=== PATIENT | female | born 1975 | race Caucasian/White ===

== ENCOUNTER 2021-07-17 16:09 | Inpatient (IN) | payer MEDICAID, SELFPAY ==
[2021-07-17] VITALS (34 sets, daily range): BP systolic 122–148; BP diastolic 80–104; PULSE 120–134; RESP 35–44; TEMP 36.4–36.8; O2SAT 72–94; BMI 61.9
--- NOTE | 2021-07-17 16:45 | ECG_ITS ---
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 Measurements Intervals [place] Rate: 122 P: 57 [place]: 179 QRS: 113 QRSD: 98 T: 45 QT: 434 QTc: 620 Interpretive Statements SINUS TACHYCARDIA POSSIBLE RIGHT VENTRICULAR HYPERTROPHY [SOME/ALL OF: PROMINENT R IN V1, LATE TRANSITION, RAD, BRINDA, SSS] MINIMAL ST DEPRESSION [0.025+ mV ST DEPRESSION] No previous ECG available for comparison Electronically Signed On 07-17-2021 21:56:40 FORK LIFT MECHANIC by Michael Morel M.D. [id number]
--- NOTE | 2021-07-17 16:45 | XRR_ITS ---
PROCEDURE INFORMATION: Exam: XR Chest Exam date and time: 07/17/2021 4:45 PM Age: 46 years old Clinical indication: Dyspnea; Patient HX: Hypoxia TECHNIQUE: Imaging protocol: XR of the chest. Views: 1 view. COMPARISON: No relevant prior studies available. FINDINGS: Lungs: Dense diffuse ground-glass opacities throughout both lungs. No focal consolidation. Pleural spaces: Unremarkable. No pleural effusion. No pneumothorax. Heart/Mediastinum: The heart size is upper normal. Bones/joints: Unremarkable. Soft tissues: A skin fold or clothing fold projects over the left lung. XR/XR chest 1V portable [id number] IMPRESSION: 1. Diffuse pulmonary edema versus pneumonia or ARDS.
--- NOTE | 2021-07-17 16:46 | CTR_ITS ---
PROCEDURE INFORMATION: Exam: CTA Chest With Contrast Exam date and time: 07/17/2021 4:46 PM Age: 46 years old Clinical indication: Shortness of breath; Additional info: Eval pe TECHNIQUE: Imaging protocol: Computed tomographic angiography of the chest with contrast. 3D rendering (Not supervised by radiologist): MIP and/or 3D reconstructed images were created by the technologist. Radiation optimization: All CT scans at this facility use at least one of these dose optimization techniques: automated exposure control; mA and/or kV adjustment per patient size (includes targeted exams where dose is matched to clinical indication); or iterative reconstruction. Contrast material: OMNI 350; Contrast volume: 78 ml; Contrast route: INTRAVENOUS (IV); COMPARISON: CR XR chest 1V portable [id number] 07/17/2021 4:54 PM RADIATION DOSE METRICS: Total DLP (mGy-cm): 542.07 FINDINGS: Pulmonary arteries: No definite filling defects identified within the pulmonary arteries. Evaluation is significantly limited due to severe breathing motion artifact which obscures many pulmonary artery branches. Aorta: Unremarkable. No aortic aneurysm. No aortic dissection. Lungs: Diffuse mixed ground-glass and interstitial opacities throughout both lungs with some sparing in the peripheral left upper lobe and peripheral lower lobes. Pleural spaces: Unremarkable. No pneumothorax. No pleural effusion. Heart: Mild cardiomegaly. Enlargement of the main pulmonary artery measuring 47 mm. Lymph nodes: Prominent mediastinal and hilar lymph nodes are most likely reactive. Gallbladder and bile ducts: Cholecystectomy. Bones/joints: Mild thoracic curvature. The patient is angled in the gantry. No fracture identified. Soft tissues: Unremarkable. CT/CT angio chest PE protcl [id number] IMPRESSION: 1. No definite evidence for pulmonary emboli. Evaluation is significantly limited due to severe breathing motion artifact. 2. Diffuse pulmonary edema versus atypical pneumonia or ARDS. 3. Enlargement of the central pulmonary arteries, most likely pulmonary artery hypertension.
[2021-07-17 17:00] LABS: Alveolar-Arterial Oxygen Gradi 80.4 mmHg (5-10); Arterial Blood Gas Hematocrit 48.9 % (37-47); Blood Gas Allen Test Pos; Blood Gas Operator Identificat GD; Blood Gas Sample Site Radial, right; Blood Gas Sample Type Arterial; Carboxyhemoglobin 0.5 %THgb (0.4-20.1); HCO3 ABG 6.3 mmol/L (22-26); HGB O2 Sat 85.2 % (95-100); Ionized Calcium Level - ABG 1.2 mmol/L (1.1-1.4); Methemoglobin 0.8 % (0.4-1.5); Oxygen Device NRB; Oxygen Saturation ABG 86.3; PO2 ABG 59.4 mmHg (80.0-100.0); Potassium Level - ABG 3.3 mmol/L (3.5-5.0); Total Hemoglobin 15.9 g/dL (12-16)
[2021-07-17 17:01] LABS: ABG PCO2 19.2 mmHg (35-45); ABG PH Result 7.12 (7.35-7.45)
[2021-07-17 17:13] LABS: Hematocrit 48.2 % (37.0-47.0); Hemoglobin 15.5 g/dL (11.5-15.3); Mean Corpuscular HGB Conc 32.2 g/dL (30.0-36.0); Mean Corpuscular Hemoglobin 27.4 pg (28.0-34.0); Mean Corpuscular Volume 85.2 fl (81-99); Mean Platelet Volume 9.2 fL (7.4-10.4); Platelet Count 386 10^3/cmm (130-400); Red Blood Count 5.66 10^6/uL (4.1-5.3)
[2021-07-17] MEDS: ipratropium-albuterol 3 mL Neb INHALATION ×2 (17:23→17:25)
--- NOTE | 2021-07-17 17:28 | PC.PHAR ---
pt and pts friend verified pts medications-pts friend states the pt doesnt have insurance and likes to only takes homeopathic products
[2021-07-17 17:35] LABS: Lactate (Lactic Acid level) 2.4 mmol/L (0.5-2.2)
[2021-07-17 17:36] LABS: Troponin(5th) Baseline 22 ng/L (0-10)
[2021-07-17] MEDS: potassium chloride ER 20 mEq Tablet 40 MEQ PO ×2 (17:42)
[2021-07-17] MEDS: cefepime 1,000 MG in sodium chloride 0.9% (plus) 50 ML 100 MG IV (17:44)
[2021-07-17] MEDS: lidocaine 1% 5 ML in potassium chloride premix 100 ML 50 ML IV (17:44)
[2021-07-17 17:45] LABS: Alanine Aminotransferase 57 U/L (0-33); Albumin Level 3.8 g/dL (3.5-5.2); Alkaline Phosphatase 110 IU/L (35-105); Anion Gap 35.2 (5-19); Aspartate Amino Transferase 49 U/L (0-32); Blood Urea Nitrogen 12 mg/dL (6-20); Calcium 8.4 mg/dL (8.5-10.5); Chloride 97 mmol/L (98-107); Globulin 4.4 g/dL (1.3-4.6); Glomerular Filtration Rate 66.8 mL/min (90-130); Lipase 24 U/L (13-60); NT Pro B Type Natriuretic Pept 490 pg/mL (0-125); Osmolality Calculated 307 mOsm/kg (285-295); Potassium 3.2 mmol/L (3.5-5.1); Sodium 137 mmol/L (136-145); Total Bilirubin 0.3 mg/dL (0.15-1.2); Total Protein 8.2 g/dL (6.6-8.7)
[2021-07-17] MEDS: sodium chloride 0.9% 1,000 ML 999 ML IV ×2 (17:45→17:46)
[2021-07-17] MEDS: vancomycin 1,000 MG in sodium chloride 0.9% 250 ML 250 MG IV (17:45)
[2021-07-17 17:50] LABS: Carbon Dioxide 8 mmol/L (22-29); Glucose 517 mg/dL (65-115)
[2021-07-17 17:51] LABS: Glucose Point of Care 505 mg/dL (70-110)
--- NOTE | 2021-07-17 17:57 | W.ED.GENADLT ---
HPI - General Adult General: Chief complaint: Altered Mental Status Stated complaint: SOB Time Seen by Provider: 07/17/21 16:45 History of Present Illness: HPI narrative: Patient is a 38-year-old female with a history of 2 diabetes, COPD presenting to the emergency room for complaints of acute onset of respiratory distress. Patient's family, patient has been in respiratory distress for the last few days now acutely worsened today. Patient does not believe improvement and refuses testing at this time. Patient reports cough, shortness of breath, fever and chill. Denies any abdominal complaints, chest pain, lightheadedness or palpitation. EMS was alerted patient was brought to the emergency room for evaluation. In route, patient has a glucose of 505 rest of history limited by respiratory status. Onset: 3 days ago Duration:3 days Location:home Severity:severe Review of Systems Narrative: Constitutional: +fever, no chills. HEENT: No vision changes CV: +chest pain, no palpitations PULM: no cough, +dyspnea. GI: No abdominal pain, no N/V/D. : No dysuria MSKEL: No muscle pain SKIN: No new rashes, no lesions. NEURO: No headache, no focal weakness. HEME: No visible bruises PSYCH: Normal mood Physical Exam Narrative: EXAM NARRATIVE: Head: Atraumatic Eyes: PERRL, conjunctiva without injection ENT: Mucous membrane dry NECK: Supple, ROM intact LUNGS: +Coarse breath sounds diffusely, +mild expiratory wheezing CV: Sinus tachycardia ABDOMEN: Soft, nontender in all quadrants EXTREMITY: Normal ROM, no lower extremity edema SKIN: No rash or erythema NEURO: Awake and alert, no focal motor deficits PSYCH: Normal mood and affect Course Vital Signs: Vital signs: Vital Signs Temperature 97.6 F 07/17/21 16:50 Pulse Rate 122 H 07/17/21 18:34 Respiratory Rate 35 H 07/17/21 18:34 Blood Pressure 122/80 07/17/21 18:34 Pulse Oximetry 92 07/17/21 18:34 MDM - General Adult MDM Narrative: Medical decision making narrative: 46-year-old female with history of diabetes, COPD presents emergency room in acute respiratory distress. On arrival, patient was satting 78% on room air. Patient had increased mild increased work of breathing, coarse breath sounds bilaterally. Patient replaced on high flow 50 L/min at 100% with improvement of O2 sats to 90%. Lab work-up showed a white count of 6.0. Patient is noted to have a glucose of 517 with a bicarb of 8, gap of 36, and pH of 7.16 consistent with possible DKA. X-ray chest showed possible multifocal pneumonia versus ARDS versus atypical pneumonia versus Covid. She received vancomycin, cefepime, azithromycin. Patient received 2 L of NS. Given potassium of 3.2, patient received 2 p.o. tablets of 40 mEq potassium and 20 mEq IV potassium prior to starting the insulin drip. Given the fact the patient has a proBNP of 500, without any signs of volume overload, I do not suspect the chest x-ray findings are secondary to CHF exacerbation. As such, patient will be placed on fluids. On reassessment at 7:57 PM, patient adamantly refused to be swabbed for Covid. Patient tells me that she does not want any type of intervention for Covid. Patient reiterates that she does not want to be placed on the ventilator should she be experiencing Covid. Patient will be admitted to the ICU for management of DKA and multifocal pneumonia versus ARDS Lab Data: Labs: Lab Results 07/17/21 07/17/21 07/17/21 16:38 16:40 17:00 WBC 16.0 10^3/uL H 10 ^3/uL (4.0-10.0) RBC 5.66 10^6/uL H 10 ^6/uL (4.1-5.3) Hgb 15.5 g/dL H g/dL (11.5-15.3) Hct 48.2 % H % (37.0-47.0) MCV 85.2 fl fl (81-99) MCH 27.4 pg L pg (28.0-34.0) MCHC 32.2 g/dL g/dL (30.0-36.0) RDW 14.0 % % (12.1-15.1) Plt Count 386 10^3/cmm 10^3 /cmm (130-400) MPV 9.2 fL fL (7.4-10.4) Lymph % (Auto) Not Reportable [place] % (Auto) Not Reportable Lymph # (Auto) Not Reportable [place] # (Auto) Not Reportable Total Counted Atypical Lymphs % Segmented Neutroph ils Band Neutrophils Lymphocytes (Manua l) Monocytes (Manual) Eosinophils (Manua l) Basophils (Manual) Metamyelocytes Platelet Estimate Specimen Type Arterial Sample Site Radial, right ABG pH 7.12 L* (7.35-7.45) ABG pCO2 19.2 mmHg L* mmHg (35-45) ABG pO2 59.4 mmHg L mmHg (80.0-100.0) ABG HCO3 6.3 mmol/L L mmol /L (22-26) ABG O2 Saturation 86.3 ABG Base Excess -21.0 mmol/L L mm ol/L (-2.0-2.0) Isrrael Test Pos A-a O2 Gradient 80.4 mmHg H mmHg (5-10) Hematocrit 48.9 % H % (37-47) Hgb O2 Saturation 85.2 % L % (95-100) Carboxyhemoglobin 0.5 %THgb %THgb (0.4-20.1) Methemoglobin 0.8 % % (0.4-1.5) Total Hemoglobin 15.9 g/dL g/dL (12-16) Sodium 144.0 mmol/L H mm ol/L (131-143) Potassium 3.3 mmol/L L mmol /L (3.5-5.0) Glucose 531.0 mg/dL H mg/ dL (70-115) Ionized Calcium 1.2 mmol/L mmol/L (1.1-1.4) O2 Delivery Device Nrb O2 Liters/Min 15.0 % % FiO2 100.0 % % Irrigation Equipment Installer ID Gd Chloride Carbon Dioxide Anion Gap BUN Creatinine GFR Calculation POC Glucose 505 mg/dL H* mg/d L (70-110) Calculated Osmolal ity Lactate Calcium Total Bilirubin AST ALT Alkaline Phosphata se Troponin T Baselin e NT-Pro-B Natriuret Pep Total Protein Albumin Globulin Lipase Urine Color Urine Appearance Urine pH Ur Specific Gravit y Urine Protein Urine Glucose (UA) Urine Ketones Urine Blood Urine Nitrate Urine Bilirubin Urine Urobilinogen Ur Leukocyte Dona ase Urine RBC Urine WBC Ur Squamous Epith Cells Amorphous Sediment Urine Bacteria Hyaline Casts Serum Ketones 07/17/21 07/17/21 07/17/21 17:00 17:00 17:00 WBC RBC Hgb Hct MCV MCH MCHC RDW Plt Count MPV Lymph % (Auto) [place] % (Auto) Lymph # (Auto) [place] # (Auto) Total Counted Atypical Lymphs % Segmented Neutroph ils Band Neutrophils Lymphocytes (Manua l) Monocytes (Manual) Eosinophils (Manua l) Basophils (Manual) Metamyelocytes Platelet Estimate Specimen Type Sample Site ABG pH ABG pCO2 ABG pO2 ABG HCO3 ABG O2 Saturation ABG Base Excess Isrrael Test A-a O2 Gradient Hematocrit Hgb O2 Saturation Carboxyhemoglobin Methemoglobin Total Hemoglobin Sodium 137 mmol/L mmol/L (136-145) Potassium 3.2 mmol/L L mmol /L (3.5-5.1) Glucose 517 mg/dL H* mg/d L (65-115) Ionized Calcium O2 Delivery Device O2 Liters/Min FiO2 Irrigation Equipment Installer ID Chloride 97 mmol/L L mmol/ L (98-107) Carbon Dioxide 8 mmol/L L* mmol/ L (22-29) Anion Gap 35.2 H (5-19) BUN 12 mg/dL mg/dL (6-20) Creatinine 0.9 mg/dL mg/dL (0.5-0.9) GFR Calculation 66.8 mL/min L mL/ min (90-130) POC Glucose Calculated Osmolal ity 307 mOsm/kg H mOs m/kg (285-295) Lactate Calcium 8.4 mg/dL L mg/dL (8.5-10.5) Total Bilirubin 0.3 mg/dL mg/dL (0.15-1.2) AST 49 U/L H U/L (0-32) ALT 57 U/L H U/L (0-33) Alkaline Phosphata se 110 IU/L H IU/L (35-105) Troponin T Baselin e 22 ng/L H ng/L (0-10) NT-Pro-B Natriuret Pep 490 pg/mL H pg/mL (0-125) Total Protein 8.2 g/dL g/dL (6.6-8.7) Albumin 3.8 g/dL g/dL (3.5-5.2) Globulin 4.4 g/dL g/dL (1.3-4.6) Lipase 24 U/L U/L (13-60) Urine Color Urine Appearance Urine pH Ur Specific Gravit y Urine Protein Urine Glucose (UA) Urine Ketones Urine Blood Urine Nitrate Urine Bilirubin Urine Urobilinogen Ur Leukocyte Dona ase Urine RBC Urine WBC Ur Squamous Epith Cells Amorphous Sediment Urine Bacteria Hyaline Casts Serum Ketones Positive H (Negative) 07/17/21 07/17/21 07/17/21 17:00 17:00 18:30 WBC RBC Hgb Hct MCV MCH MCHC RDW Plt Count MPV Lymph % (Auto) [place] % (Auto) Lymph # (Auto) [place] # (Auto) Total Counted 100 (0-100) Atypical Lymphs % 1.0 % % (0-5) Segmented Neutroph ils 77 % % Band Neutrophils 5.0 % % Lymphocytes (Manua l) 7 % % Monocytes (Manual) 8.0 % % Eosinophils (Manua l) 0 % % Basophils (Manual) 0.0 % % Metamyelocytes 2.0 % % Platelet Estimate Normal (Normal) Specimen Type Sample Site ABG pH ABG pCO2 ABG pO2 ABG HCO3 ABG O2 Saturation ABG Base Excess Isrrael Test A-a O2 Gradient Hematocrit Hgb O2 Saturation Carboxyhemoglobin Methemoglobin Total Hemoglobin Sodium Potassium Glucose Ionized Calcium O2 Delivery Device O2 Liters/Min FiO2 Irrigation Equipment Installer ID Chloride Carbon Dioxide Anion Gap BUN Creatinine GFR Calculation POC Glucose Calculated Osmolal ity Lactate 2.4 mmol/L H mmol /L (0.5-2.2) Calcium Total Bilirubin AST ALT Alkaline Phosphata se Troponin T Baselin e NT-Pro-B Natriuret Pep Total Protein Albumin Globulin Lipase Urine Color Yellow (Yellow) Urine Appearance Clear (CLEAR) Urine pH 5 (5-7) Ur Specific Gravit y 1.020 (1.005-1.030) Urine Protein 2+ H (Negative) Urine Glucose (UA) 4+ H (Normal) Urine Ketones 3+ H (Negative) Urine Blood 3+ H (Negative) Urine Nitrate Negative (Negative) Urine Bilirubin Neg (Negative) Urine Urobilinogen Norm mg/dL mg/dL (Negative) Ur Leukocyte Dona ase Negative (Negative) Urine RBC 5-10 /hpf H /hpf (0-2) Urine WBC None /hpf /hpf (0-5) Ur Squamous Epith Cells 0-4 /hpf H /hpf (0-5) Amorphous Sediment Not Reportable Urine Bacteria Trace /hpf /hpf (NONE) Hyaline Casts 5-10 /lpf H /lpf Serum Ketones Imaging Data^: Other Imaging: Radiologist's impression: [facility] [id number] Scan ReportSigned Patient: Erika Yu #: [id number]: 1975Acct#:[id number]/Sex: 46 / FADM Date: 07/17/21Loc: ERRoom/Bed:Attending Dr: Ordering Provider/Ordering MD: Rui Bowen MD Date of Service: 07/17/21 Procedure(s): CT angio chest PE protcl [id number] Accession Number(s): [id number] Report Number: [id number] PROCEDURE INFORMATION: Exam: CTA Chest With Contrast Exam date and time: 07/17/2021 4:46 PM Age: 46 years old Clinical indication: Shortness of breath; Additional info: Eval pe TECHNIQUE: Imaging protocol: Computed tomographic angiography of the chest with contrast. 3D rendering (Not supervised by radiologist): MIP and/or 3D reconstructed images were created by the technologist. Radiation optimization: All CT scans at this facility use at least one of these dose optimization techniques: automated exposure control; mA and/or kV adjustment per patient size (includes targeted exams where dose is matched to clinical indication); or iterative reconstruction. Contrast material: OMNI 350; Contrast volume: 78 ml; Contrast route: INTRAVENOUS (IV); COMPARISON: CR XR chest 1V portable [id number] 07/17/2021 4:54 PM RADIATION DOSE METRICS: Total DLP (mGy-cm): 542.07 FINDINGS: Pulmonary arteries: No definite filling defects identified within the pulmonary arteries. Evaluation is significantly limited due to severe breathing motion artifact which obscures many pulmonary artery branches. Aorta: Unremarkable. No aortic aneurysm. No aortic dissection. Lungs: Diffuse mixed ground-glass and interstitial opacities throughout both lungs with some sparing in the peripheral left upper lobe and peripheral lower lobes. Pleural spaces: Unremarkable. No pneumothorax. No pleural effusion. Heart: Mild cardiomegaly. Enlargement of the main pulmonary artery measuring 47 mm. Lymph nodes: Prominent mediastinal and hilar lymph nodes are most likely reactive. Gallbladder and bile ducts: Cholecystectomy. Bones/joints: Mild thoracic curvature. The patient is angled in the gantry. No fracture identified. Soft tissues: Unremarkable. CT/CT angio chest PE protcl [id number] IMPRESSION: 1. No definite evidence for pulmonary emboli. Evaluation is significantly limited due to severe breathing motion artifact. 2. Diffuse pulmonary edema versus atypical pneumonia or ARDS. 3. Enlargement of the central pulmonary arteries, most likely pulmonary artery hypertension. Dictated By:Davy Sheppard By:Davy Sheppard Date/Time:07/17/21 1933DD/ [address] [address]AGgn ReportSigned Patient: Erika Yu #: [id number]: 1975Acct#:[id number]/Sex: 46 / FADM Date: 07/17/21Loc: ERRoom/Bed:Attending Dr: Ordering Provider/Ordering MD: Rui Bowen MD Date of Service: 07/17/21 Procedure(s): XR chest 1V portable [id number] Accession Number(s): [id number] Report Number: [id number] PROCEDURE INFORMATION: Exam: XR Chest Exam date and time: 07/17/2021 4:45 PM Age: 46 years old Clinical indication: Dyspnea; Patient HX: Hypoxia TECHNIQUE: Imaging protocol: XR of the chest. Views: 1 view. COMPARISON: No relevant prior studies available. FINDINGS: Lungs: Dense diffuse ground-glass opacities throughout both lungs. No focal consolidation. Pleural spaces: Unremarkable. No pleural effusion. No pneumothorax. Heart/Mediastinum: The heart size is upper normal. Bones/joints: Unremarkable. Soft tissues: A skin fold or clothing fold projects over the left lung. XR/XR chest 1V portable [id number] IMPRESSION: 1. Diffuse pulmonary edema versus pneumonia or ARDS. Dictated By:Davy Sheppard By:Davy Sheppard Date/Time:07/17/21 [id number]/ 1645 Critical Care Time Critical Care Time: Critical Care Time: Yes Total Critical Care Time: 45 Attestation: Given the high probability of imminent or life threatening deterioration of the patient?s condition without intervention, the patient was immediately assessed by myself and the nurse, and cardiac monitoring initiated. The patient was also placed on oxygen and continuous pulse oximetry initiated. During the course of the patient?s stay, I spent a considerable amount of time at the bedside performing serial re-evaluations of the patient?s hemodynamic and clinical status because of the recognized potential threat to life or limb in this condition. Clinical management of this patient involved high complexity decision making to assess, manipulate, and support vital organ system failure. I then had a chance to review all of the available laboratory and radiographic studies obtained today, and I also reviewed old records available to me at the time. Sequential vital signs were obtained. Critical care time noted below was time spent engaged in work directly related to the individual patient?s care, not including time performing procedures; however it does include time spent at the immediate bedside or elsewhere on the floor or unit. TOTAL CRITICAL CARE TIME ELAPSED: 45 minutes. BODY SYSTEM AT HIGHEST RISK: Pulmonary. Discharge Plan Discharge Patient Disposition: Admitted As Inpatient Clinical Impression: Acute hypoxemic respiratory failure, DKA (diabetic ketoacidosis), Lung infiltrate Condition: Stable Coding Level of Care Code ED Advertising Executive for Glenna Yepez
[2021-07-17 18:01] LABS: Ketone (Acetest) Serum Positive (Negative)
[2021-07-17 18:05] LABS: Eosinophils 0 %; Lymphocytes 7 %; Platelet Estimate Normal (Normal); Segmented Neutrophils 77 %; Total Cells Counted 100 (0-100)
--- NOTE | 2021-07-17 18:20 | PC.NURSE ---
This Rn spoke with Dr. Tafoya about pt refusing to allow a mccarthy to be placed, Dr. Tafoya still wants mccarthy placed. This RN requested Dr. Tafoya place the new mccarthy, Dr. Tafoya unable to do so at this time. This Rn spoke with Riley Elizabeth and Lyubov, supervisor coffee to advise. This Rn requesting the Urologist come place mccarthy, Clara advised she will talk with Dr. Tafoya
[2021-07-17 19:06] LABS: Add Urine Microscopic? YES; Bacteria Urine TRACE /hpf; Bilirubin Urine Neg (Negative); Blood Urine 3+ (Negative); Glucose Urine UA 4+ (Normal); Ketones Urine 3+ (Negative); Leukocyte Esterase Urine Negative (Negative); Nitrate Urine Negative (Negative); Protein Urine 2+ (Negative); Squamous Epithelial Cell Urine 0-4 /hpf (0-5); Urine Appearance Clear (CLEAR); Urine Color Yellow (Yellow); Urobilinogen Urine Norm (Negative); pH Urine 5 (5-7)
[2021-07-17 19:07] LABS: Add Urine Culture? No
[2021-07-17] MEDS: iohexol 350 mg/mL 100 mL Btl IV (19:07)
[2021-07-17 19:58] LABS: Troponin 5 2HR 22.63 ng/L (0-10); Troponin 5 2HR Delta 0.63 ABS# (0-10)
[2021-07-17] MEDS: insulin regular-human 250 UNIT in sodium chloride 0.9% 250 ML 13.2 UNIT IV (21:01)
--- NOTE | 2021-07-17 21:04 | PC.SOCIAL ---
Dr Crystal requests that HCD be fiilled out and patient is agreeable. Verified patient name and and patient was able to verbalize this. She knows she is in the hospital. She is able to communicate verbally that she wants all life saving measure to be done. She does refuse any testing or treatment for COVID and feels COVID is considered the Billy of the Beast Her friend present in room indicates this is her belief regarding covid. All of these wishes were documented on HCD that she would want all life saving measure except refuses treatment or testing for COVID and patient has verbalized these are her wishes. Her appointed decision maker Wilder Angel (Significant Other) was on phone during the conversation. All papers filled out with 2 witnesses who are Angie and Dr Crystal. Original and copy provided to patient for her and S.O. and one copy placed in chart. All present agreed patient was alert and oriented enough to make her decisions.
[2021-07-17 22:04] LABS: Anion Gap 32.3 (5-19); Blood Urea Nitrogen 16 mg/dL (6-20); Calcium 7.7 mg/dL (8.5-10.5); Chloride 109 mmol/L (98-107); Glomerular Filtration Rate 76.6 mL/min (90-130); Glucose 410 mg/dL (65-115); Osmolality Calculated 316 mOsm/kg (285-295); Potassium 3.3 mmol/L (3.5-5.1); Sodium 144 mmol/L (136-145)
[2021-07-17 22:07] LABS: Glucose Point of Care 367 mg/dL (70-110)
[2021-07-17 22:08] LABS: Carbon Dioxide 6 mmol/L (22-29)
--- NOTE | 2021-07-17 22:30 | PC.NURSE ---
Critical Carbon Dioxide Carbon dioxide level critical at 6. Dr. Crystal notified; no new orders received.
--- NOTE | 2021-07-17 22:39 | PC.NURSE ---
this nurse gave a loading dose of 10 units from the iv pump over [address] rafael SOTO
--- NOTE | 2021-07-17 22:45 | ECG_ITS ---
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 Measurements Intervals [place] Rate: 125 P: 38 [place]: 175 QRS: 110 QRSD: 86 T: 34 QT: 410 QTc: 593 Interpretive Statements SINUS TACHYCARDIA POSSIBLE RIGHT VENTRICULAR HYPERTROPHY [SOME/ALL OF: PROMINENT R IN V1, LATE TRANSITION, RAD, BRINDA, SSS] ANTEROLATERAL MYOCARDIAL INFARCTION , OF INDETERMINATE AGE [40+ ms Q WAVE IN I/aVL/V3-V6] Compared to ECG 07/17/2021 16:50:49 Myocardial infarct finding now present ST (T wave) deviation no longer present Electronically Signed On 07-18-2021 10:55:12 UROLOGIC NURSE by Michael Morel M.D. [id number]
[2021-07-17] MEDS: sodium chlor 0.9% + KCl 20 mEq 20 MEQ/1,000 ML BAG 100 MEQ IV (23:06)
[2021-07-17] MEDS: famotidine 20 mg/2 mL INJ IVP (23:07)
[2021-07-17] MEDS: enoxaparin 40 mg/0.4 mL Syringe SUBCUT (23:07)
--- NOTE | 2021-07-17 23:11 | PM.HP ---
Providers/Chief Complaint Admitting Physician: Sadie Crystal MD Chief Complaint: SOB History of Present Illness Sherrie Yu is a 46 year old female with PMH asthma on inhalers, now usually on home 02, diabetic however has not used insulin in years. In her usual state of health until one week ago when she developed generalized weakness, malaise, headache, fever and wheezing. She concluded this was related to mold in her home. Her friend received a call from her life partner that she is having trouble breathing today and went to her PCP. 02 sat were noted to be 60s-70s, was directed to come to ER. Here she has been on 100% fi02 at 60lpm heated hi flow since arrival. tachypneic with HR 132, RR 40bpm. Found to have DKA additionally with + ketones, blood sugar >500, metabolic acidosis. CTA chest negative for PE but shows Diffuse pulmonary edema versus atypical pneumonia or ARDS and likely pulmonary artery hypertension. Patient is unvaccinated for COVID 19, believes COVID is carlos of the devil, refuses all COVID testing and COVID treatment. No c/o chest pain, dyspnea, palpitations, syncope. Review of Systems General: Reports: 10 or more systems reviewed and unremarkable except in HPI and below Const: Denies: fever(s), chills or body aches Eyes: Denies: change in vision, blurry vision or photophobia ENMT: Reports: hoarseness; Denies: throat pain, enlarged tonsils, odynophagia or nasal congestion Card: Denies: chest pain, palpitations, irregular heart rhythm, edema, swelling of feet/ankles, lightheadedness, pre-syncope, dyspnea on exertion or orthopnea Resp: Denies: dyspnea, productive cough, non-productive cough, wheezing, stridor, pain on inspiration, change in phlegm color, hemoptysis or chest congestion GI: Denies: abdominal pain, nausea, vomiting, hematemesis, coffee ground emesis, dysphagia, heartburn, diarrhea, constipation, GI cramping, change in stool character, hematochezia or melena : Denies: flank pain, difficulty voiding, dysuria, urinary frequency, urinary urgency, urinary hesitancy or hematuria Musc: Denies: neck pain, back pain, extremity pain, joint swelling, joint warmth or deformity Neuro: Denies: headache(s), numbness in extremities, weakness in extremities, sensory changes, difficulty walking, frequent falls, dizziness, vertigo, behavioral changes, Slurred speech present or seizure-like activity Psych: Denies: anxiety, depression, suicidal ideation or homicidal ideation Endo: Denies: polyuria, polydipsia, tired all the time, cold intolerance or hot flashes Umair/Lymph: Denies: easy bruising or easy bleeding Medications/Allergies Home Medications Medication Instructions Recorded Confirmed Last Taken Type Grape Seed Extract Drops 30 drp PO .EIGHT TIMES A DAY 07/17/21 07/17/21 Unknown History albuterol sulfate 2 puff INHALATION QID PRN 07/17/21 07/17/21 Unknown History Allergies Allergy/AdvReac Type Severity Reaction Status Date / Time No Known Allergies Allergy Unverified 07/17/21 17:28 PFSH Acute PFSH: Medical History Asthma Diabetes Vitals/I&O/Wt Last Vital Signs Temp 97.6 F 07/17/21 16:50 Pulse 132 H 07/17/21 22:14 Resp 40 H 07/17/21 22:14 BP 137/96 07/17/21 22:00 Pulse Ox 92 07/17/21 22:14 07/17/21 07/17/21 07/18/21 14:59 22:59 06:59 Intake Total 333 / 2012.333 Balance 333 Weight last 48 hrs Weight 158.757 kg Physical Exam Narrative: EXAM NARRATIVE: General: moderate respiratory distress, using accessory muscles of respiration, tachypneic, appears to be fatigued related to respiratory distress, on heated hi flow HEENT: PERRLA, pupils bilaterally equal and reactive, pallors not present Chest: B/L coarse breath sounds and crackles all lung reyes CVS: S1-S2 regular, tachycardia Abdomen: Soft, nontender, non distended Neuro: No focal deficits, no facial deformity, AO x3, power 5/5 in all limbs Extremities: no edema, clubbing or cyanosis Urinary Catheter Management^: Porter: Cath Placed During This Visit: yes Urinary Catheter Date of Insertion: 07/17/21 Urinary Catheter Time of Insertion: 18:58 Data : 07/18/21 03:53 07/18/21 01:25 Micro: Microbiology 07/17/21 17:00 Blood Culture - Preliminary Blood SPECIMEN COLLECTED 07/17/21 17:00 Blood Culture - Preliminary Blood SPECIMEN COLLECTED Attestation for Other Data: I personally reviewed and interpreted the following: Other data: Laboratory Results WBC 16.0 10^3/uL (4.0-10.0) H 07/17/21 17:00 RBC 5.66 10^6/uL (4.1-5.3) H 07/17/21 17:00 Hgb 15.5 g/dL (11.5-15.3) H 07/17/21 17:00 Hct 48.2 % (37.0-47.0) H 07/17/21 17:00 MCV 85.2 fl (81-99) 07/17/21 17:00 MCH 27.4 pg (28.0-34.0) L 07/17/21 17:00 MCHC 32.2 g/dL (30.0-36.0) 07/17/21 17:00 RDW 14.0 % (12.1-15.1) 07/17/21 17:00 Plt Count 386 10^3/cmm (130-400) 07/17/21 17:00 MPV 9.2 fL (7.4-10.4) 07/17/21 17:00 Lymph % (Auto) Not Reportable 07/17/21 17:00 [place] % (Auto) Not Reportable 07/17/21 17:00 Lymph # (Auto) Not Reportable 07/17/21 17:00 [place] # (Auto) Not Reportable 07/17/21 17:00 Total Counted 100 (0-100) 07/17/21 17:00 Atypical Lymphs % 1.0 % (0-5) 07/17/21 17:00 Segmented Neutrophils 77 % 07/17/21 17:00 Band Neutrophils 5.0 % 07/17/21 17:00 Lymphocytes (Manual) 7 % 07/17/21 17:00 Monocytes (Manual) 8.0 % 07/17/21 17:00 Eosinophils (Manual) 0 % 07/17/21 17:00 Basophils (Manual) 0.0 % 07/17/21 17:00 Metamyelocytes 2.0 % 07/17/21 17:00 Platelet Estimate Normal (Normal) 07/17/21 17:00 Specimen Type Arterial 07/17/21 16:40 Sample Site Radial, right 07/17/21 16:40 ABG pH 7.12 (7.35-7.45) L* 07/17/21 16:40 ABG pCO2 19.2 mmHg (35-45) L* 07/17/21 16:40 ABG pO2 59.4 mmHg (80.0-100.0) L 07/17/21 16:40 ABG HCO3 6.3 mmol/L (22-26) L 07/17/21 16:40 ABG O2 Saturation 86.3 07/17/21 16:40 ABG Base Excess -21.0 mmol/L (-2.0-2.0) L 07/17/21 16:40 [place] Test Pos 07/17/21 16:40 A-a O2 Gradient 80.4 mmHg (5-10) H 07/17/21 16:40 Hematocrit 48.9 % (37-47) H 07/17/21 16:40 Hgb O2 Saturation 85.2 % (95-100) L 07/17/21 16:40 Carboxyhemoglobin 0.5 %THgb (0.4-20.1) 07/17/21 16:40 Methemoglobin 0.8 % (0.4-1.5) 07/17/21 16:40 Total Hemoglobin 15.9 g/dL (12-16) 07/17/21 16:40 Sodium 144.0 mmol/L (131-143) H 07/17/21 16:40 Potassium 3.3 mmol/L (3.5-5.0) L 07/17/21 16:40 Glucose 531.0 mg/dL (70-115) H 07/17/21 16:40 Ionized Calcium 1.2 mmol/L (1.1-1.4) 07/17/21 16:40 O2 Delivery Device Nrb 07/17/21 16:40 O2 Liters/Min 15.0 % 07/17/21 16:40 FiO2 100.0 % 07/17/21 16:40 Financial Services Education Consultant ID Gd 07/17/21 16:40 Sodium 144 mmol/L (136-145) 07/17/21 21:25 Potassium 3.3 mmol/L (3.5-5.1) L 07/17/21 21:25 Chloride 109 mmol/L (98-107) H 07/17/21 21:25 Carbon Dioxide 6 mmol/L (22-29) L* 07/17/21 21:25 Anion Gap 32.3 (5-19) H 07/17/21 21:25 BUN 16 mg/dL (6-20) 07/17/21 21:25 Creatinine 0.8 mg/dL (0.5-0.9) 07/17/21 21:25 GFR Calculation 76.6 mL/min (90-130) L 07/17/21 21:25 Glucose 410 mg/dL (65-115) H 07/17/21 21:25 POC Glucose 317 mg/dL (70-110) H 07/17/21 23:09 Calculated Osmolality 316 mOsm/kg (285-295) H 07/17/21 21:25 Lactate 2.4 mmol/L (0.5-2.2) H 07/17/21 17:00 Calcium 7.7 mg/dL (8.5-10.5) L 07/17/21 21:25 Total Bilirubin 0.3 mg/dL (0.15-1.2) 07/17/21 17:00 AST 49 U/L (0-32) H 07/17/21 17:00 ALT 57 U/L (0-33) H 07/17/21 17:00 Alkaline Phosphatase 110 IU/L (35-105) H 07/17/21 17:00 Troponin T Baseline 22 ng/L (0-10) H 07/17/21 17:00 Troponin T 120 Minute 22.63 ng/L (0-10) H 07/17/21 19:30 Delta Troponin T 0.63 ABS# (0-10) 07/17/21 19:30 NT-Pro-B Natriuret Pep 490 pg/mL (0-125) H 07/17/21 17:00 Total Protein 8.2 g/dL (6.6-8.7) 07/17/21 17:00 Albumin 3.8 g/dL (3.5-5.2) 07/17/21 17:00 Globulin 4.4 g/dL (1.3-4.6) 07/17/21 17:00 Lipase 24 U/L (13-60) 07/17/21 17:00 Urine Color Yellow (Yellow) 07/17/21 18:30 Urine Appearance Clear (CLEAR) 07/17/21 18:30 Urine pH 5 (5-7) 07/17/21 18:30 Ur Specific [place] 1.020 (1.005-1.030) 07/17/21 18:30 Urine Protein 2+ (Negative) H 07/17/21 18:30 Urine Glucose (UA) 4+ (Normal) H 07/17/21 18:30 Urine Ketones 3+ (Negative) H 07/17/21 18:30 Urine Blood 3+ (Negative) H 07/17/21 18:30 Urine Nitrate Negative (Negative) 07/17/21 18:30 Urine Bilirubin Neg (Negative) 07/17/21 18:30 Urine Urobilinogen Norm mg/dL (Negative) 07/17/21 18:30 Ur Leukocyte Esterase Negative (Negative) 07/17/21 18:30 Urine RBC 5-10 /hpf (0-2) H 07/17/21 18:30 Urine WBC None /hpf (0-5) 07/17/21 18:30 Ur Squamous Epith Cells 0-4 /hpf (0-5) H 07/17/21 18:30 Amorphous Sediment Not Reportable 07/17/21 18:30 Urine Bacteria Trace /hpf (NONE) 07/17/21 18:30 Hyaline Casts 5-10 /lpf H 07/17/21 18:30 Urine Opiates Screen Negative ng/mL (Negative) 07/17/21 23:07 Ur Barbiturates Screen Negative ng/mL (Negative) 07/17/21 23:07 Ur Phencyclidine Scrn Negative ng/mL (Negative) 07/17/21 23:07 Ur Amphetamines Screen Negative ng/mL (Negative) 07/17/21 23:07 U Benzodiazepines Scrn Positive ng/mL (Negative) H 07/17/21 23:07 Urine Cocaine Screen Negative ng/mL (Negative) 07/17/21 23:07 U Marijuana (THC) Screen Negative ng/mL (Negative) 07/17/21 23:07 Serum Ketones Positive (Negative) H 07/17/21 17:00 Impressions Chest X-Ray 07/17/21 16:45 IMPRESSION: 1. Diffuse pulmonary edema versus pneumonia or ARDS. Chest CTA 07/17/21 16:46 IMPRESSION: 1. No definite evidence for pulmonary emboli. Evaluation is significantly limited due to severe breathing motion artifact. 2. Diffuse pulmonary edema versus atypical pneumonia or ARDS. 3. Enlargement of the central pulmonary arteries, most likely pulmonary artery hypertension. 07/17/21 16:40 ABG pH 7.12 L* ABG pCO2 19.2 L* ABG pO2 59.4 L ABG HCO3 6.3 L ABG O2 Saturation 86.3 ABG Base Excess -21.0 L A&P Assessment and plan (1) Acute hypoxemic respiratory failure: Admit to ICU in view of acute hypoxemic respiratory failure, impending respiratory distress CTA negative for PE, B/L GGOS and infiltrates concerning for ARDS Differentials include COVID 19 pneumonia, vs bacterial pneumonia incl atypical infections Pateint refusing all COVID 19 testing and treatment including rapid antigen, PCR testing, Remdisivir, tocilizumab and baricitinib. States that this is against her hinduism beliefs and states this is carlos of the devil . Understands that refusing all testing and treatment should she have COVID may be fatal for her. Agreeable for influenza, sputum cx and MRSA screen testing Empiric Zosyn, vanomycin and azithromycin for treatment blood cx taken prior to starting abx Less likely to be pulmonary edema- no clinical signs of fluid overload at this time, BNP 400s. Check Echo to assess for underlying pulmonary HTN. Holding diuretics for now, patient needs aggressive fluid resuscitation currently for DKA. Heated high flow for now, high risk of progression to respiratory fatigue and mechanical ventilation Agreeable for intubation and mechanical ventilation Status: Acute (2) DKA (diabetic ketoacidosis): started on insulin infusion per DKA protocol , target glucose 80-120 CMP every 4 hrs Repeat ABG IVF NS with KCl @ 125cc/hr Once glucose ~250, switch fluids to D5NS Status: Acute (3) ARDS (adult respiratory distress syndrome): as above Status: Acute Additional A&P Information extensive GOC discussion as below : Patient is Full code in accordance with her wishes. She is currently alert, awake and oriented. Knows her name, birthday, fact that she is in a hospital and identifies her friend at bedside and life partner on the phone by correct names. She does not wish her parents, siblings or her daughter in [place] to be contacted with healthcare information or decisions regarding her care should she be in a position not to make decisions for herself. This is because they have different beliefs than her according to her. She designates her /life partner ( by darby, uncertain if has any documentation) Wilder to be the decision maker in the event she cannot speak for herself. This conversation was witnessed by me, ER nurses Angie and Gordon, patient's friend Reyna at bedside and life partner on speakerphone. HCD were fiilled out in the ER and additionally notarized to reflect patient's wishes. Bonnie Matamoros from case management was additionally present at this time. Patient able to communicate verbally that she wants all life saving measure to be done including CPR, mechanical ventilation, antibiotics,tube feeding if needed, etc.. She does refuse any testing or treatment for COVID and feels COVID is considered the Carlos of the Beast . Her friend present in room indicates this is her belief regarding covid.She understands that by refusing such testing and treatment should she have COVID will be detrimental to her health and she can as a result. All of these wishes were documented on HCD. Her appointed decision maker Wilder Angel (Significant Other) was on phone during the conversation. All papers filled out with 2 witnesses. Original and copy provided to patient for her and S.O. and one copy placed in chart. All present agreed patient was alert and oriented enough to make her decisions at this time. Isolation precautions and visitor restrictions per hospital policy to continue during admission presuming COVID given CT findings, clinical history, most likely differential in current pandemic. Patient and DPOA understands and acknowledges this. DVT ppx: lovenox Full code Attestations Medical Necessity Statement*: >2midnight admission will be needed for above defined care Critical Care Time: The high probability of a clinically significant, sudden or life threatening deterioration of the patient's [respiratory,endocrine,cardiovascular,infectious] system(s) required my full and direct attention, intervention and personal management. The critical care time is as shown. This time is in addition to time spent performing any reported procedures but includes the following: [x] Data and vital sign review and interpretation [x] Patient assessment, examination and intervention [x] Documentation [x] Medication orders and management Critical Care Time (min): 90 Coding Level of Care Code Acute Milking Machine Operator for Chg Fwd Diagnoses Acute hypoxemic respiratory failure J96.01 DKA (diabetic ketoacidosis) E11.10 ARDS (adult respiratory distress syndrome) J80
--- NOTE | 2021-07-17 23:30 | PC.NURSE ---
Family Visit Patient's oxygen saturation staying high 80s- low 90s, RR in the 30s. Patient remaining confused. Wilder, patient's DPOA, visited patient at this time with approval from Dr. Crystal. Questions answered about patient status, Wilder verbalized understanding. Wilder informed no visitors allowed for patient in future due to COVID precautions.
[2021-07-17 23:37] LABS: Glucose Point of Care 317 mg/dL (70-110)
[2021-07-17 23:45] LABS: Troponin 5 6HR 21.55 ng/L (0-10)
[2021-07-17 23:51] LABS: Troponin 5 6HR Delta -0.45 ng/L (0-12)
[2021-07-18] VITALS (83 sets, daily range): BP systolic 91–170; BP diastolic 52–98; PULSE 66–134; RESP 24–34; TEMP 36.6–37.4; O2SAT 79–95; BMI 39.2
[2021-07-18 00:09] LABS: Glucose Point of Care 285 mg/dL (70-110)
[2021-07-18] MEDS: azithromycin 500 MG in sodium chloride 0.9% 250 ML 250 MG IV (00:13)
[2021-07-18] MEDS: vancomycin 1,000 MG in sodium chloride 0.9% 250 ML 250 MG IV (00:13)
[2021-07-18 01:37] LABS: Influenza A by IFA Negative (Negative); Influenza B by IFA Negative (Negative)
[2021-07-18 01:50] LABS: Alanine Aminotransferase 46 U/L (0-33); Albumin Level 3.3 g/dL (3.5-5.2); Alkaline Phosphatase 101 IU/L (35-105); Aspartate Amino Transferase 32 U/L (0-32); Blood Urea Nitrogen 18 mg/dL (6-20); Calcium 8.2 mg/dL (8.5-10.5); Chloride 115 mmol/L (98-107); Globulin 4.2 g/dL (1.3-4.6); Glomerular Filtration Rate 66.8 mL/min (90-130); Glucose 250 mg/dL (65-115); Osmolality Calculated 308 mOsm/kg (285-295); Sodium 144 mmol/L (136-145); Total Bilirubin 0.2 mg/dL (0.15-1.2); Total Protein 7.5 g/dL (6.6-8.7)
[2021-07-18 01:56] LABS: Carbon Dioxide 8 mmol/L (22-29)
[2021-07-18 02:11] LABS: Glucose Point of Care 500 mg/dL (70-110)
[2021-07-18 02:11] LABS: Glucose Point of Care 218 mg/dL (70-110)
[2021-07-18 02:13] LABS: Amphetamines Screen Urine Negative (Negative); Barbiturates Screen Urine Negative (Negative); Benzodiazepines Screen Urine Negative (Negative); Cocaine Screen Urine Negative (Negative); Opiate Screen Urine Negative (Negative); PCP Screen Urine Negative (Negative); THC Screen Urine Negative (Negative)
--- NOTE | 2021-07-18 02:36 | PC.NURSE ---
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 PT LIFE PARTNER WAS ON SPEAKER PHONE WHEN THIS NURSE, MARY KELLOGG, AND DR CAMPBELL WITNESSED HIS VERBAL CONSENT TO BE dpoa. PT STATED MULTIPLE TIMES THAT SHE WANTED TO HAVE ALL LIFE SAVING PROCEDURES WITH THE EXCEPTION OF BEING TESTED OR TREATED FOR COVID, OR ANYTHING COVID RELATED. PT FRIEND, WHO WAS IN THE ROOM, ALSO WITNESSED PT WISHES WHEN SHE SIGNED DPOA AND VERBALLY WITNESSED LIFE PARTNER STATING HE WOULD BE DPOA.
[2021-07-18 03:12] LABS: Glucose Point of Care 238 mg/dL (70-110)
[2021-07-18 03:12] LABS: Glucose Point of Care 210 mg/dL (70-110)
--- NOTE | 2021-07-18 03:36 | PC.NURSE ---
PT FRIEND, TONY, STATES THAT PT HAS ASTHMA AND IS SUPPOSED TO USE A CPAP AT NIGHT BUT HER 'BROKE AND SO SHE HASN'T USED ONE IN AWHILE', PT AND PT FRIEND STATES PT HAS DIABETES BUT HASN'T BEEN ABLE TO AFFORD HER INSULIN IN YEARS, SO PT HAS BEEN CONTROLLING HER DIABETES WITH HER DIET, AND PT HAS NOT CHECKED HER SUGAR 'IN MONTHS SINCE SHE LIVED WITH (FRIENDS)'
--- NOTE | 2021-07-18 03:40 | PC.NURSE ---
PT STATES SHE DOES NOT WANT HER PARENTS OR SISTER WHO LIVE IN [place] TO BE CONTACTED WITH ANY INFORMATION THEY ' DO NOT HAVE THE SAME BELIEFS HER'
[2021-07-18 03:58] LABS: ABG PCO2 29.7 mmHg (35-45); Base Excess ABG -16.6 mmol/L (-2.0-2.0); Blood Gas Allen Test Pos; Blood Gas Operator Identificat JB; Blood Gas Sample Site Radial, right; Blood Gas Sample Type Arterial; HCO3 ABG 10.6 mmol/L (22-26); PO2 ABG 62.1 mmHg (80.0-100.0)
[2021-07-18 03:59] LABS: ABG PH Result 7.16 (7.35-7.45); Oxygen Device HAG
[2021-07-18 04:09] LABS: Glucose Point of Care 234 mg/dL (70-110)
[2021-07-18 04:20] LABS: Basophils % 0.1 %; Hematocrit 43.4 % (37.0-47.0); Hemoglobin 14.1 g/dL (11.5-15.3); Lymphocytes # 1.8 10^3/uL (0.8-4.8); Lymphocytes % 12.6 %; Mean Corpuscular HGB Conc 32.5 g/dL (30.0-36.0); Mean Corpuscular Hemoglobin 27.2 pg (28.0-34.0); Mean Corpuscular Volume 83.8 fl (81-99); Mean Platelet Volume 8.6 fL (7.4-10.4); Monocytes # 0.8 10^3/uL (0.2-0.9); Monocytes % 5.9 %; Neutrophils # 10.57 10^3/uL (1.8-7.7); Neutrophils % 73.7 %; Nucleated Red Blood Cells % 0.3 %; Platelet Count 407 10^3/cmm (130-400); Red Blood Count 5.18 10^6/uL (4.1-5.3); Red Cell Distribution Width 14.1 % (12.1-15.1); White Blood Count 14.3 10^3/uL (4.0-10.0)
[2021-07-18 04:34] LABS: C Reactive Protein 245.9 mg/L (0.0-4.9)
[2021-07-18 04:39] LABS: Lactic Sepsis W/Reflex 0.8 mmol/L (0.5-2.2); Procalcitonin 0.78 ng/mL (0-0.5)
[2021-07-18 04:45] LABS: D Dimer 7.91 ug/mIFEU (0-0.59)
[2021-07-18 04:58] LABS: Estmated Average Glucose 364; Hemoglobin A1C 14.3 % (4.0-6.0)
[2021-07-18 05:02] LABS: Hepatitis A Antibody IgM Non-Reactive (Nonreactive); Hepatitis B Core AB, Total Non-Reactive (Nonreactive); Hepatitis B Surface AB 3.5 (11.5-1000); Hepatitis B Surface Antigen Non-Reactive (Nonreactive); Hepatitis C Virus Antibody Non-Reactive (Nonreactive)
[2021-07-18] MEDS: piperacillin-tazobactam 3.375 GM in sodium chloride 0.9% (plus) 50 ML IV ×3 (05:15→20:04)
[2021-07-18 05:39] LABS: Glucose Point of Care 241 mg/dL (70-110)
--- NOTE | 2021-07-18 06:00 | PC.NURSE ---
Physician Communication Patient remaining confused, only oriented to person. Oxygen cannula continuously being pulled away from face and attempts to remove IVs are made by patient. Additionally, HR of 190 sustained for approximately 10 seconds before returning to 120-130s. Dr. Crystal notified of both pieces of information. Order received for 1:1 sitter. Soon after, order received from Dr. Crystal to D/C the sitter and start precedex drip per protocol. Orders carried out per SEP.
[2021-07-18 06:07] LABS: Glucose Point of Care 250 mg/dL (70-110)
[2021-07-18 06:44] LABS: Slide Review Slide Review Perform
[2021-07-18] MEDS: dexmedeTOMIDine 0.9 % NaCL 400 MCG/100 ML PREMIX IV (06:47)
[2021-07-18] MEDS: dextrose 5%-ns + KCl 20 20 MEQ/1,000 ML BAG 75 MEQ IV (06:54)
[2021-07-18 07:05] LABS: Glucose Point of Care 231 mg/dL (70-110)
--- NOTE | 2021-07-18 07:39 | PC.NURSE ---
Report received, assessment completed. Pt oriented to self only, reoriented PRN. HHFNC 55L/95%. PT repositioned, sats improved to mid 90's. Fan placed in room d/t pt c/o being hot. All other VSS. Follows commands. Porter cath draining clear ebenezer urine to BSD. Insulin gtt infusing, precedex infusing per orders. Will monitor.
[2021-07-18 08:19] LABS: Glucose Point of Care 247 mg/dL (70-110)
[2021-07-18] MEDS: budesonide 0.5 mg/2 mL Neb INHALATION ×2 (08:23→20:22)
[2021-07-18] MEDS: ipratropium-albuterol 3 mL Neb INHALATION ×3 (08:23→20:21)
[2021-07-18 08:28] LABS: Magnesium 2.2 mg/dL (1.7-2.3)
[2021-07-18] MEDS: sodium bicarbonate 150 MEQ in dextrose 5% 1,000 ML 100 MEQ IV (08:41)
[2021-07-18] MEDS: lidocaine 1% 5 ML in potassium chloride premix 100 ML 25 ML IV (08:41)
[2021-07-18 08:46] LABS: Phosphorus 0.7 mg/dL (2.5-4.5)
[2021-07-18 09:23] LABS: Glucose Point of Care 283 mg/dL (70-110)
[2021-07-18 10:13] LABS: Glucose Point of Care 302 mg/dL (70-110)
[2021-07-18] MEDS: famotidine 20 mg/2 mL INJ IVP ×2 (10:23→21:50)
[2021-07-18] MEDS: phosphorus 250 mg Tablet PO ×2 (10:24→16:47)
--- NOTE | 2021-07-18 11:02 | P.PN_ITS ---
Subjective Subjective: Interval history: H&P reviewed, did talk with Dr. Crystal as well Overnight events noted Requested phosphorus level, which was low Added bicarb drip this morning Currently patient is on heated high flow 95% Repeating BMP today every 4 hours Repeat VBG as well Anion gap is still open D5 started as her sugar is 250 Told ICU nurse Josh that with addition of bicarb, her sugar will spike up adjust insulin accordingly, keep an eye on potassium level Phosphorus repleted Patient does not want Covid testing or treatment has returned home Him that she does not take any medications at home, her hemoglobin A1c is 14, she does not take Lantus, she controls her diabetes with dietary modifications She is full code, Lactic acid improved Vitals/I&O/Wt Last Vital Signs Temp 99.2 F 07/18/21 04:00 Pulse 81 07/18/21 10:30 Resp 25 H 07/18/21 08:26 BP 110/68 07/18/21 10:30 Pulse Ox 88 L 07/18/21 10:30 07/17/21 07/18/21 07/18/21 22:59 06:59 14:59 Intake Total 2025. / 2025. 652.14 / 2678.453 1335.112 / 1335.112 Output Total 2500 / 2500 Balance 2025. / 2025. -1847.86 / 095.176 5227.112 / 1335.112 Weight last 48 hrs Weight 100.335 kg Weight 158.757 kg Physical Exam Narrative: EXAM NARRATIVE: Patient was on heated high flow 95% FiO2 Able to follow commands Awake and alert and oriented No active distress S1, S2 sinus rhythm Abdomen soft No signs of edema Nonfocal neuro exam She was getting echo Did not ask me to any questions however stated above mention information in my subjective note Urinary Catheter Management^: Porter: Cath Placed During This Visit: yes Reason for Continuing Indwelling Catheter: Accurate Measurement of Urinary Output in Critically Ill Patients Urinary Catheter Date of Insertion: 07/17/21 Urinary Catheter Time of Insertion: 18:58 Data : 07/18/21 03:53 07/18/21 01:25 Micro: Microbiology 07/18/21 01:05 MRSA Culture - Final Nose 07/17/21 18:30 Legionella Urinary Antigen - Final Urine,Clean Catch Bacterial Antigens - Final 07/17/21 17:00 Blood Culture - Preliminary Blood SPECIMEN COLLECTED 07/17/21 17:00 Blood Culture - Preliminary Blood SPECIMEN COLLECTED A&P Assessment and plan (1) ARDS (adult respiratory distress syndrome): Status: Acute (2) Asthma: Status: Acute (3) Diabetes: Status: Acute (4) Acute hypoxemic respiratory failure: Status: Acute (5) DKA (diabetic ketoacidosis): Status: Acute (6) Lung infiltrate: Status: Acute (7) Hypophosphatemia: Status: Acute (8) Severe sepsis with lactic acidosis: Status: Acute (9) Hypoxia: Status: Acute Additional A&P Information Severe DKA Patient has not been taking Lantus Hemoglobin A1c 14 Severe acidosis High anion gap acidosis secondary to lactic acidemia Start bicarb drip Anion gap still open continue insulin drip with D5 IV fluids Bicarb drip ordered today Hypophosphatemia: Repleted Poor nutrition versus refeeding syndrome High risk for cardiac and respiratory arrest ARDS: Acute hypoxia Currently on heated high flow 95% Most likely COVID-19 related patient is endorsing fever, diarrhea, fatigue and lethargy for last 2 weeks She does not want any treatment or testing for Covid This was confirmed with the patient and her significant other She is high risk for intubation For now she is able to hyperventilate without respiratory distress or conversational dyspnea, I will repeat blood gas later today CTA ruled out pulmonary embolism High D-dimer: Likely related to underlying severe infection, she is currently being treated obstructive antibiotics for possible pneumonia related ARDS however I do believe this is related to COVID-19 looking at her signs and sympt oms I spoke with her today and did update him about the current diagnosis, treatment plan, hypoxia, guarded prognosis, critical condition, he was receptive and very appreciative N.p.o. Full code DVT prophylaxis Attestations Medical Necessity Statement*: Critical condition continue ICU management Time Spent in Patient Care: Greater than 35 minutes Coding Level of Care Code Acute Manager Medical Device for [facility] Sandee Diagnoses ARDS (adult respiratory distress syndrome) J80 Asthma J45.909 Diabetes E11.9 Acute hypoxemic respiratory failure J96.01 DKA (diabetic ketoacidosis) E11.10 Lung infiltrate R91.8 Hypophosphatemia E83.39 Severe sepsis with lactic acidosis A41.9; E87.2; R65.20 Hypoxia R09.02
[2021-07-18 11:07] LABS: Glucose Point of Care 303 mg/dL (70-110)
[2021-07-18 11:16] LABS: Base Excess VBG -10.8 mmol/L (-3.0-3.0); Blood Gas Operator Identificat GD; Blood Gas Sample Site Not specified; Blood Gas Sample Type Venous; HCO3 VBG 15.1 mmol/L (24-28); Oxygen Device NC; PCO2 VBG 33.2 mmHg (41-51); PO2 VBG 61.3 mmHg (25-40); pH VBG 7.27 (7.32-7.42)
[2021-07-18 11:42] LABS: Anion Gap 15.6 (5-19); Blood Urea Nitrogen 23 mg/dL (6-20); Calcium 8.4 mg/dL (8.5-10.5); Carbon Dioxide 16 mmol/L (22-29); Chloride 121 mmol/L (98-107); Glomerular Filtration Rate 66.8 mL/min (90-130); Glucose 315 mg/dL (65-115); Osmolality Calculated 324 mOsm/kg (285-295); Potassium 3.6 mmol/L (3.5-5.1); Sodium 149 mmol/L (136-145)
[2021-07-18 12:32] LABS: Glucose Point of Care 280 mg/dL (70-110)
--- NOTE | 2021-07-18 12:44 | PC.NURSE ---
1225 Pt has pulled hfnc off several times over the course of the morning causing o2 sats in the low 80's and mid 70's. came and gave verbal consent for bilateral wrist restraints. Restraints explained to pt and applied. Will monitor.
[2021-07-18 13:02] LABS: Glucose Point of Care 283 mg/dL (70-110)
[2021-07-18] MEDS: dexmedeTOMIDine 0.9 % NaCL 400 MCG/100 ML PREMIX 19.85 MCG IV ×3 (13:29→23:00)
[2021-07-18 14:08] LABS: Glucose Point of Care 237 mg/dL (70-110)
[2021-07-18 15:05] LABS: Glucose Point of Care 275 mg/dL (70-110)
[2021-07-18 15:45] LABS: Anion Gap 14.2 (5-19); Blood Urea Nitrogen 24 mg/dL (6-20); Carbon Dioxide 17 mmol/L (22-29); Chloride 121 mmol/L (98-107); Glomerular Filtration Rate 76.6 mL/min (90-130); Glucose 276 mg/dL (65-115); Osmolality Calculated 322 mOsm/kg (285-295); Potassium 3.2 mmol/L (3.5-5.1); Sodium 149 mmol/L (136-145)
[2021-07-18] MEDS: potassium chloride ER 20 mEq Tablet PO (16:47)
[2021-07-18 16:56] LABS: Glucose Point of Care 314 mg/dL (70-110)
[2021-07-18] MEDS: insulin lispro 100 unit/1 mL SUBCUT (17:59)
--- NOTE | 2021-07-18 18:06 | PC.NURSE ---
Shift Note Frequent safety and comfort rounds continue. Orders and/or nursing care completed as indicated. Patient monitored for response to intervention and treatment(s). Education provided includes treatment plan, medications and oxygen needs. Life partner verbalizes understanding. Pt remains oriented to self only, reoriented PRN. Able to carry on more conversation. Restraints remain in place to prevent pt from removing HFNC. HF settings remain the same throughout the day. Insulin gtt, IVF and hourly accuchecks stopped per orders. Sliding scale insulin given per orders. Will monitor.
[2021-07-18 20:00] LABS: Anion Gap 19.3 (5-19); Blood Urea Nitrogen 28 mg/dL (6-20); Calcium 7.8 mg/dL (8.5-10.5); Carbon Dioxide 14 mmol/L (22-29); Chloride 116 mmol/L (98-107); Glomerular Filtration Rate 66.8 mL/min (90-130); Glucose 478 mg/dL (65-115); Osmolality Calculated 329 mOsm/kg (285-295); Potassium 3.3 mmol/L (3.5-5.1); Sodium 146 mmol/L (136-145)
[2021-07-18 20:18] LABS: Glucose Point of Care 452 mg/dL (70-110)
[2021-07-18] MEDS: insulin glargine 100 units/1 mL 20 UNIT SUBCUT (20:23)
--- NOTE | 2021-07-18 21:00 | PC.NURSE ---
Physician Communication Sodium bicarb drip completed. Dr. Crystal contacted to see if patient was to receive maintenance fluids following the bicarb; no new orders received.
[2021-07-18] MEDS: enoxaparin 40 mg/0.4 mL Syringe SUBCUT (21:50)
--- NOTE | 2021-07-18 23:11 | USCV_ITS ---
Gigi Sherrie Age: 46 Gender: F : 1975 Exam Date: 07/18/2021 08:30 Ordering Phys: Sadie Crystal MD Technologist: Miranda Ordoñez Exam Location: [facility] [place]_ Indication: DKA COVID BP: 112 / 63 HR: 99 Rhythm: Sinus Technical Quality: Adequate MEASUREMENTS (Male / Female) Normal Values 2D ECHO LV Diastolic Diameter PLAX 4.3 cm 4.2 - 5.9 / 3.9 - 5.3 cm LV Systolic Diameter PLAX 2.8 cm LV Chamber Size 3.8 cm IVS Diastolic Thickness 1.2 cm 0.6 - 1.0 / 0.6 - 0.9 cm IVS Systolic Thickness 1.7 cm LVPW Diastolic Thickness 1.6 cm 0.6 - 1.0 / 0.6 - 0.9 cm LVPW Systolic Thickness 2.0 cm RV Chamber Size 5.2 cm LVOT Diameter 2.1 cm LV Ejection Fraction 2D Teich 64.6 % LV Ejection Fraction MOD 2C 66.9 % LV Ejection Fraction 2C AL 68.4 % LA Diameter 3.0 cm LA Width 2.7 cm LA Height 4.5 cm RA Width 3.6 cm RA Height 3.4 cm Aorta at Sinotubular Diameter 3.2 cm M-MODE Aortic Annulus Diameter 3.4 cm LA Ao Ratio MM 0.9 MV E Point Septal Separation 0.4 cm DOPPLER AV Peak Velocity 160.0 cm/s LVOT Peak Velocity 94.0 cm/s AV Area Cont Eq vti 3.1 cm squared AV Area Cont Eq pk 2.1 cm squared MV Area PHT 11.0 cm squared Mitral E to A Ratio 0.9 MV E' Velocity 39.5 cm/s Mitral E to MV E' Ratio 8.8 Mitral E to LV E' Lateral Ratio 10.2 Mitral E to LV E' Septal Ratio 7.8 TR Peak Velocity 218.6 cm/s TR Peak Gradient 19.1 mmHg TR Mean Velocity 194.6 cm/s TR Mean Gradient 17.2 mmHg TR Velocity Time Integral 83.5 cm TV Peak E Velocity 64.0 cm/s Right Atrial Pressure 15.0 mmHg Pulmonary Artery Systolic Pressu 34.1 mmHg PV Peak Velocity 69.7 cm/s RV Acceleration Time 0.1 s RV Ejection Time 0.4 s RV AcT/ET 0.3 FINDINGS Left Ventricle Normal left ventricular size and systolic function, EF 69 %. Mild left ventricular hypertrophy. Right Ventricle The right ventricle is normal in size and function. Right Atrium The right atrium is normal in size. Left Atrium The left atrium is normal in size. Mitral Valve No gross abnormalities noted Aortic Valve No gross abnormalities noted Tricuspid Valve Trace tricuspid valve regurgitation. Pulmonic Valve No gross abnormalities noted Pericardium Small pericardial effusion. Aorta Normal ascending aorta dimension. CONCLUSIONS Normal left ventricular size and systolic function, EF 69 %. Mild left ventricular hypertrophy. No significant wall motion normalities. Trace tricuspid valve regurgitation. No significant valvular abnormalities Normal cardiac chamber sizes Small pericardial effusion. There are no intracardiac masses. No similar previous study is available for comparison. Dr Leanna Montoya MD FACC (Electronically Signed) Final Date: 18 July 2021 16:52 S
[2021-07-19] VITALS (56 sets, daily range): BP systolic 87–144; BP diastolic 59–97; PULSE 59–91; RESP 17–35; TEMP 36.5–37; O2SAT 81–100; BMI 40.2
[2021-07-19] MEDS: ipratropium-albuterol 3 mL Neb INHALATION ×3 (02:35→20:02)
--- NOTE | 2021-07-19 03:10 | PC.NURSE ---
Anxiety Patient yelling out help from room. Upon assessment, patient remaining only oriented to self. Patient started to cry and state that her was supposed to take her away days ago. Reorientation provided along with education on current health issues. Patient stated she was not in pain; drink and food offered but refused. All vitals stable. Precedex titrated per SEP. Patient calm again when nurse left room.
[2021-07-19 03:43] LABS: ABG PCO2 33.7 mmHg (35-45); Arterial Blood Gas Hematocrit 40.7 % (37-47); Base Excess ABG -8.7 mmol/L (-2.0-2.0); Blood Gas Allen Test Pos; Blood Gas Operator Identificat JB; Blood Gas Sample Site Radial, right; Blood Gas Sample Type Arterial; HCO3 ABG 16.7 mmol/L (22-26); Oxygen Device HAG; PO2 ABG 52.1 mmHg (80.0-100.0)
[2021-07-19] MEDS: piperacillin-tazobactam 3.375 GM in sodium chloride 0.9% (plus) 50 ML IV (03:59)
[2021-07-19] MEDS: dexmedeTOMIDine 0.9 % NaCL 400 MCG/100 ML PREMIX 19.85 MCG IV (04:00)
[2021-07-19 04:01] LABS: Basophils # 0.1 10^3/uL (0.0-0.1); Basophils % 0.7 %; Eosinophils % 0.1 %; Hematocrit 25.9 % (37.0-47.0); Hemoglobin 8.5 g/dL (11.5-15.3); Lymphocytes # 1.1 10^3/uL (0.8-4.8); Lymphocytes % 11.7 %; Mean Corpuscular HGB Conc 32.8 g/dL (30.0-36.0); Mean Corpuscular Hemoglobin 27.3 pg (28.0-34.0); Mean Corpuscular Volume 83.3 fl (81-99); Mean Platelet Volume 10.7 fL (7.4-10.4); Monocytes # 0.6 10^3/uL (0.2-0.9); Monocytes % 6.8 %; Neutrophils # 6.74 10^3/uL (1.8-7.7); Neutrophils % 74.2 %; Nucleated Red Blood Cells % 0.2 %; Platelet Count 311 10^3/cmm (130-400); Red Blood Count 3.11 10^6/uL (4.1-5.3); Red Cell Distribution Width 14.8 % (12.1-15.1); White Blood Count 9.1 10^3/uL (4.0-10.0)
[2021-07-19] MEDS: lidocaine 1% 5 ML in potassium chloride premix 100 ML 50 ML IV (04:01)
[2021-07-19 04:28] LABS: Blood Urea Nitrogen 29 mg/dL (6-20); Calcium 7.8 mg/dL (8.5-10.5); Carbon Dioxide 14 mmol/L (22-29); Chloride 112 mmol/L (98-107); Glomerular Filtration Rate 66.8 mL/min (90-130); Glucose 498 mg/dL (65-115); Magnesium 1.8 mg/dL (1.7-2.3); Osmolality Calculated 324 mOsm/kg (285-295); Phosphorus 2.2 mg/dL (2.5-4.5); Sodium 143 mmol/L (136-145)
[2021-07-19 04:55] LABS: Anion Gap 20.4 (5-19); Potassium 3.4 mmol/L (3.5-5.1)
[2021-07-19 05:38] LABS: Slide Review Slide Review Perform
--- NOTE | 2021-07-19 06:26 | PC.NURSE ---
Agitation Patient attempting to pull off telemetry leads in addition to yanking at clothing, wrist restraints, and blankets. Patient states I am sick of this shit. I want to go home. Nurse asked patient what part of care could be done better, patient stated none. Nurse offered food, drink, pain relief options, and education on health status/necessity of hospital care. Patient refused pain relief, drink, and food. All vitals stable. Patient calmed down after discussion, resting in bed as nurse left room.
[2021-07-19 07:06] LABS: Glucose Point of Care 459 mg/dL (70-110)
--- NOTE | 2021-07-19 07:34 | PC.NURSE ---
Report received, assessment completed. VSS, repositioned and turned per staff. Precedex infusing at 0.5. Bilateral wrist restraints in place. released and reapplied per protocol. Porter cath in place draining freely to BSD. FNC in use. 55L,95%. JN gray MD notified. Will monitor.
[2021-07-19] MEDS: budesonide 0.5 mg/2 mL Neb INHALATION ×2 (07:56→20:02)
[2021-07-19] MEDS: insulin lispro 100 unit/1 mL SUBCUT ×4 (08:09→21:33)
[2021-07-19] MEDS: sodium chloride 0.9% 1,000 ML 999 ML IV (08:10)
[2021-07-19] MEDS: phosphorus 250 mg Tablet PO ×2 (08:10→17:14)
--- NOTE | 2021-07-19 08:11 | CTR_ITS ---
PROCEDURE INFORMATION: Exam: CT Abdomen And Pelvis With Contrast Exam date and time: 07/19/2021 8:11 AM Age: 46 years old Clinical indication: Abdominal pain; Acute; Additional info: Abd pain< anemia< lactic acidemia TECHNIQUE: Imaging protocol: Computed tomography of the abdomen and pelvis with contrast. Radiation optimization: All CT scans at this facility use at least one of these dose optimization techniques: automated exposure control; mA and/or kV adjustment per patient size (includes targeted exams where dose is matched to clinical indication); or iterative reconstruction. Contrast material: OMNI 300; Contrast volume: 95 ml; Contrast route: INTRAVENOUS (IV); COMPARISON: CT angio chest PE protcl [id number] 07/17/2021 7:00 PM RADIATION DOSE METRICS: Total DLP (mGy-cm): 2516.91 FINDINGS: The examination performed is degraded by motion artifact. Lungs: Extensive bibasilar interstitial/airspace disease. Liver: Hepatomegaly and fatty infiltration of the liver. Gallbladder and bile ducts: Status post cholecystectomy. Pancreas: No pancreatic mass or ductal dilatation. Spleen: Enlarged spleen measuring 15.2 cm in length. Adrenal glands: Unremarkable adrenals. Kidneys and ureters: Normal renal morphology. Mild dilatation of the left renal pelvis, without ureteral dilatation. Stomach and bowel: Mildly dilated air and fluid-filled stomach. Dilatation of the proximal colon with surgical anastomosis in the proximal descending colon. Diverticula, without pericolonic inflammation. Appendix: Nonvisualization of the appendix. Intraperitoneal space: Small quantity of free fluid in the right adnexal region and cul-de-sac. Vasculature: Normal caliber of the abdominal aorta. Lymph nodes: Subcentimeter lymph nodes. Urinary bladder: Porter catheter in the decompressed bladder. Reproductive: 2.6 cm right ovarian cyst. Bones/joints: Degenerative change and Schmorl's nodes. Soft tissues: Fat containing umbilical hernia. Postoperative scarring in the anterior abdominal wall midline. 4.2 cm intramuscular lipoma in the right adductor muscle. CT/CT abdomen pelvis w con* [id number] IMPRESSION: 1. Small quantity of free fluid in the right adnexal region and cul-de-sac. 2. 2.6 cm right ovarian cyst. 3. Extensive bibasilar interstitial/airspace disease. 4. Dilatation of the proximal colon with surgical anastomosis in the proximal descending colon. 5. Additional findings as described above.
[2021-07-19] MEDS: dexmedeTOMIDine 0.9 % NaCL 400 MCG/100 ML PREMIX 27.78 MCG IV ×2 (08:49→12:14)
[2021-07-19] MEDS: iohexol 300 mg/mL 100 mL Btl IV (09:25)
[2021-07-19] MEDS: lidocaine 1% 5 ML in potassium chloride premix 100 ML 25 ML IV (09:35)
[2021-07-19] MEDS: pantoprazole 40 mg SDV IVP (09:36)
[2021-07-19] MEDS: cefepime 2,000 MG in sodium chloride 0.9% (plus) 50 ML 100 MG IV ×2 (09:36→19:16)
[2021-07-19 09:56] LABS: Hematocrit 35.7 % (37.0-47.0); Hemoglobin 11.8 g/dL (11.5-15.3)
[2021-07-19 10:00] LABS: Lactate (Lactic Acid level) 1.2 mmol/L (0.5-2.2)
[2021-07-19 10:10] LABS: Thyroid Stimulating Hormone 0.13 uIU/mL (0.27-4.20)
[2021-07-19 10:11] LABS: Cortisol Random 22.94 ug/dL (2.47-19.5)
[2021-07-19 11:55] LABS: Glucose Point of Care 385 mg/dL (70-110)
[2021-07-19] MEDS: sodium bicarbonate 8.4% 1 mEq/mL 50mL Syr 100 MEQ IVP (12:14)
--- NOTE | 2021-07-19 13:26 | P.PN_ITS ---
Subjective Subjective: Interval history: Her anion gap has opened up again, bicarb drip has been turned off because of hypokalemia, IV phosphorus repleted today In the morning H&H was low however on repeat it is 11 no active signs of bleeding, blood pressure 104/71, not on any vasopressors, currently on Precedex 0.7 updated, I have requested CT abdomen pelvis heated high flow 95%, 50 L Splenomegaly Ovarian cyst Surgical anastomosis proximal colon 4.2 cm intramuscular lipoma in the right adductor muscle. CT/CT abdomen pelvis w con* [id number] IMPRESSION: 1. Small quantity of free fluid in the right adnexal region and cul-de-sac. 2. 2.6 cm right ovarian cyst. 3. Extensive bibasilar interstitial/airspace disease. 4. Dilatation of the proximal colon with surgical anastomosis in the proximal descending colon. Vitals/I&O/Wt Last Vital Signs Temp 98.6 F 07/19/21 08:00 Pulse 65 07/19/21 12:00 Resp 28 H 07/19/21 12:00 BP 104/71 07/19/21 12:00 Pulse Ox 92 07/19/21 12:00 07/18/21 07/19/21 07/19/21 22:59 06:59 14:59 Intake Total 2838.136 / 5086.158 1746.156 / 6832.314 1954.915 / 1954.915 Output Total 425 / 425 750 / 1175 1000 / 1000 Balance 2413.136 / 4661.158 996.156 / 5657.314 954.915 / 954.915 Weight last 48 hrs Weight 103.147 kg Weight 100.335 kg Weight 158.757 kg Physical Exam Narrative: EXAM NARRATIVE: Patient was in semi-Cueva position on heated high flow 50 L 95% Able to answer my question No signs of focal deficit Abdomen is soft bowel sound present Rhonchi at the base of the lungs Dry cracked lips Pursed lip breathing No signs of edema S1, S2 sinus rhythm Blood pressure 104/71 mmHg Urinary Catheter Management^: Porter: Cath Placed During This Visit: yes Reason for Continuing Indwelling Catheter: Accurate Measurement of Urinary Output in Critically Ill Patients Urinary Catheter Date of Insertion: 07/17/21 Urinary Catheter Time of Insertion: 18:58 Data : 07/19/21 08:58 07/19/21 03:30 Micro: Microbiology 07/17/21 17:00 Blood Culture - Preliminary Blood NEGATIVE TO DATE 07/17/21 17:00 Blood Culture - Preliminary Blood NEGATIVE TO DATE 07/18/21 01:05 MRSA Culture - Final Nose 07/17/21 18:30 Legionella Urinary Antigen - Final Urine,Clean Catch Bacterial Antigens - Final A&P Assessment and plan (1) Hypoxia: Status: Acute (2) Severe sepsis with lactic acidosis: Status: Acute (3) Hypophosphatemia: Status: Acute (4) ARDS (adult respiratory distress syndrome): Status: Acute (5) Asthma: Status: Acute (6) Diabetes: Status: Acute (7) Acute hypoxemic respiratory failure: Status: Acute (8) DKA (diabetic ketoacidosis): Status: Acute Additional A&P Information Severe DKA Gap opened up again today She was given fluid bolus Repeat BMP Bicarb drip was stopped yesterday due to low potassium Today I would only keep her IV push for now Change sliding scale to high dose increase Lantus to 25 units Bicarb improved, still not within normal range Hypoxic respiratory failure related to COVID-19 ARDS Patient does not want any investigation or treatment for Covid patient and her both are adamant about not getting any treatment for Covid Currently on heated high flow 95%, 50 L She is at high risk of deterioration, She is full code, Sepsis related to COVID-19 infection Sepsis present on admission Criteria met with tachypnea, low blood pressure, leukocytosis Hypotension most likely related to severe acidosis, preserved ejection fraction, no active signs of infection, she was treated empirically for possibility of pneumonia however she does have severe bilateral infiltrate likely related to Covid, MRSA PCR negative, vancomycin discontinued, cultures negative to date, leukocytosis improved Hypophosphatemia, repleted Hypomagnesemia: Repleted Abnormal TSH, check T4 level Normal hemoglobin no active signs of anemia repeat H&H is normal CT abdomen pelvis revealed splenomegaly, ovarian cyst, updated Full code Attestations Medical Necessity Statement*: Continue ICU management Time Spent in Patient Care: 16 - 35 minutes Coding Level of Care Code Acute Sports Marketing Specialist for [facility] Fwd Diagnoses Hypoxia R09.02 Severe sepsis with lactic acidosis A41.9; E87.2; R65.20 Hypophosphatemia E83.39 ARDS (adult respiratory distress syndrome) J80 Asthma J45.909 Diabetes E11.9 Acute hypoxemic respiratory failure J96.01 DKA (diabetic ketoacidosis) E11.10
[2021-07-19] MEDS: sodium chloride 0.9% 1,000 ML 100 ML IV (13:50)
[2021-07-19 14:07] LABS: Anion Gap 17.2 (5-19); Blood Urea Nitrogen 24 mg/dL (6-20); Carbon Dioxide 18 mmol/L (22-29); Chloride 113 mmol/L (98-107); Glomerular Filtration Rate 76.6 mL/min (90-130); Glucose 370 mg/dL (65-115); Osmolality Calculated 319 mOsm/kg (285-295); Potassium 3.2 mmol/L (3.5-5.1); Sodium 145 mmol/L (136-145)
[2021-07-19] MEDS: dexmedeTOMIDine 0.9 % NaCL 400 MCG/100 ML PREMIX 35.72 MCG IV (15:24)
--- NOTE | 2021-07-19 16:14 | PC.NURSE ---
Pt has had multiple episodes of desaturations. Pt repositioned to optimize oxygen. O2 at 87% on 50L/100%. is aware of worsening condition and has spoken with MD. has permission from MD to come and see pt before making any more decisions regarding care. Pt precedex increased throughout the day d/t increasing agitation and combativeness. No other issues noted. Will monitor.
[2021-07-19 16:26] LABS: ABG PH Result 7.41 (7.35-7.45); Arterial Blood Gas Hematocrit 37.2 % (37-47); Base Excess ABG -0.9 mmol/L (-2.0-2.0); Blood Gas Allen Test Pos; Blood Gas Operator Identificat BD; Blood Gas Sample Site Brachial, right; Blood Gas Sample Type Arterial; HCO3 ABG 23.4 mmol/L (22-26); Oxygen Device NC; PO2 ABG 43.8 mmHg (80.0-100.0)
[2021-07-19 16:59] LABS: Free T4 Free Thyroxine 0.99 ng/dL (0.82-1.77)
[2021-07-19 17:29] LABS: Glucose Point of Care 322 mg/dL (70-110)
[2021-07-19] MEDS: dexmedeTOMIDine 0.9 % NaCL 400 MCG/100 ML PREMIX 39.69 MCG IV ×2 (18:01→20:49)
--- NOTE | 2021-07-19 20:55 | PC.NURSE ---
BIPAP/Sitter Patient's RR in the high 30s, oxygen saturation maintaining at 83-84% periodically. Dr. Crystal notified. Order received for BIPAP use when SPO2 <86% and 1:1 sitter with Bipap use. RT contacted; BIPAP initiated. Restraints discontinued as sitter began observation. Patient's oxygen saturation remaining in mid-high 90s. All other vitals stable.
[2021-07-19] MEDS: insulin glargine 100 units/1 mL 25 UNIT SUBCUT (21:33)
[2021-07-19 21:45] LABS: Glucose Point of Care 253 mg/dL (70-110)
--- NOTE | 2021-07-19 22:05 | PC.NURSE ---
Family Update Wilder, patient's DPOA, called and notified of patient's increased need in oxygen requirements and use of sitter. Possibility of intubation discussed if patient's condition worsens; verbal consent gained from Wilder by this nurse and verified by charge nurse, VALDEZ Castillo. Family verbalized understanding and states has no further questions for now.
[2021-07-19] MEDS: enoxaparin 40 mg/0.4 mL Syringe SUBCUT (22:54)
[2021-07-20] VITALS (54 sets, daily range): BP systolic 111–153; BP diastolic 75–113; PULSE 57–84; RESP 18–36; TEMP 35.6–36.8; O2SAT 85–99; BMI 40.2
[2021-07-20] MEDS: sodium chloride 0.9% 1,000 ML 100 ML IV (00:10)
--- NOTE | 2021-07-20 01:00 | PC.NURSE ---
Dr. Crystal updated of increasing use of pressors to maintain BP. No new orders received at this time.
[2021-07-20] MEDS: dexmedeTOMIDine 0.9 % NaCL 400 MCG/100 ML PREMIX 39.69 MCG IV ×4 (02:35→13:40)
[2021-07-20] MEDS: ipratropium-albuterol 3 mL Neb INHALATION ×5 (02:55→20:05)
--- NOTE | 2021-07-20 03:30 | PC.NURSE ---
Critical Labs Dr. Crystal notified of critical WBC 59.4, potassium level of 6.7, and CO2 level of 6. Orders not received during phone call but to be put in by Dr. Crystal.
[2021-07-20 03:36] LABS: ABG PCO2 36.3 mmHg (35-45); ABG PH Result 7.44 (7.35-7.45); Base Excess ABG 0.9 mmol/L (-2.0-2.0); Blood Gas Allen Test Pos; Blood Gas Sample Site Radial, right; Blood Gas Sample Type Arterial; HCO3 ABG 24.8 mmol/L (22-26); Oxygen Device BIPAP; PO2 ABG 56.5 mmHg (80.0-100.0)
[2021-07-20 04:07] LABS: Blood Urea Nitrogen 19 mg/dL (6-20); Calcium 7.8 mg/dL (8.5-10.5); Carbon Dioxide 21 mmol/L (22-29); Chloride 115 mmol/L (98-107); Glomerular Filtration Rate 89.3 mL/min (90-130); Glucose 172 mg/dL (65-115); Osmolality Calculated 316 mOsm/kg (285-295); Phosphorus 2.2 mg/dL (2.5-4.5); Sodium 150 mmol/L (136-145)
[2021-07-20 04:09] LABS: Anion Gap 17.4 (5-19); Potassium 3.4 mmol/L (3.5-5.1)
[2021-07-20] MEDS: dexmedeTOMIDine 0.9 % NaCL 400 MCG/100 ML PREMIX 35.72 MCG IV ×2 (07:35→11:18)
[2021-07-20] MEDS: cefepime 2,000 MG in sodium chloride 0.9% (plus) 50 ML 100 MG IV ×2 (07:36→20:53)
[2021-07-20 08:09] LABS: Glucose Point of Care 279 mg/dL (70-110)
[2021-07-20] MEDS: budesonide 0.5 mg/2 mL Neb INHALATION ×2 (08:43→20:05)
[2021-07-20] MEDS: insulin lispro 100 unit/1 mL SUBCUT ×2 (09:16→21:12)
[2021-07-20 10:25] LABS: Basophils % 0.4 %; Eosinophils % 0.4 %; Hematocrit 36.8 % (37.0-47.0); Hemoglobin 12.2 g/dL (11.5-15.3); Lymphocytes # 1.1 10^3/uL (0.8-4.8); Lymphocytes % 14.3 %; Mean Corpuscular HGB Conc 33.2 g/dL (30.0-36.0); Mean Corpuscular Hemoglobin 27.7 pg (28.0-34.0); Mean Corpuscular Volume 83.6 fl (81-99); Mean Platelet Volume 9.7 fL (7.4-10.4); Monocytes # 0.2 10^3/uL (0.2-0.9); Monocytes % 3.2 %; Neutrophils # 5.46 10^3/uL (1.8-7.7); Neutrophils % 73.6 %; Nucleated Red Blood Cells % 0.3 %; Platelet Count 182 10^3/cmm (130-400); Red Cell Distribution Width 14.8 % (12.1-15.1); White Blood Count 7.4 10^3/uL (4.0-10.0)
[2021-07-20] MEDS: dextrose 5% 1,000 ML 30 ML IV (11:23)
[2021-07-20] MEDS: insulin regular-human 250 UNIT in sodium chloride 0.9% 250 ML 6.21 UNIT IV (11:27)
[2021-07-20] MEDS: dexamethasone 10 mg/mL INJ 6 MG IVP (11:27)
[2021-07-20 11:30] LABS: Slide Review Slide Review Perform
[2021-07-20 11:51] LABS: Glucose Point of Care 265 mg/dL (70-110)
[2021-07-20 12:36] LABS: Glucose Point of Care 230 mg/dL (70-110)
[2021-07-20 13:48] LABS: Glucose Point of Care 167 mg/dL (70-110)
[2021-07-20 15:02] LABS: Glucose Point of Care 165 mg/dL (70-110)
[2021-07-20 15:53] LABS: Glucose Point of Care 169 mg/dL (70-110)
--- NOTE | 2021-07-20 16:24 | PM.PN ---
Subjective Subjective: Interval history: Chichi required bipap overnight becomes hypoxic as soon as we take off her mask She is bipap dependnt now PO intake is a big challenge now WIll need TPN AND PICC Line ADded Dextrose decadron and insulin gtt to be continued for persistent hyperglycemia pt asked me what is intubation which I explained verbally and used videos on the phone and family updated is her DPOA Vitals/I&O/Wt Last Vital Signs Temp 97.8 F 07/20/21 13:00 Pulse 64 07/20/21 15:06 Resp 34 H 07/20/21 15:05 BP 117/81 07/20/21 14:00 Pulse Ox 95 07/20/21 15:06 07/20/21 07/20/21 07/20/21 06:59 14:59 22:59 Intake Total 1300 / 4301.513 1294.748 / 1294.748 118.135 / 1412.883 Output Total 850 / 2275 Balance 450 / 2026.513 1294.748 / 1294.748 118.135 / 1412.883 Weight last 48 hrs Weight 103.147 kg Weight 103.147 kg Physical Exam Narrative: EXAM NARRATIVE: dehydrated bipap dependent awake and waxing and waning mentation no oedema abd obesity soft abd BS present Non focal neuro exam follow commands EOMI PERRLA Assisted B/l Ronchorous Breath sounds S1, S2 No murmur Urinary Catheter Management^: Porter: Cath Placed During This Visit: yes Reason for Continuing Indwelling Catheter: Accurate Measurement of Urinary Output in Critically Ill Patients Urinary Catheter Date of Insertion: 07/17/21 Urinary Catheter Time of Insertion: 18:58 Data : 07/20/21 09:36 07/20/21 03:00 A&P Assessment and plan (1) Hypoxia: Status: Acute (2) Severe sepsis with lactic acidosis: Status: Acute (3) Hypophosphatemia: Status: Acute (4) ARDS (adult respiratory distress syndrome): Status: Acute (5) Diabetes: Status: Acute (6) Acute hypoxemic respiratory failure: Status: Acute (7) DKA (diabetic ketoacidosis): Status: Acute Additional A&P Information Hypoxia severe ARDS Related to covid 19 Added steroids today Inhaled steroids on board as she carries hx of asthma on bipap high risk for intubation is her DPOA DEhydration and hypernatremia malnourished bipap dependent now Will need TPN AND PICC line Today for hypernatremia I will start d5 and continue insulin gtt to avoid dka episode Sepsis related to covid resolved sepsis wbc normal continue cefepime for empirical coverage of CAP procalcitonin tomorrow subclinical hypothyroidism normal free t4 due to acute sickness DKA resolved HgA1C 14 NEVER USED INSULIN non vaccinated, obese, high risk for intubation, guarded prognosis, this was clearly conveyed to her , mother and the daughter full code consis carb diet TPN from cy needs picc line Attestations Medical Necessity Statement*: Continue icu care Time Spent in Patient Care: 16 - 35 minutes Coding Level of Care Code Acute Supervisor Fur Floor Worker for g Fwd Diagnoses Hypoxia R09.02 Severe sepsis with lactic acidosis A41.9; E87.2; R65.20 Hypophosphatemia E83.39 ARDS (adult respiratory distress syndrome) J80 Diabetes E11.9 Acute hypoxemic respiratory failure J96.01 DKA (diabetic ketoacidosis) E11.10
[2021-07-20] MEDS: dexmedeTOMIDine 0.9 % NaCL 400 MCG/100 ML PREMIX 27.78 MCG IV ×2 (16:48→20:54)
[2021-07-20 17:53] LABS: Glucose Point of Care 164 mg/dL (70-110)
[2021-07-20 17:54] LABS: Glucose Point of Care 155 mg/dL (70-110)
[2021-07-20 18:09] LABS: Blood Urea Nitrogen 13 mg/dL (6-20); Carbon Dioxide 22 mmol/L (22-29); Chloride 111 mmol/L (98-107); Glomerular Filtration Rate 131.7 mL/min (90-130); Glucose 174 mg/dL (65-115); Osmolality Calculated 308 mOsm/kg (285-295); Sodium 147 mmol/L (136-145)
[2021-07-20 18:19] LABS: Glucose Point of Care 164 mg/dL (70-110)
--- NOTE | 2021-07-20 18:28 | PC.NURSE ---
SHift summary: Patient rested in bed throughout the day Remains confused, oriented only to self. Oftentimes thinks she is somewhere is [facility], doesn't seem to understand questions about what year it is. PO meds held due to difficulty swallowing. Patient is able to swallow when drinking, but oftentimes forgets that she is drinking or supposed to swallow something. Nurse doesn't feel it is safe to give PO meds at this time. Due to increasing sodium levels, d5W was started, as well as an insulin drip due to the already high BG levels, now receiving D5, and starting steroids.
--- NOTE | 2021-07-20 18:43 | NUR.SHIFT ---
Per Dr Gilliam, nurse held lovenox due to picc line placement tommorow.
--- NOTE | 2021-07-20 19:11 | PC.NURSE ---
Potassium is 3.0. NUrse alerted Dr Gilliam. REcieved orders for stop insulin and d5w, and give potassium. See orders.
[2021-07-20] MEDS: insulin glargine 100 units/1 mL 25 UNIT SUBCUT (20:55)
[2021-07-20 21:09] LABS: Glucose Point of Care 248 mg/dL (70-110)
[2021-07-21] VITALS (57 sets, daily range): BP systolic 91–185; BP diastolic 62–109; PULSE 51–99; RESP 16–34; TEMP 35.8–36.8; O2SAT 88–97; BMI 40.6
[2021-07-21] MEDS: dexmedeTOMIDine 0.9 % NaCL 400 MCG/100 ML PREMIX 31.75 MCG IV (02:19)
[2021-07-21] MEDS: ipratropium-albuterol 3 mL Neb INHALATION ×4 (03:34→20:12)
[2021-07-21 04:09] LABS: Basophils # 0.1 10^3/uL (0.0-0.1); Basophils % 0.7 %; Eosinophils % 0.1 %; Hematocrit 35.1 % (37.0-47.0); Hemoglobin 11.6 g/dL (11.5-15.3); Lymphocytes # 1.2 10^3/uL (0.8-4.8); Lymphocytes % 14.3 %; Mean Corpuscular Hemoglobin 27.5 pg (28.0-34.0); Mean Corpuscular Volume 83.2 fl (81-99); Mean Platelet Volume 9.4 fL (7.4-10.4); Monocytes # 0.4 10^3/uL (0.2-0.9); Monocytes % 4.4 %; Neutrophils # 5.95 10^3/uL (1.8-7.7); Neutrophils % 72.5 %; Nucleated Red Blood Cells % 0.2 %; Platelet Count 220 10^3/cmm (130-400); Red Blood Count 4.22 10^6/uL (4.1-5.3); Red Cell Distribution Width 14.6 % (12.1-15.1); White Blood Count 8.2 10^3/uL (4.0-10.0)
[2021-07-21 04:14] LABS: ABG PCO2 37.9 mmHg (35-45); ABG PH Result 7.45 (7.35-7.45); Arterial Blood Gas Hematocrit 38.2 % (37-47); Base Excess ABG 2.3 mmol/L (-2.0-2.0); Blood Gas Allen Test Pos; Blood Gas Sample Site Radial, right; Blood Gas Sample Type Arterial; HCO3 ABG 26.3 mmol/L (22-26); Oxygen Device BIPAP
[2021-07-21 04:24] LABS: Anion Gap 18.1 (5-19); Blood Urea Nitrogen 13 mg/dL (6-20); Calcium 7.9 mg/dL (8.5-10.5); Carbon Dioxide 22 mmol/L (22-29); Chloride 109 mmol/L (98-107); Glomerular Filtration Rate 131.7 mL/min (90-130); Glucose 225 mg/dL (65-115); Osmolality Calculated 309 mOsm/kg (285-295); Potassium 3.1 mmol/L (3.5-5.1); Sodium 146 mmol/L (136-145)
[2021-07-21] MEDS: dexmedeTOMIDine 0.9 % NaCL 400 MCG/100 ML PREMIX 27.78 MCG IV ×2 (04:40→07:47)
[2021-07-21 04:47] LABS: Slide Review Slide Review Perform
--- NOTE | 2021-07-21 04:57 | PC.NURSE ---
Shift Note Frequent safety and comfort rounds continue. Orders and/or nursing care completed as indicated. Patient monitored for response to intervention and treatment(s). Education provided includes oxygen requirements and treatment plan. Patient needs further reinforcement. Patient had an eventful shift. She remains on the BIPAP at 80% FiO2, confused at this time-only oriented to self. When asked where she is patients reports, [place], [place] . Throughout the evening patient continues to remove monitoring wires and BIPAP mask. Frequently reoriented to time, place, and educated about medical care being provided. Patient pulled out the right AC IV, new 22 gauge IV was placed in the left forearm. Precedex and Potassium are infusing per protocol, please see MAR for infusion rates. Porter catheter drained 750 mls of dark yellow urine overnight. Will continue to monitor.
[2021-07-21 07:04] LABS: Glucose Point of Care 246 mg/dL (70-110)
[2021-07-21] MEDS: LORazepam 2 mg/mL INJ 1 mL IVP ×2 (07:17→07:23)
--- NOTE | 2021-07-21 07:29 | PC.NURSE ---
PT became extremely agitated, threw bipap in floor and attempted to get out of bed. Pt assisted back to bed per staff, mask replaced eventually with pt fighting and grabbing and pulling at lines and tubes. Placed in restraints per MD orders. Ativan 1mg given IVP per MD orders. Staff at bedside attempting to calm pt in order to get sats out of 60's. O2 sats eventually recovered into 90's after ativan administration. O2 increased to 90% per nurse. Sitter at bedside. All other VSS, mccarthy in place. Pt has been oriented to self only, refused to speak to this nurse. having episodes of paranoia. MD at bedside. Will monitor
--- NOTE | 2021-07-21 07:46 | XR_ITS ---
WS: [id number] PORTABLE CHEST HISTORY: pneumonia COMPARISON: 07/17/2021 Extensive bilateral pulmonary opacifications. Increasing opacification in the central RIGHT lung. No improvement. No effusions. No pleural effusion or pneumothorax. Cardiac size: Mildly enlarged cardiac silhouette. Mediastinum/Aorta: Marked enlargement of the pulmonary artery. Pulmonary artery is bulging at the AP window. No osseous abnormality seen. XR/XR chest 1V portable [id number] IMPRESSION: 1. Mild progression of diffuse bilateral pulmonary opacifications. Consistent with pneumonia or pneumonitis. Edema may also be present. 2. Enlarged pulmonary artery.
[2021-07-21 08:06] LABS: C Reactive Protein 102.8 mg/L (0.0-4.9); Magnesium 1.9 mg/dL (1.7-2.3)
[2021-07-21] MEDS: lidocaine 1% 5 ML in potassium chloride premix 100 ML 25 ML IV (08:11)
[2021-07-21] MEDS: cefepime 2,000 MG in sodium chloride 0.9% (plus) 50 ML 100 MG IV ×2 (08:11→20:47)
[2021-07-21] MEDS: insulin lispro 100 unit/1 mL SUBCUT ×4 (08:12→22:15)
[2021-07-21 08:13] LABS: T3 Free 1.4 PG/ML (2.0-4.4)
[2021-07-21] MEDS: budesonide 0.5 mg/2 mL Neb INHALATION ×2 (08:40→20:12)
--- NOTE | 2021-07-21 08:49 | PM.PN ---
Subjective Subjective: Interval history: Awakens with stimulation. Earlier this morning when I enter the ICU nursing alerted me the patient was very confused, pulling off mask, heart rate was significantly elevated and saturation was decreased. Ativan was ordered in addition to her Precedex. She is now calm, tolerating the BiPAP, with a saturation of 94%. However, she is also on 90% FiO2. She is still tachypneic. Medications: Reviewed: Yes Vitals/I&O/Wt Last Vital Signs Temp 98.1 F 07/21/21 08:00 Pulse 57 L 07/21/21 08:00 Resp 30 H 07/21/21 07:00 BP 142/89 07/21/21 08:00 Pulse Ox 94 07/21/21 08:00 07/20/21 07/21/21 07/21/21 22:59 06:59 14:59 Intake Total 319.640 / 1614.725 787.1052 / 2041.0779 195.6719 / 195.6719 Output Total 950 / 950 750 / 1700 Balance -630.360 / 664.388 -323.3101 / 341.0779 195.6719 / 195.6719 Weight last 48 hrs Weight 103.986 kg Weight 103.147 kg Physical Exam Narrative: EXAM NARRATIVE: General exam is a sleepy female, arousable with stimulation HEENT: Atraumatic normocephalic. BiPAP in place. Neck is supple Cardiovascular regular rate and rhythm, slightly bradycardic, no murmur Lungs scattered crackles, dry Abdomen is soft, obese. Positive bowel sounds. No obvious organomegaly. demonstrates Porter Extremities no cyanosis clubbing or edema, cap refill brisk Urinary Catheter Management^: Porter: Cath Placed During This Visit: yes Reason for Continuing Indwelling Catheter: Accurate Measurement of Urinary Output in Critically Ill Patients Urinary Catheter Date of Insertion: 07/17/21 Urinary Catheter Time of Insertion: 18:58 Data : 07/21/21 03:05 07/21/21 03:05 Other data: ABG demonstrates pH 7.45, PCO2 of 38, PO2 of 76 on 80% FiO2 on BiPAP. Calcium 7.9 CRP 102, down from 245 Free T3 1.4 Chest x-ray diffuse infiltrates, enlarged pulmonary artery A&P Assessment and plan (1) Hypoxia: Now requiring BiPAP, 90% FiO2. Status: Acute (2) ARDS (adult respiratory distress syndrome): Severe ARDS. Chest x-ray today consistent with this with bilateral patchy interstitial infiltrates. No evidence of pneumothorax. This is very likely to be secondary to Covid 19 pneumonia although patient has refused testing. Continue dexamethasone 6 mg IV every 24 hours CRP is decreasing Secondary to worsening requiring BiPAP may need intubation today under control setting Continue pulmonary toilet with DuoNeb every 6 hours, inhaled budesonide Echocardiogram was performed demonstrating an EF of 69%, normal chamber sizes, mild left ventricular hypertrophy Currently on cefepime empirically. Cultures negative. MRSA PCR negative. Bacterial antigens negative. CTA on admission negative for pulmonary embolism. Central pulmonary artery enlargement was noted. Status: Acute (3) Severe sepsis with lactic acidosis: Resolved Status: Acute (4) Asthma: See under ARDS above Status: Acute (5) Diabetes: DKA present on admission has resolved Continue long-acting insulin, sliding scale insulin Status: Acute (6) Acute hypoxemic respiratory failure: Still present, secondary to ARDS and what appears to be viral pneumonia from Covid 19 although patient has refused testing. See documentation in history and physical. Status: Acute Additional A&P Information Acute encephalopathy Abnormal TSH. This is secondary to euthyroid sick Hypernatremia. Add small amount of half-normal saline at 30 cc an hour Full code Lovenox for DVT prophylaxis Attestations Medical Necessity Statement*: Needs continued hospitalization secondary to severe COVID-19 pneumonia Critical Care Time: Critical Care Time (min): 33 Other Attestations: The high probability of a clinically significant, sudden or life threatening deterioration of the patient's [pulmonary, endocrine] system(s) required my full and direct attention, intervention and personal management. The critical care time is as shown. This time is in addition to time spent performing any reported procedures but includes the following: [x] Data and vital sign review and interpretation [x] Patient assessment, examination and intervention [x] Documentation [x] Medication orders and management Coding Level of Care Code Acute Screen Operator for Chantaleg Lucho Diagnoses Hypoxia R09.02 ARDS (adult respiratory distress syndrome) J80 Severe sepsis with lactic acidosis A41.9; E87.2; R65.20 Asthma J45.909 Diabetes E11.9 Acute hypoxemic respiratory failure J96.01
[2021-07-21] MEDS: sodium chloride 0.45% 1,000 ML 30 ML IV (08:53)
[2021-07-21] MEDS: LORazepam 2 mg/mL INJ 1 mL 1 MG IVP (09:06)
--- NOTE | 2021-07-21 09:28 | XR_ITS ---
WS: [id number] PORTABLE CHEST HISTORY: picc COMPARISON: 07/21/2021 Right-sided PICC line is been placed with tip in the distal SVC. Continued bilateral opacifications, greatest in the mid and lower RIGHT lung. There is slight bluntin g of the LEFT costophrenic angle is probably due to a small effusion. Cardiac size: Partially obscured by airspace disease at the lingula. Mediastinum/Aorta: Mild mediastinal widening. Again noted is the dilated pulmonary artery with mild b ulging from the AP window. No osseous abnormality seen. XR/XR chest 1V portable [id number] IMPRESSION: 1. Satisfactory placement of a RIGHT PICC line. 2. Continued bilateral pulmonary opacifications, pneumonia versus pneumonitis and/or edema. 3. Dilated pulmonary artery.
--- NOTE | 2021-07-21 09:35 | PC.NURSE ---
0830 spoke with Wilder TO, this morning and explained need for PICC line and intubation. Consent given for both and witnesses by one other nurse. Answered all questions. 09 PICC nurse in room to insert line, pt became highly agitated and combative. Ativan IVP givven per orders.
--- NOTE | 2021-07-21 09:55 | PC.NURSE ---
PICC RIGHT arm ready for use. Primary nurse notified.
--- NOTE | 2021-07-21 09:57 | PC.NURSE ---
PICC line placement ok'd per .
--- NOTE | 2021-07-21 10:05 | PC.CHAP ---
Pastoral Care Encounter/Spiritual Assessment Type of Contact [] Declined liberal arts and humanities chair visit [] Patient/Family/Request visit [] Outpatient visit [] Follow-up visit [] Physician referral [] Code/Alert [x] Routine visit [] Staff referral [] Actively dying [] Patient sleeping [] Family support [] [] Out of room [] Palliative care [] [] Receiving care in room [] Pre-surgical visit [] Trauma [] Long length of stay [x] ICU visit [x] Other: isolated Relational/Emotional Strength [] Patient feels connected with others/family/visitors/staff [] Distress [] Loneliness/isolation [] Abandonment Spirituality of Patient [] Person of Silvana [] Attends Yarsani of their Silvana [] Believes in Prayer [] Reads Bible or Rastafari materials [] There are Spiritual issues to be addressed [employer] Interventions [x] Prayer [] Active listening [] Non-anxious presence [] Spiritual/emotional support [] Crisis/trauma care [] Spiritual counseling [] Bereavement support [] Provided bereavement packet [] Provided Bible/devotional materials [] Provided toy/stuffed animal, coloring book to patient or family member [] Provided Communion [] Anointing/[place] [] Salvation [x] Completed spiritual assessment [] Other: Impact on Illness or Injury [] Angry [] Fearful [] Anxious [] Often cries [] Exhaustion [] Unable to work [] Unable to attend jewish [] Unable to walk/stand [] Unable to read [] Unable to drive [] Unable to eat/drink [] Unable to sleep [] Unable to be with family [] Patient intubated [] Other: Summary Time spent with patient
[2021-07-21] MEDS: propofol 1,000 MG/100 ML INJ 6.24 MG IV (10:22)
--- NOTE | 2021-07-21 10:41 | XRR_ITS ---
PROCEDURE INFORMATION: Exam: XR Chest Exam date and time: 07/21/2021 10:41 AM Age: 46 years old Clinical indication: Device placement; Ett placement (vent status); Additional info: Et tube TECHNIQUE: Imaging protocol: XR of the chest. Views: 1 view. COMPARISON: CR XR chest 1V portable [id number] 07/21/2021 9:34 AM FINDINGS: Tubes, catheters and devices: Endotracheal tube is in satisfactory position. Feeding tube is in satisfactory position. Right sided PICC is in satisfactory position, with distal tip at the SVC/RA junction. Lungs: Persistent bilateral airspace opacities. No large pleural effusion or pneumothorax. Pleural spaces: See Lungs finding. Heart/Mediastinum: Stable cardiomediastinal silhouette. Bones/joints: Degenerative changes of the spine seen. No acute osseous injury identified. XR/XR chest 1V portable [id number] IMPRESSION: Persistent bilateral airspace opacities.
--- NOTE | 2021-07-21 11:00 | ANES.PROC ---
Anesthesia Procedures Procedure/Date: 07/21/21 Intubation: Consent: requested by attending/covering physician Sedative (amount): other (propofol) Paralytic (amount): rocuronium Laryngoscope: fiber optic video scope ET Tube Size: 8 Tube Secured Depth (cm): 22 Tube Secured Location: teeth Tube Placement Confirmation: visualized tube passing through cords and confirmation by capnometry Patient Tolerated Procedure: well Intubation Complications: none Additional Comments: After confirming consent by attending physician patient intubated using COVID precautions using with rapid sequence of 200 mg lidocaine, 150 mg of propofol, 100 mg rocuronium. Grade 1 view, smooth passage through. Cuff minimal pressure. 1 attempt, confirmed with capnography. Brief desaturation. Pre intubation SpO2 reading of 91%, after intubation saturations 87%, then drifted as low as 81% with rapid recovery to 91% over the course of approx 2 minutes. Tube depth to be confirmed by CXR.
[2021-07-21] MEDS: dexamethasone 10 mg/mL INJ 6 MG IVP (11:08)
--- NOTE | 2021-07-21 11:15 | PC.NURSE ---
1035 Pt intubated with 8.0 ETT, 24cm at lip per anesthesia. VT 400, Fio2 100%, AC 16, peep 10. All intubation meds pushed per MD. OGT placed without issues. Awaiting CXR results to verify ETT and OGT placement. Fentanyl gtt and propofol infusing per orders. Precedex gtt stopped per MD order. Bilateral wrist restraints in place, sitter dismissed. Will monitor.
[2021-07-21 11:16] LABS: Glucose Point of Care 241 mg/dL (70-110)
--- NOTE | 2021-07-21 12:04 | PC.NURSE ---
Addendum entered by Josh Martinez RN 07/21/21 12:05: Green bile noted in OGT, connected to suction. approximately 150ml bile obtained. No green noted when endotracheal suctioning performed. Will monitor. Original Note: Lorazepam gtt added to fentanyl and propofol to provide adequate sedation. BIS monitor placed.
[2021-07-21] MEDS: cisatracurium 100 MG in sodium chloride 0.9% 50 ML IV (12:45)
[2021-07-21] MEDS: propofol 1,000 MG/100 ML INJ 31.2 MG IV ×4 (14:30→23:16)
--- NOTE | 2021-07-21 15:22 | PC.NURSE ---
Pt proned at 1430 per staff x 5. Tolerated fair, O2sat recovered slowly. Will monitor.
[2021-07-21 17:04] LABS: Glucose Point of Care 167 mg/dL (70-110)
[2021-07-21 17:50] LABS: ABG PCO2 54.2 mmHg (35-45); ABG PH Result 7.33 (7.35-7.45); Alveolar-Arterial Oxygen Gradi 73.8 mmHg (5-10); Arterial Blood Gas Hematocrit 36.2 % (37-47); Base Excess ABG 1.4 mmol/L (-2.0-2.0); Blood Gas Allen Test Pos; Blood Gas Operator Identificat BD; Blood Gas Sample Site Radial, left; Blood Gas Sample Type Arterial; HCO3 ABG 28.3 mmol/L (22-26); HGB O2 Sat 94.2 % (95-100); Ionized Calcium Level - ABG 1.2 mmol/L (1.1-1.4); Oxygen Device VENT; Oxygen Saturation ABG 95.1; PO2 ABG 88.2 mmHg (80.0-100.0); Potassium Level - ABG 3.6 mmol/L (3.5-5.0); Total Hemoglobin 11.8 g/dL (12-16)
--- NOTE | 2021-07-21 18:09 | PC.NURSE ---
Shift Note Frequent safety and comfort rounds continue. Orders and/or nursing care completed as indicated. Patient monitored for response to intervention and treatment(s). Education provided includes treatment plan, medications, proning and oxygen needs. Family verbalizes understanding. VSS. Remains proned, vent settings per RT. Gtts infusing per orders. No other issues noted. Will continue to monitor.
[2021-07-21 22:13] LABS: Glucose Point of Care 196 mg/dL (70-110)
[2021-07-21] MEDS: enoxaparin 40 mg/0.4 mL Syringe SUBCUT (22:15)
[2021-07-21] MEDS: insulin glargine 100 units/1 mL 25 UNIT SUBCUT (22:16)
[2021-07-22] VITALS (60 sets, daily range): BP systolic 85–116; BP diastolic 45–68; PULSE 80–116; RESP 20–24; TEMP 36.9–37.4; O2SAT 86–94; BMI 41.5
[2021-07-22] MEDS: propofol 1,000 MG/100 ML INJ 31.2 MG IV (02:30)
[2021-07-22] MEDS: ipratropium-albuterol 3 mL Neb INHALATION ×4 (03:19→19:59)
[2021-07-22 03:51] LABS: ABG PCO2 47.9 mmHg (35-45); ABG PH Result 7.39 (7.35-7.45); Arterial Blood Gas Hematocrit 34.7 % (37-47); Base Excess ABG 3.6 mmol/L (-2.0-2.0); Blood Gas Allen Test Pos; Blood Gas Sample Site Radial, left; Blood Gas Sample Type Arterial; HCO3 ABG 29.2 mmol/L (22-26); Oxygen Device VENT; PO2 ABG 85.4 mmHg (80.0-100.0)
[2021-07-22 04:37] LABS: Alanine Aminotransferase 16 U/L (0-33); Albumin Level 2.6 g/dL (3.5-5.2); Alkaline Phosphatase 90 IU/L (35-105); Anion Gap 17.3 (5-19); Aspartate Amino Transferase 12 U/L (0-32); Blood Urea Nitrogen 17 mg/dL (6-20); Calcium 7.6 mg/dL (8.5-10.5); Carbon Dioxide 26 mmol/L (22-29); Chloride 108 mmol/L (98-107); Globulin 3.2 g/dL (1.3-4.6); Glomerular Filtration Rate 89.3 mL/min (90-130); Glucose 147 mg/dL (65-115); Osmolality Calculated 310 mOsm/kg (285-295); Potassium 3.3 mmol/L (3.5-5.1); Sodium 148 mmol/L (136-145); Total Bilirubin 0.3 mg/dL (0.15-1.2); Total Protein 5.8 g/dL (6.6-8.7)
[2021-07-22 04:54] LABS: Hematocrit 34.6 % (37.0-47.0); Mean Corpuscular HGB Conc 31.8 g/dL (30.0-36.0); Mean Corpuscular Hemoglobin 28.2 pg (28.0-34.0); Mean Corpuscular Volume 88.7 fl (81-99); Mean Platelet Volume 9.9 fL (7.4-10.4); Platelet Count 216 10^3/cmm (130-400); White Blood Count 8.8 10^3/uL (4.0-10.0)
[2021-07-22] MEDS: cisatracurium 100 MG in sodium chloride 0.9% 50 ML 5.62 MG IV (04:56)
[2021-07-22] MEDS: propofol 1,000 MG/100 ML INJ 18.72 MG IV ×4 (05:46→21:09)
--- NOTE | 2021-07-22 05:53 | PC.NURSE ---
Shift Note Frequent safety and comfort rounds continue. Orders and/or nursing care completed as indicated. Patient monitored for response to intervention and treatment(s). Education provided includes proning and supining. Patient is unable to comprehend teaching due to being intubated/sedated. Patient had an uneventful shift. Remains on ventilator settings are as follows; FiO2-90%, VT-400, PEEP-14, rate-20. Please see previous note for BIS/TOF monitoring. Nimbex, Fentanyl, Propofol, and Ativan are infusing per protocol, please see MAR for infusion rates. Porter catheter drained 350 mls of cloudy urine overnight. OG tube clamped at this time, no gastric residual overnight. No wounds or skin issues noted at this time. Patient went supine at 0500 from prone position. Will continue to monitor.
--- NOTE | 2021-07-22 06:54 | PC.NURSE ---
BIS/TOF Monitoring Time TOF BIS 2000 3 37 2200 4 36 0000 3 34 0200 4 33 0400 3 32 0600 4 45
--- NOTE | 2021-07-22 07:00 | XRR_ITS ---
PROCEDURE INFORMATION: Exam: XR Chest Exam date and time: 07/22/2021 7:00 AM Age: 46 years old Clinical indication: Condition or disease; Lung condition and disease; Respiratory failure; Patient HX: F/u resp failure. Intubated. Pending covid results; Additional info: Follow up resp failure TECHNIQUE: Imaging protocol: XR of the chest. Views: 1 view. COMPARISON: CR XR chest 1V portable [id number] 07/21/2021 11:10 AM FINDINGS: Tubes, catheters and devices: Right sided PICC is in satisfactory position, with distal tip at the level of the SVC/RA junction. Feeding tube is in satisfactory position. Endotracheal tube is in satisfactory position. Lungs: Interval worsening of bilateral airspace opacities. No large pleural effusion or pneumothorax. Pleural spaces: See Lungs finding. Heart/Mediastinum: Stable cardiomediastinal silhouette. Bones/joints: No acute osseous injury identified. XR/XR chest 1V portable [id number] IMPRESSION: Interval worsening of bilateral airspace opacities.
[2021-07-22 07:35] LABS: Slide Review Slide Review Perform
[2021-07-22 07:38] LABS: Eosinophils 0 %; Lymphocytes 8 %; Platelet Estimate Normal (Normal); Segmented Neutrophils 68 %; Total Cells Counted 100 (0-100)
[2021-07-22 08:16] LABS: Glucose Point of Care 166 mg/dL (70-110)
[2021-07-22] MEDS: potassium chloride oral liq 20 mEq/15 mL UDC 40 MEQ PO (08:35)
[2021-07-22] MEDS: insulin lispro 100 unit/1 mL SUBCUT ×4 (08:36→21:08)
[2021-07-22] MEDS: dextrose 5% 1,000 ML 30 ML IV (08:36)
[2021-07-22] MEDS: cefepime 2,000 MG in sodium chloride 0.9% (plus) 50 ML 100 MG IV ×2 (08:36→21:08)
[2021-07-22] MEDS: budesonide 0.5 mg/2 mL Neb INHALATION ×2 (09:00→19:57)
[2021-07-22] MEDS: dexamethasone 10 mg/mL INJ 6 MG IVP (10:47)
--- NOTE | 2021-07-22 12:07 | PC.NUTR ---
Because of low PO intake since admission, when medically appropriate, recommend consideration of Glucerna 1.2 starting @ 10 mls/hr and advancing as tolerated to a goal rate of 40 mls/hr, with FW flushes of 120 ml Q4H or per MD discretion. See full RD assessment for details.
[2021-07-22 12:28] LABS: Glucose Point of Care 185 mg/dL (70-110)
--- NOTE | 2021-07-22 13:03 | PC.SOCIAL ---
IMM UPDATED IMM dated and initialed and copy given to patient.
--- NOTE | 2021-07-22 13:04 | P.PN_ITS ---
Subjective Subjective: Interval history: Sherrie is sedated on the ventilator. Medications: Reviewed: Yes Vitals/I&O/Wt Last Vital Signs Temp 98.9 F 07/22/21 04:00 Pulse 103 H 07/22/21 09:01 Resp 22 H 07/22/21 11:47 BP 102/54 07/22/21 07:00 Pulse Ox 90 07/22/21 11:47 07/21/21 07/22/21 07/22/21 22:59 06:59 14:59 Intake Total 285.65 / 839.1639 567.72 / 1406.8839 143.791 / 143.791 Output Total 750 / 750 350 / 1100 Balance -464.35 / 89.1639 217.72 / 306.8839 143.791 / 143.791 Weight last 48 hrs Weight 106.282 kg Weight 103.986 kg Physical Exam Narrative: EXAM NARRATIVE: General exam sedated female, no distress HEENT: Atraumatic normocephalic. Endotracheal tube in place Neck is supple Cardiovascular regular rate and rhythm, slightly bradycardic, no murmur Lungs scattered crackles, dry Abdomen is soft, obese. Positive bowel sounds. No obvious organomegaly. demonstrates Porter Extremities no cyanosis clubbing or edema, cap refill brisk Urinary Catheter Management^: Porter: Cath Placed During This Visit: yes Reason for Continuing Indwelling Catheter: Accurate Measurement of Urinary Output in Critically Ill Patients Urinary Catheter Date of Insertion: 07/17/21 Urinary Catheter Time of Insertion: 18:58 Data : 07/22/21 03:00 07/22/21 03:00 A&P Assessment and plan (1) Hypoxia: Now intubated Status: Acute (2) ARDS (adult respiratory distress syndrome): Severe ARDS. Underwent first proning session yesterday. We will continue this today for 2 more proning sessions. PO2 this morning 85. Currently on 100% FiO2 Chest x-ray today consistent with this with bilateral patchy interstitial infiltrates. No evidence of pneumothorax. This is very likely to be secondary to Covid 19 pneumonia although patient has refused testing. Patient's power of securities attorney adamantly refuses to have her tested as well. Continue dexamethasone 6 mg IV every 24 hours CRP is decreasing. Repeat tomorrow Continue pulmonary toilet with DuoNeb every 6 hours, inhaled budesonide Echocardiogram was performed demonstrating an EF of 69%, normal chamber sizes, m ild left ventricular hypertrophy Currently on cefepime empirically. Cultures negative. MRSA PCR negative. Bacterial antigens negative. CTA on admission negative for pulmonary embolism. Central pulmonary artery enlargement was noted. Pulmonary consultation Norepinephrine if needed for hypotension that may occur with sedation. Status: Acute (3) Severe sepsis with lactic acidosis: Resolved Status: Acute (4) Asthma: See under ARDS above Status: Acute (5) Diabetes: DKA present on admission has resolved Continue long-acting insulin, sliding scale insulin Status: Acute (6) Acute hypoxemic respiratory failure: Still present, secondary to ARDS and what appears to be viral pneumonia from Covid 19 although patient has refused testing. See documentation in history and physical. Status: Acute Additional A&P Information Acute encephalopathy Abnormal TSH. This is secondary to euthyroid sick Hypernatremia. Start D5W, low rate Mild hypokalemia, supplement Full code Lovenox for DVT prophylaxis Attestations Medical Necessity Statement*: Needs continued hospitalization secondary to severe COVID-19 pneumonia requiring mechanical ventilation Critical Care Time: The high probability of a clinically significant, sudden or life threatening deterioration of the patient's [respiratory] system(s) required my full and direct attention, intervention and personal management. The critical care time is as shown. This time is in addition to time spent performing any reported procedures but includes the following: [x] Data and vital sign review and interpretation [x] Patient assessment, examination and intervention [x] Documentation [x] Medication orders and management Critical Care Time (min): 35 Coding Level of Care Code Acute Principal Technical Architect for [facility] Diagnoses Hypoxia R09.02 ARDS (adult respiratory distress syndrome) J80 Severe sepsis with lactic acidosis A41.9; E87.2; R65.20 Asthma J45.909 Diabetes E11.9 Acute hypoxemic respiratory failure J96.01
--- NOTE | 2021-07-22 15:47 | PC.SOCIAL ---
IMM UPDATED IMM dated and initialed and copy given to patient
[2021-07-22 17:39] LABS: Glucose Point of Care 280 mg/dL (70-110)
[2021-07-22 20:26] LABS: Glucose Point of Care 236 mg/dL (70-110)
[2021-07-22] MEDS: insulin glargine 100 units/1 mL 25 UNIT SUBCUT (21:09)
[2021-07-23] VITALS (61 sets, daily range): BP systolic 77–111; BP diastolic 48–65; PULSE 78–107; RESP 20–23; TEMP 36.8–38.2; O2SAT 88–100; BMI 36.5
[2021-07-23] MEDS: enoxaparin 40 mg/0.4 mL Syringe SUBCUT (00:05)
[2021-07-23] MEDS: propofol 1,000 MG/100 ML INJ 18.72 MG IV (02:51)
[2021-07-23] MEDS: cisatracurium 100 MG in sodium chloride 0.9% 50 ML IV ×2 (02:52→13:05)
[2021-07-23] MEDS: ipratropium-albuterol 3 mL Neb INHALATION ×4 (03:03→20:41)
[2021-07-23 04:43] LABS: Alanine Aminotransferase 16 U/L (0-33); Albumin Level 2.5 g/dL (3.5-5.2); Alkaline Phosphatase 84 IU/L (35-105); Aspartate Amino Transferase 24 U/L (0-32); Blood Urea Nitrogen 21 mg/dL (6-20); C Reactive Protein 39.5 mg/L (0.0-4.9); Calcium 7.5 mg/dL (8.5-10.5); Carbon Dioxide 26 mmol/L (22-29); Chloride 109 mmol/L (98-107); Globulin 3.1 g/dL (1.3-4.6); Glomerular Filtration Rate 131.7 mL/min (90-130); Glucose 127 mg/dL (65-115); Magnesium 2.1 mg/dL (1.7-2.3); Osmolality Calculated 313 mOsm/kg (285-295); Sodium 149 mmol/L (136-145); Total Bilirubin 0.3 mg/dL (0.15-1.2); Total Protein 5.6 g/dL (6.6-8.7)
[2021-07-23 04:44] LABS: Anion Gap 17.4 (5-19); Potassium 3.4 mmol/L (3.5-5.1)
[2021-07-23 04:46] LABS: Basophils % 0.2 %; D Dimer >= 20.00 ug/mIFEU (0-0.59); Eosinophils # 0.1 10^3/uL (0.0-0.8); Hematocrit 35.5 % (37.0-47.0); Hemoglobin 10.9 g/dL (11.5-15.3); Lymphocytes % 11.6 %; Mean Corpuscular HGB Conc 30.7 g/dL (30.0-36.0); Mean Corpuscular Hemoglobin 28.1 pg (28.0-34.0); Mean Corpuscular Volume 91.5 fl (81-99); Mean Platelet Volume 10.1 fL (7.4-10.4); Monocytes # 0.6 10^3/uL (0.2-0.9); Monocytes % 6.9 %; Neutrophils # 6.25 10^3/uL (1.8-7.7); Neutrophils % 70.5 %; Nucleated Red Blood Cells % 0 %; Platelet Count 252 10^3/cmm (130-400); Red Blood Count 3.88 10^6/uL (4.1-5.3); Red Cell Distribution Width 15.1 % (12.1-15.1); White Blood Count 8.9 10^3/uL (4.0-10.0)
[2021-07-23 05:35] LABS: ABG PH Result 7.38 (7.35-7.45); Arterial Blood Gas Hematocrit 55.9 % (37-47); Base Excess ABG 4.1 mmol/L (-2.0-2.0); Blood Gas Allen Test Pos; Blood Gas Operator Identificat JB; Blood Gas Sample Site Radial, left; Blood Gas Sample Type Arterial; HCO3 ABG 30.9 mmol/L (22-26); Oxygen Device VENT; PO2 ABG 82.3 mmHg (80.0-100.0)
--- NOTE | 2021-07-23 06:03 | PC.NURSE ---
BIS/TOF Monitoring Time BIS TOF 1999 23 4 2200 15 4 0000 38 4 0200 44 4 0400 46 4 0600 36 4
--- NOTE | 2021-07-23 06:05 | PC.NURSE ---
Shift Note Frequent safety and comfort rounds continue. Orders and/or nursing care completed as indicated. Patient monitored for response to intervention and treatment(s). Education provided includes vent compliance with medication. Patient unable to comprehend teaching. Patient had uneventful shift, remains unresponsive to painful/verbal stimuli. Ventilator settings as follows; FiO2-100%, VT-400, Peep-14, Rate-20. Porter catheter drained 400 mls of urine overnight. D5, Ativan, Propofol, Fentanyl, and Nimbex infusing per protocol, please see MAR for infusion rates. No wounds or skin issues noted at this time. Please see previous note for BIS/TOF monitoring. Will continue to monitor.
[2021-07-23 06:32] LABS: Slide Review Slide Review Perform
--- NOTE | 2021-07-23 06:35 | CT_ITS ---
WS: [id number] CT CHEST ANGIOGRAPHY WITH REFORMATS HISTORY: elevated dimer TECHNIQUE: Contiguous axial images are obtained through the chest during arterial injection of intrav enous contrast. Images are reconstructed to evaluate the pulmonary arteries. MIP imaging also reviewe d. All CT scans at [facility] use at least one of these dose optimization techniques: automat ed exposure control; mA and/or kV adjustment per patient size (includes targeted exams where dose is matched to clinical indication); or iterative reconstruction. CONTRAST: Omnipaque 350; 52 mL IV. DLP: 596.13 mGy.cm COMPARISON: 07/17/2021 Significantly limited evaluation of the pulmonary artery due to body habitus and motion. There is ext ensive artifact through the chest from the patient's life support catheters and tubes. Pulmonary sang ry is dilated to 4.2 cm. Centrally there is no large pulmonary embolism. Beyond the lobar branches th e opacification is significantly compromised by body habitus, motion and opacifications. Mild atheros clerotic changes within the aorta. There is no dissection or aneurysm. Endotracheal tube and nasogast sukumar tube are in good position. Extensive bilateral dense consolidations throughout all lobes. The areas of consolidation have progre ssed since the prior study. Less groundglass attenuation and more areas of consolidation. No pneumoth orax or pneumomediastinum. Prior cholecystectomy. CT/CT angio chest PE protcl [id number] IMPRESSION: 1. Quality of this examination is significantly limited by body habitus and ar tifact from the support device catheters and lines and breathing motion. 2. No central pulmonary embolism. 3. Pulmonary hypertension, dilated pulmonary artery measures 4.2 cm. 4. Progressive areas of consolidation involving all lobes. Less groundglass at tenuation with more areas of consolidation since 07/17/2021. 5. Nasogastric and endotracheal tubes are in good position.
--- NOTE | 2021-07-23 07:00 | XRR_ITS ---
PROCEDURE INFORMATION: Exam: XR Chest Exam date and time: 07/23/2021 7:00 AM Age: 46 years old Clinical indication: Condition or disease; Lung condition and disease; Respiratory failure; Status not specified; Patient HX: F/u resp failure. Intubated. TECHNIQUE: Imaging protocol: XR of the chest. Views: 1 view. COMPARISON: CR XR chest 1V portable [id number] 07/22/2021 5:03 AM FINDINGS: Tubes, catheters and devices: Endotracheal tube, feeding tube, central venous catheter again demonstrated. The endotracheal tube terminates 3.0 cm above the myles. Lungs: Diffuse bilateral airspace disease, which has worsened when compared to the previous study. Interstitial prominence. Pleural spaces: No significant pleural effusion. Heart/Mediastinum: Partial obscuration of the heart by overlying airspace disease. Bones/joints: Unremarkable. XR/XR chest 1V portable [id number] IMPRESSION: Diffuse bilateral airspace disease, which has worsened when compared to the previous study.
[2021-07-23 07:40] LABS: Glucose Point of Care 131 mg/dL (70-110)
[2021-07-23] MEDS: potassium chloride oral liq 20 mEq/15 mL UDC 40 MEQ NG-TUBE (07:41)
[2021-07-23] MEDS: cefepime 2,000 MG in sodium chloride 0.9% (plus) 50 ML 100 MG IV ×2 (07:42→20:40)
[2021-07-23] MEDS: dextrose 5% 1,000 ML 30 ML IV (07:42)
[2021-07-23] MEDS: budesonide 0.5 mg/2 mL Neb INHALATION ×2 (08:25→20:41)
--- NOTE | 2021-07-23 08:37 | XR_ITS ---
WS: [id number] KUB, AP portable supine view, 07/23/2021 Clinical Data: abdominal distension Comparison: None. Findings: No abnormal intraabdominal masses or calcifications are seen. There is no dilatated small bowel or ev idence of obstruction. There is a nasogastric tube which probably ends in the body of the stomach. There are clips in right upper quadrant from a cholecystectomy. Monitor leads on the abdominal wall. XR/XR abdomen 1V* [id number] Impression: Negative KUB.
--- NOTE | 2021-07-23 08:39 | USCV_ITS ---
Eliud Sherrie Age: 46 Gender: F : 1975 Exam Date: 07/23/2021 09:48 Ordering Phys: Patrick Dash MD Technologist: COOPER Exam Location: [facility] [place] Indication: elevated D-DIMER, COVID POSITIVE, ON VENT IN ICU7 HISTORY: elevated D-DIMER, COVID POSITIVE, ON VENT IN ICU7 PROCEDURES: The venous duplex Doppler examination of both lower extremities was performed in the standard fashion. The following venous structures were evaluated: common femoral vein, profunda vein, proximal portion of the greater saphenous vein, superficial femoral vein, and the popliteal vein. In addition, the posterior tibial veins were evaluated. FINDINGS: Normal 2-D Doppler and augmentation and compressibility throughout the lower extremity venous structures. Additional imaging through the proximal calf veins also reveals no thrombus. Limited evaluation of the greater saphenous vein is patent with no thrombus.. CONCLUSIONS No DVT bilateral lower extremities. Dr. Yolanda Mcgarry DO (Electronically Signed) Final Date: 23 July 2021 11:44 S
--- NOTE | 2021-07-23 08:40 | P.CONIM_ITS ---
Providers/Reason For Consult Consulting Physician/Specialty*: Patrick Dash MD/Pulmonary Critical Care Reason for Consult*: Acute hypoxic respiratory failure secondary to ARDS-most likely secondary to COVID-19 pneumonia Requesting Physician: Don Black MD Attending Physician: Don Black MD History of Present Illness History of Present Illness Upon review of the chart, Sherrie Kline is a 46 year old female with PMH asthma on inhalers, now usually on home 02, diabetic however has not used insulin in years. In her usual state of health until one week prior to admission, when she developed generalized weakness, malaise, headache, fever and wheezing. She concluded this was related to mold in her home. Her friend received a call from her life partner that she is having trouble breathing on 07/17/2021 and went to her PCP. 02 sat were noted to be 60s-70s, was directed to come to ER. Here she has been on 100% fi02 at 60lpm heated hi flow since arrival. tachypneic with HR 132, RR 40bpm. Found to have DKA additionally with + ketones, blood sugar >500, metabolic acidosis. CTA chest negative for PE but shows Diffuse pulmonary edema versus atypical pneumonia or ARDS and likely pulmonary artery hypertension. Patient is unvaccinated for COVID 19, believes COVID is carlos of the devil, refused all COVID testing and COVID treatment. No c/o chest pain, dyspnea, palpitations, syncope. Eventually she desaturated and was intubated on 07/21/2021 and completed 2 proning sessions so far still requiring 100% FiO2. Her DKA resolved. Pulmonary critical care with consented for acute hypoxic respiratory failure secondary to ARDS due to COVID-19 pneumonia. Today patient seen at bedside multiple times She is sedated, and currently on ventilator 100% FiO2 and PaO2 82 -Other labs and images reviewed Review of Systems General: Reports: ROS unobtainable due to endotracheal tube, ROS unobtainable due to medical condition and ROS unobtainable due to mental status Meds/Allergies Home Medications and Allergies Home Medications Medication Instructions Recorded Confirmed Last Taken Type Grape Seed Extract Drops 30 drp PO .EIGHT TIMES A DAY 07/17/21 07/17/21 Unknown History albuterol sulfate 2 puff INHALATION QID PRN 07/17/21 07/17/21 Unknown History Allergies Allergy/AdvReac Type Severity Reaction Status Date / Time No Known Allergies Allergy Unverified 07/17/21 17:28 Current Medications Current Medications Generic Name Dose Route Start Last Admin Trade Name Rossana PRN Reason Stop Dose Admin Albuterol/Ipratropium 3 ml 07/18/21 03:00 07/23/21 08:25 Ipratropium-Albuterol 3 Ml Neb INHALATION 3 ml Q6H.RESPIRATORY CHECO Administration Budesonide 0.5 mg 07/18/21 08:00 07/23/21 08:25 Budesonide 0.5 Mg/2 Ml Neb INHALATION 0.5 mg BID.RESPIRATORY CHECO Administration Dexamethasone 6 mg 07/20/21 10:45 07/22/21 10:47 Dexamethasone 10 Mg/Ml Inj IVP 6 mg Q24H CHECO Administration dexmedeTOMIDine 0.9 % NaCL 400 mcg in 100 mls @ 0 mls/hr 07/18/21 06:30 07/21/21 11:03 Precedex IV Infused .Q0M CHECO Titration Protocol Per Protocol Cefepime HCl 2,000 mg/ Sodium 50 mls @ 100 mls/hr 07/19/21 08:15 07/23/21 07:42 Chloride IV 100 mls/hr Q12H CHECO Administration Protocol Propofol 1,000 mg in 100 mls @ 0 mls/hr 07/21/21 10:00 07/23/21 06:04 Diprivan IV 25 mcg/kg/min .Q0M CHECO 15.6 mls/hr Titration Protocol Per Protocol Fentanyl 1,000 mcg/ Sodium 100 mls @ 0 mls/hr 07/21/21 10:00 07/23/21 06:03 Chloride IV 75 mcg/hr .Q0M CHECO 7.5 mls/hr Titration Protocol Per Protocol Lorazepam 60 mg/ Sodium 120 mls @ 0 mls/hr 07/21/21 10:00 07/22/21 15:50 Chloride IV 2 mg/hr .Q0M CHECO 4 mls/hr Administration Protocol Per Protocol Cisatracurium Besylate 100 mg/ 100 mls @ 0 mls/hr 07/21/21 10:00 07/23/21 06:03 Sodium Chloride IV 0.9 mcg/kg/min .Q0M CHECO 5.62 mls/hr Titration Protocol Per Protocol Dextrose 1,000 mls @ 30 mls/hr 07/22/21 07:15 07/23/21 07:42 D5w IV 30 mls/hr .Q24H CHECO Administration Insulin Glargine 25 unit 07/19/21 21:00 07/22/21 21:09 Insulin Glargine 100 Units/1 Ml SUBCUT 25 unit BEDTIME CHECO Administration Insulin Human Lispro 0 unit 07/19/21 18:00 07/23/21 07:39 Insulin Lispro 100 Unit/1 Ml SUBCUT Not Given WM&BEDTIME CHECO Protocol Lorazepam 1 mg 07/21/21 07:33 07/21/21 09:06 Lorazepam 2 Mg/Ml Inj 1 Ml IVP 1 mg Q4H PRN Administration ANXIETY PFSH Acute PFSH: Medical History Asthma Diabetes Vitals/I&O/Wt Last Vital Signs Temp 98.4 F 07/23/21 04:00 Pulse 92 07/23/21 08:35 Resp 23 H 07/23/21 08:36 BP 91/58 07/23/21 06:00 Pulse Ox 92 07/23/21 08:36 07/22/21 07/23/21 07/23/21 22:59 06:59 14:59 Intake Total 1528.052 / 1671.843 233.668 / 1905.511 693 / 693 Output Total 400 / 400 400 / 800 Balance 1128.052 / 1271.843 -166.332 / 1105.511 693 / 693 Weight last 48 hrs Weight 206 lb 6 oz Weight 234 lb 5 oz Physical Exam Narrative: EXAM NARRATIVE: PHYSICAL EXAM: General: lying in bed, sedated and intubated. HEENT:NCAT, PERRLA, EOMI Neck: Supple Lungs: Negative except there are crepitations noted bilaterally Heart: s1/s2, RRR Abd: soft, NT, ND, BS + Normoactive Extremities: No edema GRASSLAND CONSERVATIONIST: sedated and limited GRASSLAND CONSERVATIONIST exam possible. SKIN: no rash For Urinary Catheter Management^: Porter: Cath Placed During This Visit: yes Reason for Continuing Indwelling Catheter: Accurate Measurement of Urinary Output in Critically Ill Patients Urinary Catheter Date of Insertion: 07/17/21 Urinary Catheter Time of Insertion: 18:58 Data Labs: Other Labs: Radiology Impressions Abdomen/Pelvis CT 07/19/21 08:11 IMPRESSION: 1. Small quantity of free fluid in the right adnexal region and cul-de-sac. 2. 2.6 cm right ovarian cyst. 3. Extensive bibasilar interstitial/airspace disease. 4. Dilatation of the proximal colon with surgical anastomosis in the proximal descending colon. 5. Additional findings as described above. Chest CTA 07/23/21 06:35 IMPRESSION: 1. Quality of this examination is significantly limited by body habitus and artifact from the support device catheters and lines and breathing motion. 2. No central pulmonary embolism. 3. Pulmonary hypertension, dilated pulmonary artery measures 4.2 cm. 4. Progressive areas of consolidation involving all lobes. Less groundglass attenuation with more areas of consolidation since 07/17/2021. 5. Nasogastric and endotracheal tubes are in good position. Chest X-Ray 07/23/21 07:00 IMPRESSION: Diffuse bilateral airspace disease, which has worsened when compared to the previous study. Abdomen X-Ray 07/23/21 08:37 Impression: Negative KUB. Laboratory Results WBC 8.9 10^3/uL (4.0- 10.0) 07/23/21 02:44 Corrected WBC Cancelled 07/20/21 03:00 RBC 3.88 10^6/uL (4.1 -5.3) L 07/23/21 02:44 Hgb 10.9 g/dL (11.5-1 5.3) L 07/23/21 02:44 Hct 35.5 % (37.0-47.0 ) L 07/23/21 02:44 MCV 91.5 fl (81-99) 07/23/21 02:44 MCH 28.1 pg (28.0-34. 0) 07/23/21 02:44 MCHC 30.7 g/dL (30.0-3 6.0) 07/23/21 02:44 RDW 15.1 % (12.1-15.1 ) 07/23/21 02:44 Plt Count 252 10^3/cmm (130 -400) 07/23/21 02:44 MPV 10.1 fL (7.4-10.4 ) 07/23/21 02:44 Gran % Cancelled 07/20/21 03:00 Neut % (Auto) 70.5 % 07/23/21 02:44 Lymph % (Auto) 11.6 % 07/23/21 02:44 Iroquois % (Auto) 6.9 % 07/23/21 02:44 Eos % (Auto) 1.0 % 07/23/21 02:44 Baso % (Auto) 0.2 % 07/23/21 02:44 Neut # (Auto) 6.25 10^3/uL (1.8 -7.7) 07/23/21 02:44 Lymph # (Auto) 1.0 10^3/uL (0.8- 4.8) 07/23/21 02:44 Iroquois # (Auto) 0.6 10^3/uL (0.2- 0.9) 07/23/21 02:44 Eos # (Auto) 0.1 10^3/uL (0.0- 0.8) 07/23/21 02:44 Baso # (Auto) 0.0 10^3/uL (0.0- 0.1) 07/23/21 02:44 Absolute Gran (aut o) Cancelled 07/20/21 03:00 Nucleated RBC % (a uto) 0 % 07/23/21 02:44 Total Counted 100 (0-100) 07/22/21 03:00 Atypical Lymphs % 0.0 % (0-5) 07/22/21 03:00 Segmented Neutroph ils 68 % 07/22/21 03:00 Band Neutrophils 18.0 % 07/22/21 03:00 Lymphocytes (Manua l) 8 % 07/22/21 03:00 Monocytes (Manual) 2.0 % 07/22/21 03:00 Eosinophils (Manua l) 0 % 07/22/21 03:00 Basophils (Manual) 0.0 % 07/22/21 03:00 Metamyelocytes 1.0 % 07/22/21 03:00 Myelocytes 3.0 % 07/22/21 03:00 Nucleated RBCs # 0.0 /100WBC 07/23/21 02:44 Platelet Estimate Normal (Normal) 07/22/21 03:00 D-Dimer >= 20.00 ug/mIFEU (0-0.59) H 07/23/21 02:44 Specimen Type Arterial 07/23/21 05:00 Sample Site Radial, left 07/23/21 05:00 ABG pH 7.38 (7.35-7.45) 07/23/21 05:00 ABG pCO2 52.0 mmHg (35-45) H 07/23/21 05:00 ABG pO2 82.3 mmHg (80.0-1 00.0) 07/23/21 05:00 ABG HCO3 30.9 mmol/L (22-2 6) H 07/23/21 05:00 ABG O2 Saturation 95.1 07/21/21 17:39 ABG Base Excess 4.1 mmol/L (-2.0- 2.0) H 07/23/21 05:00 Isrrael Test Pos 07/23/21 05:00 VBG pH 7.27 (7.32-7.42) L 07/18/21 11:10 VBG pCO2 33.2 mmHg (41-51) L 07/18/21 11:10 VBG pO2 61.3 mmHg (25-40) H 07/18/21 11:10 VBG HCO3 15.1 mmol/L (24-2 8) L 07/18/21 11:10 VBG Base Excess -10.8 mmol/L (-3. 0-3.0) L 07/18/21 11:10 VBG Hematocrit 42.0 % (37-47) 07/18/21 11:10 A-a O2 Gradient 73.8 mmHg (5-10) H 07/21/21 17:39 Hematocrit 55.9 % (37-47) H 07/23/21 05:00 Hgb O2 Saturation 94.2 % (95-100) L 07/21/21 17:39 Carboxyhemoglobin 0.0 %THgb (0.4-20 .1) L 07/21/21 17:39 Methemoglobin 1.0 % (0.4-1.5) 07/21/21 17:39 Total Hemoglobin 11.8 g/dL (12-16) L 07/21/21 17:39 Sodium 148.0 mmol/L (131 -143) H 07/21/21 17:39 Potassium 3.6 mmol/L (3.5-5 .0) 07/21/21 17:39 Glucose 191.0 mg/dL (70-1 15) H 07/21/21 17:39 Ionized Calcium 1.2 mmol/L (1.1-1 .4) 07/21/21 17:39 O2 Delivery Device Vent 07/23/21 05:00 O2 Liters/Min 50.0 % 07/19/21 16:16 FiO2 100.0 % 07/23/21 05:00 Tidal Volume 0.40 07/23/21 05:00 PEEP 14.0 cmH20 07/23/21 05:00 Round Cutter Operator ID Ralph 07/23/21 05:00 Sodium 144 mmol/L (136-1 45) 07/23/21 16:24 Potassium 3.7 mmol/L (3.5-5 .1) 07/23/21 16:24 Chloride 106 mmol/L (98-10 7) 07/23/21 16:24 Carbon Dioxide 26 mmol/L (22-29) 07/23/21 16:24 Anion Gap 15.7 (5-19) 07/23/21 16:24 BUN 21 mg/dL (6-20) H 07/23/21 16:24 Creatinine 0.5 mg/dL (0.5-0. 9) 07/23/21 16:24 GFR Calculation 131.7 mL/min (90- 130) H 07/23/21 16:24 Glucose 220 mg/dL (65-115 ) H 07/23/21 16:24 POC Glucose 217 mg/dL (70-110 ) H 07/23/21 17:06 Estimat Average Gl ucose 364 07/18/21 03:53 Hemoglobin A1c 14.3 % (4.0-6.0) H 07/18/21 03:53 Calculated Osmolal ity 308 mOsm/kg (285- 295) H 07/23/21 16:24 Lactic Acid 0.8 mmol/L (0.5-2 .2) 07/18/21 03:53 Lactate 1.2 mmol/L (0.5-2 .2) 07/19/21 08:58 Calcium 8.3 mg/dL (8.5-10 .5) L 07/23/21 16:24 Phosphorus 2.2 mg/dL (2.5-4. 5) L 07/20/21 03:00 Magnesium 1.8 mg/dL (1.7-2. 3) 07/23/21 16:24 Total Bilirubin 0.3 mg/dL (0.15-1 .2) 07/23/21 02:44 AST 24 U/L (0-32) 07/23/21 02:44 ALT 16 U/L (0-33) 07/23/21 02:44 Alkaline Phosphata se 84 IU/L (35-105) 07/23/21 02:44 Troponin T Baselin e 22 ng/L (0-10) H 07/17/21 17:00 Troponin T 120 Min inupiat 22.63 ng/L (0-10) H 07/17/21 19:30 Delta Troponin T 0.63 ABS# (0-10) 07/17/21 19:30 Troponin T Hi Sens 6Hr 21.55 ng/L (0-10) H 07/17/21 23:05 Troponin T Hi Sens 6Hr Delta -0.45 ng/L (0-12) L 07/17/21 23:05 C-Reactive Protein 39.5 mg/L (0.0-4. 9) H 07/23/21 02:44 NT-Pro-B Natriuret Pep 490 pg/mL (0-125) H 07/17/21 17:00 Total Protein 5.6 g/dL (6.6-8.7 ) L 07/23/21 02:44 Albumin 2.5 g/dL (3.5-5.2 ) L 07/23/21 02:44 Globulin 3.1 g/dL (1.3-4.6 ) 07/23/21 02:44 Lipase 24 U/L (13-60) 07/17/21 17:00 Procalcitonin 0.78 ng/mL (0-0.5 ) H 07/18/21 03:53 TSH 0.13 uIU/mL (0.27 -4.20) L 07/19/21 08:58 Free T4 0.99 ng/dL (0.82- 1.77) 07/19/21 08:58 Free T3 1.4 PG/ML (2.0-4. 4) L 07/21/21 03:05 Random Cortisol 22.94 ug/dL (2.47 -19.5) H 07/19/21 08:58 Urine Color Yellow (Yellow) 07/17/21 18:30 Urine Appearance Clear (CLEAR) 07/17/21 18:30 Urine pH 5 (5-7) 07/17/21 18:30 Ur Specific Gravit y 1.020 (1.005-1.0 30) 07/17/21 18:30 Urine Protein 2+ (Negative) H 07/17/21 18:30 Urine Glucose (UA) 4+ (Normal) H 07/17/21 18:30 Urine Ketones 3+ (Negative) H 07/17/21 18:30 Urine Blood 3+ (Negative) H 07/17/21 18:30 Urine Nitrate Negative (Negati ve) 07/17/21 18:30 Urine Bilirubin Neg (Negative) 07/17/21 18:30 Urine Urobilinogen Norm mg/dL (Negat isha) 07/17/21 18:30 Ur Leukocyte Dona ase Negative (Negati ve) 07/17/21 18:30 Urine RBC 5-10 /hpf (0-2) H 07/17/21 18:30 Urine WBC None /hpf (0-5) 07/17/21 18:30 Ur Squamous Epith Cells 0-4 /hpf (0-5) H 07/17/21 18:30 Amorphous Sediment Not Reportable 07/17/21 18:30 Urine Bacteria Trace /hpf (NONE) 07/17/21 18:30 Hyaline Casts 5-10 /lpf H 07/17/21 18:30 Urine Opiates Scre en Cancelled 07/17/21 23:07 Ur Barbiturates Sc reen Cancelled 07/17/21 23:07 Ur Phencyclidine S crn Cancelled 07/17/21 23:07 Ur Amphetamines Sc reen Cancelled 07/17/21 23:07 U Benzodiazepines Scrn Cancelled 07/17/21 23:07 Urine Cocaine Scre en Cancelled 07/17/21 23:07 U Marijuana (THC) Screen Cancelled 07/17/21 23:07 Serum Ketones Negative (Negati ve) 07/23/21 16:24 Hepatitis A IgM Ab Non-reactive (No nreactive) 07/18/21 03:53 Hep Bs Antigen Non-reactive (No nreactive) 07/18/21 03:53 Hep Bs Antibody 3.5 (11.5-1000) L 07/18/21 03:53 Hep B Core Total A b Non-reactive (No nreactive) 07/18/21 03:53 Hepatitis C Antibo dy Non-reactive (No nreactive) 07/18/21 03:53 Influenza Type A A g Negative (Negati ve) 07/18/21 01:05 Influenza Type B A g Negative (Negati ve) 07/18/21 01:05 Micro: Micro: Microbiology 07/17/21 17:00 Blood Culture - Fi nal Blood NO GROWTH AFTER 5 DAYS 07/17/21 17:00 Blood Culture - Fi nal Blood NO GROWTH AFTER 5 DAYS A&P Assessment and plan (1) ARDS (adult respiratory distress syndrome): Status: Acute (2) Acute hypoxemic respiratory failure: Status: Acute (3) Diabetes: Status: Acute Qualifiers: Diabetes mellitus type: type 2 Diabetes mellitus intermediate school teacher insulin use: unspecified intermediate school teacher insulin use status Diabetes mellitus complication status: with other specified complication Qualified Code(s): E11.69 - Type 2 diabetes mellitus with other specified complication (4) Asthma: Status: Acute Qualifiers: Asthma severity: unspecified severity Asthma persistence: unspecified Asthma complication type: unspecified Qualified Code(s): J45.909 - Unspecified asthma, uncomplicated (5) DKA (diabetic ketoacidosis): Status: Acute Qualifiers: Diabetes mellitus type: type 2 Diabetes mellitus complication detail: without coma Qualified Code(s): E11.10 - Type 2 diabetes mellitus with ketoa cidosis without coma #acute hypoxic respiratory failure secondary to ARDS-mild most likely COVID-19 pneumonia #Patient with history of diabetes-presented with DKA-currently resolved #Patient with history of asthma -Admitted for significant hypoxic respiratory distress- 07/17/2021 refused COVID-19 testing and treatment -Imaging and clinically looks like patient has COVID-19 pneumonia - deteriorated and intubated on 07/22/2021 - sedated, paralyzed and prone for 2 sessions still requiring 100% FiO2 PaO2 82 -Overall +9 L since admission-given 40 IV Lasix after suctioning-patient FiO2 requirement down to 90%; -Plan is to place a third session today -Currently on dexamethasone 6 MG daily -MRSA nares, urine Legionella antigen and urine Legionella antigen and bacterial antigens were negative; improving CRP -Patient is covered with cefepime -Patient D-dimer significantly elevated-CTA negative for PE and major vessels but smaller blood vessels were not well visualized. Bilateral lower extremity venous Doppler negative for DVT. Started on full dose anticoagulation with Lovenox -DKA resolved-currently patient is on Lantus 25 at bedtime and scale coverage and sugars well controlled -K3.4-supplemented -Monitor input output and try to keep patient net negative -Had bowel movement today-we will continue senna at bedtime Overall patient has very slow improvement in her FiO2 after 2 sessions of proning-discussed with next of kin her life partner Mr. Angel about transferring her to higher facility for ECMO as she is relatively young patient and may benefit from ECMO and possible lung transplant evaluation if she does not improve next few days. He wanted to discuss with patient's daughter and patient's father will let us know tomorrow. He also inquired about when will relieve the try to call off further care stop I told patient that she is relatively we should give her at least few more days (and proning sessions) to see if she gets better. Recommendations conveyed to hospitalist, RN, RT taking care of the patient Consult Attestations Medical Necessity Statement: Acute hypoxic respiratory failure secondary to ARDS-most likely secondary to COVID-19 pneumonia requiring mechanical intubation and ventilation- Time Spent in Patient Care: Greater than 35 minutes (>than 50% of time spent in counselling and/or direct pt care on unit) . Critical Care Time: The high probability of a clinically significant, sudden or life threatening deterioration of the patient's [respiratory, endocrine] system(s) required my full and direct attention, intervention and personal management. The critical care time is as shown. This time is in addition to time spent performing any reported procedures but includes the following: [x] Data and vital sign review and interpretation [x] Patient assessment, examination and intervention [x] Documentation [x] Medication orders and management Critical Care Time (min): 50 Coding Level of Care Code New Pt Acute Bookkeepers Supervisor for Chg Fwd Patient Type New History Comprehensive Exam Comprehensive Medical Decision Making High Complexity Diagnoses ARDS (adult respiratory distress syndrome) J80 Acute hypoxemic respiratory failure J96.01 Diabetes E11.69 Diabetes mellitus type: type 2 Diabetes mellitus intermediate school teacher insulin use: unspecified nursing home insulin use status Diabetes mellitus complication status: with other specified complication Asthma J45.909 Asthma severity: unspecified severity Asthma persistence: unspecified Asthma complication type: unspecified DKA (diabetic ketoacidosis) E11.10 Diabetes mellitus type: type 2 Diabetes mellitus complication detail: without coma Time Spent (min) 50
--- NOTE | 2021-07-23 09:14 | PC.CHAP ---
Pastoral Care Encounter/Spiritual Assessment Type of Contact [] Declined bed setter visit [] Patient/Family/Request visit [] Outpatient visit [] Follow-up visit [] Physician referral [] Code/Alert [x] Routine visit [] Staff referral [] Actively dying [] Patient sleeping [] Family support [] [] Out of room [] Palliative care [] [x] Receiving care in room [] Pre-surgical visit [] Trauma [] Long length of stay [x] ICU visit [x] Other: vent... Relational/Emotional Strength [] Patient feels connected with others/family/visitors/staff [] Distress [] Loneliness/isolation [] Abandonment Spirituality of Patient [] Person of Silvana [] Attends Adventism of their Silvana [] Believes in Prayer [] Reads Bible or Episcopal materials [] There are Spiritual issues to be addressed Plastics Process Hand Interventions [x] Prayer [] Active listening [] Non-anxious presence [] Spiritual/emotional support [] Crisis/trauma care [] Spiritual counseling [] Bereavement support [] Provided bereavement packet [] Provided Bible/devotional materials [] Provided toy/stuffed animal, coloring book to patient or family member [] Provided Communion [] Anointing/[place] [] Salvation [x] Completed spiritual assessment [] Other: Impact on Illness or Injury [] Angry [] Fearful [] Anxious [] Often cries [] Exhaustion [] Unable to work [] Unable to attend presybeterian [] Unable to walk/stand [] Unable to read [] Unable to drive [] Unable to eat/drink [] Unable to sleep [] Unable to be with family [] Patient intubated [] Other: Summary Time spent with patient
[2021-07-23] MEDS: FUROsemide 10 mg/mL SDV 4mL 40 MG IVP (09:33)
[2021-07-23] MEDS: dexamethasone 10 mg/mL INJ 6 MG IVP (09:33)
[2021-07-23] MEDS: enoxaparin 100 mg/mL Syringe 90 MG SUBCUT ×2 (09:33→20:41)
[2021-07-23] MEDS: propofol 1,000 MG/100 ML INJ 15.6 MG IV ×2 (09:36→15:03)
[2021-07-23] MEDS: iohexol 350 mg/mL 100 mL Btl IV (11:05)
[2021-07-23 12:27] LABS: Glucose Point of Care 207 mg/dL (70-110)
--- NOTE | 2021-07-23 12:35 | P.PN_ITS ---
Subjective Subjective: Interval history: Sherrie is sedated on the ventilator. Medications: Reviewed: Yes Vitals/I&O/Wt Last Vital Signs Temp 98.2 F 07/23/21 07:00 Pulse 105 H 07/23/21 09:00 Resp 22 H 07/23/21 10:28 BP 88/53 07/23/21 09:00 Pulse Ox 90 07/23/21 10:28 07/22/21 07/23/21 07/23/21 22:59 06:59 14:59 Intake Total 1528.052 / 1671.843 233.668 / 1905.511 782.784 / 782.784 Output Total 400 / 400 400 / 800 Balance 1128.052 / 1271.843 -166.332 / 1105.511 782.784 / 782.784 Weight last 48 hrs Weight 93.61 kg Weight 106.282 kg Physical Exam Narrative: EXAM NARRATIVE: General exam sedated female, no distress HEENT: Atraumatic normocephalic. Endotracheal tube in place Neck is supple Cardiovascular regular rate and rhythm, slightly bradycardic, no murmur Lungs scattered crackles, dry Abdomen is soft, obese. Positive bowel sounds. No obvious organomegaly. demonstrates Porter Extremities no cyanosis clubbing or edema, cap refill brisk Urinary Catheter Management^: Porter: Cath Placed During This Visit: yes Reason for Continuing Indwelling Catheter: Accurate Measurement of Urinary Output in Critically Ill Patients Urinary Catheter Date of Insertion: 07/17/21 Urinary Catheter Time of Insertion: 18:58 Data : 07/23/21 02:44 07/23/21 02:44 Micro: Microbiology 07/17/21 17:00 Blood Culture - Final Blood NO GROWTH AFTER 5 DAYS 07/17/21 17:00 Blood Culture - Final Blood NO GROWTH AFTER 5 DAYS A&P Assessment and plan (1) Hypoxia: Now intubated Status: Acute (2) ARDS (adult respiratory distress syndrome): Severe ARDS. Underwent second proning session last night. No overall improvement. Pulmonary has seen her. Will consider transfer for ECMO if she is appropriate candidate and family agrees. Chest x-ray today consistent with this with bilateral patchy interstitial infiltrates. No evidence of pneumothorax. This is very likely to be secondary to Covid 19 pneumonia although patient has refused testing. Patient's power of snaker tractor driver adamantly refuses to have her tested as well. Continue dexamethasone 6 mg IV every 24 hours CRP is decreasing. Continue pulmonary toilet with DuoNeb every 6 hours, inhaled budesonide Echocardiogram was performed demonstrating an EF of 69%, normal chamber sizes, mild left ventricular hypertrophy Currently on cefepime empirically. Cultures negative. MRSA PCR negative. Bacterial antigens negative. CTA on admission negative for pulmonary embolism. Central pulmonary artery enlargement was noted. Secondary to elevated D-dimer today this was repeated. No overall changes other than increasing pulmonary infiltrates. Venous duplex was done as well which demonstrated no evidence of DVT. Pulmonary consultation was performed today, full recommendations pending Norepinephrine if needed for hypotension that may occur with sedation. Status: Acute (3) Severe sepsis with lactic acidosis: Resolved Status: Acute (4) Asthma: See under ARDS above Status: Acute (5) Diabetes: DKA present on admission has resolved Continue long-acting insulin, sliding scale insulin Status: Acute (6) Acute hypoxemic respiratory failure: Still present, secondary to ARDS and what appears to be viral pneumonia from Covid 19 although patient has refused testing. See documentation in hi story and physical. Status: Acute Additional A&P Information Acute encephalopathy. Currently sedated Abnormal TSH. This is secondary to euthyroid sick Hypernatremia. On D5W, low rate. Repeat electrolytes ordered for this afternoon Mild hypokalemia, supplemented and repeat electrolytes for this afternoon GI: Needs initiation of tube feeds. This can hopefully be done after proning has been completed. Full code Lovenox for DVT prophylaxis Attestations Medical Necessity Statement*: Needs continued hospital stay for severe COVID- 19 pneumonia requiring mechanical ventilation. Critical Care Time: The high probability of a clinically significant, sudden or life threatening deterioration of the patient's [pulmonary] system(s) required my full and direct attention, intervention and personal management. The critical care time is as shown. This time is in addition to time spent performing any reported procedures but includes the following: [x] Data and vital sign review and interpretation [x] Patient assessment, examination and intervention [x] Documentation [x] Medication orders and management Critical Care Time (min): 34 Coding Level of Care Code Acute Chief Juvenile Probation Officer for [facility] Diagnoses Hypoxia R09.02 ARDS (adult respiratory distress syndrome) J80 Severe sepsis with lactic acidosis A41.9; E87.2; R65.20 Asthma J45.909 Diabetes E11.9 Acute hypoxemic respiratory failure J96.01
[2021-07-23] MEDS: insulin lispro 100 unit/1 mL SUBCUT ×3 (12:51→20:41)
--- NOTE | 2021-07-23 15:49 | PC.RESP ---
RT Shift Note Frequent safety and respiratory rounds continue. Orders completed as indicated. Patient monitored pre and post treatments throughout shift. Patient [Did tolerate treatments appropriately. Condition [DidNotChange]. Patient and/or major account representative educated on respiratory treatment and medications. Patient and/or major account representative [unable to comprehend]. Will continue to monitor patient progress.
[2021-07-23 17:09] LABS: Glucose Point of Care 217 mg/dL (70-110)
[2021-07-23 17:14] LABS: Anion Gap 15.7 (5-19); Blood Urea Nitrogen 21 mg/dL (6-20); Calcium 8.3 mg/dL (8.5-10.5); Carbon Dioxide 26 mmol/L (22-29); Chloride 106 mmol/L (98-107); Creatinine Clr Calc Pharmacy 149.6314; Glomerular Filtration Rate 131.7 mL/min (90-130); Glucose 220 mg/dL (65-115); Magnesium 1.8 mg/dL (1.7-2.3); Osmolality Calculated 308 mOsm/kg (285-295); Potassium 3.7 mmol/L (3.5-5.1); Sodium 144 mmol/L (136-145)
[2021-07-23 17:15] LABS: Ketone (Acetest) Serum Negative (Negative)
[2021-07-23] MEDS: insulin glargine 100 units/1 mL 25 UNIT SUBCUT (20:42)
[2021-07-23] MEDS: propofol 1,000 MG/100 ML INJ 28.08 MG IV (20:54)
[2021-07-24] VITALS (61 sets, daily range): BP systolic 79–132; BP diastolic 49–80; PULSE 72–113; RESP 20–21; TEMP 37.1–37.4; O2SAT 88–100
[2021-07-24] MEDS: propofol 1,000 MG/100 ML INJ 28.08 MG IV (00:23)
[2021-07-24] MEDS: ipratropium-albuterol 3 mL Neb INHALATION ×4 (03:16→20:02)
[2021-07-24] MEDS: propofol 1,000 MG/100 ML INJ 31.2 MG IV ×5 (04:49→19:43)
[2021-07-24 05:05] LABS: Basophils % 0.5 %; Eosinophils # 0.1 10^3/uL (0.0-0.8); Eosinophils % 1.9 %; Hematocrit 35.3 % (37.0-47.0); Hemoglobin 10.9 g/dL (11.5-15.3); Lymphocytes # 1.5 10^3/uL (0.8-4.8); Lymphocytes % 19.3 %; Mean Corpuscular HGB Conc 30.9 g/dL (30.0-36.0); Mean Corpuscular Hemoglobin 28.7 pg (28.0-34.0); Mean Corpuscular Volume 92.9 fl (81-99); Mean Platelet Volume 10.1 fL (7.4-10.4); Monocytes # 0.7 10^3/uL (0.2-0.9); Monocytes % 8.9 %; Neutrophils # 4.31 10^3/uL (1.8-7.7); Neutrophils % 57.1 %; Nucleated Red Blood Cells % 0 %; Platelet Count 219 10^3/cmm (130-400); Red Cell Distribution Width 14.8 % (12.1-15.1); White Blood Count 7.6 10^3/uL (4.0-10.0)
--- NOTE | 2021-07-24 05:05 | PC.NURSE ---
Uneventful night, had to titrate drips per mar to maintain vent compliance, remains proned at this time per policy
[2021-07-24 05:06] LABS: ABG PCO2 49.9 mmHg (35-45); ABG PH Result 7.42 (7.35-7.45); Arterial Blood Gas Hematocrit 36.2 % (37-47); Base Excess ABG 6.5 mmol/L (-2.0-2.0); Blood Gas Allen Test Pos; Blood Gas Operator Identificat JB; Blood Gas Sample Site Radial, right; Blood Gas Sample Type Arterial; HCO3 ABG 32.1 mmol/L (22-26); Oxygen Device VENT; PO2 ABG 78.2 mmHg (80.0-100.0)
[2021-07-24 05:32] LABS: Albumin Level 2.3 g/dL (3.5-5.2); Alkaline Phosphatase 83 IU/L (35-105); Blood Urea Nitrogen 23 mg/dL (6-20); Calcium 8.1 mg/dL (8.5-10.5); Carbon Dioxide 25 mmol/L (22-29); Chloride 105 mmol/L (98-107); Globulin 3.2 g/dL (1.3-4.6); Glomerular Filtration Rate 170.4 mL/min (90-130); Glucose 128 mg/dL (65-115); Osmolality Calculated 303 mOsm/kg (285-295); Sodium 144 mmol/L (136-145); Total Bilirubin 0.3 mg/dL (0.15-1.2); Total Protein 5.5 g/dL (6.6-8.7)
[2021-07-24 05:34] LABS: Anion Gap 17.1 (5-19); Potassium 3.1 mmol/L (3.5-5.1)
[2021-07-24 05:47] LABS: Alanine Aminotransferase < 5 U/L (0-33); Aspartate Amino Transferase 5 U/L (0-32)
[2021-07-24] MEDS: cisatracurium 100 MG in sodium chloride 0.9% 50 ML 7.8 MG IV ×2 (06:15→13:24)
--- NOTE | 2021-07-24 07:00 | XR_ITS ---
WS: [id number] PORTABLE CHEST HISTORY: Follow-up pneumonia COMPARISON: 07/23/2021 Nasogastric tube and endotracheal tubes remain in good position. RIGHT peripheral line tip terminates in the mid to distal SVC. Diffuse bilateral pulmonary opacifications. Dense consolidation throughout the mid and lower LEFT jaz g. Moderate improvement in the opacifications throughout the RIGHT lung. Small LEFT pleural effusion is suspected. No pneumothorax. Cardiac size: Obscured by opacifications within the LEFT lung. Mediastinum/Aorta: Normal mediastinum. No osseous abnormality seen. XR/XR chest 1V portable [id number] IMPRESSION: 1. Nasogastric and endotracheal tubes remain in good position. 2. Dense consolidations within the LEFT lung are unchanged, no improvement. 3. Moderate improvement in the consolidations throughout the RIGHT lung.
[2021-07-24 07:27] LABS: Slide Review Slide Review Perform
[2021-07-24 07:43] LABS: Glucose Point of Care 161 mg/dL (70-110)
[2021-07-24 07:43] LABS: Glucose Point of Care 192 mg/dL (70-110)
--- NOTE | 2021-07-24 07:45 | PM.PN ---
Subjective Subjective: Interval history: Sedated, paralyzed in prone currently. Temperature elevation did occur last night. Medications: Reviewed: Yes Vitals/I&O/Wt Last Vital Signs Temp 98.8 F 07/24/21 06:25 Pulse 99 07/24/21 06:00 Resp 20 H 07/24/21 06:16 BP 112/71 07/24/21 06:00 Pulse Ox 94 07/24/21 06:16 07/23/21 07/24/21 07/24/21 22:59 06:59 14:59 Intake Total 305.02 / 1165.539 444.276 / 1609.815 Output Total 400 / 1400 250 / 1650 Balance -94.98 / -234.461 194.276 / -40.185 Weight last 48 hrs Weight 90.718 kg Weight 93.61 kg Physical Exam Narrative: EXAM NARRATIVE: General exam sedated female, no distress. T-max of 100.8 HEENT: Atraumatic normocephalic. Endotracheal tube in place Neck is supple Cardiovascular regular rate and rhythm, slightly bradycardic, no murmur Lungs scattered crackles, dry Abdomen is soft, obese. Positive bowel sounds. No obvious organomegaly. demonstrates Porter Extremities no cyanosis clubbing or edema, cap refill brisk Urinary Catheter Management^: Porter: Cath Placed During This Visit: yes Reason for Continuing Indwelling Catheter: Accurate Measurement of Urinary Output in Critically Ill Patients Urinary Catheter Date of Insertion: 07/17/21 Urinary Catheter Time of Insertion: 18:58 Data : 07/24/21 04:20 07/24/21 04:20 A&P Assessment and plan (1) Hypoxia: Intubated on July 21 Status: Acute (2) ARDS (adult respiratory distress syndrome): Severe ARDS. Underwent third proning session last night. Slowly improving. Pulmonary has seen and family is deciding whether they would want ECMO if indicated. Chest x-ray today consistent with this with bilateral patchy interstitial infiltrates. No evidence of pneumothorax. This is very likely to be secondary to Covid 19 pneumonia although patient has refused testing. Patient's power of election watcher adamantly refuses to have her tested as well. Continue dexamethasone 6 mg IV every 24 hours Continue pulmonary toilet with DuoNeb every 6 hours, inhaled budesonide Echocardiogram was performed demonstrating an EF of 69%, normal chamber sizes, mild left ventricular hypertrophy Currently on cefepime empirically. Cultures negative. MRSA PCR negative. Bacterial antigens negative. CTA on admission negative for pulmonary embolism. Central pulmonary artery enlargement was noted. Secondary to elevated D-dimer today this was repeated. No overall changes other than increasing pulmonary infiltrates. Venous duplex was done as well which demonstrated no evidence of DVT. She was placed on therapeutic anticoagulation. Distal pulmonary arteries were not well visualized. Repeat dimer Norepinephrine if needed for hypotension that may occur with sedation. T-max of 100.8 over the last 24 hours. Obtain blood culture, sputum culture, urine culture. No change in antibiotics currently unless clinical worsening is noted. Status: Acute (3) Severe sepsis with lactic acidosis: Resolved Status: Acute (4) Asthma: See under ARDS above Status: Acute Qualifiers: Asthma severity: unspecified severity Asthma persistence: unspecified Asthma complication type: unspecified Qualified Code(s): J45.909 - Unspecified asthma, uncomplicated (5) Diabetes: DKA present on admission has resolved Continue long-acting insulin, sliding scale insulin Status: Acute Qualifiers: Diabetes mellitus type: type 2 Diabetes mellitus terminal press operator insulin use: unspecified terminal press operator insulin use status Diabetes mellitus complication status: with other specified complication Qualified Code(s): E11.69 - Type 2 diabetes mellitus with other specified complication (6) Acute hypoxemic respiratory failure: Still present, secondary to ARDS and what appears to be viral pneumonia from Covid 19 although patient has refused testing. See documentation in history and physical. Status: Acute Additional A&P Information Acute encephalopathy. Currently sedated Abnormal TSH. This is secondary to euthyroid sick Hypernatremia. On D5W, low rate. Improved Mild hypokalemia, supplement again today GI: Needs initiation of tube feeds. Initiate low-dose tube feeds today, when she is supine, after x-ray confirms OG tube is still in correct placement. Full code Lovenox for DVT prophylaxis Attestations Medical Necessity Statement*: Needs continued hospital stay for treatment of severe Covid 19 pneumonia in this intubated patient. Critical Care Time: Critical Care Time (min): 35 Other Attestations: The high probability of a clinically significant, sudden or life threatening deterioration of the patient's [pulmonary] system(s) required my full and direct attention, intervention and personal management. The critical care time is as shown. This time is in addition to time spent performing any reported procedures but includes the following: [x] Data and vital sign review and interpretation [x] Patient assessment, examination and intervention [x] Documentation [x] Medication orders and management Coding Level of Care Code Acute Janitorial Assistant for Chg Fwd Diagnoses Hypoxia R09.02 ARDS (adult respiratory distress syndrome) J80 Severe sepsis with lactic acidosis A41.9; E87.2; R65.20 Asthma J45.909 Asthma severity: unspecified severity Asthma persistence: unspecified Asthma complication type: unspecified Diabetes E11.69 Diabetes mellitus type: type 2 Diabetes mellitus terminal press operator insulin use: unspecified terminal press operator insulin use status Diabetes mellitus complication status: with other specified complication Acute hypoxemic respiratory failure J96.01
[2021-07-24 08:18] LABS: Procalcitonin 0.15 ng/mL (0-0.5)
[2021-07-24] MEDS: budesonide 0.5 mg/2 mL Neb INHALATION ×2 (08:28→20:02)
[2021-07-24] MEDS: lidocaine 1% 5 ML in potassium chloride premix 100 ML 25 ML IV (08:39)
[2021-07-24] MEDS: potassium chloride oral liq 20 mEq/15 mL UDC 40 MEQ PO (08:40)
[2021-07-24] MEDS: cefepime 2,000 MG in sodium chloride 0.9% (plus) 50 ML 100 MG IV ×2 (08:40→20:09)
[2021-07-24] MEDS: insulin lispro 100 unit/1 mL SUBCUT ×4 (08:40→20:10)
[2021-07-24] MEDS: enoxaparin 100 mg/mL Syringe 90 MG SUBCUT ×2 (08:41→20:10)
[2021-07-24 09:53] LABS: D Dimer >= 20.00 ug/mIFEU (0-0.59)
[2021-07-24] MEDS: FUROsemide 10 mg/mL SDV 4mL 40 MG IVP (10:35)
[2021-07-24] MEDS: dexamethasone 10 mg/mL INJ 6 MG IVP (10:36)
--- NOTE | 2021-07-24 10:58 | PC.RESP ---
RT Shift Note Frequent safety and respiratory rounds continue. Orders completed as indicated. Patient monitored pre and post treatments throughout shift. Patient [Did.] tolerate treatments appropriately. Condition [.DidNotChange]. Patient and/or representative government relations educated on respiratory treatment and medications. Patient and/or representative government relations [unable to comprehend]. Will continue to monitor patient progress.
--- NOTE | 2021-07-24 11:36 | PC.NUTR ---
Because of low PO intake since admission, when medically appropriate, recommend consideration of Glucerna 1.2 starting @ 10 mls/hr and advancing as tolerated to a goal rate of 35 mls/hr, with FW flushes of 120 ml Q4H or per MD discretion. Details in RD assessment.
[2021-07-24 11:39] LABS: Glucose Point of Care 177 mg/dL (70-110)
--- NOTE | 2021-07-24 12:39 | P.PN_ITS ---
Subjective Subjective: Interval history: -Patient seen at bedside today -Currently she is in proning position-third session -FiO2 down to 70% -Plan is to continue with proning sessions -Next of kin to come today and we will have in person goals of care discussion regarding ECMO -Other labs and imaging reviewed Medications: Reviewed: Yes Vitals/I&O/Wt Last Vital Signs Temp 98.8 F 07/24/21 06:25 Pulse 94 07/24/21 08:29 Resp 20 H 07/24/21 11:45 BP 112/71 07/24/21 06:00 Pulse Ox 95 07/24/21 11:45 07/23/21 07/24/21 07/24/21 22:59 06:59 14:59 Intake Total 305.02 / 1165.539 444.276 / 1609.815 238.667 / 238.667 Output Total 400 / 1400 250 / 1650 Balance -94.98 / -234.461 194.276 / -40.185 238.667 / 238.667 Weight last 48 hrs Weight 200 lb Weight 206 lb 6 oz Physical Exam Narrative: EXAM NARRATIVE: PHYSICAL EXAM: General: lying in bed, sedated and intubated. HEENT:NCAT, PERRLA, EOMI Neck: Supple Lungs: Negative except there are crepitations noted bilaterally Heart: s1/s2, RRR Abd: soft, NT, ND, BS + Normoactive Extremities: No edema SPECIALIZED LANGUAGE INSTRUCTOR: sedated and limited SPECIALIZED LANGUAGE INSTRUCTOR exam possible. SKIN: no rash Urinary Catheter Management^: Porter: Cath Placed During This Visit: yes Reason for Continuing Indwelling Catheter: Accurate Measurement of Urinary Output in Critically Ill Patients Urinary Catheter Date of Insertion: 07/17/21 Urinary Catheter Time of Insertion: 18:58 Data : 07/24/21 04:20 07/24/21 04:20 Other Labs: Radiology Impressions Abdomen/Pelvis CT 07/19/21 08:11 IMPRESSION: 1. Small quantity of free fluid in the right adnexal region and cul-de-sac. 2. 2.6 cm right ovarian cyst. 3. Extensive bibasilar interstitial/airspace disease. 4. Dilatation of the proximal colon with surgical anastomosis in the proximal descending colon. 5. Additional findings as described above. Chest CTA 07/23/21 06:35 IMPRESSION: 1. Quality of this examination is significantly limited by body habitus and artifact from the support device catheters and lines and breathing motion. 2. No central pulmonary embolism. 3. Pulmonary hypertension, dilated pulmonary artery measures 4.2 cm. 4. Progressive areas of consolidation involving all lobes. Less groundglass attenuation with more areas of consolidation since 07/17/2021. 5. Nasogastric and endotracheal tubes are in good position. Abdomen X-Ray 07/23/21 08:37 Impression: Negative KUB. Chest X-Ray 07/24/21 07:00 IMPRESSION: 1. Nasogastric and endotracheal tubes remain in good position. 2. Dense consolidations within the LEFT lung are unchanged, no improvement. 3. Moderate improvement in the consolidations throughout the RIGHT lung. Laboratory Results WBC 7.6 10^3/uL (4.0-10.0) 07/24/21 04:20 Corrected WBC Cancelled 07/20/21 03:00 RBC 3.80 10^6/uL (4.1-5.3) L 07/24/21 04:20 Hgb 10.9 g/dL (11.5-15.3) L 07/24/21 04:20 Hct 35.3 % (37.0-47.0) L 07/24/21 04:20 MCV 92.9 fl (81-99) 07/24/21 04:20 MCH 28.7 pg (28.0-34.0) 07/24/21 04:20 MCHC 30.9 g/dL (30.0-36.0) 07/24/21 04:20 RDW 14.8 % (12.1-15.1) 07/24/21 04:20 Plt Count 219 10^3/cmm (130-400) 07/24/21 04:20 MPV 10.1 fL (7.4-10.4) 07/24/21 04:20 Gran % Cancelled 07/20/21 03:00 Neut % (Auto) 57.1 % 07/24/21 04:20 Lymph % (Auto) 19.3 % 07/24/21 04:20 Nuckolls % (Auto) 8.9 % 07/24/21 04:20 Eos % (Auto) 1.9 % 07/24/21 04:20 Baso % (Auto) 0.5 % 01/06/22 04:20 Neut # (Auto) 4.31 10^3/uL (1.8-7.7) 07/24/21 04:20 Lymph # (Auto) 1.5 10^3/uL (0.8-4.8) 07/24/21 04:20 Nuckolls # (Auto) 0.7 10^3/uL (0.2-0.9) 07/24/21 04:20 Eos # (Auto) 0.1 10^3/uL (0.0-0.8) 07/24/21 04:20 Baso # (Auto) 0.0 10^3/uL (0.0-0.1) 07/24/21 04:20 Absolute Gran (auto) Cancelled 07/20/21 03:00 Nucleated RBC % (auto) 0 % 07/24/21 04:20 Total Counted 100 (0-100) 07/22/21 03:00 Atypical Lymphs % 0.0 % (0-5) 07/22/21 03:00 Segmented Neutrophils 68 % 07/22/21 03:00 Band Neutrophils 18.0 % 07/22/21 03:00 Lymphocytes (Manual) 8 % 07/22/21 03:00 Monocytes (Manual) 2.0 % 07/22/21 03:00 Eosinophils (Manual) 0 % 07/22/21 03:00 Basophils (Manual) 0.0 % 07/22/21 03:00 Metamyelocytes 1.0 % 07/22/21 03:00 Myelocytes 3.0 % 07/22/21 03:00 Nucleated RBCs # 0.0 /100WBC 07/24/21 04:20 Platelet Estimate Normal (Normal) 07/22/21 03:00 D-Dimer >= 20.00 ug/mIFEU (0-0.59) H 07/24/21 08:15 Specimen Type Arterial 07/24/21 04:30 Sample Site Radial, right 07/24/21 04:30 ABG pH 7.42 (7.35-7.45) 07/24/21 04:30 ABG pCO2 49.9 mmHg (35-45) H 07/24/21 04:30 ABG pO2 78.2 mmHg (80.0-100.0) L 07/24/21 04:30 ABG HCO3 32.1 mmol/L (22-26) H 07/24/21 04:30 ABG O2 Saturation 95.1 07/21/21 17:39 ABG Base Excess 6.5 mmol/L (-2.0-2.0) H 07/24/21 04:30 Isrrael Test Pos 07/24/21 04:30 VBG pH 7.27 (7.32-7.42) L 07/18/21 11:10 VBG pCO2 33.2 mmHg (41-51) L 07/18/21 11:10 VBG pO2 61.3 mmHg (25-40) H 07/18/21 11:10 VBG HCO3 15.1 mmol/L (24-28) L 07/18/21 11:10 VBG Base Excess -10.8 mmol/L (-3.0-3.0) L 07/18/21 11:10 VBG Hematocrit 42.0 % (37-47) 07/18/21 11:10 A-a O2 Gradient 73.8 mmHg (5-10) H 07/21/21 17:39 Hematocrit 36.2 % (37-47) L 07/24/21 04:30 Hgb O2 Saturation 94.2 % (95-100) L 07/21/21 17:39 Carboxyhemoglobin 0.0 %THgb (0.4-20.1) L 07/21/21 17:39 Methemoglobin 1.0 % (0.4-1.5) 07/21/21 17:39 Total Hemoglobin 11.8 g/dL (12-16) L 07/21/21 17:39 Sodium 148.0 mmol/L (131-143) H 07/21/21 17:39 Potassium 3.6 mmol/L (3.5-5.0) 07/21/21 17:39 Glucose 191.0 mg/dL (70-115) H 07/21/21 17:39 Ionized Calcium 1.2 mmol/L (1.1-1.4) 07/21/21 17:39 O2 Delivery Device Vent 07/24/21 04:30 O2 Liters/Min 50.0 % 07/19/21 16:16 FiO2 70.0 % 07/24/21 04:30 Tidal Volume 0.40 07/24/21 04:30 PEEP 14.0 cmH20 07/24/21 04:30 Sole Splitter ID Ralph 07/24/21 04:30 Sodium 144 mmol/L (136-145) 07/24/21 04:20 Potassium 3.1 mmol/L (3.5-5.1) L 07/24/21 04:20 Chloride 105 mmol/L (98-107) 07/24/21 04:20 Carbon Dioxide 25 mmol/L (22-29) 07/24/21 04:20 Anion Gap 17.1 (5-19) 07/24/21 04:20 BUN 23 mg/dL (6-20) H 07/24/21 04:20 Creatinine 0.4 mg/dL (0.5-0.9) L 07/24/21 04:20 GFR Calculation 170.4 mL/min (90-130) H 07/24/21 04:20 Glucose 128 mg/dL (65-115) H 07/24/21 04:20 POC Glucose 177 mg/dL (70-110) H 07/24/21 11:37 Estimat Average Glucose 364 07/18/21 03:53 Hemoglobin A1c 14.3 % (4.0-6.0) H 07/18/21 03:53 Calculated Osmolality 303 mOsm/kg (285-295) H 07/24/21 04:20 Lactic Acid 0.8 mmol/L (0.5-2.2) 07/18/21 03:53 Lactate 1.2 mmol/L (0.5-2.2) 07/19/21 08:58 Calcium 8.1 mg/dL (8.5-10.5) L 07/24/21 04:20 Phosphorus 2.2 mg/dL (2.5-4.5) L 07/20/21 03:00 Magnesium 1.8 mg/dL (1.7-2.3) 07/23/21 16:24 Total Bilirubin 0.3 mg/dL (0.15-1.2) 07/24/21 04:20 AST 5 U/L (0-32) 07/24/21 04:20 ALT < 5 U/L (0-33) 07/24/21 04:20 Alkaline Phosphatase 83 IU/L (35-105) 07/24/21 04:20 Troponin T Baseline 22 ng/L (0-10) H 07/17/21 17:00 Troponin T 120 Minute 22.63 ng/L (0-10) H 07/17/21 19:30 Delta Troponin T 0.63 ABS# (0-10) 07/17/21 19:30 Troponin T Hi Sens 6Hr 21.55 ng/L (0-10) H 07/17/21 23:05 Troponin T Hi Sens 6Hr Delta -0.45 ng/L (0-12) L 07/17/21 23:05 C-Reactive Protein 39.5 mg/L (0.0-4.9) H 07/23/21 02:44 NT-Pro-B Natriuret Pep 490 pg/mL (0-125) H 07/17/21 17:00 Total Protein 5.5 g/dL (6.6-8.7) L 07/24/21 04:20 Albumin 2.3 g/dL (3.5-5.2) L 07/24/21 04:20 Globulin 3.2 g/dL (1.3-4.6) 07/24/21 04:20 Lipase 24 U/L (13-60) 07/17/21 17:00 Procalcitonin 0.15 ng/mL (0-0.5) 07/24/21 04:20 TSH 0.13 uIU/mL (0.27-4.20) L 07/19/21 08:58 Free T4 0.99 ng/dL (0.82-1.77) 07/19/21 08:58 Free T3 1.4 PG/ML (2.0-4.4) L 07/21/21 03:05 Random Cortisol 22.94 ug/dL (2.47-19.5) H 07/19/21 08:58 Urine Color Yellow (Yellow) 07/17/21 18:30 Urine Appearance Clear (CLEAR) 07/17/21 18:30 Urine pH 5 (5-7) 07/17/21 18:30 Ur Specific Noble 1.020 (1.005-1.030) 07/17/21 18:30 Urine Protein 2+ (Negative) H 07/17/21 18:30 Urine Glucose (UA) 4+ (Normal) H 07/17/21 18:30 Urine Ketones 3+ (Negative) H 07/17/21 18:30 Urine Blood 3+ (Negative) H 07/17/21 18:30 Urine Nitrate Negative (Negative) 07/17/21 18:30 Urine Bilirubin Neg (Negative) 07/17/21 18:30 Urine Urobilinogen Norm mg/dL (Negative) 07/17/21 18:30 Ur Leukocyte Esterase Negative (Negative) 07/17/21 18:30 Urine RBC 5-10 /hpf (0-2) H 07/17/21 18:30 Urine WBC None /hpf (0-5) 07/17/21 18:30 Ur Squamous Epith Cells 0-4 /hpf (0-5) H 07/17/21 18:30 Amorphous Sediment Not Reportable 07/17/21 18:30 Urine Bacteria Trace /hpf (NONE) 07/17/21 18:30 Hyaline Casts 5-10 /lpf H 07/17/21 18:30 Urine Opiates Screen Cancelled 07/17/21 23:07 Ur Barbiturates Screen Cancelled 07/17/21 23:07 Ur Phencyclidine Scrn Cancelled 07/17/21 23:07 Ur Amphetamines Screen Cancelled 07/17/21 23:07 U Benzodiazepines Scrn Cancelled 07/17/21 23:07 Urine Cocaine Screen Cancelled 07/17/21 23:07 U Marijuana (THC) Screen Cancelled 07/17/21 23:07 Serum Ketones Negative (Negative) 07/23/21 16:24 Hepatitis A IgM Ab Non-reactive (Nonreactive) 07/18/21 03:53 Hep Bs Antigen Non-reactive (Nonreactive) 07/18/21 03:53 Hep Bs Antibody 3.5 (11.5-1000) L 07/18/21 03:53 Hep B Core Total Ab Non-reactive (Nonreactive) 07/18/21 03:53 Hepatitis C Antibody Non-reactive (Nonreactive) 07/18/21 03:53 Influenza Type A Ag Negative (Negative) 07/18/21 01:05 Influenza Type B Ag Negative (Negative) 07/18/21 01:05 Micro: Microbiology 07/24/21 10:10 Blood Culture - Preliminary Blood SPECIMEN COLLECTED 07/24/21 08:15 Blood Culture - Preliminary Blood SPECIMEN COLLECTED A&P Assessment and plan (1) ARDS (adult respiratory distress syndrome): Status: Acute (2) Acute hypoxemic respiratory failure: Status: Acute (3) Diabetes: Status: Acute Qualifiers: Diabetes mellitus type: type 2 Diabetes mellitus care home insulin use: unspecified care home insulin use status Diabetes mellitus complication status: with other specified complication Qualified Code(s): E11.69 - Type 2 diabetes mellitus with other specified complication (4) Asthma: Status: Acute Qualifiers: Asthma severity: unspecified severity Asthma persistence: unspecified Asthma complication type: unspecified Qualified Code(s): J45.909 - Unspecified asthma, uncomplicated (5) DKA (diabetic ketoacidosis): Status: Acute Qualifiers: Diabetes mellitus complication detail: without coma Diabetes mellitus type: type 2 Qualified Code(s): E11.10 - Type 2 diabetes mellitus with ke toacidosis without coma #acute hypoxic respiratory failure secondary to ARDS-mild most likely COVID-19 pneumonia #Patient with history of diabetes-presented with DKA-currently resolved #Patient with history of asthma #Hypokalemia -Admitted for significant hypoxic respiratory distress- 07/17/2021 refused COVID-19 testing and treatment -Imaging and clinically looks like patient has COVID-19 pneumonia - deteriorated and intubated on 07/22/2021 - sedated, paralyzed and proned for 3 sessions - patient FiO2 requirement down to 70%; -Plan is to place do fourth proning. Session today -Currently on dexamethasone 6 MG daily -MRSA nares, urine Legionella antigen and urine Legionella antigen and bacterial antigens were negative; improving CRP -Patient is covered with cefepime -Patient D-dimer significantly elevated-CTA negative for PE and major vessels but smaller blood vessels were not well visualized. Bilateral lower extremity venous Doppler negative for DVT. Started on full dose anticoagulation with Lovenox -DKA resolved-currently patient is on Lantus 25 at bedtime and scale coverage and sugars well controlled -K3.1-supplemented -overall 9L positive since admission; lasix 40 mg one more dose today; - Monitor input output and try to keep patient net negative -Had bowel movement yesterday-we will continue senna at bedtime -Start tube feeding at 30 cc today Glucerna -Prognosis guarded -DVT prophylaxis: Lovenox Overall patient has very slow improvement in her FiO2 after 3 sessions of proning-discussed with next of kin her life partner Mr. Angel over phone yesterday about transferring her to higher facility for ECMO as she is relatively young patient and may benefit from ECMO and possible lung transplant evaluation if she does not improve with proning in next few days. He wanted to discuss with patient's daughter and patient's father will let us me know today. He also inquired about when will it be time to call off further care; I told patient that she is relatively young - we should prone her at least few more s essions to see if she gets better. Recommendations conveyed to hospitalist, RN, RT taking care of the patient Attestations Medical Necessity Statement*: Acute hypoxic respiratory failure secondary to ARDS due to COVID-19 pneumonia requiring mechanical ventilation Time Spent in Patient Care: Greater than 35 minutes (>than 50% of time spent in counselling and/or direct pt care on unit) . Critical Care Time: The high probability of a clinically significant, sudden or life threatening deterioration of the patient's [respiratory, endocrine] system(s) required my full and direct attention, intervention and personal management. The critical care time is as shown. This time is in addition to time spent performing any reported procedures but includes the following: [x] Data and vital sign review and interpretation [x] Patient assessment, examination and intervention [x] Documentation [x] Medication orders and management Critical Care Time (min): 45 Coding Level of Care Code Established Pt Acute Car Dumper Operator Helper for Chg Fwd Patient Type Established History Comprehensive Exam Comprehensive Medical Decision Making High Complexity Diagnoses ARDS (adult respiratory distress syndrome) J80 Acute hypoxemic respiratory failure J96.01 Diabetes E11.69 Diabetes mellitus type: type 2 Diabetes mellitus ad terminal makeup operator insulin use: unspecified care home insulin use status Diabetes mellitus complication status: with other specified complication Asthma J45.909 Asthma severity: unspecified severity Asthma persistence: unspecified Asthma complication type: unspecified DKA (diabetic ketoacidosis) E11.10 Diabetes mellitus complication detail: without coma Diabetes mellitus type: type 2 Time Spent (min) 45
[2021-07-24] MEDS: potassium chloride ER 20 mEq Tablet 40 MEQ PO (13:18)
[2021-07-24 16:28] LABS: Anion Gap 15.8 (5-19); Blood Urea Nitrogen 26 mg/dL (6-20); Calcium 8.2 mg/dL (8.5-10.5); Carbon Dioxide 26 mmol/L (22-29); Chloride 106 mmol/L (98-107); Glomerular Filtration Rate 131.7 mL/min (90-130); Glucose 235 mg/dL (65-115); Osmolality Calculated 308 mOsm/kg (285-295); Potassium 4.8 mmol/L (3.5-5.1); Sodium 143 mmol/L (136-145)
[2021-07-24 17:50] LABS: Glucose Point of Care 295 mg/dL (70-110)
[2021-07-24 19:57] LABS: Glucose Point of Care 205 mg/dL (70-110)
[2021-07-24] MEDS: sennosides 8.6 mg Tablet 17.2 MG PO (20:11)
[2021-07-24] MEDS: insulin glargine 100 units/1 mL 25 UNIT SUBCUT (20:12)
[2021-07-24] MEDS: dextrose 5% 1,000 ML 30 ML IV (20:37)
[2021-07-25] VITALS (63 sets, daily range): BP systolic 92–127; BP diastolic 50–73; PULSE 65–100; RESP 18–28; TEMP 36.6–37.6; O2SAT 86–96
[2021-07-25] MEDS: propofol 1,000 MG/100 ML INJ 24.96 MG IV ×7 (02:18→22:55)
[2021-07-25] MEDS: ipratropium-albuterol 3 mL Neb INHALATION ×4 (03:07→20:49)
[2021-07-25] MEDS: cisatracurium 100 MG in sodium chloride 0.9% 50 ML 9.36 MG IV ×2 (03:07→15:44)
[2021-07-25 05:37] LABS: ABG PCO2 33.2 mmHg (35-45); ABG PH Result 7.55 (7.35-7.45); Arterial Blood Gas Hematocrit 31.5 % (37-47); Base Excess ABG 6.2 mmol/L (-2.0-2.0); Blood Gas Allen Test Pos; Blood Gas Operator Identificat JB; Blood Gas Sample Site Radial, right; Blood Gas Sample Type Arterial; HCO3 ABG 28.8 mmol/L (22-26); Oxygen Device VENT
--- NOTE | 2021-07-25 07:00 | XR_ITS ---
WS: [id number] Portable AP semiupright chest, 07/25/2021 Clinical Data: resp faliure Comparison: Portable chest, 07/24/2021 Findings: The bilateral pulmonary opacification remains the same. The opacification is more dense on the left than the right. The heart is at the upper limits of normal. The right subclavian catheter, e ndotracheal tube and nasogastric tube remain in position. There are monitor leads on the chest wall. XR/XR chest 1V portable [id number] Impression: No change from yesterday's portable chest.
--- NOTE | 2021-07-25 07:01 | PC.NURSE ---
uneventful night, attempted to decrease Nimbex but patient over breathed the vent, Glucometer did not load 1929 blood glucose
[2021-07-25 07:30] LABS: Glucose Point of Care 116 mg/dL (70-110)
[2021-07-25 07:41] LABS: Alanine Aminotransferase 14 U/L (0-33); Albumin Level 2.6 g/dL (3.5-5.2); Alkaline Phosphatase 71 IU/L (35-105); Anion Gap 17.7 (5-19); Aspartate Amino Transferase 24 U/L (0-32); Blood Urea Nitrogen 28 mg/dL (6-20); Calcium 8.3 mg/dL (8.5-10.5); Carbon Dioxide 25 mmol/L (22-29); Chloride 109 mmol/L (98-107); Globulin 2.9 g/dL (1.3-4.6); Glomerular Filtration Rate 170.4 mL/min (90-130); Glucose 139 mg/dL (65-115); Osmolality Calculated 314 mOsm/kg (285-295); Potassium 3.7 mmol/L (3.5-5.1); Sodium 148 mmol/L (136-145); Total Bilirubin 0.3 mg/dL (0.15-1.2); Total Protein 5.5 g/dL (6.6-8.7)
[2021-07-25] MEDS: budesonide 0.5 mg/2 mL Neb INHALATION ×2 (08:14→20:49)
[2021-07-25 08:16] LABS: Basophils # 0.1 10^3/uL (0.0-0.1); Basophils % 0.9 %; Eosinophils # 0.2 10^3/uL (0.0-0.8); Eosinophils % 2.3 %; Hematocrit 34.1 % (37.0-47.0); Hemoglobin 10.2 g/dL (11.5-15.3); Lymphocytes # 1.6 10^3/uL (0.8-4.8); Lymphocytes % 18.3 %; Mean Corpuscular HGB Conc 29.9 g/dL (30.0-36.0); Mean Corpuscular Hemoglobin 27.9 pg (28.0-34.0); Mean Corpuscular Volume 93.4 fl (81-99); Mean Platelet Volume 10.1 fL (7.4-10.4); Monocytes # 0.9 10^3/uL (0.2-0.9); Monocytes % 10.7 %; Neutrophils % 52.5 %; Nucleated Red Blood Cells % 0 %; Platelet Count 244 10^3/cmm (130-400); Red Blood Count 3.65 10^6/uL (4.1-5.3); Red Cell Distribution Width 14.6 % (12.1-15.1); White Blood Count 8.6 10^3/uL (4.0-10.0)
[2021-07-25] MEDS: cefepime 2,000 MG in sodium chloride 0.9% (plus) 50 ML 100 MG IV ×2 (08:58→19:52)
[2021-07-25 09:15] LABS: Slide Review Slide Review Perform
--- NOTE | 2021-07-25 09:48 | PM.PN ---
Subjective Subjective: Interval history: Sherrie is sedated and paralyzed, and proned. Medications: Reviewed: Yes Vitals/I&O/Wt Last Vital Signs Temp 99.3 F 07/24/21 11:00 Pulse 89 07/25/21 08:42 Resp 18 07/25/21 08:24 BP 124/67 07/25/21 06:30 Pulse Ox 88 L 07/25/21 08:24 07/24/21 07/25/21 07/25/21 22:59 06:59 14:59 Intake Total 1398.28 / 1897.717 438.293 / 2336.010 89.024 / 89.024 Output Total 350 / 950 300 / 1250 Balance 1048.28 / 947.717 138.293 / 1086.010 89.024 / 89.024 Weight last 48 hrs Weight 92.986 kg Weight 90.718 kg Physical Exam Narrative: EXAM NARRATIVE: General exam sedated female, no distress. Afebrile the last 24 hours HEENT: Atraumatic normocephalic. Endotracheal tube in place Neck is supple Cardiovascular regular rate and rhythm, slightly bradycardic, no murmur Lungs scattered crackles, dry Abdomen is soft, obese. Positive bowel sounds. No obvious organomegaly. demonstrates Porter Extremities no cyanosis clubbing or edema, cap refill brisk Urinary Catheter Management^: Porter: Cath Placed During This Visit: yes Reason for Continuing Indwelling Catheter: Accurate Measurement of Urinary Output in Critically Ill Patients Urinary Catheter Date of Insertion: 07/17/21 Urinary Catheter Time of Insertion: 18:58 Data : 07/25/21 07:54 07/25/21 04:55 Micro: Microbiology 07/24/21 08:15 Blood Culture - Preliminary Blood NEGATIVE TO DATE 07/24/21 10:10 Blood Culture - Preliminary Blood SPECIMEN COLLECTED A&P Assessment and plan (1) Hypoxia: Intubated on July 21 Status: Acute (2) ARDS (adult respiratory distress syndrome): Severe ARDS. Underwent 4th proning session last night. FiO2 slowly improving. Pulmonary has seen and family is deciding whether they would want ECMO if indicated. Chest x-ray shows no evidence of pneumothorax. This is very likely to be secondary to Covid 19 pneumonia although patient has refused testing. Patient's power of mergers and acquisitions attorney adamantly refuses to have her tested as well. Continue dexamethasone 6 mg IV every 24 hours Continue pulmonary toilet with DuoNeb every 6 hours, inhaled budesonide Echocardiogram was performed demonstrating an EF of 69%, normal chamber sizes, mild left ventricular hypertrophy Currently on cefepime empirically. Cultures negative. MRSA PCR negative. Bacterial antigens negative. CTA on admission negative for pulmonary embolism. Central pulmonary artery enlargement was noted. Secondary to elevated D-dimer today this was repeated and no pulmonary embolism was noted although poor quality peripherally. Venous duplex was done as well which demonstrated no evidence of DVT. She was placed on therapeutic anticoagulation. Norepinephrine if needed for hypotension that may occur with sedation. Secondary to temperature spike about 48 hours ago a blood and urine culture were obtained. No growth to date. FiO2 is down to 60% Status: Acute (3) Severe sepsis with lactic acidosis: Resolved Status: Acute (4) Asthma: See under ARDS above Status: Acute Qualifiers: Asthma complication type: unspecified Asthma persistence: unspecified Asthma severity: unspecified severity Qualified Code(s): J45.909 - Unspecified asthma, uncomplicated (5) Diabetes: DKA present on admission has resolved Continue long-acting insulin, sliding scale insulin Status: Acute Qualifiers: Diabetes mellitus complication status: with other specified complication Diabetes mellitus senior living insulin use: unspecified senior living insulin use status Diabetes mellitus type: type 2 Qualified Code(s): E11.69 - Type 2 diabetes mellitus with other specified complication (6) Acute hypoxemic respiratory failure: Still present, secondary to ARDS and what appears to be viral pneumonia from Covid 19 although patient has refused testing. See documentation in history and physical. Status: Acute Additional A&P Information Acute encephalopathy. Currently sedated Abnormal TSH. This is secondary to euthyroid sick Hypernatremia. She will get some free water for her orogastric tube when she is supine. 120 cc every 4 hours Mild hypokalemia, corrected today GI: Needs initiation of tube feeds. Feeds, when supine Full code Lovenox for DVT prophylaxis Attestations Medical Necessity Statement*: Needs continued hospitalization secondary to severe COVID-19 pneumonia requiring endotracheal intubation Critical Care Time: The high probability of a clinically significant, sudden or life threatening deterioration of the patient's [pulmonary] system(s) required my full and direct attention, intervention and personal management. The critical care time is as shown. This time is in addition to time spent performing any reported procedures but includes the following: [x] Data and vital sign review and interpretation [x] Patient assessment, examination and intervention [x] Documentation [x] Medication orders and management Critical Care Time (min): 35 Coding Level of Care Code Acute Platform Man for g Fwd Diagnoses Hypoxia R09.02 ARDS (adult respiratory distress syndrome) J80 Severe sepsis with lactic acidosis A41.9; E87.2; R65.20 Asthma J45.909 Asthma complication type: unspecified Asthma persistence: unspecified Asthma severity: unspecified severity Diabetes E11.69 Diabetes mellitus complication status: with other specified complication Diabetes mellitus senior living insulin use: unspecified 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
[2021-07-25] MEDS: dexamethasone 10 mg/mL INJ 6 MG IVP (09:58)
[2021-07-25] MEDS: enoxaparin 100 mg/mL Syringe 90 MG SUBCUT ×2 (09:59→20:01)
[2021-07-25 11:38] LABS: Glucose Point of Care 217 mg/dL (70-110)
[2021-07-25] MEDS: insulin lispro 100 unit/1 mL SUBCUT ×3 (12:47→20:04)
--- NOTE | 2021-07-25 16:50 | P.PN_ITS ---
Subjective Subjective: Interval history: -Patient seen at bedside today -Seen in prone position(fourth session) -FiO2 down to 60% while prone-increased to 80% in supine position -Plan is to continue proning today -Other labs and imaging reviewed Medications: Reviewed: Yes Vitals/I&O/Wt Last Vital Signs Temp 98.3 F 07/25/21 11:00 Pulse 89 07/25/21 15:40 Resp 18 07/25/21 15:36 BP 111/64 07/25/21 14:00 Pulse Ox 93 07/25/21 15:36 07/25/21 07/25/21 07/25/21 06:59 14:59 22:59 Intake Total 438.293 / 2336.010 437.197 / 437.197 69.472 / 506.669 Output Total 300 / 1250 Balance 138.293 / 1086.010 437.197 / 437.197 69.472 / 506.669 Weight last 48 hrs Weight 205 lb Weight 200 lb Physical Exam Narrative: EXAM NARRATIVE: Physical examination: General:lying in bed, sedated and intubated. HEENT:NCAT, PERRLA, EOMI Neck: Supple Lungs: Negative except there are Mild crepitations noted bilaterally Heart: s1/s2, RRR Abd: soft, NT, ND, BS + Normoactive Extremities: No edema LEAD INSPECTOR: sedated and limited LEAD INSPECTOR exam possible. SKIN: no rash Urinary Catheter Management^: Porter: Cath Placed During This Visit: yes Reason for Continuing Indwelling Catheter: Accurate Measurement of Urinary Output in Critically Ill Patients Urinary Catheter Date of Insertion: 07/17/21 Urinary Catheter Time of Insertion: 18:58 Data : 07/25/21 07:54 07/25/21 04:55 Other Labs: Radiology Impressions Abdomen/Pelvis CT 07/19/21 08:11 IMPRESSION: 1. Small quantity of free fluid in the right adnexal region and cul-de-sac. 2. 2.6 cm right ovarian cyst. 3. Extensive bibasilar interstitial/airspace disease. 4. Dilatation of the proximal colon with surgical anastomosis in the proximal descending colon. 5. Additional findings as described above. Chest CTA 07/23/21 06:35 IMPRESSION: 1. Quality of this examination is significantly limited by body habitus and artifact from the support device catheters and lines and breathing motion. 2. No central pulmonary embolism. 3. Pulmonary hypertension, dilated pulmonary artery measures 4.2 cm. 4. Progressive areas of consolidation involving all lobes. Less groundglass attenuation with more areas of consolidation since 07/17/2021. 5. Nasogastric and endotracheal tubes are in good position. Abdomen X-Ray 07/23/21 08:37 Impression: Negative KUB. Chest X-Ray 07/25/21 07:00 Impression: No change from yesterday's portable chest. Laboratory Results WBC 8.6 10^3/uL (4.0-10.0) 07/25/21 07:54 Corrected WBC Cancelled 07/20/21 03:00 RBC 3.65 10^6/uL (4.1-5.3) L 07/25/21 07:54 Hgb 10.2 g/dL (11.5-15.3) L 07/25/21 07:54 Hct 34.1 % (37.0-47.0) L 07/25/21 07:54 MCV 93.4 fl (81-99) 07/25/21 07:54 MCH 27.9 pg (28.0-34.0) L 07/25/21 07:54 MCHC 29.9 g/dL (30.0-36.0) L 07/25/21 07:54 RDW 14.6 % (12.1-15.1) 07/25/21 07:54 Plt Count 244 10^3/cmm (130-400) 07/25/21 07:54 MPV 10.1 fL (7.4-10.4) 07/25/21 07:54 Gran % Cancelled 07/20/21 03:00 Neut % (Auto) 52.5 % 07/25/21 07:54 Lymph % (Auto) 18.3 % 07/25/21 07:54 [place] % (Auto) 10.7 % 07/25/21 07:54 Eos % (Auto) 2.3 % 07/25/21 07:54 Baso % (Auto) 0.9 % 07/25/21 07:54 Neut # (Auto) 4.50 10^3/uL (1.8-7.7) 07/25/21 07:54 Lymph # (Auto) 1.6 10^3/uL (0.8-4.8) 07/25/21 07:54 [place] # (Auto) 0.9 10^3/uL (0.2-0.9) 07/25/21 07:54 Eos # (Auto) 0.2 10^3/uL (0.0-0.8) 07/25/21 07:54 Baso # (Auto) 0.1 10^3/uL (0.0-0.1) 07/25/21 07:54 Absolute Gran (auto) Cancelled 07/20/21 03:00 Nucleated RBC % (auto) 0 % 07/25/21 07:54 Total Counted 100 (0-100) 07/22/21 03:00 Atypical Lymphs % 0.0 % (0-5) 07/22/21 03:00 Segmented Neutrophils 68 % 07/22/21 03:00 Band Neutrophils 18.0 % 07/22/21 03:00 Lymphocytes (Manual) 8 % 07/22/21 03:00 Monocytes (Manual) 2.0 % 07/22/21 03:00 Eosinophils (Manual) 0 % 07/22/21 03:00 Basophils (Manual) 0.0 % 07/22/21 03:00 Metamyelocytes 1.0 % 07/22/21 03:00 Myelocytes 3.0 % 07/22/21 03:00 Nucleated RBCs # 0.0 /100WBC 07/25/21 07:54 Platelet Estimate Normal (Normal) 07/22/21 03:00 D-Dimer >= 20.00 ug/mIFEU (0-0.59) H 07/24/21 08:15 Specimen Type Arterial 07/25/21 05:10 Sample Site Radial, right 07/25/21 05:10 ABG pH 7.55 (7.35-7.45) H 07/25/21 05:10 ABG pCO2 33.2 mmHg (35-45) L 07/25/21 05:10 ABG pO2 113.0 mmHg (80.0-100.0) H 07/25/21 05:10 ABG HCO3 28.8 mmol/L (22-26) H 07/25/21 05:10 ABG O2 Saturation 95.1 07/21/21 17:39 ABG Base Excess 6.2 mmol/L (-2.0-2.0) H 07/25/21 05:10 [place] Test Pos 07/25/21 05:10 VBG pH 7.27 (7.32-7.42) L 07/18/21 11:10 VBG pCO2 33.2 mmHg (41-51) L 07/18/21 11:10 VBG pO2 61.3 mmHg (25-40) H 07/18/21 11:10 VBG HCO3 15.1 mmol/L (24-28) L 07/18/21 11:10 VBG Base Excess -10.8 mmol/L (-3.0-3.0) L 07/18/21 11:10 VBG Hematocrit 42.0 % (37-47) 07/18/21 11:10 A-a O2 Gradient 73.8 mmHg (5-10) H 07/21/21 17:39 Hematocrit 31.5 % (37-47) L 07/25/21 05:10 Hgb O2 Saturation 94.2 % (95-100) L 07/21/21 17:39 Carboxyhemoglobin 0.0 %THgb (0.4-20.1) L 07/21/21 17:39 Methemoglobin 1.0 % (0.4-1.5) 07/21/21 17:39 Total Hemoglobin 11.8 g/dL (12-16) L 07/21/21 17:39 Sodium 148.0 mmol/L (131-143) H 07/21/21 17:39 Potassium 3.6 mmol/L (3.5-5.0) 07/21/21 17:39 Glucose 191.0 mg/dL (70-115) H 07/21/21 17:39 Ionized Calcium 1.2 mmol/L (1.1-1.4) 07/21/21 17:39 O2 Delivery Device Vent 07/25/21 05:10 O2 Liters/Min 50.0 % 07/19/21 16:16 FiO2 70.0 % 07/25/21 05:10 Tidal Volume 0.40 07/25/21 05:10 PEEP 14.0 cmH20 07/25/21 05:10 Direct Entry Midwife ID Ralph 07/25/21 05:10 Sodium 148 mmol/L (136-145) H 07/25/21 04:55 Potassium 3.7 mmol/L (3.5-5.1) 07/25/21 04:55 Chloride 109 mmol/L (98-107) H 07/25/21 04:55 Carbon Dioxide 25 mmol/L (22-29) 07/25/21 04:55 Anion Gap 17.7 (5-19) 07/25/21 04:55 BUN 28 mg/dL (6-20) H 07/25/21 04:55 Creatinine 0.4 mg/dL (0.5-0.9) L 07/25/21 04:55 GFR Calculation 170.4 mL/min (90-130) H 07/25/21 04:55 Glucose 139 mg/dL (65-115) H 07/25/21 04:55 POC Glucose 217 mg/dL (70-110) H 07/25/21 11:24 Estimat Average Glucose 364 07/18/21 03:53 Hemoglobin A1c 14.3 % (4.0-6.0) H 07/18/21 03:53 Calculated Osmolality 314 mOsm/kg (285-295) H 07/25/21 04:55 Lactic Acid 0.8 mmol/L (0.5-2.2) 07/18/21 03:53 Lactate 1.2 mmol/L (0.5-2.2) 07/19/21 08:58 Calcium 8.3 mg/dL (8.5-10.5) L 07/25/21 04:55 Phosphorus 2.2 mg/dL (2.5-4.5) L 07/20/21 03:00 Magnesium 2.0 mg/dL (1.7-2.3) 07/25/21 04:55 Total Bilirubin 0.3 mg/dL (0.15-1.2) 07/25/21 04:55 AST 24 U/L (0-32) 07/25/21 04:55 ALT 14 U/L (0-33) 07/25/21 04:55 Alkaline Phosphatase 71 IU/L (35-105) 07/25/21 04:55 Troponin T Baseline 22 ng/L (0-10) H 07/17/21 17:00 Troponin T 120 Minute 22.63 ng/L (0-10) H 07/17/21 19:30 Delta Troponin T 0.63 ABS# (0-10) 07/17/21 19:30 Troponin T Hi Sens 6Hr 21.55 ng/L (0-10) H 07/17/21 23:05 Troponin T Hi Sens 6Hr Delta -0.45 ng/L (0-12) L 07/17/21 23:05 C-Reactive Protein 39.5 mg/L (0.0-4.9) H 07/23/21 02:44 NT-Pro-B Natriuret Pep 490 pg/mL (0-125) H 07/17/21 17:00 Total Protein 5.5 g/dL (6.6-8.7) L 07/25/21 04:55 Albumin 2.6 g/dL (3.5-5.2) L 07/25/21 04:55 Globulin 2.9 g/dL (1.3-4.6) 07/25/21 04:55 Lipase 24 U/L (13-60) 07/17/21 17:00 Procalcitonin 0.15 ng/mL (0-0.5) 07/24/21 04:20 TSH 0.13 uIU/mL (0.27-4.20) L 07/19/21 08:58 Free T4 0.99 ng/dL (0.82-1.77) 07/19/21 08:58 Free T3 1.4 PG/ML (2.0-4.4) L 07/21/21 03:05 Random Cortisol 22.94 ug/dL (2.47-19.5) H 07/19/21 08:58 Urine Color Yellow (Yellow) 07/17/21 18:30 Urine Appearance Clear (CLEAR) 07/17/21 18:30 Urine pH 5 (5-7) 07/17/21 18:30 Ur Specific [place] 1.020 (1.005-1.030) 07/17/21 18:30 Urine Protein 2+ (Negative) H 07/17/21 18:30 Urine Glucose (UA) 4+ (Normal) H 07/17/21 18:30 Urine Ketones 3+ (Negative) H 07/17/21 18:30 Urine Blood 3+ (Negative) H 07/17/21 18:30 Urine Nitrate Negative (Negative) 07/17/21 18:30 Urine Bilirubin Neg (Negative) 07/17/21 18:30 Urine Urobilinogen Norm mg/dL (Negative) 07/17/21 18:30 Ur Leukocyte Esterase Negative (Negative) 07/17/21 18:30 Urine RBC 5-10 /hpf (0-2) H 07/17/21 18:30 Urine WBC None /hpf (0-5) 07/17/21 18:30 Ur Squamous Epith Cells 0-4 /hpf (0-5) H 07/17/21 18:30 Amorphous Sediment Not Reportable 07/17/21 18:30 Urine Bacteria Trace /hpf (NONE) 07/17/21 18:30 Hyaline Casts 5-10 /lpf H 07/17/21 18:30 Urine Opiates Screen Cancelled 07/17/21 23:07 Ur Barbiturates Screen Cancelled 07/17/21 23:07 Ur Phencyclidine Scrn Cancelled 07/17/21 23:07 Ur Amphetamines Screen Cancelled 07/17/21 23:07 U Benzodiazepines Scrn Cancelled 07/17/21 23:07 Urine Cocaine Screen Cancelled 07/17/21 23:07 U Marijuana (THC) Screen Cancelled 07/17/21 23:07 Serum Ketones Negative (Negative) 07/23/21 16:24 Hepatitis A IgM Ab Non-reactive (Nonreactive) 07/18/21 03:53 Hep Bs Antigen Non-reactive (Nonreactive) 07/18/21 03:53 Hep Bs Antibody 3.5 (11.5-1000) L 07/18/21 03:53 Hep B Core Total Ab Non-reactive (Nonreactive) 07/18/21 03:53 Hepatitis C Antibody Non-reactive (Nonreactive) 07/18/21 03:53 Influenza Type A Ag Negative (Negative) 07/18/21 01:05 Influenza Type B Ag Negative (Negative) 07/18/21 01:05 Micro: Microbiology 07/24/21 08:20 Urine Culture - Preliminary Urine Catheterized Yeast 07/25/21 08:35 Gram Stain - Final Sputum - Endotracheal Tube Aspirate 07/24/21 10:10 Blood Culture - Preliminary Blood NEGATIVE TO DATE 07/24/21 08:15 Blood Culture - Preliminary Blood NEGATIVE TO DATE A&P Assessment and plan (1) ARDS (adult respiratory distress syndrome): Status: Acute (2) Acute hypoxemic respiratory failure: Status: Acute (3) Diabetes: Status: Acute Qualifiers: Diabetes mellitus type: type 2 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 Diabetes mellitus complication status: with other specified complication Qualified Code(s): E11.69 - Type 2 diabetes mellitus with other specified complication (4) Asthma: Status: Acute Qualifiers: Asthma severity: unspecified severity Asthma persistence: unspecified Asthma complication type: unspecified Qualified Code(s): J45.909 - Unspecified asthma, uncomplicated (5) DKA (diabetic ketoacidosis): Status: Acute Qualifiers: Diabetes mellitus complication detail: without coma Diabetes mellitus type: type 2 Qualified Code(s): E11.10 - Type 2 diabetes mellitus with keto acidosis without coma #acute hypoxic respiratory failure secondary to ARDS-mild most likely COVID-19 pneumonia #Patient with history of diabetes-presented with DKA-currently resolved #Patient with history of asthma #Hypokalemia -Admitted for significant hypoxic respiratory distress- 07/17/2021 refused COVID-19 testing and treatment -Imaging and clinically looks like patient has COVID-19 pneumonia - deteriorated and intubated on 07/22/2021 - sedated, paralyzed and proned for 4 sessions - patient FiO2 requirement down to 60%; FiO2 to increase to 80% while supine- Plan is to place do Fifth proning Session today -ABG 7.5 5/33/113/28 on CMV 400/14/70 % - Decreased tidal volume to 380 And respiratory rate to 16 -Currently on dexamethasone 6 MG daily -MRSA nares, urine Legionella antigen and urine Legionella antigen and bacterial antigens were negative; improving CRP -Patient is covered with cefepime -Patient D-dimer significantly elevated-CTA negative for PE and major vessels but smaller blood vessels were not well visualized. Bilateral lower extremity venous Doppler negative for DVT. Started on full dose anticoagulation with Lovenox -DKA resolved-currently patient is on Lantus 25 at bedtime and scale coverage and sugars well controlled -K3.7 -overall 9L positive since admission; Received two doses of Lasix 40 mg so far; Discontinue D5 NS and put her on free water 200 mL every 6 hours via NG tube - Monitor input output and try to keep patient net negative -Had bowel movement 2 days ago-we will continue senna at bedtime -Start tube feeding at 30 cc today Glucerna While supine -Prognosis guarded -DVT prophylaxis: Lovenox Overall patient has very slow improvement in her FiO2 after 4 sessions of proning-discussed with next of kin her life partner Mr. Angel over phone yesterday about transferring her to higher facility for ECMO as she is relatively young patient and may benefit from ECMO and possible lung transplant evaluation if she does not improve with proning in next few days. He wanted to discuss with patient's daughter and patient's father will let us me know . He also inquired about when will it be time to call off further care; I told patient that she is relatively young - we should prone her at least few more sessions to see if she gets better. Recommendations conveyed to hospitalist, RN, RT taking care of the patient Attestations Medical Necessity Statement*: Acute hypoxic respiratory failure secondary to ARDS due to COVID-19 pneumonia requiring mechanical ventilation Time Spent in Patient Care: Greater than 35 minutes (>than 50% of time spent in counselling and/or direct pt care on unit) . Critical Care Time: The high probability of a clinically significant, sudden or life threatening deterioration of the patient's [respiratory, endocrine] system(s) required my full and direct attention, intervention and personal management. The critical care time is as shown. 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 Type Established History Comprehensive Exam Comprehensive Medical Decision Making High Complexity Diagnoses ARDS (adult respiratory distress syndrome) J80 Acute hypoxemic respiratory failure J96.01 Diabetes E11.69 Diabetes mellitus type: type 2 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
[2021-07-25 18:05] LABS: Glucose Point of Care 250 mg/dL (70-110)
[2021-07-25] MEDS: sennosides 8.6 mg Tablet 17.2 MG PO (20:04)
[2021-07-25] MEDS: insulin glargine 100 units/1 mL 25 UNIT SUBCUT (20:05)
[2021-07-26] VITALS (46 sets, daily range): BP systolic 92–126; BP diastolic 52–79; PULSE 72–107; RESP 18–20; TEMP 36.4–36.9; O2SAT 88–95
[2021-07-26] MEDS: ipratropium-albuterol 3 mL Neb INHALATION ×4 (03:11→20:15)
[2021-07-26] MEDS: cisatracurium 100 MG in sodium chloride 0.9% 50 ML 9.36 MG IV ×2 (03:34→14:00)
[2021-07-26] MEDS: propofol 1,000 MG/100 ML INJ 24.96 MG IV ×4 (03:36→18:50)
[2021-07-26 03:45] LABS: Glucose Point of Care 249 mg/dL (70-110)
[2021-07-26 04:17] LABS: Basophils # 0.1 10^3/uL (0.0-0.1); Basophils % 0.7 %; Eosinophils # 0.1 10^3/uL (0.0-0.8); Eosinophils % 0.9 %; Hematocrit 33.4 % (37.0-47.0); Hemoglobin 10.1 g/dL (11.5-15.3); Lymphocytes # 1.7 10^3/uL (0.8-4.8); Lymphocytes % 19.3 %; Mean Corpuscular HGB Conc 30.2 g/dL (30.0-36.0); Mean Corpuscular Hemoglobin 28.3 pg (28.0-34.0); Mean Corpuscular Volume 93.6 fl (81-99); Mean Platelet Volume 10.2 fL (7.4-10.4); Monocytes # 0.9 10^3/uL (0.2-0.9); Monocytes % 10.9 %; Neutrophils # 4.77 10^3/uL (1.8-7.7); Nucleated Red Blood Cells % 0.2 %; Platelet Count 295 10^3/cmm (130-400); Red Blood Count 3.57 10^6/uL (4.1-5.3); Red Cell Distribution Width 14.5 % (12.1-15.1); White Blood Count 8.7 10^3/uL (4.0-10.0)
[2021-07-26 04:31] LABS: Albumin Level 2.3 g/dL (3.5-5.2); Alkaline Phosphatase 61 IU/L (35-105); Anion Gap 12.8 (5-19); Blood Urea Nitrogen 28 mg/dL (6-20); Calcium 7.3 mg/dL (8.5-10.5); Carbon Dioxide 28 mmol/L (22-29); Chloride 104 mmol/L (98-107); Globulin 2.7 g/dL (1.3-4.6); Glomerular Filtration Rate 170.4 mL/min (90-130); Glucose 119 mg/dL (65-115); Osmolality Calculated 299 mOsm/kg (285-295); Potassium 3.8 mmol/L (3.5-5.1); Sodium 141 mmol/L (136-145); Total Bilirubin 0.2 mg/dL (0.15-1.2)
[2021-07-26 04:44] LABS: Alanine Aminotransferase < 5 U/L (0-33); Aspartate Amino Transferase 5 U/L (0-32)
[2021-07-26 05:08] LABS: Slide Review Slide Review Perform
[2021-07-26 05:39] LABS: ABG PCO2 54.7 mmHg (35-45); ABG PH Result 7.39 (7.35-7.45); Arterial Blood Gas Hematocrit 32.7 % (37-47); Base Excess ABG 6.6 mmol/L (-2.0-2.0); Blood Gas Allen Test Pos; Blood Gas Operator Identificat JB; Blood Gas Sample Site Radial, right; Blood Gas Sample Type Arterial; HCO3 ABG 32.9 mmol/L (22-26); Oxygen Device VENT; PO2 ABG 56.1 mmHg (80.0-100.0)
[2021-07-26 05:40] LABS: Blood Gas Tidal Volume 0.38
--- NOTE | 2021-07-26 07:00 | XRR_ITS ---
PROCEDURE INFORMATION: Exam: XR Chest Exam date and time: 07/26/2021 7:00 AM Age: 46 years old Clinical indication: Device placement; Ett placement (vent status); Additional info: Follow up pneumonia TECHNIQUE: Imaging protocol: XR of the chest. Views: 1 view. COMPARISON: CR XR chest 1V portable [id number] 07/25/2021 1:06 PM FINDINGS: Tubes, catheters and devices: Right upper extremity PICC with tip terminating near the cavoatrial junction. Endotracheal tube tip approximately 2.5 cm cephalad the myles. Enteric tube tip extends off the inferior margin of the radiograph reaching at least the proximal stomach. Lungs: Bilateral perihilar interstitial and alveolar opacities with some interval increase. Aeration of the left lung base appears slightly improved. Pleural spaces: No pleural effusion or pneumothorax identified. Heart/Mediastinum: Unremarkable. No cardiomegaly. Bones/joints: Unremarkable. XR/XR chest 1V portable [id number] IMPRESSION: 1. Endotracheal tube tip estimated 2.5 cm cephalad to the myles. 2. Multifocal pneumonia slightly worsened in the interim.
[2021-07-26 07:54] LABS: Glucose Point of Care 136 mg/dL (70-110)
[2021-07-26] MEDS: budesonide 0.5 mg/2 mL Neb INHALATION ×2 (08:25→20:15)
[2021-07-26] MEDS: cefepime 2,000 MG in sodium chloride 0.9% (plus) 50 ML 100 MG IV ×2 (08:45→20:34)
[2021-07-26] MEDS: enoxaparin 100 mg/mL Syringe 90 MG SUBCUT ×2 (08:46→20:34)
[2021-07-26 11:20] LABS: Glucose Point of Care 166 mg/dL (70-110)
[2021-07-26] MEDS: dexamethasone 10 mg/mL INJ 6 MG IVP (12:02)
[2021-07-26] MEDS: insulin lispro 100 unit/1 mL SUBCUT ×3 (12:03→20:35)
--- NOTE | 2021-07-26 13:39 | P.PN_ITS ---
Subjective Subjective: Interval history: Today FiO2 70%, as per the RT staff, FiO2 was weaned off yesterday however this morning requiring 70%, PEEP was increased to 14 Fentanyl running at 100, lorazepam at 4, propofol at 40 Currently she is proned Nimbex at the bedside No leukocytosis, afebrile, hemodynamically stable Positive fluid balance PaO2 56 on 70% D5 was added for hypernatremia, chest x-ray showing worsening pneumonia Urine culture positive for yeast BAL negative culture, rare yeast Vitals/I&O/Wt Last Vital Signs Temp 98.4 F 07/26/21 08:00 Pulse 86 07/26/21 12:00 Resp 18 07/26/21 12:00 BP 109/60 07/26/21 12:00 Pulse Ox 94 07/26/21 12:00 07/25/21 07/26/21 07/26/21 22:59 06:59 14:59 Intake Total 320.865 / 758.062 470 / 1228.062 150 / 150 Output Total 400 / 400 400 / 800 Balance -79.135 / 358.062 70 / 428.062 150 / 150 Weight last 48 hrs Weight 95.254 kg Weight 92.986 kg Physical Exam Narrative: EXAM NARRATIVE: Obese female Proned Intubated, sedated and paralyzed Bilateral breath sounds without active crepitation rhonchi or crackles Facial swelling noted, no active signs of bleeding or infection Abdominal exam limited Lower extremities no signs of edema Porter catheter draining concentrated urine Tube feeds on hold at the bedside Urinary Catheter Management^: Porter: Cath Placed During This Visit: yes Reason for Continuing Indwelling Catheter: Accurate Measurement of Urinary Output in Critically Ill Patients Urinary Catheter Date of Insertion: 07/17/21 Urinary Catheter Time of Insertion: 18:58 Data : 07/26/21 03:40 07/26/21 03:40 Micro: Microbiology 07/24/21 08:20 Urine Culture - Preliminary Urine Catheterized Yeast 07/25/21 08:35 Gram Stain - Final Sputum - Endotracheal Tube Aspirate 07/24/21 10:10 Blood Culture - Preliminary Blood NEGATIVE TO DATE 07/24/21 08:15 Blood Culture - Preliminary Blood NEGATIVE TO DATE A&P Assessment and plan (1) Hypoxia: Status: Acute (2) Severe sepsis with lactic acidosis: Status: Acute (3) Hypophosphatemia: Status: Acute (4) ARDS (adult respiratory distress syndrome): Status: Acute (5) Diabetes: Status: Acute Qualifiers: Diabetes mellitus type: type 2 Diabetes mellitus termite control technician insulin use: unspecified termite control technician insulin use status Diabetes mellitus complication status: with other specified complication Qualified Code(s): E11.69 - Type 2 diabetes mellitus with other specified complication (6) Acute hypoxemic respiratory failure: Status: Acute (7) DKA (diabetic ketoacidosis): Status: Acute Qualifiers: Diabetes mellitus complication detail: without coma Diabetes mellitus type: type 2 Qualified Code(s): E11.10 - Type 2 diabetes mellitus with ketoacidosis without coma (8) Lung infiltrate: Status: Acute Additional A&P Information Severe ARDS Hypoxia COVID-19 Intubated sedated and paralyzed Dog Behaviorist recommended 1 more dose of Lasix Reassess after finishing proning session today LTAC might be difficult as she has no insurance, she will need trach and PEG tube Family updated Continue proning sessions to see if we can titrate her FiO2 down below 60% Discontinue paralytics during supine positioning, she should get tube feeding in supine phase Currently on cefepime 2 g every 12 Continue IV steroids Hypernatremia: Improved with use of D5 : DKA: Resolved Cardiac prognosis Case discussed with pathology laboratory aide Attestations Medical Necessity Statement*: Continue ICU management Time Spent in Patient Care: 16 - 35 minutes Coding Level of Care Code Acute 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 for [facility] Diagnoses Hypoxia R09.02 Severe sepsis with lactic acidosis A41.9; E87.2; R65.20 Hypophosphatemia E83.39 ARDS (adult respiratory distress syndrome) J80 Diabetes E11.69 Diabetes mellitus type: type 2 Diabetes mellitus residential insulin use: unspecified termite control technician insulin use status Diabetes mellitus complication status: with other specified complication Acute hypoxemic respiratory failure J96.01 DKA (diabetic ketoacidosis) E11.10 Diabetes mellitus complication detail: without coma Diabetes mellitus type: type 2 Lung infiltrate R91.8
[2021-07-26] MEDS: FUROsemide 10 mg/mL SDV 4mL 40 MG IVP (14:04)
--- NOTE | 2021-07-26 16:50 | PM.PN ---
Subjective Subjective: Interval history: -Patient seen at bedside -Seen in prone position-fifth session -FiO2 down to 70% -Other labs and imaging reviewed Medications: Reviewed: Yes Vitals/I&O/Wt Last Vital Signs Temp 98.4 F 07/26/21 08:00 Pulse 82 07/26/21 14:14 Resp 18 07/26/21 16:22 BP 109/60 07/26/21 12:00 Pulse Ox 95 07/26/21 16:22 07/26/21 07/26/21 07/26/21 06:59 14:59 22:59 Intake Total 470 / 1228.062 347.656 / 347.656 Output Total 400 / 800 Balance 70 / 428.062 347.656 / 347.656 Weight last 48 hrs Weight 210 lb Weight 205 lb Physical Exam Narrative: EXAM NARRATIVE: Physical examination: General:lying in bed, sedated and intubated. HEENT:NCAT, PERRLA, EOMI Neck: Supple Lungs: Negative except there are Mild crepitations noted bilaterally Heart: s1/s2, RRR Abd: soft, NT, ND, BS + Normoactive Extremities: No edema HEATER ROOM HELPER: sedated and limited HEATER ROOM HELPER exam possible. SKIN: no rash Urinary Catheter Management^: Porter: Cath Placed During This Visit: yes Reason for Continuing Indwelling Catheter: Accurate Measurement of Urinary Output in Critically Ill Patients Urinary Catheter Date of Insertion: 07/17/21 Urinary Catheter Time of Insertion: 18:58 Data : 07/26/21 03:40 07/26/21 03:40 Other Labs: Radiology Impressions Abdomen/Pelvis CT 07/19/21 08:11 IMPRESSION: 1. Small quantity of free fluid in the right adnexal region and cul-de-sac. 2. 2.6 cm right ovarian cyst. 3. Extensive bibasilar interstitial/airspace disease. 4. Dilatation of the proximal colon with surgical anastomosis in the proximal descending colon. 5. Additional findings as described above. Chest CTA 07/23/21 06:35 IMPRESSION: 1. Quality of this examination is significantly limited by body habitus and artifact from the support device catheters and lines and breathing motion. 2. No central pulmonary embolism. 3. Pulmonary hypertension, dilated pulmonary artery measures 4.2 cm. 4. Progressive areas of consolidation involving all lobes. Less groundglass attenuation with more areas of consolidation since 07/17/2021. 5. Nasogastric and endotracheal tubes are in good position. Abdomen X-Ray 07/23/21 08:37 Impression: Negative KUB. Chest X-Ray 07/26/21 07:00 IMPRESSION: 1. Endotracheal tube tip estimated 2.5 cm cephalad to the myles. 2. Multifocal pneumonia slightly worsened in the interim. Laboratory Results WBC 8.7 10^3/uL (4.0-10.0) 07/26/21 03:40 Corrected WBC Cancelled 07/20/21 03:00 RBC 3.57 10^6/uL (4.1-5.3) L 07/26/21 03:40 Hgb 10.1 g/dL (11.5-15.3) L 07/26/21 03:40 Hct 33.4 % (37.0-47.0) L 07/26/21 03:40 MCV 93.6 fl (81-99) 07/26/21 03:40 MCH 28.3 pg (28.0-34.0) 07/26/21 03:40 MCHC 30.2 g/dL (30.0-36.0) 07/26/21 03:40 RDW 14.5 % (12.1-15.1) 07/26/21 03:40 Plt Count 295 10^3/cmm (130-400) 07/26/21 03:40 MPV 10.2 fL (7.4-10.4) 07/26/21 03:40 Gran % Cancelled 07/20/21 03:00 Neut % (Auto) 55.0 % 07/26/21 03:40 Lymph % (Auto) 19.3 % 07/26/21 03:40 [place] % (Auto) 10.9 % 07/26/21 03:40 Eos % (Auto) 0.9 % 07/26/21 03:40 Baso % (Auto) 0.7 % 07/26/21 03:40 Neut # (Auto) 4.77 10^3/uL (1.8-7.7) 07/26/21 03:40 Lymph # (Auto) 1.7 10^3/uL (0.8-4.8) 07/26/21 03:40 [facility] # (Auto) 0.9 10^3/uL (0.2-0.9) 07/26/21 03:40 Eos # (Auto) 0.1 10^3/uL (0.0-0.8) 07/26/21 03:40 Baso # (Auto) 0.1 10^3/uL (0.0-0.1) 07/26/21 03:40 Absolute Gran (auto) Cancelled 07/20/21 03:00 Nucleated RBC % (auto) 0.2 % 07/26/21 03:40 Total Counted 100 (0-100) 07/22/21 03:00 Atypical Lymphs % 0.0 % (0-5) 07/22/21 03:00 Segmented Neutrophils 68 % 07/22/21 03:00 Band Neutrophils 18.0 % 07/22/21 03:00 Lymphocytes (Manual) 8 % 07/22/21 03:00 Monocytes (Manual) 2.0 % 07/22/21 03:00 Eosinophils (Manual) 0 % 07/22/21 03:00 Basophils (Manual) 0.0 % 07/22/21 03:00 Metamyelocytes 1.0 % 07/22/21 03:00 Myelocytes 3.0 % 07/22/21 03:00 Nucleated RBCs # 0.0 /100WBC 07/26/21 03:40 Platelet Estimate Normal (Normal) 07/22/21 03:00 D-Dimer >= 20.00 ug/mIFEU (0-0.59) H 07/24/21 08:15 Specimen Type Arterial 07/26/21 05:26 Sample Site Radial, right 07/26/21 05:26 ABG pH 7.39 (7.35-7.45) 07/26/21 05:26 ABG pCO2 54.7 mmHg (35-45) H 07/26/21 05:26 ABG pO2 56.1 mmHg (80.0-100.0) L 07/26/21 05:26 ABG HCO3 32.9 mmol/L (22-26) H 07/26/21 05:26 ABG O2 Saturation 95.1 07/21/21 17:39 ABG Base Excess 6.6 mmol/L (-2.0-2.0) H 07/26/21 05:26 [place] Test Pos 07/26/21 05:26 VBG pH 7.27 (7.32-7.42) L 07/18/21 11:10 VBG pCO2 33.2 mmHg (41-51) L 07/18/21 11:10 VBG pO2 61.3 mmHg (25-40) H 07/18/21 11:10 VBG HCO3 15.1 mmol/L (24-28) L 07/18/21 11:10 VBG Base Excess -10.8 mmol/L (-3.0-3.0) L 07/18/21 11:10 VBG Hematocrit 42.0 % (37-47) 07/18/21 11:10 A-a O2 Gradient 73.8 mmHg (5-10) H 07/21/21 17:39 Hematocrit 32.7 % (37-47) L 07/26/21 05:26 Hgb O2 Saturation 94.2 % (95-100) L 07/21/21 17:39 Carboxyhemoglobin 0.0 %THgb (0.4-20.1) L 07/21/21 17:39 Methemoglobin 1.0 % (0.4-1.5) 07/21/21 17:39 Total Hemoglobin 11.8 g/dL (12-16) L 07/21/21 17:39 Sodium 148.0 mmol/L (131-143) H 07/21/21 17:39 Potassium 3.6 mmol/L (3.5-5.0) 07/21/21 17:39 Glucose 191.0 mg/dL (70-115) H 07/21/21 17:39 Ionized Calcium 1.2 mmol/L (1.1-1.4) 07/21/21 17:39 O2 Delivery Device Vent 07/26/21 05:26 O2 Liters/Min 50.0 % 07/19/21 16:16 FiO2 70.0 % 07/26/21 05:26 Tidal Volume 0.38 07/26/21 05:26 PEEP 12.0 cmH20 07/26/21 05:26 Underground Conduit Installer ID Ralph 07/26/21 05:26 Sodium 141 mmol/L (136-145) 07/26/21 03:40 Potassium 3.8 mmol/L (3.5-5.1) 07/26/21 03:40 Chloride 104 mmol/L (98-107) 07/26/21 03:40 Carbon Dioxide 28 mmol/L (22-29) 07/26/21 03:40 Anion Gap 12.8 (5-19) 07/26/21 03:40 BUN 28 mg/dL (6-20) H 07/26/21 03:40 Creatinine 0.4 mg/dL (0.5-0.9) L 07/26/21 03:40 GFR Calculation 170.4 mL/min (90-130) H 07/26/21 03:40 Glucose 119 mg/dL (65-115) H 07/26/21 03:40 POC Glucose 166 mg/dL (70-110) H 07/26/21 11:17 Estimat Average Glucose 364 07/18/21 03:53 Hemoglobin A1c 14.3 % (4.0-6.0) H 07/18/21 03:53 Calculated Osmolality 299 mOsm/kg (285-295) H 07/26/21 03:40 Lactic Acid 0.8 mmol/L (0.5-2.2) 07/18/21 03:53 Lactate 1.2 mmol/L (0.5-2.2) 07/19/21 08:58 Calcium 7.3 mg/dL (8.5-10.5) L 07/26/21 03:40 Phosphorus 2.2 mg/dL (2.5-4.5) L 07/20/21 03:00 Magnesium 2.0 mg/dL (1.7-2.3) 07/25/21 04:55 Total Bilirubin 0.2 mg/dL (0.15-1.2) 07/26/21 03:40 AST 5 U/L (0-32) 07/26/21 03:40 ALT < 5 U/L (0-33) 07/26/21 03:40 Alkaline Phosphatase 61 IU/L (35-105) 07/26/21 03:40 Troponin T Baseline 22 ng/L (0-10) H 07/17/21 17:00 Troponin T 120 Minute 22.63 ng/L (0-10) H 07/17/21 19:30 Delta Troponin T 0.63 ABS# (0-10) 07/17/21 19:30 Troponin T Hi Sens 6Hr 21.55 ng/L (0-10) H 07/17/21 23:05 Troponin T Hi Sens 6Hr Delta -0.45 ng/L (0-12) L 07/17/21 23:05 C-Reactive Protein 39.5 mg/L (0.0-4.9) H 07/23/21 02:44 NT-Pro-B Natriuret Pep 490 pg/mL (0-125) H 07/17/21 17:00 Total Protein 5.0 g/dL (6.6-8.7) L 07/26/21 03:40 Albumin 2.3 g/dL (3.5-5.2) L 07/26/21 03:40 Globulin 2.7 g/dL (1.3-4.6) 07/26/21 03:40 Lipase 24 U/L (13-60) 07/17/21 17:00 Procalcitonin 0.15 ng/mL (0-0.5) 07/24/21 04:20 TSH 0.13 uIU/mL (0.27-4.20) L 07/19/21 08:58 Free T4 0.99 ng/dL (0.82-1.77) 07/19/21 08:58 Free T3 1.4 PG/ML (2.0-4.4) L 07/21/21 03:05 Random Cortisol 22.94 ug/dL (2.47-19.5) H 07/19/21 08:58 Urine Color Yellow (Yellow) 07/17/21 18:30 Urine Appearance Clear (CLEAR) 07/17/21 18:30 Urine pH 5 (5-7) 07/17/21 18:30 Ur Specific [place] 1.020 (1.005-1.030) 07/17/21 18:30 Urine Protein 2+ (Negative) H 07/17/21 18:30 Urine Glucose (UA) 4+ (Normal) H 07/17/21 18:30 Urine Ketones 3+ (Negative) H 07/17/21 18:30 Urine Blood 3+ (Negative) H 07/17/21 18:30 Urine Nitrate Negative (Negative) 07/17/21 18:30 Urine Bilirubin Neg (Negative) 07/17/21 18:30 Urine Urobilinogen Norm mg/dL (Negative) 07/17/21 18:30 Ur Leukocyte Esterase Negative (Negative) 07/17/21 18:30 Urine RBC 5-10 /hpf (0-2) H 07/17/21 18:30 Urine WBC None /hpf (0-5) 07/17/21 18:30 Ur Squamous Epith Cells 0-4 /hpf (0-5) H 07/17/21 18:30 Amorphous Sediment Not Reportable 07/17/21 18:30 Urine Bacteria Trace /hpf (NONE) 07/17/21 18:30 Hyaline Casts 5-10 /lpf H 07/17/21 18:30 Urine Opiates Screen Cancelled 07/17/21 23:07 Ur Barbiturates Screen Cancelled 07/17/21 23:07 Ur Phencyclidine Scrn Cancelled 07/17/21 23:07 Ur Amphetamines Screen Cancelled 07/17/21 23:07 U Benzodiazepines Scrn Cancelled 07/17/21 23:07 Urine Cocaine Screen Cancelled 07/17/21 23:07 U Marijuana (THC) Screen Cancelled 07/17/21 23:07 Serum Ketones Negative (Negative) 07/23/21 16:24 Hepatitis A IgM Ab Non-reactive (Nonreactive) 07/18/21 03:53 Hep Bs Antigen Non-reactive (Nonreactive) 07/18/21 03:53 Hep Bs Antibody 3.5 (11.5-1000) L 07/18/21 03:53 Hep B Core Total Ab Non-reactive (Nonreactive) 07/18/21 03:53 Hepatitis C Antibody Non-reactive (Nonreactive) 07/18/21 03:53 Influenza Type A Ag Negative (Negative) 07/18/21 01:05 Influenza Type B Ag Negative (Negative) 07/18/21 01:05 Micro: Microbiology 07/24/21 08:20 Urine Culture - Preliminary Urine Catheterized Yeast 07/25/21 08:35 Gram Stain - Final Sputum - Endotracheal Tube Aspirate A&P Assessment and plan (1) ARDS (adult respiratory distress syndrome): Status: Acute (2) Acute hypoxemic respiratory failure: Status: Acute (3) Diabetes: Status: Acute Qualifiers: Diabetes mellitus type: type 2 Diabetes mellitus retirement insulin use: unspecified exterminator termite insulin use status Diabetes mellitus complication status: with other specified complication Qualified Code(s): E11.69 - Type 2 diabetes mellitus with other specified complication (4) Asthma: Status: Acute Qualifiers: Asthma severity: unspecified severity Asthma persistence: unspecified Asthma complication type: unspecified Qualified Code(s): J45.909 - Unspecified asthma, uncomplicated (5) DKA (diabetic ketoacidosis): Status: Acute Qualifiers: Diabetes mellitus complication detail: without coma Diabetes mellitus type: type 2 Qualified Code(s): E11.10 - Type 2 diabetes mellitus with ketoacidosis without coma #acute hypoxic respiratory failure secondary to ARDS-mild most likely COVID-19 pneumonia #Patient with history of diabetes-presented with DKA-currently resolved #Patient with history of asthma #Hypokalemia - resolved -Admitted for significant hypoxic respiratory distress- 07/17/2021 refused COVID-19 testing and treatment -Imaging and clinically looks like patient has COVID-19 pneumonia - deteriorated and intubated on 07/22/2021 - sedated, paralyzed and proned for 4 sessions - patient FiO2 requirement down to 70%; s/p 5 proning sessions; -ABG 7.39/54/56/32 on CMV 380/14/70 % - -Currently on dexamethasone 6 MG daily -MRSA nares, urine Legionella antigen and urine Legionella antigen and bacterial antigens were negative; improving CRP -Patient is covered with cefepime -Patient D-dimer significantly elevated-CTA negative for PE and major vessels but smaller blood vessels were not well visualized. Bilateral lower extremity venous Doppler negative for DVT. on full dose anticoagulation with Lovenox -DKA resolved-currently patient is on Lantus 25 at bedtime and scale coverage and sugars well controlled -K3.7 -overall 11 L positive since admission; Discontinue D5 NS and put her on free water 200 mL every 6 hours via NG tube ; give lasix 40 mg one dose - Monitor input output and try to keep patient net negative -Had bowel movement 2 days ago-we will continue senna at bedtime -Start tube feeding at 30 cc today Glucerna While supine -Prognosis guarded -DVT prophylaxis: Lovenox Overall patient has very slow improvement in her FiO2 after 5 sessions of proning-discussed with next of kin her life partner Mr. Angel over phone yesterday about transferring her to higher facility for ECMO as she is relatively young patient and may benefit from ECMO and possible lung transplant evaluation if she does not improve with proning in next few days. He wanted to discuss with patient's daughter and patient's father will let us me know . He also inquired about when will it be time to call off further care; I told patient that she is relatively young - we should prone her at least few more sessions to see if she gets better. Recommendations conveyed to hospitalist, RN, RT taking care of the patient Attestations Medical Necessity Statement*: Acute hypoxic respiratory failure secondary to ARDS due to COVID-19 pneumonia requiring mechanical ventilation Time Spent in Patient Care: Greater than 35 minutes (>than 50% of time spent in counselling and/or direct pt care on unit). Critical Care Time: The high probability of a clinically significant, sudden or life threatening deterioration of the patient's [respiratory, endocrine] system(s) required my full and direct attention, intervention and personal management. The critical care time is as shown. This time is in addition to time spent performing any reported procedures but includes the following: [x] Data and vital sign review and interpretation [x] Patient assessment, examination and intervention [x] Documentation [x] Medication orders and management Critical Care Time (min): 45 Coding Level of Care Code Established Pt Acute Data Migration Lead for Chg Fwd Patient Type Established History Comprehensive Exam Comprehensive Medical Decision Making High Complexity Diagnoses ARDS (adult respiratory distress syndrome) J80 Acute hypoxemic respiratory failure J96.01 Diabetes E11.69 Diabetes mellitus type: type 2 Diabetes mellitus exterminator termite insulin use: unspecified retirement insulin use status Diabetes mellitus complication status: with other specified complication Asthma J45.909 Asthma severity: unspecified severity Asthma persistence: unspecified Asthma complication type: unspecified DKA (diabetic ketoacidosis) E11.10 Diabetes mellitus complication detail: without coma Diabetes mellitus type: type 2 Time Spent (min) 45
[2021-07-26 17:11] LABS: Glucose Point of Care 254 mg/dL (70-110)
[2021-07-26 20:15] LABS: Glucose Point of Care 263 mg/dL (70-110)
[2021-07-26] MEDS: sennosides 8.6 mg Tablet 17.2 MG PO (20:35)
[2021-07-26] MEDS: insulin glargine 100 units/1 mL 25 UNIT SUBCUT (20:36)
[2021-07-27] VITALS (48 sets, daily range): BP systolic 92–110; BP diastolic 55–69; PULSE 73–99; RESP 18–22; TEMP 36.7–38.1; O2SAT 86–96
[2021-07-27] MEDS: cisatracurium 100 MG in sodium chloride 0.9% 50 ML 9.36 MG IV ×3 (00:07→20:51)
[2021-07-27] MEDS: propofol 1,000 MG/100 ML INJ 24.96 MG IV ×7 (00:09→20:51)
[2021-07-27] MEDS: ipratropium-albuterol 3 mL Neb INHALATION ×4 (02:56→20:09)
[2021-07-27 05:45] LABS: ABG PCO2 54.8 mmHg (35-45); Arterial Blood Gas Hematocrit 30.1 % (37-47); Base Excess ABG 8.1 mmol/L (-2.0-2.0); Blood Gas Allen Test Pos; Blood Gas Sample Site Radial, left; Blood Gas Sample Type Arterial; Blood Gas Tidal Volume 0.38; HCO3 ABG 34.1 mmol/L (22-26); Oxygen Device VENT
[2021-07-27 07:13] LABS: Basophils # 0.1 10^3/uL (0.0-0.1); Basophils % 0.6 %; Eosinophils # 0.1 10^3/uL (0.0-0.8); Hematocrit 32.7 % (37.0-47.0); Hemoglobin 9.9 g/dL (11.5-15.3); Lymphocytes % 21.7 %; Mean Corpuscular HGB Conc 30.3 g/dL (30.0-36.0); Mean Corpuscular Hemoglobin 28.4 pg (28.0-34.0); Mean Corpuscular Volume 93.7 fl (81-99); Mean Platelet Volume 10.1 fL (7.4-10.4); Monocytes % 10.2 %; Neutrophils # 5.06 10^3/uL (1.8-7.7); Neutrophils % 54.2 %; Nucleated Red Blood Cells % 0.2 %; Platelet Count 325 10^3/cmm (130-400); Red Blood Count 3.49 10^6/uL (4.1-5.3); Red Cell Distribution Width 14.5 % (12.1-15.1); White Blood Count 9.3 10^3/uL (4.0-10.0)
[2021-07-27 07:32] LABS: Blood Urea Nitrogen 27 mg/dL (6-20); Calcium 7.3 mg/dL (8.5-10.5); Carbon Dioxide 29 mmol/L (22-29); Chloride 104 mmol/L (98-107); Glomerular Filtration Rate 170.4 mL/min (90-130); Glucose 127 mg/dL (65-115); Osmolality Calculated 299 mOsm/kg (285-295); Sodium 141 mmol/L (136-145)
[2021-07-27 07:40] LABS: Glucose Point of Care 134 mg/dL (70-110)
[2021-07-27 07:58] LABS: Anion Gap 11.6 (5-19); Potassium 3.6 mmol/L (3.5-5.1)
[2021-07-27] MEDS: budesonide 0.5 mg/2 mL Neb INHALATION ×2 (08:09→20:09)
[2021-07-27] MEDS: enoxaparin 100 mg/mL Syringe 90 MG SUBCUT ×2 (08:10→20:52)
[2021-07-27] MEDS: cefepime 2,000 MG in sodium chloride 0.9% (plus) 50 ML 100 MG IV ×2 (08:10→20:52)
[2021-07-27] MEDS: dexamethasone 10 mg/mL INJ 6 MG IVP (09:49)
[2021-07-27 11:27] LABS: Glucose Point of Care 197 mg/dL (70-110)
[2021-07-27] MEDS: insulin lispro 100 unit/1 mL SUBCUT ×2 (11:50→18:28)
--- NOTE | 2021-07-27 13:20 | P.PN_ITS ---
Subjective Subjective: Interval history: Patient is proned We are planning to keep proning until FiO2 is below 60% today patient is requiring 65% PEEP 14 tidal volume 380 Patient looks fluid overloaded Positive fluid balance however because of low blood pressure cannot use Lasix Potassium 3.6 Mild hyperglycemia Afebrile Low blood pressure today Vitals/I&O/Wt Last Vital Signs Temp 98.9 F 07/27/21 11:00 Pulse 83 07/27/21 12:30 Resp 18 07/27/21 11:36 BP 98/59 07/27/21 12:30 Pulse Ox 92 07/27/21 12:30 07/26/21 07/27/21 07/27/21 22:59 06:59 14:59 Intake Total 300 / 647.656 570 / 1217.656 402 / 402 Output Total 1050 / 1050 350 / 1400 Balance -750 / -402.344 220 / -182.344 402 / 402 Weight last 48 hrs Weight 92.533 kg Weight 95.254 kg Physical Exam Narrative: EXAM NARRATIVE: Paralyzed intubated and sedated Proned Facial swelling Edema of arms and hands noted No edema around legs No acute signs of cellulitis Porter catheter draining concentrated urine Neuro exam limited Telemetry showing sinus rhythm heart rate 80s Positive fluid balance Urinary Catheter Management^: Porter: Cath Placed During This Visit: yes Reason for Continuing Indwelling Catheter: Accurate Measurement of Urinary Output in Critically Ill Patients Urinary Catheter Date of Insertion: 07/17/21 Urinary Catheter Time of Insertion: 18:58 Data : 07/27/21 06:45 07/27/21 06:45 Micro: Microbiology 07/25/21 08:35 Gram Stain - Final Sputum - Endotracheal Tube Aspirate Sputum Culture - Preliminary Yeast A&P Assessment and plan (1) Hypoxia: Status: Acute (2) Severe sepsis with lactic acidosis: Status: Acute (3) Hypophosphatemia: Status: Acute (4) ARDS (adult respiratory distress syndrome): Status: Acute (5) Asthma: Status: Acute Qualifiers: Asthma severity: unspecified severity Asthma persistence: unspecified Asthma complication type: unspecified Qualified Code(s): J45.909 - Unspecified asthma, uncomplicated (6) Diabetes: Status: Acute Qualifiers: Diabetes mellitus type: type 2 Diabetes mellitus termite control technician insulin use: unspecified termite control technician insulin use status Diabetes mellitus complication status: with other specified complication Qualified Code(s): E11.69 - Type 2 diabetes mellitus with other specified complication (7) Acute hypoxemic respiratory failure: Status: Acute (8) DKA (diabetic ketoacidosis): Status: Acute Qualifiers: Diabetes mellitus complication detail: without coma Diabetes mellitus type: type 2 Qualified Code(s): E11.10 - Type 2 diabetes mellitus with ketoacidosis without coma (9) Lung infiltrate: Status: Acute Additional A&P Information Hypoxia Severe ARDS COVID-19 Plan is to continue few more cycles of proning until FiO2 is below 60% today FiO2 65% PEEP 14 Will talk with her today as well Case discussed with Dr. Devlin To finish 10 days on Decadron Positive fluid balance with worsening infiltrate evident on x-ray Because of low blood pressure avoid Lasix dose She had a bowel movement a few days ago Afebrile, leukocytosis resolved CTA rule out pulm embolism No signs of DVT Cultures negative to date Hypocalcemia: We will give 1 g calcium gluconate Check mag and phosphorus level Type 2 diabetes, uncontrolled hemoglobin A1c 114, mild hyperglycemia, fasting glucose stays within normal range however sugar stays above 180 during the daytime, increase sliding scale Continue tube feed diet Hypernatremia: Improved with IV fluid hydration Guarded prognosis Tube feed diet Full code Attestations Medical Necessity Statement*: Continue ICU management Time Spent in Patient Care: less than 15 minutes Coding Level of Care Code 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 [facility] Fwd Diagnoses Hypoxia R09.02 Severe sepsis with lactic acidosis A41.9; E87.2; R65.20 Hypophosphatemia E83.39 ARDS (adult respiratory distress syndrome) J80 Asthma J45.909 Asthma severity: unspecified severity Asthma persistence: unspecified Asthma complication type: unspecified Diabetes E11.69 Diabetes mellitus type: type 2 Diabetes mellitus termite control technician insulin use: unspecified termite control technician insulin use status Diabetes mellitus complication status: with other specified complication Acute hypoxemic respiratory failure J96.01 DKA (diabetic ketoacidosis) E11.10 Diabetes mellitus complication detail: without coma Diabetes mellitus type: type 2 Lung infiltrate R91.8
[2021-07-27] MEDS: calcium gluconate 0.9% NaCL 1 GM/50 ML PREMIX IV (14:01)
[2021-07-27] MEDS: albumin 12.5 GM/250 ML VIAL IV (14:06)
--- NOTE | 2021-07-27 14:31 | PC.NUTR ---
Because of low PO intake since admission, when medically appropriate, recommend consideration of Glucerna 1.2 with a goal rate of 35 mls/hr, and FW flushes of 120 ml Q4H or per MD discretion. See full RD assessment for details.
[2021-07-27] MEDS: FUROsemide 10 mg/mL SDV 4mL 40 MG IVP (18:28)
[2021-07-27 18:32] LABS: Glucose Point of Care 249 mg/dL (70-110)
[2021-07-27] MEDS: sennosides 8.6 mg Tablet 17.2 MG PO (20:56)
[2021-07-27] MEDS: insulin glargine 100 units/1 mL 28 UNIT SUBCUT (21:55)
--- NOTE | 2021-07-27 22:30 | PC.NURSE ---
Prone Patient Patient proned at 2100 with help from RT and staff members.
[2021-07-28] VITALS (37 sets, daily range): BP systolic 92–155; BP diastolic 59–89; PULSE 67–112; RESP 18–19; TEMP 36.8–38; O2SAT 86–98; BMI 36.0
[2021-07-28] MEDS: propofol 1,000 MG/100 ML INJ 24.96 MG IV ×6 (01:07→20:30)
[2021-07-28] MEDS: ipratropium-albuterol 3 mL Neb INHALATION ×4 (03:00→20:16)
[2021-07-28] MEDS: cisatracurium 100 MG in sodium chloride 0.9% 50 ML 15.6 MG IV ×2 (03:03→07:46)
[2021-07-28 04:18] LABS: ABG PH Result 7.39 (7.35-7.45); Arterial Blood Gas Hematocrit 34.8 % (37-47); Base Excess ABG 6.7 mmol/L (-2.0-2.0); Blood Gas Allen Test Pos; Blood Gas Sample Site Radial, right; Blood Gas Sample Type Arterial; Blood Gas Tidal Volume 0.38; HCO3 ABG 32.9 mmol/L (22-26); Oxygen Device VENT; PO2 ABG 53.8 mmHg (80.0-100.0)
[2021-07-28 05:25] LABS: Hematocrit 36.8 % (37.0-47.0); Hemoglobin 10.9 g/dL (11.5-15.3); Mean Corpuscular HGB Conc 29.6 g/dL (30.0-36.0); Mean Corpuscular Hemoglobin 27.3 pg (28.0-34.0); Mean Corpuscular Volume 92.2 fl (81-99); Mean Platelet Volume 9.9 fL (7.4-10.4); Platelet Count 314 10^3/cmm (130-400); Red Blood Count 3.99 10^6/uL (4.1-5.3); Red Cell Distribution Width 14.4 % (12.1-15.1); White Blood Count 10.5 10^3/uL (4.0-10.0)
--- NOTE | 2021-07-28 05:26 | PC.NURSE ---
Shift Note Frequent safety and comfort rounds continue. Orders and/or nursing care completed as indicated. Patient monitored for response to intervention and treatment(s). Education provided includes vent compliance with Nimbex. Patient unable to comprehend teaching at this time. Patient had an uneventful shift. Vent settings are as follows; mode-VC-AC, FiO2-45%, VT-380, PEEP-12, rate-18. Right upper arm PICC line infusing Nimbex, Fentanyl, and Propofol per protocol please see MAR for infusion rates. Pressure injury on sacrum, left open to air no other wounds/skin issues noted at this time. Porter catheter drained 1200 mls of urine overnight. Tube feeding held per Dr. vance, no gastric residual aspirated from OG tube. Please see following note for BIS/TOF monitoring. Will continue to monitor.
[2021-07-28 05:43] LABS: Alanine Aminotransferase 12 U/L (0-33); Albumin Level 3.1 g/dL (3.5-5.2); Alkaline Phosphatase 59 IU/L (35-105); Anion Gap 17.4 (5-19); Aspartate Amino Transferase 14 U/L (0-32); Blood Urea Nitrogen 27 mg/dL (6-20); Calcium 8.9 mg/dL (8.5-10.5); Carbon Dioxide 27 mmol/L (22-29); Chloride 104 mmol/L (98-107); Globulin 3.2 g/dL (1.3-4.6); Glomerular Filtration Rate 237.4 mL/min (90-130); Glucose 145 mg/dL (65-115); Lactate Dehydrogenase 254 U/L (135-214); Osmolality Calculated 308 mOsm/kg (285-295); Potassium 3.4 mmol/L (3.5-5.1); Sodium 145 mmol/L (136-145); Total Bilirubin 0.3 mg/dL (0.15-1.2); Total Protein 6.3 g/dL (6.6-8.7)
[2021-07-28 05:47] LABS: Procalcitonin 0.12 ng/mL (0-0.5)
[2021-07-28 06:15] LABS: Slide Review Slide Review Perform
[2021-07-28 06:16] LABS: Absolute Eosinophils 0.1 10^3/cmm (0.0-0.7); Absolute Neutrophil 6.7 10^3/cmm (1.4-6.5); Absolute Segmented Neutrophil 5.8 10/cmm (1.6-7.1); Band Neutrophils Absolute 0.9 10^3/cmm (0.0-1.2); Eosinophils 1 %; Lymphocytes 31 %; Lymphocytes Absolute 3.3 10^3/cmm (1.2-3.4); Monocytes Absolute 0.4 10^3/cmm (0.1-0.6); Platelet Estimate Increased (Normal); Segmented Neutrophils 55 %; Total Cells Counted 100 (0-100)
--- NOTE | 2021-07-28 06:22 | PC.NURSE ---
BIS/TOF Monitoring Time BIS TOF 2200 46 4 0000 50 4 0200 45 4 0400 40 3 0600 60 4
--- NOTE | 2021-07-28 07:29 | XR_ITS ---
WS: [id number] XR chest 1V portable [id number] REASON FOR EXAM: FEVER INTUBATED FINDINGS: Endotracheal tube and nasogastric tube remain in position. The tip of the nasogastric tube is not dem onstrated on this examination but is beyond the gastric fundus. Right arm PICC line remains properly positioned the tip in the superior vena cava. Bilateral diffuse lung opacities do not show significant interval change compared to the previous exa mination 07/26/2021. No other interval change or new finding. XR/XR chest 1V portable [id number] IMPRESSION: Stable abnormal chest.
[2021-07-28] MEDS: potassium chloride premix 100 ML 25 MEQ IV (08:14)
[2021-07-28] MEDS: enoxaparin 100 mg/mL Syringe 90 MG SUBCUT ×2 (08:14→21:25)
[2021-07-28] MEDS: piperacillin-tazobactam 3.375 GM in sodium chloride 0.9% (plus) 50 ML IV (08:15)
[2021-07-28] MEDS: insulin lispro 100 unit/1 mL SUBCUT ×2 (08:15→17:36)
[2021-07-28] MEDS: budesonide 0.5 mg/2 mL Neb INHALATION ×2 (08:41→20:16)
--- NOTE | 2021-07-28 09:28 | PC.CHAP ---
Pastoral Care Encounter/Spiritual Assessment Type of Contact [] Declined golf teacher visit [] Patient/Family/Request visit [] Outpatient visit [] Follow-up visit [] Physician referral [] Code/Alert [x] Routine visit [] Staff referral [] Actively dying [] Patient sleeping [] Family support [] [] Out of room [] Palliative care [] [] Receiving care in room [] Pre-surgical visit [] Trauma [] Long length of stay [x] ICU visit [x] Other: vent- isolated - on tummy Relational/Emotional Strength [] Patient feels connected with others/family/visitors/staff [] Distress [] Loneliness/isolation [] Abandonment Spirituality of Patient [] Person of Silvana [] Attends Rastafari of their Silvana [] Believes in Prayer [] Reads Bible or Anabaptist materials [] There are Spiritual issues to be addressed Monument Erector Interventions [x] Prayer [] Active listening [] Non-anxious presence [] Spiritual/emotional support [] Crisis/trauma care [] Spiritual counseling [] Bereavement support [] Provided bereavement packet [] Provided Bible/devotional materials [] Provided toy/stuffed animal, coloring book to patient or family member [] Provided Communion [] Anointing/[place] [] Salvation [x] Completed spiritual assessment [] Other: Impact on Illness or Injury [] Angry [] Fearful [] Anxious [] Often cries [] Exhaustion [] Unable to work [] Unable to attend amish [] Unable to walk/stand [] Unable to read [] Unable to drive [] Unable to eat/drink [] Unable to sleep [] Unable to be with family [] Patient intubated [] Other: Summary Time spent with patient
[2021-07-28 09:37] LABS: Add Urine Microscopic? YES; Bilirubin Urine Neg (Negative); Blood Urine 3+ (Negative); Glucose Urine UA Norm (Normal); Ketones Urine 2+ (Negative); Leukocyte Esterase Urine Trace (Negative); Nitrate Urine Negative (Negative); Protein Urine 1+ (Negative); Urine Appearance Cloudy (CLEAR); Urine Color Yellow (Yellow); Urobilinogen Urine Norm (Negative); pH Urine 5 (5-7)
[2021-07-28 09:38] LABS: RBC Urine 25-40 /hpf (0-2)
[2021-07-28 09:39] LABS: Add Urine Culture? Yes; Bacteria Urine 1+ /hpf; Squamous Epithelial Cell Urine 0-4 /hpf (0-5)
[2021-07-28] MEDS: dexamethasone 10 mg/mL INJ 6 MG IVP (11:32)
--- NOTE | 2021-07-28 14:55 | P.PN_ITS ---
Subjective Subjective: Interval history: The patient was seen and examined. She has undergone 6 proning sessions. When I saw her earlier today she was saturating in the mid 80s in prone position. After the patient was made supine her saturation was in the mid to high 90s. Chest x-ray 2 days ago revealed significant worsening of bilateral infiltrate compared to before. Her DKA has resolved. The patient has mild leukocytosis. She has received dexamethasone likely for 10 days already. Medications: Reviewed: Yes Vitals/I&O/Wt Last Vital Signs Temp 98.9 F 07/28/21 13:00 Pulse 86 07/28/21 14:15 Resp 18 07/28/21 14:15 BP 107/82 07/28/21 14:00 Pulse Ox 95 07/28/21 14:15 07/27/21 07/28/21 07/28/21 22:59 06:59 14:59 Intake Total 672.056 / 1165.189 360.613 / 1525.802 719.064 / 719.064 Output Total 300 / 300 1200 / 1500 200 / 200 Balance 372.056 / 865.189 -839.387 / 25.802 519.064 / 519.064 Weight last 48 hrs Weight 203 lb 4 oz Weight 204 lb Physical Exam Narrative: EXAM NARRATIVE: General: The patient is intubated and sedated Respiratory: Auscultation: Crackles at bilateral lung bases, no wheezing or rhonchi Cardiovascular: Regular rate and rhythm, S1-S2 present, no murmur, no peripheral edema. Abdomen: Soft, distended from obesity, positive bowel sound Skin: No rash Neuro: The patient is sedated and paralyzed, unable to assess Urinary Catheter Management^: Porter: Cath Placed During This Visit: yes Reason for Continuing Indwelling Catheter: Accurate Measurement of Urinary Output in Critically Ill Patients Urinary Catheter Date of Insertion: 07/28/21 Urinary Catheter Time of Insertion: 11:31 Data : 07/28/21 04:45 07/28/21 04:45 Micro: Microbiology 07/28/21 09:45 Blood Culture - Preliminary Blood SPECIMEN COLLECTED 07/28/21 09:40 Blood Culture - Preliminary Blood SPECIMEN COLLECTED 07/24/21 08:20 Urine Culture - Final Urine Catheterized Chloe krusei 07/25/21 08:35 Gram Stain - Final Sputum - Endotracheal Tube Aspirate Sputum Culture - Preliminary Yeast Attestation for Other Data: I personally reviewed and interpreted the following: Other data: I have reviewed the patient's laboratory,, microbiologic and radiologic data. The endotracheal aspirate and urine are both growing Chloe. A&P Assessment and plan (1) ARDS (adult respiratory distress syndrome): This is a 46-year-old lady with a suspected diagnosis of severe COVID-19. It appears that the patient's family refused to get swabbed for COVID-19. I am uncertain if with the risk of potential infection transmission among healthcare workers if the family has the right to refuse getting tested for COVID-19. I am going to reach out to the hospital administration to discuss this further and the patient needs to get tested for COVID-19 and have a definite diagnosis of COVID-19 before she is considered to be transferred somewhere for ECMO. It appears that the patient has better oxygen saturation being supine and prone. The patient does not need to get prone positioning anymore. The chest x-ray revealed significant worsening of bilateral infiltrate even worse than 2 days ago. I am going to broaden her antibiotic coverage. The patient will receive linezolid and imipenem. The steroid will be discontinued. I am going to perform a bronchoscopy for lower respiratory tract sampling. Status: Acute (2) DKA (diabetic ketoacidosis): The DKA has resolved. 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
[2021-07-28] MEDS: linezolid premix 600 MG/300 ML PREMIX 300 MG IV (15:05)
--- NOTE | 2021-07-28 15:23 | P.PCN_ITS ---
Procedure/Consent Time out: Time Out Performed: Yes Consent: Consent for Procedure: Emergency procedure Procedure Narrative: Name of the procedure: Bronchoscopy with inspection of the airway, bronchoalveolar lavage and control of bleeding. Indication: Acute hypoxic respiratory failure in the setting of multifocal pneumonia requiring intubation. Medication: The patient is on intravenous fentanyl and propofol drip. Description of the procedure: The patient was intubated for acute hypoxic respiratory failure. 1% lidocaine 5 mL was introduced through the ET tube. The bronchoscope was as far advanced through the ET tube to the myles was visualized. There was erythema present throughout bilateral airways with areas of petechial hemorrhage. The bronchoscope was introduced in the right mainstem bronchus. The right upper lobe, middle lobe and lower lobe bronchi were examined up to the third subsegmental level. No endobronchial lesion was noted. The bronchoscope was then introduced into the left mainstem bronchus. The left upper lobe, lingula and lower lobe bronchi were examined up to third subsegmental level. No endobronchial lesion was identified. Thick mucus was noted throughout the a irways. Bronchoalveolar lavage was performed from the medial segment of the right middle lobe. The specimen was sent for Gram stain and culture, fungal stain and culture. Complications: No immediate complication was noted. Acute Procedures Epistaxis Control: Time out performed: Yes
[2021-07-28] MEDS: FUROsemide 10 mg/mL SDV 2mL 20 MG IVP (15:30)
--- NOTE | 2021-07-28 16:14 | P.PN_ITS ---
Subjective Subjective: Interval history: This morning patient was hypoxic saturating 84 to 85% FiO2 55 which I bumped up to 90%, increase PEEP to 14 from 13 Low-grade fever Added antifungal Dr. Waggoner evaluated her later today recommended broadening antibiotic coverage, he also did bedside bronchoscopy, no further plan to do proning, she has facial swelling secondary to her cycles of proning Porter catheter removed and to be replaced Vitals/I&O/Wt Last Vital Signs Temp 98.9 F 07/28/21 13:00 Pulse 92 07/28/21 16:00 Resp 18 07/28/21 15:47 BP 140/87 07/28/21 16:00 Pulse Ox 96 07/28/21 16:00 07/28/21 07/28/21 07/28/21 06:59 14:59 22:59 Intake Total 360.613 / 1525.802 719.064 / 719.064 297.76 / 1016.824 Output Total 1200 / 1500 200 / 200 Balance -839.387 / 25.802 519.064 / 519.064 297.76 / 816.824 Weight last 48 hrs Weight 92.193 kg Weight 92.533 kg Physical Exam Narrative: EXAM NARRATIVE: Patient finished her last proning session today Facial swelling secondary to proning noted Eyelid swelling Edema of upper extremities seems to be slightly improved Visceral obesity, distended abdomen Assisted bilateral breath sounds Intubated and sedated Porter catheter draining cloudy urine Urinary Catheter Management^: Porter: Cath Placed During This Visit: yes Reason for Continuing Indwelling Catheter: Accurate Measurement of Urinary Output in Critically Ill Patients Urinary Catheter Date of Insertion: 07/28/21 Urinary Catheter Time of Insertion: 11:31 Data : 07/28/21 04:45 07/28/21 04:45 Micro: Microbiology 07/28/21 09:45 Blood Culture - Preliminary Blood SPECIMEN COLLECTED 07/28/21 09:40 Blood Culture - Preliminary Blood SPECIMEN COLLECTED 07/24/21 08:20 Urine Culture - Final Urine Catheterized Chloe krusei 07/25/21 08:35 Gram Stain - Final Sputum - Endotracheal Tube Aspirate Sputum Culture - Preliminary Yeast A&P Assessment and plan (1) Hypoxia: Status: Acute (2) Severe sepsis with lactic acidosis: Status: Acute (3) Hypophosphatemia: Status: Acute (4) ARDS (adult respiratory distress syndrome): Status: Acute (5) Asthma: Status: Acute Qualifiers: Asthma severity: unspecified severity Asthma persistence: unspecified Asthma complication type: unspecified Qualified Code(s): J45.909 - Unspecified asthma, uncomplicated (6) Diabetes: Status: Acute Qualifiers: Diabetes mellitus type: type 2 Diabetes mellitus computer terminal operator insulin use: unspecified computer terminal operator insulin use status Diabetes mellitus complication status: with other specified complication Qualified Code(s): E11.69 - Type 2 diabetes mellitus with other specified complication (7) Acute hypoxemic respiratory failure: Status: Acute (8) DKA (diabetic ketoacidosis): Status: Acute Qualifiers: Diabetes mellitus complication detail: without coma Diabetes mellitus type: type 2 Qualified Code(s): E11.10 - Type 2 diabetes mellitus with ketoacidosis without coma (9) Lung infiltrate: Status: Acute Additional A&P Information Severe ARDS Persistent hypoxia Status post more than 4 cycles of proning, this resulted in facial swelling For her low albumin she was given 1 bag of albumin yesterday which improved her blood pressure however facial swelling has not improved She will need extensive eye care to prevent corneal scarring No plan to continue proning sessions Broad-spectrum antibiotics recommended by Dr. Waggoner Another bronchoscopy was done by him, thick mucus was noted throughout the airway Bronchoalveolar lavage gram stain sent to the lab Patient is spiking low-grade fever, Chloe Krusei + urine culture, Porter catheter removed and to be replaced today added antifungal caspofungin DKA: Resolved Electrolyte imbalance: Resolved Patient is not acidotic anymore, initially required bicarb drip Hyperglycemia throughout the day however fasting glucose within normal range, I will increase the dose of Lantus and use high intensity sliding scale Full code agreeable with tracheostomy and PEG tube placement Guarded prognosis Hypocalcemia: Repleted, calcium 8.9 today Hypoalbuminemia with low blood pressure, improved with 1 bag Spoke with her , he had multiple questions regarding antibiotics, antifungal, is giving me consent to do tracheostomy and PEG tube placement, I told him hot wound spring production supervisor oral surgeon would give him a call to get the consent as well, he is anxious to come visit her in the hospital, she is still in quarantin e for at least the next 7 days, asked him to use FaceTime is adamant that he does not want her to be transferred to [facility] for ECMO or lung transplant Attestations Medical Necessity Statement*: Continue ICU management, patient has severe hypoxia currently on 90% FiO2 PEEP 14 Time Spent in Patient Care: Greater than 35 minutes Critical Care Time: Critical Care Time (min): 15 Coding Level of Care Code Acute Engine Wiper for [facility] Diagnoses Hypoxia R09.02 Severe sepsis with lactic acidosis A41.9; E87.2; R65.20 Hypophosphatemia E83.39 ARDS (adult respiratory distress syndrome) J80 Asthma J45.909 Asthma severity: unspecified severity Asthma persistence: unspecified Asthma complication type: unspecified Diabetes E11.69 Diabetes mellitus type: type 2 Diabetes mellitus computer terminal operator insulin use: unspecified senior care insulin use status Diabetes mellitus complication status: with other specified complication Acute hypoxemic respiratory failure J96.01 DKA (diabetic ketoacidosis) E11.10 Diabetes mellitus complication detail: without coma Diabetes mellitus type: type 2 Lung infiltrate R91.8
--- NOTE | 2021-07-28 18:32 | PC.NURSE ---
Shift Note 0700: Report received and assessment completed. Lungs sound very course throughout. Bilateral non-pitting edema lower and upper extremities. 1130: Catheter removed per providers orders and new catheter placed using aseptic technique.Uneventful. 1400: Patient supine with assistance of 4 RN and 1RT. Uneventful. 1500: Feeding resumed with new bottle and tubing. 20ml/hr with 120mml FWF Q4hr. 1526: Bronchoscope performed by Dr Waggoner and Sendy RT. Uneventful. Vent settings: VC-AC RR- 18 VT- 380 Fio2- 50 PEEP- 14 Drips: Fentanyl- 100 Propofol- 40
[2021-07-28] MEDS: sennosides 8.6 mg Tablet 17.2 MG PO (21:26)
[2021-07-28] MEDS: insulin glargine 100 units/1 mL 30 UNIT SUBCUT (21:28)
[2021-07-29] VITALS (36 sets, daily range): BP systolic 98–155; BP diastolic 52–86; PULSE 67–121; RESP 18–20; TEMP 36.8–37.6; O2SAT 89–96; BMI 37.2
[2021-07-29] MEDS: propofol 1,000 MG/100 ML INJ 24.96 MG IV ×2 (00:07→03:21)
[2021-07-29] MEDS: ipratropium-albuterol 3 mL Neb INHALATION ×4 (03:05→20:12)
[2021-07-29] MEDS: linezolid premix 600 MG/300 ML PREMIX 300 MG IV ×2 (03:20→14:54)
[2021-07-29 04:15] LABS: ABG PCO2 48.6 mmHg (35-45); ABG PH Result 7.46 (7.35-7.45); Arterial Blood Gas Hematocrit 34.4 % (37-47); Base Excess ABG 9.2 mmol/L (-2.0-2.0); Blood Gas Allen Test Pos; Blood Gas Sample Site Radial, left; Blood Gas Sample Type Arterial; Blood Gas Tidal Volume 0.38; HCO3 ABG 34.3 mmol/L (22-26); Oxygen Device VENT; PO2 ABG 61.6 mmHg (80.0-100.0)
--- NOTE | 2021-07-29 05:05 | PC.NURSE ---
Shift Note Frequent safety and comfort rounds continue. Orders and/or nursing care completed as indicated. Patient monitored for response to intervention and treatment(s). Education provided includes vent compliance and sedation medications. Patient needs further reinforcement teaching. Patient had an uneventful night. She remains on the ventilator settings as follows; mode-VC-AC, FiO2-50%, VT-380, PEEP-12, Rate-18. Glucerna 1.2 tube feeding infusing through OG tube per order, aspirated 10 mls of straw colored gastric residual. Right upper arm PICC line infusing Fentanyl and Propofol per protocol, please see MAR for infusion rates. Patient has a small pressure injury on the sacrum, open to air. No other wounds or skin issues noted at this time. Porter catheter drained 300 mls of dark yellow urine overnight. Will continue to monitor.
[2021-07-29 05:12] LABS: Basophils % 0.4 %; Eosinophils # 0.1 10^3/uL (0.0-0.8); Eosinophils % 0.6 %; Hematocrit 33.2 % (37.0-47.0); Hemoglobin 10.1 g/dL (11.5-15.3); Lymphocytes # 1.9 10^3/uL (0.8-4.8); Mean Corpuscular HGB Conc 30.4 g/dL (30.0-36.0); Mean Corpuscular Hemoglobin 27.9 pg (28.0-34.0); Mean Corpuscular Volume 91.7 fl (81-99); Mean Platelet Volume 9.8 fL (7.4-10.4); Monocytes # 0.8 10^3/uL (0.2-0.9); Neutrophils % 68.6 %; Nucleated Red Blood Cells % 0 %; Platelet Count 317 10^3/cmm (130-400); Red Blood Count 3.62 10^6/uL (4.1-5.3); Red Cell Distribution Width 14.4 % (12.1-15.1); White Blood Count 10.8 10^3/uL (4.0-10.0)
[2021-07-29 05:31] LABS: Anion Gap 16.3 (5-19); Blood Urea Nitrogen 24 mg/dL (6-20); Calcium 8.6 mg/dL (8.5-10.5); Carbon Dioxide 27 mmol/L (22-29); Chloride 103 mmol/L (98-107); Glomerular Filtration Rate 170.4 mL/min (90-130); Glucose 192 mg/dL (65-115); Osmolality Calculated 305 mOsm/kg (285-295); Potassium 3.3 mmol/L (3.5-5.1); Sodium 143 mmol/L (136-145)
[2021-07-29 05:39] LABS: Slide Review Slide Review Perform
[2021-07-29] MEDS: insulin lispro 100 unit/1 mL SUBCUT ×3 (07:32→17:19)
[2021-07-29] MEDS: enoxaparin 100 mg/mL Syringe 90 MG SUBCUT ×2 (08:35→21:01)
[2021-07-29] MEDS: budesonide 0.5 mg/2 mL Neb INHALATION ×2 (09:08→20:12)
--- NOTE | 2021-07-29 09:10 | P.PN_ITS ---
Subjective Subjective: Interval history: 100.4 T-max noted 07/28/1999 Hypokalemia: We will give IV potassium today 40 mEq, recheck magnesium level Patient is blinking eyes on verbal command however not able to squeeze my hand when asked She is still heavily sedated FiO2 50% while supine PEEP 12 Blood pressure has improved after getting albumin, hemoglobin 10.1 was updated yesterday, he does not want her to be transferred for ECMO or lung transplant however gave permission for PEG and trach Vitals/I&O/Wt Last Vital Signs Temp 99.6 F 07/29/21 07:00 Pulse 78 07/29/21 08:00 Resp 18 07/29/21 06:27 BP 110/56 07/29/21 08:00 Pulse Ox 92 07/29/21 08:00 07/28/21 07/29/21 07/29/21 22:59 06:59 14:59 Intake Total 817.76 / 7089.569 0146.873 / 2787.697 Output Total 1250 / 1450 300 / 1750 Balance -432.24 / 86.824 950.873 / 1037.697 Weight last 48 hrs Weight 95.339 kg Weight 92.193 kg Physical Exam Narrative: EXAM NARRATIVE: This morning patient is supine Facial swelling has improved I do not see any corneal scarring or redness She is able to blink her eyes on verbal command Edema of hands noted bilaterally No edema of legs Distended abdomen, with obesity however soft Bowel sounds sluggish but present Intubated and sedated Urine, extremely concentrated color Right arm PICC line Urinary Catheter Management^: Porter: Cath Placed During This Visit: yes Reason for Continuing Indwelling Catheter: Accurate Measurement of Urinary Output in Critically Ill Patients Urinary Catheter Date of Insertion: 07/28/21 Urinary Catheter Time of Insertion: 11:31 Data : 07/29/21 04:56 07/29/21 04:56 Micro: Microbiology 07/24/21 08:15 Blood Culture - Final Blood NO GROWTH AFTER 5 DAYS 07/28/21 09:45 Blood Culture - Preliminary Blood SPECIMEN COLLECTED 07/28/21 09:40 Blood Culture - Preliminary Blood SPECIMEN COLLECTED A&P Assessment and plan (1) ARDS (adult respiratory distress syndrome): Status: Acute (2) Diabetes: Status: Acute Qualifiers: Diabetes mellitus type: type 2 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 insulin use: unspecified custodial insulin use status Diabetes mellitus complication status: with other specified complication Qualified Code(s): E11.69 - Type 2 diabetes mellitus with other specified complication (3) Acute hypoxemic respiratory failure: Status: Acute (4) DKA (diabetic ketoacidosis): Status: Acute Qualifiers: Diabetes mellitus complication detail: without coma Diabetes mellitus type: type 2 Qualified Code(s): E11.10 - Type 2 diabetes mellitus with ketoacidosis without coma (5) Lung infiltrate: Status: Acute (6) Hypokalemia: Status: Acute (7) UTI (urinary tract infection): Status: Acute Additional A&P Information Respiratory failure requiring mechanical ventilation Severe ARDS Today FiO2 50% after multiple cycles of proning Patient still heavily sedated however able to open eyes and blink appropriately on verbal command Wean off sedation, sedation vacation, weaning trial, if she fails weaning trial, is giving permission to do trach and PEG, will discuss further with Dr. Waggoner today Dr. Waggoner did bronchoscopy yesterday, will follow-up with culture sensitivity and gram stain of bronchoalveolar lavage, please see his note for further detail, a ntibiotic coverage was broadened with use of linezolid along Primaxin, procalcitonin unremarkable Hypokalemia: Repleted, check magnesium level Hypocalcemia: Repleted 2 days ago with calcium gluconate, calcium seems to be within normal range Hypotension improved with use of IV albumin 1 bag UTI: Chloe Krusei: Started antifungal Patient is full code Tube feed at the bedside Hypernatremia: Improved DKA resolved Type 2 diabetes: New diagnosis: Still hyperglycemic, I have increased Lantus to 30 units, now she is supine we will get tube feeding for longer duration would increase Lantus to 32 units, she is already on high intensity sliding scale She has finished 10 days of steroids, currently on inhaled steroids Attestations Medical Necessity Statement*: Continue ICU management Time Spent in Patient Care: 16 - 35 minutes Coding Level of Care Code Acute Cell Reliner for [facility] Diagnoses ARDS (adult respiratory distress syndrome) J80 Diabetes E11.69 Diabetes mellitus type: type 2 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
[2021-07-29] MEDS: potassium chloride premix 100 ML 25 MEQ IV (09:35)
[2021-07-29] MEDS: propofol 1,000 MG/100 ML INJ 37.44 MG IV ×5 (09:52→23:08)
[2021-07-29 10:10] LABS: Magnesium 1.4 mg/dL (1.7-2.3)
--- NOTE | 2021-07-29 13:33 | P.PN_ITS ---
Subjective Subjective: Interval history: The patient was seen and examined. Her oxygen requirement has come down to 50% today. She is off of paralytics. The patient is sedated. Not following commands at this time. A gram stain of bronchoalveolar lavage did not show any microorganism. Few WBCs were seen. No growth on day 1. Medications: Reviewed: Yes Vitals/I&O/Wt Last Vital Signs Temp 99.4 F 07/29/21 10:00 Pulse 102 H 07/29/21 12:00 Resp 18 07/29/21 10:39 BP 113/61 07/29/21 12:00 Pulse Ox 91 07/29/21 12:00 07/28/21 07/29/21 07/29/21 22:59 06:59 14:59 Intake Total 817.76 / 9473.627 0669.897 / 2807.721 315.442 / 315.442 Output Total 1250 / 1450 300 / 1750 250 / 250 Balance -432.24 / 86.824 970.897 / 1057.721 65.442 / 65.442 Weight last 48 hrs Weight 210 lb 3 oz Weight 203 lb 4 oz Physical Exam Narrative: EXAM NARRATIVE: General: The patient is intubated and sedated, improved facial swelling Respiratory: Auscultation: Crackles at bilateral lung bases, no wheezing or rhonchi Cardiovascular: Regular rate and rhythm, S1-S2 present, no murmur, no peripheral edema. Abdomen: Soft, distended from obesity, positive bowel sound Skin: No rash Neuro: The patient is sedated, opens eyes to stimulation Urinary Catheter Management^: Porter: Cath Placed During This Visit: yes Reason for Continuing Indwelling Catheter: Accurate Measurement of Urinary Output in Critically Ill Patients Urinary Catheter Date of Insertion: 07/28/21 Urinary Catheter Time of Insertion: 11:31 Data : 07/29/21 04:56 07/29/21 04:56 Micro: Microbiology 07/28/21 15:20 Gram Stain - Final Sputum - Endotracheal Wash Sputum Culture - Preliminary 07/24/21 10:10 Blood Culture - Final Blood NO GROWTH AFTER 5 DAYS 07/28/21 09:45 Blood Culture - Preliminary Blood NEGATIVE TO DATE 07/28/21 09:40 Blood Culture - Preliminary Blood NEGATIVE TO DATE 07/24/21 08:15 Blood Culture - Final Blood NO GROWTH AFTER 5 DAYS Attestation for Other Data: I personally reviewed and interpreted the following: Other data: I have reviewed the laboratory, microbiology cardiology data. A&P Assessment and plan (1) ARDS (adult respiratory distress syndrome): This is a 46-year-old lady with a suspected diagnosis of severe COVID-19. It appears that the patient's family refused to get swabbed for COVID-19. Given the risks of disease transmission, I am going to test her for COVID-19. I believe this is a public safety issue. Her oxygen requirement has come down. She is currently on broad-spectrum antibiotic. No growth on bronchial lavage sample. The plan is going to be minimizing sedation to keep her comfortable while titrating the FiO2 down. Will have a better idea regarding her prognosis in the next 48 hours. I am going to obtain a chest x-ray today. The patient has been treated for electrolyte abnormalities. Status: Acute (2) DKA (diabetic ketoacidosis): The DKA has resolved. 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
--- NOTE | 2021-07-29 13:34 | XRR_ITS ---
PROCEDURE INFORMATION: Exam: XR Chest Exam date and time: 07/29/2021 1:34 PM Age: 46 years old Clinical indication: Condition or disease; Lung condition and disease; Respiratory failure; Status not specified TECHNIQUE: Imaging protocol: XR of the chest. Views: 1 view. COMPARISON: CR XR chest 1V portable [id number] 07/28/2021 2:48 PM FINDINGS: Tubes, catheters and devices: There is an endotracheal tube with the tip approximately 3.5 cm above the myles. There is an enteric tube extending down into the stomach. There is a right arm PICC with the tip in the superior vena cava. Lungs: There is bilateral, multifocal airspace disease likely due to pneumonia. This appears slightly improved in the interval. Pleural spaces: No pleural effusion or pneumothorax. Heart/Mediastinum: The cardiac silhouette is not enlarged when allowing for rotation of the patient. Bones/joints: No acute osseous abnormality. XR/XR chest 1V portable [id number] IMPRESSION: 1. Line and tubes as described. 2. Slight improvement in bilateral airspace disease.
--- NOTE | 2021-07-29 14:17 | PC.RESP ---
RT Shift Note Frequent safety and respiratory rounds continue. Orders completed as indicated. Patient monitored pre and post treatments throughout shift. Patient [Did.] tolerate treatments appropriately. Condition [.DidNotChange]. Patient and/or service support representative educated on respiratory treatment and medications. Patient and/or service support representative [unable to comprehend]. Will continue to monitor patient progress.
[2021-07-29] MEDS: propofol 1,000 MG/100 ML INJ 40.56 MG IV (14:44)
[2021-07-29] MEDS: dexmedeTOMIDine 0.9 % NaCL 400 MCG/100 ML PREMIX IV (15:41)
[2021-07-29 16:47] LABS: Adenovirus Not Detected (NOT DETECT); Chlamydia Pneumoniae Not Detected (NOT DETECT); Coronavirus 229E,HKU1,NL63,OC4 Not Detected (NOT DETECT); Human Metapneumovirus Not Detected (NOT DETECT); Human Rhinovirus/Enterovirus Not Detected (NOT DETECT); Influenza A Not Detected (NOT DETECT); Influenza A H1 Not Detected (NOT DETECT); Influenza A H1-2009 Not Detected (NOT DETECT); Influenza A H3 Not Detected (NOT DETECT); Influenza B Not Detected (NOT DETECT); Mycoplasma Pneumoniae Not Detected (NOT DETECT); Parainfluenza Virus Type 1 Not Detected (NOT DETECT); Parainfluenza Virus Type 2 Not Detected (NOT DETECT); Parainfluenza Virus Type 3 Not Detected (NOT DETECT); Parainfluenza Virus Type 4 Not Detected (NOT DETECT); Respiratory Syncytial Virus A Not Detected (NOT DETECT); Respiratory Syncytial Virus B Not Detected (NOT DETECT); SARS-COV-2 Detected (NOT DETECT)
[2021-07-29] MEDS: sennosides 8.6 mg Tablet 17.2 MG PO (21:01)
[2021-07-29] MEDS: insulin glargine 100 units/1 mL 32 UNIT SUBCUT (21:04)
[2021-07-30] VITALS (41 sets, daily range): BP systolic 79–145; BP diastolic 50–91; PULSE 59–132; RESP 18–23; TEMP 36.6–37.2; O2SAT 87–100; BMI 38.3
[2021-07-30] MEDS: propofol 1,000 MG/100 ML INJ 37.44 MG IV ×8 (01:26→22:17)
[2021-07-30] MEDS: ipratropium-albuterol 3 mL Neb INHALATION ×4 (03:36→20:36)
[2021-07-30] MEDS: linezolid premix 600 MG/300 ML PREMIX 300 MG IV ×2 (03:43→16:01)
[2021-07-30 04:01] LABS: ABG PCO2 46.8 mmHg (35-45); ABG PH Result 7.44 (7.35-7.45); Base Excess ABG 6.8 mmol/L (-2.0-2.0); Blood Gas Allen Test Pos; Blood Gas Sample Site Radial, right; Blood Gas Sample Type Arterial; Blood Gas Tidal Volume 0.38; HCO3 ABG 31.8 mmol/L (22-26); Oxygen Device VENT; PO2 ABG 56.7 mmHg (80.0-100.0)
[2021-07-30 04:19] LABS: Basophils % 0.5 %; Eosinophils # 0.1 10^3/uL (0.0-0.8); Eosinophils % 1.4 %; Hematocrit 31.2 % (37.0-47.0); Hemoglobin 9.6 g/dL (11.5-15.3); Lymphocytes # 2.2 10^3/uL (0.8-4.8); Lymphocytes % 28.1 %; Mean Corpuscular HGB Conc 30.8 g/dL (30.0-36.0); Mean Corpuscular Hemoglobin 28.2 pg (28.0-34.0); Mean Corpuscular Volume 91.8 fl (81-99); Mean Platelet Volume 10.2 fL (7.4-10.4); Monocytes # 0.5 10^3/uL (0.2-0.9); Monocytes % 6.4 %; Neutrophils # 4.65 10^3/uL (1.8-7.7); Neutrophils % 59.5 %; Nucleated Red Blood Cells % 0 %; Platelet Count 221 10^3/cmm (130-400); Red Cell Distribution Width 14.6 % (12.1-15.1); White Blood Count 7.8 10^3/uL (4.0-10.0)
[2021-07-30 04:39] LABS: Anion Gap 15.3 (5-19); Blood Urea Nitrogen 19 mg/dL (6-20); Carbon Dioxide 27 mmol/L (22-29); Chloride 101 mmol/L (98-107); Glomerular Filtration Rate 237.4 mL/min (90-130); Glucose 129 mg/dL (65-115); Osmolality Calculated 294 mOsm/kg (285-295); Potassium 3.3 mmol/L (3.5-5.1); Sodium 140 mmol/L (136-145)
--- NOTE | 2021-07-30 04:41 | PC.NURSE ---
Shift Note Frequent safety and comfort rounds continue. Orders and/or nursing care completed as indicated. Patient monitored for response to intervention and treatment(s). Education provided includes turn and repositioning. Patient unable to comprehend teaching at this time. Patient had an uneventful night, remains on the ventilator. Settings are as follows; mode-VC-AC, FiO2-50%, VT-380, PEEP-12, rate-18. Porter catheter drained 300 mls of dark red urine overnight. Glucerna tube feeding infusing through OG tube per order, no gastric residual aspirated. Patient has a small pressure injury to the sacrum, covered with Optifoam dressing.No other wounds/skin issues noted at this time. Fentanyl, Propofol, Precedex infusing per protocol, please see MAR for infusion rates. Will continue to monitor.
[2021-07-30] MEDS: insulin lispro 100 unit/1 mL SUBCUT ×3 (08:38→17:32)
[2021-07-30] MEDS: enoxaparin 100 mg/mL Syringe 90 MG SUBCUT (08:39)
[2021-07-30] MEDS: budesonide 0.5 mg/2 mL Neb INHALATION ×2 (08:53→20:36)
--- NOTE | 2021-07-30 10:04 | PC.CHAP ---
Pastoral Care Encounter/Spiritual Assessment Type of Contact [] Declined photocopying machine operator visit [] Patient/Family/Request visit [] Outpatient visit [] Follow-up visit [] Physician referral [] Code/Alert [x] Routine visit [] Staff referral [] Actively dying [] Patient sleeping [] Family support [] [] Out of room [] Palliative care [] [x] Receiving care in room [] Pre-surgical visit [] Trauma [] Long length of stay [x] ICU visit x] Other: vent isolated Relational/Emotional Strength [] Patient feels connected with others/family/visitors/staff [] Distress [] Loneliness/isolation [] Abandonment Spirituality of Patient [] Person of Silvana [] Attends Uatsdin of their Silvana [] Believes in Prayer [] Reads Bible or Taoist materials [] There are Spiritual issues to be addressed Automatic Blocker Interventions [x] Prayer [] Active listening [] Non-anxious presence [] Spiritual/emotional support [] Crisis/trauma care [] Spiritual counseling [] Bereavement support [] Provided bereavement packet [] Provided Bible/devotional materials [] Provided toy/stuffed animal, coloring book to patient or family member [] Provided Communion [] Anointing/[place] [] Salvation [x] Completed spiritual assessment [] Other: Impact on Illness or Injury [] Angry [] Fearful [] Anxious [] Often cries [] Exhaustion [] Unable to work [] Unable to attend adventist [] Unable to walk/stand [] Unable to read [] Unable to drive [] Unable to eat/drink [] Unable to sleep [] Unable to be with family [] Patient intubated [] Other: Summary Time spent with patient
[2021-07-30 10:36] LABS: Glucose Point of Care 159 mg/dL (70-110)
[2021-07-30 10:36] LABS: Glucose Point of Care 334 mg/dL (70-110)
[2021-07-30 10:36] LABS: Glucose Point of Care 194 mg/dL (70-110)
[2021-07-30 10:36] LABS: Glucose Point of Care 182 mg/dL (70-110)
[2021-07-30 10:37] LABS: Glucose Point of Care 193 mg/dL (70-110)
[2021-07-30 10:37] LABS: Glucose Point of Care 228 mg/dL (70-110)
[2021-07-30 10:37] LABS: Glucose Point of Care 168 mg/dL (70-110)
[2021-07-30 10:37] LABS: Glucose Point of Care 152 mg/dL (70-110)
[2021-07-30] MEDS: dexmedeTOMIDine 0.9 % NaCL 400 MCG/100 ML PREMIX 11.92 MCG IV ×2 (10:51→17:27)
--- NOTE | 2021-07-30 12:36 | PM.PN ---
Subjective Subjective: Interval history: Noticed hypoxia on 50% FiO2 Her O2 saturation was around 89 to 91% Afebrile Leukocytosis improved Foot slightly decreased in last 48 hours 500 mL today Urine color is dark with hematuria however Porter cath was placed on Wednesday, I have asked ICU nurse Yolanda to manually irrigate and see if urine color would improve She has pressure ulcer left cheek 5 cm Requested RT to go up on FiO2 and repeat blood gas in 2 hours Case discussed with case operator Ale, we have already applied for Medicaid insurance, waiting for approval, is okay PEG and trach Propofol at 60, currently running at 150, FiO2 50% PEEP 12 TV 380, Precedex 0.5 Vitals/I&O/Wt Last Vital Signs Temp 98.9 F 07/30/21 04:00 Pulse 96 07/30/21 09:09 Resp 18 07/30/21 10:39 BP 116/66 07/30/21 06:00 Pulse Ox 91 07/30/21 10:39 07/29/21 07/30/21 07/30/21 22:59 06:59 14:59 Intake Total 1668.501 / 2167.559 1329.115 / 3496.674 409.667 / 409.667 Output Total 200 / 450 300 / 750 Balance 1468.501 / 5716.227 0319.115 / 2746.674 409.667 / 409.667 Weight last 48 hrs Weight 98.146 kg Weight 95.339 kg Physical Exam Narrative: EXAM NARRATIVE: Patient intubated and sedated Left cheek 5 cm pressure ulcer from chronic Nursing applied Dark-colored urine with hematuria Sluggish bowel sounds, visceral obesity Soft abdomen Patient is heavily sedated Bilateral assisted breath sounds S1, S2 sinus rhythm Urinary Catheter Management^: Porter: Cath Placed During This Visit: yes Reason for Continuing Indwelling Catheter: Accurate Measurement of Urinary Output in Critically Ill Patients Urinary Catheter Date of Insertion: 07/28/21 Urinary Catheter Time of Insertion: 11:31 Data : 07/30/21 03:44 07/30/21 03:44 Micro: Microbiology 07/28/21 15:20 Gram Stain - Final Sputum - Endotracheal Wash Sputum Culture - Final 07/28/21 09:10 Urine Culture - Preliminary Urine,Clean Catch Yeast species 07/24/21 10:10 Blood Culture - Final Blood NO GROWTH AFTER 5 DAYS 07/28/21 09:45 Blood Culture - Preliminary Blood NEGATIVE TO DATE 07/28/21 09:40 Blood Culture - Preliminary Blood NEGATIVE TO DATE 07/24/21 08:15 Blood Culture - Final Blood NO GROWTH AFTER 5 DAYS A&P Assessment and plan (1) Skin ulcer of cheek: Status: Acute (2) Hematuria: Status: Acute (3) UTI (urinary tract infection): Status: Acute (4) Hypokalemia: Status: Acute (5) Hypoxia: Status: Acute (6) Diabetes: Status: Acute Qualifiers: Diabetes mellitus type: type 2 Diabetes mellitus continuous churn buttermaker insulin use: unspecified continuous churn buttermaker insulin use status Diabetes mellitus complication status: with other specified complication Qualified Code(s): E11.69 - Type 2 diabetes mellitus with other specified complication (7) Acute hypoxemic respiratory failure: Status: Acute (8) ARDS (adult respiratory distress syndrome): Status: Acute (9) COVID: Status: Acute Additional A&P Information Persistent hypoxia COVID PCR positive Afebrile Leukocytosis improved Plan to increase her FiO2 to 65 and repeat blood gas in 2 hours Heavily sedated currently on Precedex propofol and fentanyl doses mentioned in subjective note Case discussed with Dr. Waggoner this morning market sales manager Ale: Applied for Medicaid insurance, I do believe patient will need tracheostomy and PEG tube placement, it will be very difficult to wean her off with persistent hypoxia Hematuria: Requested ICU nurse to manually irrigate to see if there is improvement in her urine color currently she is being treated with micafungin for yeast in her urine Bronchoalveolar lavage showed yeast as well Uncontrolled diabetes: Currently blood sugar seems to be within target range, Lantus 32 units along with sliding scale Hypocalcemia: Repleted Phosphorus normal Blood pressure improved with 1 bag of albumin Continue broad-spectrum antibiotics Guarded prognosis Continue full code 5-7 more days of quarantine Attestations Medical Necessity Statement*: Continue ICU management Time Spent in Patient Care: 16 - 35 minutes Coding Level of Care Code Acute [facility] Peeler for [facility] Fwd Diagnoses Skin ulcer of cheek L98.499 Hematuria R31.9 UTI (urinary tract infection) N39.0 Hypokalemia E87.6 Hypoxia R09.02 Diabetes E11.69 Diabetes mellitus type: type 2 Diabetes mellitus continuous churn buttermaker insulin use: unspecified continuous churn buttermaker insulin use status Diabetes mellitus complication status: with other specified complication Acute hypoxemic respiratory failure J96.01 ARDS (adult respiratory distress syndrome) J80 COVID U07.1
[2021-07-30] MEDS: potassium chloride premix 100 ML 25 MEQ IV (13:26)
[2021-07-30 14:09] LABS: Magnesium 1.4 mg/dL (1.7-2.3)
[2021-07-30 15:36] LABS: Glucose Point of Care 144 mg/dL (70-110)
[2021-07-30 15:36] LABS: Glucose Point of Care 188 mg/dL (70-110)
[2021-07-30 16:04] LABS: ABG PCO2 45.8 mmHg (35-45); ABG PH Result 7.44 (7.35-7.45); Base Excess ABG 6.2 mmol/L (-2.0-2.0); Blood Gas Allen Test Pos; Blood Gas Operator Identificat GD; Blood Gas Sample Site Radial, left; Blood Gas Sample Type Arterial; Blood Gas Tidal Volume 0.38; HCO3 ABG 31.1 mmol/L (22-26); Oxygen Device VENT
--- NOTE | 2021-07-30 19:00 | PC.NURSE ---
Shift Note; Pt remians intubated and sedated. She has Fentanyl, Propofol and Precedex infusing. She was started on Caspofungin and Zyvoxx today. She has bee on tube feedings at 20ml/hr with scheduled flushes, Glucerna 1.2. She has had bloody urine at beginning of shift, mccarthy flushed with 60ml sterile NS, urine cleared up to dark yellow but has sediment. She has had multiple copious loose BMs this shift. She has pressure ulcers under tube Dr Mane curry notified Frequent safety and comfort rounds continue. Orders and/or nursing care completed as indicated. Patient monitored for response to intervention and treatment(s). Education provided includes medications, ongoing care, and oxygenation. Patient sedated and unable shantelle comprehend at this time. Will continue to monitor.
--- NOTE | 2021-07-30 20:20 | PC.NURSE ---
Family Update DPOA, Wilder Angel, called and received update on patient status. Oxygen requirements, tube feeding, and neuro status discussed. Wilder verbalized understanding. Wilder also stated wish to discuss trach procedure with patient's doctor; stated he would call tomorrow.
--- NOTE | 2021-07-30 21:00 | PC.NURSE ---
Senna Lax Senna Lax not administered at this time due to multiple bowel movements throughout day shift.
[2021-07-30] MEDS: insulin glargine 100 units/1 mL 32 UNIT SUBCUT (21:05)
[2021-07-31] VITALS (47 sets, daily range): BP systolic 104–162; BP diastolic 60–98; PULSE 72–122; RESP 12–36; TEMP 36.8–37; O2SAT 91–96; BMI 38.3
[2021-07-31] MEDS: dexmedeTOMIDine 0.9 % NaCL 400 MCG/100 ML PREMIX 11.92 MCG IV (00:30)
[2021-07-31] MEDS: propofol 1,000 MG/100 ML INJ 37.44 MG IV (01:04)
[2021-07-31] MEDS: linezolid premix 600 MG/300 ML PREMIX 300 MG IV ×2 (02:00→16:26)
[2021-07-31] MEDS: ipratropium-albuterol 3 mL Neb INHALATION ×4 (02:48→20:19)
[2021-07-31] MEDS: propofol 1,000 MG/100 ML INJ 40.56 MG IV ×2 (03:31→06:32)
[2021-07-31 03:44] LABS: Basophils % 0.4 %; Eosinophils # 0.1 10^3/uL (0.0-0.8); Eosinophils % 1.2 %; Hematocrit 31.9 % (37.0-47.0); Lymphocytes # 1.6 10^3/uL (0.8-4.8); Lymphocytes % 16.1 %; Mean Corpuscular HGB Conc 31.3 g/dL (30.0-36.0); Mean Corpuscular Hemoglobin 28.3 pg (28.0-34.0); Mean Corpuscular Volume 90.4 fl (81-99); Mean Platelet Volume 10.2 fL (7.4-10.4); Monocytes # 0.7 10^3/uL (0.2-0.9); Monocytes % 7.4 %; Neutrophils # 6.91 10^3/uL (1.8-7.7); Nucleated Red Blood Cells % 0 %; Platelet Count 198 10^3/cmm (130-400); Red Blood Count 3.53 10^6/uL (4.1-5.3); Red Cell Distribution Width 14.6 % (12.1-15.1); White Blood Count 9.6 10^3/uL (4.0-10.0)
[2021-07-31 04:05] LABS: Anion Gap 19.5 (5-19); Blood Urea Nitrogen 10 mg/dL (6-20); Calcium 7.7 mg/dL (8.5-10.5); Carbon Dioxide 23 mmol/L (22-29); Chloride 99 mmol/L (98-107); Glomerular Filtration Rate 237.4 mL/min (90-130); Glucose 228 mg/dL (65-115); Osmolality Calculated 292 mOsm/kg (285-295); Potassium 3.5 mmol/L (3.5-5.1); Sodium 138 mmol/L (136-145)
[2021-07-31 04:57] LABS: ABG PCO2 41.9 mmHg (35-45); ABG PH Result 7.43 (7.35-7.45); Base Excess ABG 3.3 mmol/L (-2.0-2.0); Blood Gas Allen Test Pos; Blood Gas Operator Identificat JB; Blood Gas Sample Site Radial, right; Blood Gas Sample Type Arterial; Oxygen Device VENT; PO2 ABG 72.1 mmHg (80.0-100.0)
[2021-07-31 04:58] LABS: Blood Gas Tidal Volume 0.38
[2021-07-31] MEDS: dexmedeTOMIDine 0.9 % NaCL 400 MCG/100 ML PREMIX 14.3 MCG IV (06:46)
[2021-07-31] MEDS: insulin lispro 100 unit/1 mL SUBCUT ×3 (08:41→17:41)
[2021-07-31] MEDS: budesonide 0.5 mg/2 mL Neb INHALATION ×2 (08:54→20:19)
[2021-07-31 09:46] LABS: Triglycerides 329 mg/dL (0-150)
--- NOTE | 2021-07-31 11:50 | PM.PN ---
Subjective Subjective: Interval history: EpisodeThis morning patient is tachycardic Blood pressure stable Afebrile No leukocytosis Patient had 6-7 bowel movements yesterday as per the nursing staff Dark urine color change to light green and then today it is dark yellow Patient was moving her upper extremities Today she is on 55% FiO2 propofol running at 65, fentanyl 125 Precedex 0.6 PO2 72 on 55% FiO2 PEEP 12 She has dressing on her cheek ulcers Upper extremity pitting edema however no edema on lower extremities Triglyceride level 329 Vitals/I&O/Wt Last Vital Signs Temp 98.2 F 07/31/21 08:00 Pulse 121 H 07/31/21 10:00 Resp 25 H 07/31/21 10:23 BP 147/86 07/31/21 10:00 Pulse Ox 92 07/31/21 10:23 07/30/21 07/31/21 07/31/21 22:59 06:59 14:59 Intake Total 1786.684 / 2372.240 1323.298 / 3695.538 437.783 / 437.783 Output Total 325 / 650 550 / 1200 Balance 1461.684 / 1722.240 773.298 / 2495.538 437.783 / 437.783 Weight last 48 hrs Weight 98.146 kg Weight 98.146 kg Physical Exam Narrative: EXAM NARRATIVE: Patient is intubated and sedated Bilateral assisted breath sounds Soft abdomen Bowel sound present No signs of edema of legs however her arms are edematous Pressure ulcers noted on her cheeks, left cheek ulcer 5 cm currently has dressing on Porter catheter draining dark yellow urine Neuro exam limited S1, S2 tachycardia arrhythmia Urinary Catheter Management^: Porter: Cath Placed During This Visit: yes Reason for Continuing Indwelling Catheter: Accurate Measurement of Urinary Output in Critically Ill Patients Urinary Catheter Date of Insertion: 07/28/21 Urinary Catheter Time of Insertion: 11:31 Data : 07/31/21 03:10 07/31/21 03:10 Micro: Microbiology 07/30/21 12:10 Occult Blood (FIT) - Final Stool - Stool Aspirate 07/25/21 08:35 Gram Stain - Final Sputum - Endotracheal Tube Aspirate Sputum Culture - Final Chloe albicans 07/28/21 15:20 Gram Stain - Final Sputum - Endotracheal Wash Sputum Culture - Final A&P Assessment and plan (1) COVID: Status: Acute (2) Hematuria: Status: Acute (3) Skin ulcer of cheek: Status: Acute (4) UTI (urinary tract infection): Status: Acute (5) Hypokalemia: Status: Acute (6) Hypoxia: Status: Acute (7) Severe sepsis with lactic acidosis: Status: Acute (8) Hypophosphatemia: Status: Acute (9) ARDS (adult respiratory distress syndrome): Status: Acute (10) Asthma: Status: Acute Qualifiers: Asthma complication type: unspecified Asthma persistence: unspecified Asthma severity: unspecified severity Qualified Code(s): J45.909 - Unspecified asthma, uncomplicated (11) Diabetes: Status: Acute Qualifiers: Diabetes mellitus complication status: with other specified complication Diabetes mellitus custodial insulin use: unspecified long chain quiller tender insulin use status Diabetes mellitus type: type 2 Qualified Code(s): E11.69 - Type 2 diabetes mellitus with other specified complication (12) Acute hypoxemic respiratory failure: Status: Acute (13) DKA (diabetic ketoacidosis): Status: Acute Qualifiers: Diabetes mellitus complication detail: without coma Diabetes mellitus type: type 2 Qualified Code(s): E11.10 - Type 2 diabetes mellitus with ketoacidosis without coma (14) Lung infiltrate: Status: Acute Additional A&P Information Hypoxia improved when we increase FiO2 to 65 yesterday however on today's ABG it is around 70 on 55% FiO2, Precedex increased to 0 .6, I have asked nurse to avoid going up on propofol, triglyceride 329, urine color has improved, she had 5-6 bowel movement, will check C. difficile, hemoglobin stable, no signs of hematuria Hypomagnesemia: We will give 1 g mag sulfate Hypocalcemia: With correction to albumin very close to normal range Hyperglycemia with type 2 diabetes, there are some excursions noted on the POC glucose however I am not going to change her insulin regimen for now, fasting blood sugar is high will increase Lantus to 35 units Monitor for propofol infusion syndrome however does not have typical signs as of yet other than urine color change which improved with manual irrigation of Porter catheter For yeast infection currently she is on caspofungin Patient extubated on 07/31 later in the day to heated high flow in case of any worsening of respiratory status low threshold to use BiPAP, Speech eval, PT eval Attestations Medical Necessity Statement*: Continue ICU management Time Spent in Patient Care: 16 - 35 minutes Coding Level of Care Code Acute Installation Specialist for [facility] Fwd Diagnoses COVID U07.1 Hematuria R31.9 Skin ulcer of cheek L98.499 UTI (urinary tract infection) N39.0 Hypokalemia E87.6 Hypoxia R09.02 Severe sepsis with lactic acidosis A41.9; E87.2; R65.20 Hypophosphatemia E83.39 ARDS (adult respiratory distress syndrome) J80 Asthma J45.909 Asthma complication type: unspecified Asthma persistence: unspecified Asthma severity: unspecified severity Diabetes E11.69 Diabetes mellitus complication status: with other specified complication Diabetes mellitus long chain quiller tender insulin use: unspecified custodial insulin use status Diabetes mellitus type: type 2 Acute hypoxemic respiratory failure J96.01 DKA (diabetic ketoacidosis) E11.10 Diabetes mellitus complication detail: without coma Diabetes mellitus type: type 2 Lung infiltrate R91.8
[2021-07-31] MEDS: FUROsemide 10 mg/mL SDV 4mL 40 MG IVP (12:58)
[2021-07-31] MEDS: calcium gluconate 0.9% NaCL 1 GM/50 ML PREMIX IV (12:58)
[2021-07-31] MEDS: dexmedeTOMIDine 0.9 % NaCL 400 MCG/100 ML PREMIX 16.68 MCG IV (14:00)
--- NOTE | 2021-07-31 15:24 | PC.NUTR ---
When medically appropriate to restart TF, recommend consideration of Glucerna 1.2 to start at 10 ml/hr, advancing 10 mls/hr Q8H as tolerated until goal rate of 40 ml/hr is reached, with FW flushes of 120 ml Q4H or per MD discretion. Details in RD assessment. [ End ]
--- NOTE | 2021-07-31 15:25 | PM.PN ---
Subjective Subjective: Interval history: The patient was seen and examined. She is resting comfortably with mild sedation with Precedex. The patient is currently on pressure support ventilation and FiO2 of 45%. She is following commands answering questions. The patient may be ready for extubation today. Medications: Reviewed: Yes Vitals/I&O/Wt Last Vital Signs Temp 98.2 F 07/31/21 08:00 Pulse 95 07/31/21 14:27 Resp 36 H 07/31/21 14:25 BP 147/86 07/31/21 10:00 Pulse Ox 92 07/31/21 14:25 07/31/21 07/31/21 07/31/21 06:59 14:59 22:59 Intake Total 1323.298 / 3695.538 507.753 / 507.753 Output Total 550 / 1200 Balance 773.298 / 2495.538 507.753 / 507.753 Weight last 48 hrs Weight 216 lb 6 oz Weight 216 lb 6 oz Physical Exam Narrative: EXAM NARRATIVE: General: The patient is intubated and sedated, able to follow commands and answer simple questions by nodding her head Respiratory: Auscultation: Crackles at bilateral lung bases, no wheezing or rhonchi Cardiovascular: Regular rate and rhythm, S1-S2 present, no murmur, no peripheral edema. Abdomen: Soft, distended from obesity, positive bowel sound Skin: No rash Neuro: She is comfortable and sedated, easily arousable, moves all extremities Urinary Catheter Management^: Porter: Cath Placed During This Visit: yes Reason for Continuing Indwelling Catheter: Accurate Measurement of Urinary Output in Critically Ill Patients Urinary Catheter Date of Insertion: 07/28/21 Urinary Catheter Time of Insertion: 11:31 Data : 07/31/21 03:10 07/31/21 03:10 Micro: Microbiology 07/28/21 09:10 Urine Culture - Final Urine,Clean Catch Chloe krusei 07/30/21 12:10 Occult Blood (FIT) - Final Stool - Stool Aspirate 07/25/21 08:35 Gram Stain - Final Sputum - Endotracheal Tube Aspirate Sputum Culture - Final Chloe albicans 07/28/21 15:20 Gram Stain - Final Sputum - Endotracheal Wash Sputum Culture - Final Attestation for Other Data: I personally reviewed and interpreted the following: Other data: I have reviewed the patient's [employer] microbiology cardiology data. The bronchoalveolar lavage culture did not grow. A&P Assessment and plan (1) ARDS (adult respiratory distress syndrome): This is a 46-year-old lady with severe COVID-19. The patient seems to be doing fairly well on pressure support ventilation. I believe we will be able to extubate her today. I would recommend continuing linezolid and Primaxin to complete a total of 7-day therapy. Antifungal therapy should be discontinued after 14 days. The caspofungin can be switched to fluconazole at this time. However, we do not have the antifungal sensitivity available yet. Reinitiate Lovenox at prophylactic dose. Status: Acute (2) DKA (diabetic ketoacidosis): The DKA has resolved. She will need optimization of her insulin regimen once she is extubated and starts eating. Status: Acute Qualifiers: Diabetes mellitus complication detail: without coma Diabetes mellitus type: type 2 Qualified Code(s): E11.10 - Type 2 diabetes mellitus with ketoacidosis without coma Attestations Medical Necessity Statement*: Will defer to the primary team Coding Level of Care Code Acute Hitcher for [facility] Diagnoses ARDS (adult respiratory distress syndrome) J80 DKA (diabetic ketoacidosis) E11.10 Diabetes mellitus complication detail: without coma Diabetes mellitus type: type 2 Time Spent (min) 33
[2021-07-31] MEDS: enoxaparin 40 mg/0.4 mL Syringe SUBCUT (16:28)
--- NOTE | 2021-07-31 16:30 | PC.NURSE ---
Pt extubated to Heated high flow nasal cannula 70% an 40 l iters. OG also removed. Pt tolerating well. Pt asking were she is at.
--- NOTE | 2021-07-31 17:00 | PC.NURSE ---
Fentanyl gtt wasted, 57.3 m l. Witnessed by Orestes Dorsey RN.
[2021-07-31] MEDS: bacitracin ointment 28 gm 1 APPLIC TOPICAL (17:43)
--- NOTE | 2021-07-31 18:37 | PC.NURSE ---
Significant other, Wilder Angel, notified of pt's progress and extubation, via telephone.
--- NOTE | 2021-07-31 19:27 | PC.NURSE ---
Shift Note: pt extubated after 1600 today to heated high flow. She is tolerating it well. Shie is still confused. She remains on Precedes at 0.6mcg/kg/hr. She had Lasix today. Urine output of 3400ml this shift. She has had multiple Copious liiquid BMs this sift. Frequent safety and comfort rounds continue. Orders and/or nursing care completed as indicated. Patient monitored for response to intervention and treatment(s). Education provided includes oxygenation, Heated high flow, Precedex, ice chips. Patient and/or insurance verification representative verbalized understanding. Will continue to monitor.
[2021-07-31 20:17] LABS: Glucose Point of Care 177 mg/dL (70-110)
[2021-07-31 20:17] LABS: Glucose Point of Care 229 mg/dL (70-110)
[2021-07-31 20:17] LABS: Glucose Point of Care 218 mg/dL (70-110)
[2021-07-31 20:19] LABS: Glucose Point of Care 163 mg/dL (70-110)
[2021-07-31 20:19] LABS: Glucose Point of Care 166 mg/dL (70-110)
[2021-07-31] MEDS: insulin glargine 100 units/1 mL 35 UNIT SUBCUT (22:30)
[2021-07-31] MEDS: dexmedeTOMIDine 0.9 % NaCL 400 MCG/100 ML PREMIX 28.6 MCG IV (22:32)
[2021-08-01] VITALS (30 sets, daily range): BP systolic 105–138; BP diastolic 64–97; PULSE 70–126; RESP 18–32; TEMP 36.6–37.1; O2SAT 90–97
[2021-08-01] MEDS: dexmedeTOMIDine 0.9 % NaCL 400 MCG/100 ML PREMIX 28.6 MCG IV (01:50)
[2021-08-01] MEDS: ipratropium-albuterol 3 mL Neb INHALATION ×4 (03:21→20:12)
[2021-08-01 03:39] LABS: Basophils % 0.4 %; Eosinophils # 0.1 10^3/uL (0.0-0.8); Hematocrit 30.7 % (37.0-47.0); Hemoglobin 9.6 g/dL (11.5-15.3); Lymphocytes # 1.2 10^3/uL (0.8-4.8); Lymphocytes % 14.6 %; Mean Corpuscular HGB Conc 31.3 g/dL (30.0-36.0); Mean Corpuscular Hemoglobin 27.5 pg (28.0-34.0); Mean Platelet Volume 10.5 fL (7.4-10.4); Monocytes # 0.6 10^3/uL (0.2-0.9); Monocytes % 7.4 %; Neutrophils % 74.8 %; Nucleated Red Blood Cells % 0 %; Platelet Count 191 10^3/cmm (130-400); Red Blood Count 3.49 10^6/uL (4.1-5.3); Red Cell Distribution Width 14.3 % (12.1-15.1); White Blood Count 7.9 10^3/uL (4.0-10.0)
[2021-08-01] MEDS: linezolid premix 600 MG/300 ML PREMIX 300 MG IV ×2 (03:49→14:45)
[2021-08-01 04:08] LABS: Anion Gap 15.8 (5-19); Blood Urea Nitrogen 7 mg/dL (6-20); Carbon Dioxide 27 mmol/L (22-29); Chloride 102 mmol/L (98-107); Glomerular Filtration Rate 237.4 mL/min (90-130); Glucose 151 mg/dL (65-115); Osmolality Calculated 295 mOsm/kg (285-295); Sodium 142 mmol/L (136-145)
[2021-08-01 04:16] LABS: Potassium 2.8 mmol/L (3.5-5.1)
[2021-08-01 04:28] LABS: ABG PCO2 38.8 mmHg (35-45); ABG PH Result 7.49 (7.35-7.45); Arterial Blood Gas Hematocrit 30.5 % (37-47); Base Excess ABG 5.9 mmol/L (-2.0-2.0); Blood Gas Allen Test Pos; Blood Gas Sample Site Radial, right; Blood Gas Sample Type Arterial; HCO3 ABG 29.6 mmol/L (22-26); Oxygen Device HAG; PO2 ABG 53.7 mmHg (80.0-100.0)
[2021-08-01] MEDS: potassium chloride premix 100 ML 25 MEQ IV (04:30)
[2021-08-01] MEDS: dexmedeTOMIDine 0.9 % NaCL 400 MCG/100 ML PREMIX 23.84 MCG IV (05:44)
[2021-08-01] MEDS: insulin lispro 100 unit/1 mL SUBCUT ×3 (08:08→17:52)
[2021-08-01] MEDS: lidocaine 1% 5 ML in potassium chloride premix 100 ML 25 ML IV (08:08)
[2021-08-01] MEDS: budesonide 0.5 mg/2 mL Neb INHALATION ×2 (08:27→20:12)
[2021-08-01] MEDS: bacitracin ointment 28 gm 1 APPLIC TOPICAL ×2 (09:16→17:53)
[2021-08-01 09:36] LABS: Magnesium 1.5 mg/dL (1.7-2.3)
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
[2021-08-01] MEDS: magnesium sulfate premix 2 GM/50 ML PIGGYBACK IV (10:40)
[2021-08-01] MEDS: dexmedeTOMIDine 0.9 % NaCL 400 MCG/100 ML PREMIX 19.07 MCG IV (10:42)
[2021-08-01 10:44] LABS: Glucose Point of Care 213 mg/dL (70-110)
[2021-08-01 10:45] LABS: Glucose Point of Care 208 mg/dL (70-110)
[2021-08-01 11:41] LABS: Glucose Point of Care 175 mg/dL (70-110)
--- NOTE | 2021-08-01 16:02 | P.PN_ITS ---
Subjective Subjective: Interval history: Patient was seen and examined. She is confused and hallucinating. Unable to provide relevant history. Overall denies shortness of breath and appears comfortable. She is currently on high flow nasal cannula. Mildly sedated with Precedex. Medications: Reviewed: Yes Vitals/I&O/Wt Last Vital Signs Temp 98.4 F 08/01/21 13:00 Pulse 102 H 08/01/21 15:48 Resp 22 H 08/01/21 15:48 BP 118/78 08/01/21 13:00 Pulse Ox 91 08/01/21 15:48 08/01/21 08/01/21 08/01/21 06:59 14:59 22:59 Intake Total 694.380 / 2123.716 531.845 / 531.845 Output Total 400 / 3800 Balance 294.380 / -1676.284 531.845 / 531.845 Weight last 48 hrs Weight 204 lb Weight 216 lb 6 oz Physical Exam Narrative: EXAM NARRATIVE: General: Patient is awake and alert but not oriented, appears to be hallucinating Respiratory: Auscultation: Crackles at bilateral lung bases, no wheezing or rhonchi Cardiovascular: Regular rate and rhythm, S1-S2 present, no murmur, no peripheral edema. Abdomen: Soft, distended from obesity, positive bowel sound Skin: No rash Neuro: Moving all extremities Urinary Catheter Management^: Porter: Cath Placed During This Visit: yes Reason for Continuing Indwelling Catheter: Accurate Measurement of Urinary Output in Critically Ill Patients Urinary Catheter Date of Insertion: 07/28/21 Urinary Catheter Time of Insertion: 11:31 Data : 08/01/21 02:54 08/01/21 02:54 Micro: Microbiology 07/28/21 09:10 Urine Culture - Final Urine,Clean Catch Chloe krusei Attestation for Other Data: I personally reviewed and interpreted the following: Other data: I have reviewed the patient's laboratory, microbiologic and radiologic data A&P Assessment and plan (1) ARDS (adult respiratory distress syndrome): This is a 46-year-old lady with severe COVID-19. Patient had been extubated yesterday. Currently on high flow nasal cannula 60 to 65% seems to be doing well. Patient is hallucinating. We will continue with the antibiotic and antifungal plan as described before. Whenever possible, the plan will be to get her out of the ICU and possibly discharge home in the next few days. Status: Acute (2) DKA (diabetic ketoacidosis): The DKA has resolved. She will need optimization of her insulin regimen once she starts eating Status: Acute Qualifiers: Diabetes mellitus complication detail: without coma Diabetes mellitus type: type 2 Qualified Code(s): E11.10 - Type 2 diabetes mellitus with ketoacidosis without coma Attestations Medical Necessity Statement*: Will defer to the primary team Coding Level of Care Code Acute Center Line Cutter Operator for [facility] Fwd Diagnoses ARDS (adult respiratory distress syndrome) J80 DKA (diabetic ketoacidosis) E11.10 Diabetes mellitus complication detail: without coma Diabetes mellitus type: type 2
[2021-08-01] MEDS: enoxaparin 40 mg/0.4 mL Syringe SUBCUT (16:21)
[2021-08-01 17:40] LABS: Glucose Point of Care 176 mg/dL (70-110)
[2021-08-01] MEDS: dexmedeTOMIDine 0.9 % NaCL 400 MCG/100 ML PREMIX 9.53 MCG IV (18:38)
--- NOTE | 2021-08-01 19:16 | PC.NURSE ---
Shift Note: Pt remains confused. She is alert to self and can now remember it is Wednesday. She is still hallucinating: thinks her body was being looked for, her significant other was impersonating her and her children are in the unit. She is more cooperative. Restraints released at 1600, at this point pt has not pulled off her oxygen. She is on heated high flow at 30 liters 65%. Dysphagia diet started, she a a tiny bit. Precedex still infusing, rate has been decreased to 0.4 mcg/kg/hr. Urine output of 550 this shift, yellow. No Bm this shift. Frequent safety and comfort rounds continue. Orders and/or nursing care completed as indicated. Patient monitored for response to intervention and treatment(s). Education provided includes deep breathing, reality orienting, antibiotics, MRSA swab, and magnesium and potassium replacement. Patient verbalized her understanding but needs re enforcement due to her ongoing confusion. . Will continue to monitor.
[2021-08-01] MEDS: insulin glargine 100 units/1 mL 35 UNIT SUBCUT (21:01)
[2021-08-01 21:02] LABS: Glucose Point of Care 169 mg/dL (70-110)
[2021-08-02] VITALS (29 sets, daily range): BP systolic 112–153; BP diastolic 64–101; PULSE 94–121; RESP 19–45; TEMP 36.9–37.3; O2SAT 82–95
[2021-08-02] MEDS: ipratropium-albuterol 3 mL Neb INHALATION ×4 (02:28→20:19)
[2021-08-02] MEDS: linezolid premix 600 MG/300 ML PREMIX 300 MG IV (02:30)
[2021-08-02 06:00] LABS: Basophils % 0.4 %; Eosinophils # 0.1 10^3/uL (0.0-0.8); Eosinophils % 1.5 %; Hematocrit 30.6 % (37.0-47.0); Hemoglobin 9.4 g/dL (11.5-15.3); Lymphocytes # 1.1 10^3/uL (0.8-4.8); Mean Corpuscular HGB Conc 30.7 g/dL (30.0-36.0); Mean Corpuscular Hemoglobin 27.4 pg (28.0-34.0); Mean Corpuscular Volume 89.2 fl (81-99); Mean Platelet Volume 10.4 fL (7.4-10.4); Monocytes # 0.7 10^3/uL (0.2-0.9); Monocytes % 9.4 %; Neutrophils # 5.25 10^3/uL (1.8-7.7); Neutrophils % 72.9 %; Nucleated Red Blood Cells % 0 %; Platelet Count 209 10^3/cmm (130-400); Red Blood Count 3.43 10^6/uL (4.1-5.3); Red Cell Distribution Width 14.2 % (12.1-15.1); White Blood Count 7.2 10^3/uL (4.0-10.0)
[2021-08-02 07:11] LABS: Blood Urea Nitrogen 8 mg/dL (6-20); C Reactive Protein 164.2 mg/L (0.0-4.9); Calcium 7.8 mg/dL (8.5-10.5); Carbon Dioxide 24 mmol/L (22-29); Chloride 100 mmol/L (98-107); Glomerular Filtration Rate 237.4 mL/min (90-130); Glucose 191 mg/dL (65-115); Magnesium 1.6 mg/dL (1.7-2.3); Osmolality Calculated 293 mOsm/kg (285-295); Sodium 140 mmol/L (136-145)
[2021-08-02 07:55] LABS: Glucose Point of Care 197 mg/dL (70-110)
[2021-08-02] MEDS: budesonide 0.5 mg/2 mL Neb INHALATION ×2 (08:04→20:19)
--- NOTE | 2021-08-02 08:07 | CTR_ITS ---
PROCEDURE INFORMATION: Exam: CT Abdomen And Pelvis With Contrast Exam date and time: 08/02/2021 8:07 AM Age: 46 years old Clinical indication: Other: Emesis TECHNIQUE: Imaging protocol: Computed tomography of the abdomen and pelvis with contrast. Total images: 261 Radiation optimization: All CT scans at this facility use at least one of these dose optimization techniques: automated exposure control; mA and/or kV adjustment per patient size (includes targeted exams where dose is matched to clinical indication); or iterative reconstruction. Contrast material: OMNI 300; Contrast volume: 95 ml; Contrast route: INTRAVENOUS (IV); COMPARISON: CT abdomen pelvis w con* 21000 07/19/2021 9:17 AM RADIATION DOSE METRICS: Total DLP (mGy-cm): 1733.63 FINDINGS: Lungs: Bilateral patchy airspace densities, favoring pneumonia, possibly atypical pneumonia. Pleural spaces: Small right pleural effusion. Liver: Normal. No mass. Gallbladder and bile ducts: Prior cholecystectomy noted. Pancreas: Normal. No ductal dilation. Spleen: Normal. No splenomegaly. Adrenal glands: Normal. No mass. Kidneys and ureters: Incidental fullness of the left extrarenal pelvis. Stomach and bowel: Prior bowel resection and anastomosis is evident. Fluid prominence in the colon could indicate prominent secretions due to infectious/inflammatory enteritis/colitis. Appendix: No evidence of appendicitis. Intraperitoneal space: Unremarkable. No free air. No significant fluid collection. Vasculature: Mild atherosclerotic disease is evident. Incidental phleboliths noted. Lymph nodes: Unremarkable. No enlarged lymph nodes. Urinary bladder: A Porter catheter within urinary bladder. Reproductive: Unremarkable as visualized. Bones/joints: Disc degeneration is most notable at L5/S1. Soft tissues: Postoperative anterior abdominal wall. CT/CT abdomen pelvis w con* [id number] IMPRESSION: 1. Bilateral patchy airspace densities, favoring pneumonia, possibly atypical pneumonia. 2. Small right pleural effusion. 3. Fluid prominence in the colon could indicate prominent secretions due to infectious/inflammatory enteritis/colitis.
[2021-08-02] MEDS: insulin lispro 100 unit/1 mL SUBCUT ×3 (08:08→18:19)
[2021-08-02] MEDS: bacitracin ointment 28 gm 1 APPLIC TOPICAL ×2 (08:09→18:19)
[2021-08-02] MEDS: lidocaine 1% 5 ML in potassium chloride premix 100 ML 25 ML IV (08:53)
[2021-08-02] MEDS: magnesium sulfate premix 2 GM/50 ML PIGGYBACK IV (08:53)
[2021-08-02] MEDS: ondansetron 2 mg/ML SDV 2 mL 4 MG IVP (08:55)
[2021-08-02] MEDS: dilTIAZem 30 mg Tablet PO (10:36)
[2021-08-02] MEDS: iohexol 300 mg/mL 100 mL Btl IV (11:17)
[2021-08-02 12:01] LABS: Glucose Point of Care 169 mg/dL (70-110)
--- NOTE | 2021-08-02 12:02 | PM.PN ---
Subjective Subjective: Interval history: Patient had an episode of emesis this morning, CT abdomen pelvis requested which showed enteritis/colitis No signs of obstruction To work with PT and speech evaluation today On pur?ed diet A. fib RVR heart rate in 120s Complaining of back pain, Transfer out of ICU today Discontinue isolation on Wednesday C. difficile negative Asked nurse to give p.o. Cardizem and if heart rate stays above 110 we will do Cardizem IV push, patient wants to talk with her daughter I have asked her nurse to facilitate her with FaceTime Hypokalemia, hypomagnesemia Vitals/I&O/Wt Last Vital Signs Temp 99.1 F 08/02/21 10:00 Pulse 113 H 08/02/21 10:58 Resp 22 H 08/02/21 10:58 BP 112/64 08/02/21 10:00 Pulse Ox 92 08/02/21 10:58 08/01/21 08/02/21 08/02/21 22:59 06:59 14:59 Intake Total 899.907 / 1475.642 489.358 / 1965.000 150 / 150 Output Total 550 / 550 500 / 1050 Balance 349.907 / 925.642 -10.642 / 915.000 150 / 150 Weight last 48 hrs Weight 91.354 kg Weight 92.533 kg Physical Exam Narrative: EXAM NARRATIVE: Patient is awake and alert However she does show signs of delusion, she thinks she ate [place] food that caused emesis Abdomen soft nondistended bowel sounds are sluggish Bilateral breath sounds with rhonchi at the bases Currently on 35 L, 65% heated high flow No signs of edema of legs Facial pressure ulcer wound showing good signs of healing Able to move her upper and lower extremities to some extent against gravity Pupils are symmetrical Able to follow commands Patient is stating that she is depressed today because she was not able to talk with her daughter Urinary Catheter Management^: Porter: Cath Placed During This Visit: yes Reason for Continuing Indwelling Catheter: Accurate Measurement of Urinary Output in Critically Ill Patients Urinary Catheter Date of Insertion: 07/28/21 Urinary Catheter Time of Insertion: 11:31 Data : 08/02/21 05:12 08/02/21 05:12 Micro: Microbiology 08/01/21 10:50 MRSA Culture - Final Nose 07/28/21 09:45 Blood Culture - Final Blood NO GROWTH AFTER 5 DAYS 07/28/21 09:40 Blood Culture - Final Blood NO GROWTH AFTER 5 DAYS 08/01/21 19:50 C.difficile Toxin B Gene (PCR) - Final Stool A&P Assessment and plan (1) Hypomagnesemia: Status: Acute (2) COVID: Status: Acute (3) Hematuria: Status: Acute (4) Skin ulcer of cheek: Status: Acute (5) UTI (urinary tract infection): Status: Acute (6) Hypokalemia: Status: Acute (7) Hypoxia: Status: Acute (8) Severe sepsis with lactic acidosis: Status: Acute (9) Hypophosphatemia: Status: Acute (10) ARDS (adult respiratory distress syndrome): Status: Acute (11) Asthma: Status: Acute Qualifiers: Asthma severity: unspecified severity Asthma persistence: unspecified Asthma complication type: unspecified Qualified Code(s): J45.909 - Unspecified asthma, uncomplicated (12) Diabetes: Status: Acute Qualifiers: Diabetes mellitus type: type 2 Diabetes mellitus exterminator termite insulin use: unspecified exterminator termite insulin use status Diabetes mellitus complication status: with other specified complication Qualified Code(s): E11.69 - Type 2 diabetes mellitus with other specified complication (13) Acute hypoxemic respiratory failure: Status: Acute (14) DKA (diabetic ketoacidosis): Status: Acute Qualifiers: Diabetes mellitus complication detail: without coma Diabetes mellitus type: type 2 Qualified Code(s): E11.10 - Type 2 diabetes mellitus with ketoacidosis without coma (15) Lung infiltrate: Status: Acute (16) Enteritis: Status: Acute Additional A&P Information Paroxysmal A. fib with RVR Will push Cardizem 5 mg IV, she did not respond well to 30 mg of p.o. Cardizem Emesis related to enteritis/colitis Celiac panel negative Sluggish bowel sounds Continue restricted diet for now Continue caspofungin and Primaxin: Discontinue linezolid Cheek pressure ulcer showing good signs of healing no active signs of cellulitis continue bacitracin Hypomagnesemia: Hypokalemia: Repleted COVID-19 related persistent hypoxia Currently on 35L 65% FiO2 saturating 90% ICU related myopathy To work with PT today, speech reevaluation as well UTI with Chloe: Continue caspofungin for 14 days DKA: Resolved Euglycemic Hypophosphatemia: Resolved Transfer out of ICU later today Attestations Medical Necessity Statement*: Transfer out of ICU later today Time Spent in Patient Care: less than 15 minutes Coding Level of Care Code Acute Historic Clothing [employer] Costume Maker for Chg Fwd Diagnoses Hypomagnesemia E83.42 COVID U07.1 Hematuria R31.9 Skin ulcer of cheek L98.499 UTI (urinary tract infection) N39.0 Hypokalemia E87.6 Hypoxia R09.02 Severe sepsis with lactic acidosis A41.9; E87.2; R65.20 Hypophosphatemia E83.39 ARDS (adult respiratory distress syndrome) J80 Asthma J45.909 Asthma severity: unspecified severity Asthma persistence: unspecified Asthma complication type: unspecified Diabetes E11.69 Diabetes mellitus type: type 2 Diabetes mellitus exterminator termite insulin use: unspecified intermediate insulin use status Diabetes mellitus complication status: with other specified complication Acute hypoxemic respiratory failure J96.01 DKA (diabetic ketoacidosis) E11.10 Diabetes mellitus complication detail: without coma Diabetes mellitus type: type 2 Lung infiltrate R91.8 Enteritis K52.9
[2021-08-02] MEDS: enoxaparin 100 mg/mL Syringe 90 MG SUBCUT (12:50)
[2021-08-02 17:37] LABS: Glucose Point of Care 172 mg/dL (70-110)
--- NOTE | 2021-08-02 18:02 | PC.NURSE ---
Shift Note Frequent safety and comfort rounds continue. Orders and/or nursing care completed as indicated. Patient monitored for response to intervention and treatment(s). Education provided includes oxygen education, medication education upon administration, importance of changing positions. Patient needs reinforcement of teachings. Patient experienced brown colored emesis at approximately 0700. Nausea/ vomiting relieved with 4mg zofran IVP. Patient worked twice this shift with PT and was able to sit at the side of the bed both times. Patient was unable to stand. Patient experienced frequent liquid bowel movements throughout morning, ceasing in the afternoon. Patient experiences decrease in oxygen saturation with movement, but recovers within a timely manner. Refused evening meal. HHF currently at Fio2 100 at 40L
[2021-08-02] MEDS: metoprolol tartrate 25 mg Tablet PO ×2 (18:19→20:46)
[2021-08-02 20:22] LABS: Glucose Point of Care 143 mg/dL (70-110)
--- NOTE | 2021-08-02 21:47 | PC.NURSE ---
35 units Lantus held at present time. Blood glucose 143 and patient has not eaten all day and does not want to eat at present time. Will continue to monitor.
[2021-08-03] VITALS (28 sets, daily range): BP systolic 115–189; BP diastolic 74–107; PULSE 75–124; RESP 18–40; TEMP 37–37.2; O2SAT 86–98
[2021-08-03] MEDS: enoxaparin 100 mg/mL Syringe 90 MG SUBCUT ×2 (00:43→12:09)
[2021-08-03] MEDS: ipratropium-albuterol 3 mL Neb INHALATION ×4 (02:58→20:09)
[2021-08-03 03:22] LABS: Basophils # 0.1 10^3/uL (0.0-0.1); Basophils % 0.8 %; Eosinophils # 0.2 10^3/uL (0.0-0.8); Eosinophils % 2.3 %; Hematocrit 30.9 % (37.0-47.0); Hemoglobin 9.3 g/dL (11.5-15.3); Lymphocytes # 1.1 10^3/uL (0.8-4.8); Lymphocytes % 16.4 %; Mean Corpuscular HGB Conc 30.1 g/dL (30.0-36.0); Mean Corpuscular Hemoglobin 27.2 pg (28.0-34.0); Mean Corpuscular Volume 90.4 fl (81-99); Mean Platelet Volume 9.5 fL (7.4-10.4); Monocytes # 0.7 10^3/uL (0.2-0.9); Monocytes % 11.3 %; Neutrophils # 4.42 10^3/uL (1.8-7.7); Neutrophils % 68.6 %; Nucleated Red Blood Cells % 0 %; Platelet Count 212 10^3/cmm (130-400); Red Blood Count 3.42 10^6/uL (4.1-5.3); Red Cell Distribution Width 14.1 % (12.1-15.1); White Blood Count 6.5 10^3/uL (4.0-10.0)
[2021-08-03 03:42] LABS: Lactate (Lactic Acid level) 0.9 mmol/L (0.5-2.2)
[2021-08-03 03:44] LABS: Anion Gap 16.2 (5-19); Blood Urea Nitrogen 9 mg/dL (6-20); Calcium 7.9 mg/dL (8.5-10.5); Carbon Dioxide 29 mmol/L (22-29); Chloride 100 mmol/L (98-107); Glomerular Filtration Rate 237.4 mL/min (90-130); Glucose 161 mg/dL (65-115); Magnesium 1.8 mg/dL (1.7-2.3); Osmolality Calculated 296 mOsm/kg (285-295); Phosphorus 3.4 mg/dL (2.5-4.5); Potassium 3.2 mmol/L (3.5-5.1); Sodium 142 mmol/L (136-145)
[2021-08-03 07:41] LABS: Glucose Point of Care 179 mg/dL (70-110)
[2021-08-03] MEDS: insulin lispro 100 unit/1 mL SUBCUT ×3 (07:50→17:37)
[2021-08-03] MEDS: budesonide 0.5 mg/2 mL Neb INHALATION ×2 (08:10→20:09)
[2021-08-03] MEDS: metoprolol tartrate 25 mg Tablet PO ×2 (08:38→20:08)
[2021-08-03] MEDS: pantoprazole 40 mg SDV IVP (08:38)
[2021-08-03] MEDS: bacitracin ointment 28 gm 1 APPLIC TOPICAL ×2 (08:40→17:43)
[2021-08-03] MEDS: magnesium oxide 400 mg tablet PO ×2 (09:43→17:37)
[2021-08-03] MEDS: lidocaine 1% 5 ML in potassium chloride premix 100 ML 25 ML IV (09:43)
--- NOTE | 2021-08-03 11:25 | PM.PN ---
Subjective Subjective: Interval history: Afebrile improved, currently patient is in sinus rhythm heart rate fluctuated between 90-1 10 She was able to eat 75% of her meals Appreciate speech therapy recommendations Working with PT on daily basis Required heated high flow 100% however at the time my evaluation she was at 90% saturating 91% Patient is still delusional, however responds to questions appropriately Does not have any focal deficits No gaze preference Isolated myopathy noted Euglycemic Hypomagnesemia and hypokalemia: Improved Afebrile Will discontinue isolation on Wednesday Vitals/I&O/Wt Last Vital Signs Temp 98.9 F 08/03/21 08:00 Pulse 110 H 08/03/21 11:00 Resp 40 H 08/03/21 11:00 BP 133/84 08/03/21 10:00 Pulse Ox 88 L 08/03/21 11:00 08/02/21 08/03/21 08/03/21 22:59 06:59 14:59 Intake Total 1150 / 1445 200 / 1645 220 / 220 Output Total 700 / 700 500 / 1200 Balance 450 / 745 -300 / 445 220 / 220 Weight last 48 hrs Weight 92.896 kg Weight 91.354 kg Physical Exam Narrative: EXAM NARRATIVE: Patient resting comfortably in her 90% heated high flow Dry cough Bilateral rhonchi Abdomen soft nondistended bowel sound present No signs of edema of legs Arm and facial edema improved Facial pressure ulcer healing Patient is awake and alert does not respond to my questions appropriately however she does have delusional/disorganized thinking Nonfocal neuro exam EOMI, PERRLA No gaze preference No signs of meningitis Urinary Catheter Management^: Porter: Cath Placed During This Visit: yes Reason for Continuing Indwelling Catheter: Accurate Measurement of Urinary Output in Critically Ill Patients Urinary Catheter Date of Insertion: 07/28/21 Urinary Catheter Time of Insertion: 11:31 Data : 08/03/21 03:05 08/03/21 03:05 Micro: Microbiology 08/03/21 05:15 Enteric Pathogens (PCR) - Final Stool - Stool Aspirate 08/03/21 05:15 Stool Lactoferrin - Final Stool 08/01/21 10:50 MRSA Culture - Final Nose 07/28/21 09:45 Blood Culture - Final Blood NO GROWTH AFTER 5 DAYS 07/28/21 09:40 Blood Culture - Final Blood NO GROWTH AFTER 5 DAYS A&P Assessment and plan (1) Enteritis: Status: Acute (2) Hypomagnesemia: Status: Acute (3) COVID: Status: Acute (4) Skin ulcer of cheek: Status: Acute (5) Hematuria: Status: Acute (6) UTI (urinary tract infection): Status: Acute (7) Hypokalemia: Status: Acute (8) Hypoxia: Status: Acute (9) Severe sepsis with lactic acidosis: Status: Acute (10) Hypophosphatemia: Status: Acute (11) ARDS (adult respiratory distress syndrome): Status: Acute (12) Asthma: Status: Acute Qualifiers: Asthma severity: unspecified severity Asthma persistence: unspecified Asthma complication type: unspecified Qualified Code(s): J45.909 - Unspecified asthma, uncomplicated (13) Diabetes: Status: Acute Qualifiers: Diabetes mellitus type: type 2 Diabetes mellitus penitentiary insulin use: unspecified penitentiary insulin use status Diabetes mellitus complication status: with other specified complication Qualified Code(s): E11.69 - Type 2 diabetes mellitus with other specified complication (14) Acute hypoxemic respiratory failure: Status: Acute (15) DKA (diabetic ketoacidosis): Status: Acute Qualifiers: Diabetes mellitus complication detail: without coma Diabetes mellitus type: type 2 Qualified Code(s): E11.10 - Type 2 diabetes mellitus with ketoacidosis without coma Additional A&P Information Colitis: Continue Primaxin and caspofungin Afebrile Leukocytosis improved A. fib RVR: Improved currently in sinus rhythm Continue therapeutic regimen of Lovenox Patient is able to eat 75% of her meals, dysphagia level 2 diet COVID-19 related hypoxia: Currently on 90% heated high flow Dry cough Hypokalemia: Improved Hypomagnesemia: Improved Hematuria: Resolved UTI: Fungal related continue caspofungin Pressure ulcer of cheek: Improving Full code Level 2 dysphagia diet Therapeutic dose of Lovenox for her A. fib paroxysmal DKA: Resolved Currently euglycemic Delusional/disorganized thinking related to ICU related delirium monitor for now not on any sedatives or antipsychotics at this point Discontinue isolation tomorrow Will need senior care placement as per PT evaluation Attestations Medical Necessity Statement*: Discontinue isolation tomorrow, plan to transfer out of ICU if her O2 requirement improves in next 12 hours Time Spent in Patient Care: 16 - 35 minutes Coding Level of Care Code Acute Pepper Picker for Chg Fwd Diagnoses Enteritis K52.9 Hypomagnesemia E83.42 COVID U07.1 Skin ulcer of cheek L98.499 Hematuria R31.9 UTI (urinary tract infection) N39.0 Hypokalemia E87.6 Hypoxia R09.02 Severe sepsis with lactic acidosis A41.9; E87.2; R65.20 Hypophosphatemia E83.39 ARDS (adult respiratory distress syndrome) J80 Asthma J45.909 Asthma severity: unspecified severity Asthma persistence: unspecified Asthma complication type: unspecified Diabetes E11.69 Diabetes mellitus type: type 2 Diabetes mellitus terminal manager insulin use: unspecified penitentiary insulin use status Diabetes mellitus complication status: with other specified complication Acute hypoxemic respiratory failure J96.01 DKA (diabetic ketoacidosis) E11.10 Diabetes mellitus complication detail: without coma Diabetes mellitus type: type 2
[2021-08-03 12:07] LABS: Glucose Point of Care 226 mg/dL (70-110)
[2021-08-03 17:37] LABS: Glucose Point of Care 235 mg/dL (70-110)
[2021-08-03] MEDS: insulin glargine 100 units/1 mL 35 UNIT SUBCUT (20:32)
[2021-08-04] VITALS (33 sets, daily range): BP systolic 119–181; BP diastolic 70–128; PULSE 87–120; RESP 17–36; TEMP 36.9–37.8; O2SAT 79–100
[2021-08-04] MEDS: enoxaparin 100 mg/mL Syringe 90 MG SUBCUT ×2 (01:38→16:12)
[2021-08-04] MEDS: ipratropium-albuterol 3 mL Neb INHALATION ×4 (03:03→20:09)
[2021-08-04 07:33] LABS: Glucose Point of Care 159 mg/dL (70-110)
[2021-08-04] MEDS: metoprolol tartrate 25 mg Tablet PO ×2 (07:45→20:53)
[2021-08-04] MEDS: magnesium oxide 400 mg tablet PO ×2 (07:45→19:20)
[2021-08-04] MEDS: pantoprazole 40 mg SDV IVP (07:45)
[2021-08-04] MEDS: insulin lispro 100 unit/1 mL SUBCUT (07:46)
[2021-08-04] MEDS: bacitracin ointment 28 gm 1 APPLIC TOPICAL ×2 (07:48→18:56)
[2021-08-04 07:56] LABS: Basophils % 0.8 %; Eosinophils # 0.2 10^3/uL (0.0-0.8); Eosinophils % 4.4 %; Hematocrit 31.6 % (37.0-47.0); Hemoglobin 9.6 g/dL (11.5-15.3); Lymphocytes # 1.1 10^3/uL (0.8-4.8); Lymphocytes % 20.9 %; Mean Corpuscular HGB Conc 30.4 g/dL (30.0-36.0); Mean Corpuscular Hemoglobin 27.1 pg (28.0-34.0); Mean Corpuscular Volume 89.3 fl (81-99); Mean Platelet Volume 8.9 fL (7.4-10.4); Monocytes # 0.5 10^3/uL (0.2-0.9); Monocytes % 10.2 %; Neutrophils # 3.32 10^3/uL (1.8-7.7); Neutrophils % 62.9 %; Nucleated Red Blood Cells % 0 %; Platelet Count 230 10^3/cmm (130-400); Red Blood Count 3.54 10^6/uL (4.1-5.3); White Blood Count 5.3 10^3/uL (4.0-10.0)
[2021-08-04 08:13] LABS: Anion Gap 17.4 (5-19); Blood Urea Nitrogen 13 mg/dL (6-20); Calcium 8.1 mg/dL (8.5-10.5); Carbon Dioxide 26 mmol/L (22-29); Chloride 101 mmol/L (98-107); Glomerular Filtration Rate 237.4 mL/min (90-130); Glucose 171 mg/dL (65-115); Osmolality Calculated 296 mOsm/kg (285-295); Potassium 3.4 mmol/L (3.5-5.1); Sodium 141 mmol/L (136-145)
[2021-08-04] MEDS: budesonide 0.5 mg/2 mL Neb INHALATION ×2 (08:39→20:09)
--- NOTE | 2021-08-04 09:31 | PM.PN ---
Subjective Subjective: Interval history: This morning patient is on heated high flow 80% 40 L No bowel movement yet Afebrile No leukocytosis Hemoglobin 9.6 Verbally redirectable however still has delusional disorder Plan to transfer her out of ICU today Tolerating her p.o. diet Vitals/I&O/Wt Last Vital Signs Temp 98.7 F 08/04/21 07:00 Pulse 91 08/04/21 08:35 Resp 17 08/04/21 08:35 BP 136/85 08/04/21 08:00 Pulse Ox 90 08/04/21 08:35 08/03/21 08/04/21 08/04/21 22:59 06:59 14:59 Intake Total 935 / 1455 200 / 1655 Output Total 350 / 350 250 / 600 Balance 585 / 1105 -50 / 1055 Weight last 48 hrs Weight 92.896 kg Physical Exam Narrative: EXAM NARRATIVE: Sitting in her bed Heated high flow Rhonchi at the base of the lungs No acute respite distress Clinically looks euvolemic Dry cracked lips Healing ulcer of cheeks Abdomen soft, distended with obesity No signs of edema Porter catheter draining concentrated urine Urinary Catheter Management^: Porter: Cath Placed During This Visit: yes Reason for Continuing Indwelling Catheter: Accurate Measurement of Urinary Output in Critically Ill Patients Urinary Catheter Date of Insertion: 07/28/21 Urinary Catheter Time of Insertion: 11:31 Data : 08/04/21 07:50 08/04/21 07:50 Micro: Microbiology 08/03/21 05:15 Enteric Pathogens (PCR) - Final Stool - Stool Aspirate 08/03/21 05:15 Stool Lactoferrin - Final Stool A&P Assessment and plan (1) Enteritis: Status: Acute (2) Hypomagnesemia: Status: Acute (3) COVID: Status: Acute (4) Hematuria: Status: Acute (5) Skin ulcer of cheek: Status: Acute (6) UTI (urinary tract infection): Status: Acute (7) Hypokalemia: Status: Acute (8) Hypoxia: Status: Acute (9) Severe sepsis with lactic acidosis: Status: Acute (10) Hypophosphatemia: Status: Acute (11) ARDS (adult respiratory distress syndrome): Status: Acute (12) Asthma: Status: Acute Qualifiers: Asthma severity: unspecified severity Asthma persistence: unspecified Asthma complication type: unspecified Qualified Code(s): J45.909 - Unspecified asthma, uncomplicated (13) Diabetes: Status: Acute Qualifiers: Diabetes mellitus type: type 2 Diabetes mellitus medical terminologist insulin use: unspecified medical terminologist insulin use status Diabetes mellitus complication status: with other specified complication Qualified Code(s): E11.69 - Type 2 diabetes mellitus with other specified complication (14) Acute hypoxemic respiratory failure: Status: Acute (15) DKA (diabetic ketoacidosis): Status: Acute Qualifiers: Diabetes mellitus complication detail: without coma Diabetes mellitus type: type 2 Qualified Code(s): E11.10 - Type 2 diabetes mellitus with ketoacidosis without coma (16) Lung infiltrate: Status: Acute Additional A&P Information Hypoxia related to COVID-19: Heated high flow 80%, 40 L, Transfer out of ICU Discontinue isolation Enteritis/colitis: C. difficile negative, continue caspofungin and Primaxin for now UTI with Chloe: Continue caspofungin Pressure ulcer of cheeks: Healing Hypokalemia: Repleted Hematuria: Resolved Discontinue Porter catheter DKA: Resolved: Currently euglycemic Lantus and sliding scale Delusional disorder: We will give her 1 dose of Haldol to see if that would resolve her isolated delirium Dysphagia diet Need PT, need custodial for placement Attestations Medical Necessity Statement*: Transfer out of ICU, custodial placement Time Spent in Patient Care: 16 - 35 minutes Coding Level of Care Code Acute Service Loss Control Consultant for [facility] Fwd Diagnoses Enteritis K52.9 Hypomagnesemia E83.42 COVID U07.1 Hematuria R31.9 Skin ulcer of cheek L98.499 UTI (urinary tract infection) N39.0 Hypokalemia E87.6 Hypoxia R09.02 Severe sepsis with lactic acidosis A41.9; E87.2; R65.20 Hypophosphatemia E83.39 ARDS (adult respiratory distress syndrome) J80 Asthma J45.909 Asthma severity: unspecified severity Asthma persistence: unspecified Asthma complication type: unspecified Diabetes E11.69 Diabetes mellitus type: type 2 Diabetes mellitus medical terminologist insulin use: unspecified group home insulin use status Diabetes mellitus complication status: with other specified complication Acute hypoxemic respiratory failure J96.01 DKA (diabetic ketoacidosis) E11.10 Diabetes mellitus complication detail: without coma Diabetes mellitus type: type 2 Lung infiltrate R91.8
[2021-08-04 10:06] LABS: Creatine Phosphokinase 55 U/L (26-192)
[2021-08-04] MEDS: lidocaine 1% 5 ML in potassium chloride premix 100 ML 25 ML IV (10:57)
[2021-08-04 14:07] LABS: Glucose Point of Care 138 mg/dL (70-110)
[2021-08-04 19:03] LABS: Glucose Point of Care 124 mg/dL (70-110)
[2021-08-04 19:24] LABS: Glucose Point of Care 129 mg/dL (70-110)
--- NOTE | 2021-08-04 19:24 | PC.NURSE ---
Jevity1.2 10cc/hr 100cc Q 4hr started at 1700.
--- NOTE | 2021-08-04 19:50 | PC.NURSE ---
Oxymask Patient's oxygen saturation low 80s. Patient instructed on deep breathing through nose and out through mouth. Patient states I can't breathe through my nose, I'm a mouth breather. RT notified and oxymask placed on patient at 15 L. Patient's oxygen saturation returned to high 90's. All other vitals stable.
[2021-08-04] MEDS: insulin glargine 100 units/1 mL 35 UNIT SUBCUT (20:53)
[2021-08-04 20:59] LABS: Glucose Point of Care 158 mg/dL (70-110)
[2021-08-04] MEDS: sennosides 8.6 mg Tablet 17.2 MG PO (20:59)
--- NOTE | 2021-08-04 21:37 | PC.NURSE ---
Transfer Patient transferred via bed to [facility] bed 251-2. All belongings with patient. Receiving nurse, Cata, attending to patient at bedside. All vitals stable at time of transfer.
--- NOTE | 2021-08-04 21:44 | PC.NURSE ---
Family Update DPOA, Wilder Angel, called and updated on patient transfer to [facility]. All questions answered.
--- NOTE | 2021-08-04 22:30 | PC.NURSE ---
i reported high temp 99.1 and high reps 20 to nurse
[2021-08-05] VITALS (14 sets, daily range): BP systolic 123–152; BP diastolic 77–87; PULSE 89–115; RESP 17–22; TEMP 36.5–37.2; O2SAT 89–95
[2021-08-05] MEDS: enoxaparin 100 mg/mL Syringe 90 MG SUBCUT ×2 (00:21→15:22)
[2021-08-05 06:38] LABS: Glucose Point of Care 179 mg/dL (70-110)
[2021-08-05 07:26] LABS: Basophils % 0.7 %; Eosinophils # 0.3 10^3/uL (0.0-0.8); Eosinophils % 5.8 %; Hematocrit 30.7 % (37.0-47.0); Hemoglobin 9.4 g/dL (11.5-15.3); Lymphocytes % 23.1 %; Mean Corpuscular HGB Conc 30.6 g/dL (30.0-36.0); Mean Corpuscular Hemoglobin 27.5 pg (28.0-34.0); Mean Corpuscular Volume 89.8 fl (81-99); Mean Platelet Volume 9.4 fL (7.4-10.4); Monocytes # 0.4 10^3/uL (0.2-0.9); Neutrophils # 2.56 10^3/uL (1.8-7.7); Neutrophils % 59.2 %; Nucleated Red Blood Cells % 0 %; Platelet Count 257 10^3/cmm (130-400); Red Blood Count 3.42 10^6/uL (4.1-5.3); Red Cell Distribution Width 14.1 % (12.1-15.1); White Blood Count 4.3 10^3/uL (4.0-10.0)
[2021-08-05 07:52] LABS: Blood Urea Nitrogen 9 mg/dL (6-20); Calcium 8.1 mg/dL (8.5-10.5); Carbon Dioxide 29 mmol/L (22-29); Chloride 100 mmol/L (98-107); Glomerular Filtration Rate 237.4 mL/min (90-130); Glucose 171 mg/dL (65-115); Magnesium 1.6 mg/dL (1.7-2.3); Osmolality Calculated 295 mOsm/kg (285-295); Sodium 141 mmol/L (136-145)
[2021-08-05 07:53] LABS: Anion Gap 15.7 (5-19); Potassium 3.7 mmol/L (3.5-5.1)
[2021-08-05] MEDS: ipratropium-albuterol 3 mL Neb INHALATION ×3 (09:06→20:18)
[2021-08-05] MEDS: budesonide 0.5 mg/2 mL Neb INHALATION ×2 (09:06→20:18)
[2021-08-05] MEDS: potassium chloride oral liq 20 mEq/15 mL UDC 40 MEQ PO (09:45)
[2021-08-05] MEDS: insulin lispro 100 unit/1 mL SUBCUT ×2 (09:45→17:43)
[2021-08-05] MEDS: magnesium sulfate premix 2 GM/50 ML PIGGYBACK IV (09:45)
[2021-08-05] MEDS: pantoprazole DR 40 mg Tablet PO (09:46)
[2021-08-05] MEDS: magnesium oxide 400 mg tablet PO ×2 (09:46→17:44)
[2021-08-05] MEDS: metoprolol tartrate 25 mg Tablet PO ×2 (09:46→20:10)
--- NOTE | 2021-08-05 09:47 | PM.PN ---
Subjective Subjective: Interval history: Patient is much more awake and alert today, patient is stating that she had 2 panic attacks last night This morning she is on 10 L oxygen mask, no active shortness of breath or chest pain Still no bowel movement in last 48 hours, no abdominal pain She is passing flatus Encourage patient to walk around the hallway Wean oxygen down Potassium and magnesium repleted Vitals/I&O/Wt Last Vital Signs Temp 97.7 F 08/05/21 08:00 Pulse 115 H 08/05/21 09:05 Resp 22 H 08/05/21 09:05 BP 142/80 08/05/21 08:00 Pulse Ox 92 08/05/21 09:05 08/04/21 08/05/21 08/05/21 22:59 06:59 14:59 Intake Total 1275 / 2335 460 / 2795 Output Total 750 / 750 1100 / 1850 Balance 525 / 1585 -640 / 945 Physical Exam Narrative: EXAM NARRATIVE: Patient is sitting comfortably in her bed Saturating well on 10 L oxygen mask EOMI, PERRLA No new focal deficit Patient is much more awake and alert Disorganized thinking seems to be improving S1, S2 Abdomen soft Bowel sound present No signs of extremity edema Right arm PICC line Pressure ulcer of cheeks improving and healing Urinary Catheter Management^: Porter: Cath Placed During This Visit: yes, but has since been removed by the nurse Reason for Continuing Indwelling Catheter: Accurate Measurement of Urinary Output in Critically Ill Patients Urinary Catheter Date of Insertion: 07/28/21 Urinary Catheter Time of Insertion: 11:31 Date Urinary Catheter Removed: 08/05/21 Time Urinary Catheter Discontinued: 06:00 Data : 08/05/21 05:20 08/05/21 05:20 A&P Assessment and plan (1) Enteritis: Status: Acute (2) Hypomagnesemia: Status: Acute (3) COVID: Status: Acute (4) Hematuria: Status: Acute (5) Skin ulcer of cheek: Status: Acute (6) UTI (urinary tract infection): Status: Acute (7) Hypokalemia: Status: Acute (8) Hypoxia: Status: Acute (9) Severe sepsis with lactic acidosis: Status: Acute (10) Hypophosphatemia: Status: Acute (11) ARDS (adult respiratory distress syndrome): Status: Acute (12) Asthma: Status: Acute Qualifiers: Asthma complication type: unspecified Asthma persistence: unspecified Asthma severity: unspecified severity Qualified Code(s): J45.909 - Unspecified asthma, uncomplicated (13) Diabetes: Status: Acute Qualifiers: Diabetes mellitus complication status: with other specified complication Diabetes mellitus correction insulin use: unspecified correction insulin use status Diabetes mellitus type: type 2 Qualified Code(s): E11.69 - Type 2 diabetes mellitus with other specified complication (14) Acute hypoxemic respiratory failure: Status: Acute (15) DKA (diabetic ketoacidosis): Status: Acute Qualifiers: Diabetes mellitus complication detail: without coma Diabetes mellitus type: type 2 Qualified Code(s): E11.10 - Type 2 diabetes mellitus with ketoacidosis without coma Additional A&P Information COVID-19 related ARDS: Hypoxia Currently on [id number] L Status post steroid regimen Finished remdesivir Wean off oxygen on daily basis, target saturation 88 to 90% Hypomagnesemia: Repleted Hypokalemia: Repleted Enteritis: De-escalate antibiotics to Augmentin and Flagyl, afebrile, UTI related to Chloe: Continue caspofungin for at least 14 days Patient still required 2 person assist for ambulation, our target is to wean oxygen down to 5 to 6 L, once she is able to ambulate without much assistance we might be able to discharge her home for now chances are she most likely will need senior care DKA: Resolved Euglycemia Dysphagia diet Full code DVT prophylaxis covered with therapeutic regimen therapeutic regimen was chosen because of her paroxysmal A. fib, Attestations Medical Necessity Statement*: Continue medical management, patient is improving gradually Time Spent in Patient Care: 16 - 35 minutes Coding Level of Care Code Acute Nursing Informatics Clinical Analyst for g Fwd Diagnoses Enteritis K52.9 Hypomagnesemia E83.42 COVID U07.1 Hematuria R31.9 Skin ulcer of cheek L98.499 UTI (urinary tract infection) N39.0 Hypokalemia E87.6 Hypoxia R09.02 Severe sepsis with lactic acidosis A41.9; E87.2; R65.20 Hypophosphatemia E83.39 ARDS (adult respiratory distress syndrome) J80 Asthma J45.909 Asthma complication type: unspecified Asthma persistence: unspecified Asthma severity: unspecified severity Diabetes E11.69 Diabetes mellitus complication status: with other specified complication Diabetes mellitus intermodal dispatcher insulin use: unspecified intermodal dispatcher insulin use status Diabetes mellitus type: type 2 Acute hypoxemic respiratory failure J96.01 DKA (diabetic ketoacidosis) E11.10 Diabetes mellitus complication detail: without coma Diabetes mellitus type: type 2
[2021-08-05] MEDS: lanolin oint 7 gm 1 APPLIC TOPICAL (11:39)
[2021-08-05] MEDS: bacitracin ointment 28 gm 1 APPLIC TOPICAL ×2 (11:39→17:43)
[2021-08-05 12:10] LABS: Glucose Point of Care 135 mg/dL (70-110)
--- NOTE | 2021-08-05 16:33 | PC.OT ---
OT TREATMENT ATTEMPTED; PATIENT IS SLEEPING SOUNDLY.
[2021-08-05 17:02] LABS: Glucose Point of Care 158 mg/dL (70-110)
--- NOTE | 2021-08-05 19:22 | PC.NURSE ---
i reported high pulse 105 and high reps 20 to nurse
[2021-08-05] MEDS: sennosides 8.6 mg Tablet 17.2 MG PO (20:10)
[2021-08-05] MEDS: insulin glargine 100 units/1 mL 35 UNIT SUBCUT (20:10)
[2021-08-05 20:59] LABS: Glucose Point of Care 113 mg/dL (70-110)
[2021-08-06] VITALS (12 sets, daily range): BP systolic 104–130; BP diastolic 56–79; PULSE 92–108; RESP 16–22; TEMP 36.4–37.4; O2SAT 86–95
[2021-08-06] MEDS: enoxaparin 100 mg/mL Syringe 90 MG SUBCUT (00:05)
[2021-08-06] MEDS: ipratropium-albuterol 3 mL Neb INHALATION ×4 (02:25→20:05)
[2021-08-06 06:38] LABS: Blood Urea Nitrogen 6 mg/dL (6-20); Calcium 8.2 mg/dL (8.5-10.5); Carbon Dioxide 26 mmol/L (22-29); Chloride 102 mmol/L (98-107); Glomerular Filtration Rate 237.4 mL/min (90-130); Glucose 128 mg/dL (65-115); Magnesium 1.7 mg/dL (1.7-2.3); Osmolality Calculated 291 mOsm/kg (285-295); Sodium 141 mmol/L (136-145)
[2021-08-06 06:43] LABS: Anion Gap 16.6 (5-19); Potassium 3.6 mmol/L (3.5-5.1)
[2021-08-06 06:49] LABS: Glucose Point of Care 119 mg/dL (70-110)
--- NOTE | 2021-08-06 08:17 | P.PN_ITS ---
Subjective Subjective: Interval history: This morning patient is on 10 L oxygen mask She is asking if she could take a shower today I have updated her nurse Request OT as well Had 1 bowel movement yesterday Vitals/I&O/Wt Last Vital Signs Temp 97.6 F 08/06/21 07:00 Pulse 92 08/06/21 07:00 Resp 18 08/06/21 07:00 BP 124/79 08/06/21 07:00 Pulse Ox 93 08/06/21 07:00 08/05/21 08/06/21 08/06/21 22:59 06:59 14:59 Intake Total 730 / 1140 200 / 1340 Output Total 310 / 610 Balance 730 / 840 -110 / 730 Physical Exam Narrative: EXAM NARRATIVE: Patient resting comfortably in her bed 10 L OxiMax S1, S2 No abdominal discomfort Soft abdomen No signs of edema Awake and alert Disorganized thinking improved Awake and alert pleasant and cooperative Bilateral pressure ulcer on her cheeks healing Urinary Catheter Management^: Porter: Cath Placed During This Visit: yes, but has since been removed by the nurse Reason for Continuing Indwelling Catheter: Accurate Measurement of Urinary Output in Critically Ill Patients Urinary Catheter Date of Insertion: 07/28/21 Urinary Catheter Time of Insertion: 11:31 Date Urinary Catheter Removed: 08/05/21 Time Urinary Catheter Discontinued: 06:00 Data : 08/05/21 05:20 08/06/21 05:14 A&P Assessment and plan (1) Enteritis: Status: Acute (2) Hypomagnesemia: Status: Acute (3) COVID: Status: Acute (4) Hematuria: Status: Acute (5) Skin ulcer of cheek: Status: Acute (6) UTI (urinary tract infection): Status: Acute (7) Hypokalemia: Status: Acute (8) Hypoxia: Status: Acute (9) Severe sepsis with lactic acidosis: Status: Acute (10) Hypophosphatemia: Status: Acute (11) ARDS (adult respiratory distress syndrome): Status: Acute (12) Asthma: Status: Acute Qualifiers: Asthma severity: unspecified severity Asthma persistence: unspecified Asthma complication type: unspecified Qualified Code(s): J45.909 - Unspecified asthma, uncomplicated (13) Diabetes: Status: Acute Qualifiers: Diabetes mellitus type: type 2 Diabetes mellitus intermediate manager insulin use: unspecified intermediate manager insulin use status Diabetes mellitus complication status: with other specified complication Qualified Code(s): E11.69 - Type 2 diabetes mellitus with other specified complication (14) Acute hypoxemic respiratory failure: Status: Acute (15) DKA (diabetic ketoacidosis): Status: Acute Qualifiers: Diabetes mellitus complication detail: without coma Diabetes mellitus type: type 2 Qualified Code(s): E11.10 - Type 2 diabetes mellitus with ketoacidosis without coma Additional A&P Information Enteritis: Improved, patient is tolerating her diet, 1 bowel movement yesterday IV antibiotics discontinued on 08/05, Bilateral pressure ulcer cheeks: Healing Chloe UTI: Finish 14 days of caspofungin A. fib without RVR switch Lovenox to Eliquis 5mg twice daily Hyperglycemia: Currently euglycemic on Lantus 35 units with sliding scale high- dose Dysphagia level 2 diet COVID-19 Pneumonia currently on 10 L oxygen mask Deconditioning IC related: Will need skilled nursing placement and daily PT Hypomagnesemia: Continue p.o. mag oxide Hypokalemia: Improved Full code Attestations Medical Necessity Statement*: Continue medical management Time Spent in Patient Care: less than 15 minutes Coding Level of Care Code Acute Flying Instructor for g Fwd Diagnoses Enteritis K52.9 Hypomagnesemia E83.42 COVID U07.1 Hematuria R31.9 Skin ulcer of cheek L98.499 UTI (urinary tract infection) N39.0 Hypokalemia E87.6 Hypoxia R09.02 Severe sepsis with lactic acidosis A41.9; E87.2; R65.20 Hypophosphatemia E83.39 ARDS (adult respiratory distress syndrome) J80 Asthma J45.909 Asthma severity: unspecified severity Asthma persistence: unspecified Asthma complication type: unspecified Diabetes E11.69 Diabetes mellitus type: type 2 Diabetes mellitus prison insulin use: unspecified prison insulin use status Diabetes mellitus complication status: with other specified complication Acute hypoxemic respiratory failure J96.01 DKA (diabetic ketoacidosis) E11.10 Diabetes mellitus complication detail: without coma Diabetes mellitus type: type 2
[2021-08-06] MEDS: budesonide 0.5 mg/2 mL Neb INHALATION ×2 (08:27→20:05)
[2021-08-06] MEDS: pantoprazole DR 40 mg Tablet PO (09:29)
[2021-08-06] MEDS: magnesium oxide 400 mg tablet PO ×2 (09:29→18:15)
[2021-08-06] MEDS: sennosides-docusate Tablet 1 TAB PO (09:29)
[2021-08-06] MEDS: metroNIDAZOLE 500 MG Tablet PO ×3 (09:29→20:57)
[2021-08-06] MEDS: potassium chloride oral liq 20 mEq/15 mL UDC 40 MEQ PO (09:29)
[2021-08-06] MEDS: apixaban 5 mg Tablet PO ×2 (09:30→20:57)
[2021-08-06] MEDS: metoprolol tartrate 25 mg Tablet PO ×2 (09:51→20:58)
--- NOTE | 2021-08-06 10:08 | PC.CHAP ---
Pastoral Care Encounter/Spiritual Assessment Type of Contact [] Declined balance bridge inspector visit [] Patient/Family/Request visit [] Outpatient visit [] Follow-up visit [] Physician referral [] Code/Alert [] Routine visit [] Staff referral [] Actively dying [] Patient sleeping [] Family support [] [] Out of room [] Palliative care [] [] Receiving care in room [] Pre-surgical visit [] Trauma [] Long length of stay [] ICU visit [] Other: Relational/Emotional Strength [x] Patient feels connected with others/family/visitors/staff [] Distress [] Loneliness/isolation [] Abandonment Spirituality of Patient [x] Person of Silvana [] Attends Voodoo of their Silvana [x] Believes in Prayer [] Reads Bible or Yazdanism materials [] There are Spiritual issues to be addressed [place] Molder Interventions [x] Prayer [x] Active listening [x] Non-anxious presence [] Spiritual/emotional support [] Crisis/trauma care [] Spiritual counseling [] Bereavement support [] Provided bereavement packet [] Provided Bible/devotional materials [] Provided toy/stuffed animal, coloring book to patient or family member [] Provided Communion [] Anointing/[place] [] Salvation [x] Completed spiritual assessment [] Other: Impact on Illness or Injury [] Angry [] Fearful [] Anxious [] Often cries [] Exhaustion [] Unable to work [] Unable to attend zoroastrian [] Unable to walk/stand [] Unable to read [] Unable to drive [] Unable to eat/drink [] Unable to sleep [] Unable to be with family [] Patient intubated [] Other: Summary Time spent with patient 10 min
[2021-08-06 11:46] LABS: Glucose Point of Care 133 mg/dL (70-110)
[2021-08-06 17:27] LABS: Glucose Point of Care 143 mg/dL (70-110)
[2021-08-06] MEDS: insulin lispro 100 unit/1 mL SUBCUT (18:15)
[2021-08-06] MEDS: bacitracin ointment 28 gm 1 APPLIC TOPICAL (18:18)
[2021-08-06] MEDS: sennosides 8.6 mg Tablet 17.2 MG PO (20:58)
[2021-08-06] MEDS: insulin glargine 100 units/1 mL 35 UNIT SUBCUT (20:59)
--- NOTE | 2021-08-06 23:53 | PC.NURSE ---
midnight vitals pt O2 sat was at 86, turned O2 up to 9L, notified nurse, nurse on phone to notify respiratory.
[2021-08-07] VITALS (8 sets, daily range): BP systolic 118–142; BP diastolic 81–91; PULSE 1–109; RESP 16–20; TEMP 36.6–37.1; O2SAT 3–94
[2021-08-07 05:06] LABS: Basophils % 0.7 %; Eosinophils # 0.4 10^3/uL (0.0-0.8); Eosinophils % 8.1 %; Hemoglobin 9.3 g/dL (11.5-15.3); Lymphocytes # 1.3 10^3/uL (0.8-4.8); Lymphocytes % 28.9 %; Mean Corpuscular Hemoglobin 27.5 pg (28.0-34.0); Mean Corpuscular Volume 88.8 fl (81-99); Mean Platelet Volume 8.9 fL (7.4-10.4); Monocytes # 0.5 10^3/uL (0.2-0.9); Monocytes % 9.8 %; Neutrophils # 2.33 10^3/uL (1.8-7.7); Nucleated Red Blood Cells % 0 %; Platelet Count 233 10^3/cmm (130-400); Red Blood Count 3.38 10^6/uL (4.1-5.3); Red Cell Distribution Width 14.2 % (12.1-15.1); White Blood Count 4.6 10^3/uL (4.0-10.0)
[2021-08-07 05:32] LABS: Anion Gap 18.3 (5-19); Blood Urea Nitrogen 5 mg/dL (6-20); Calcium 8.2 mg/dL (8.5-10.5); Carbon Dioxide 26 mmol/L (22-29); Chloride 101 mmol/L (98-107); Glomerular Filtration Rate 379.1 mL/min (90-130); Glucose 96 mg/dL (65-115); Osmolality Calculated 291 mOsm/kg (285-295); Potassium 3.3 mmol/L (3.5-5.1); Sodium 142 mmol/L (136-145)
[2021-08-07] MEDS: levoFLOXacin 750 mg Tablet PO (06:35)
[2021-08-07 06:54] LABS: Glucose Point of Care 113 mg/dL (70-110)
--- NOTE | 2021-08-07 08:26 | PM.PN ---
Subjective Subjective: Interval history: Patient is feeling better, able to tolerate her diet, had 1 bowel movement, as per PT evaluation, she is still weak and become hypoxic on ambulation Working with PT on daily basis She is on 10 L nasal cannula Patient is feeling better in terms of her energy and appetite She is motivated to return home Vitals/I&O/Wt Last Vital Signs Temp 97.8 F 08/07/21 04:00 Pulse 97 08/07/21 04:00 Resp 20 H 08/07/21 04:00 BP 133/84 08/07/21 04:00 Pulse Ox 91 08/07/21 04:00 08/06/21 08/07/21 08/07/21 22:59 06:59 14:59 Intake Total 610 / 610 840 / 1450 Output Total 250 / 250 950 / 1200 Balance 360 / 360 -110 / 250 Weight last 48 hrs Weight 90.855 kg Physical Exam Narrative: EXAM NARRATIVE: This morning patient was laying supine Saturating well 10 L nasal cannula S1, S2 Abdomen soft No signs of edema Awake and alert Oriented x3 GCS 15 Nonfocal neuro exam Bilateral pressure ulcer cheeks healing without any signs of cellulitis Urinary Catheter Management^: Porter: Cath Placed During This Visit: yes, but has since been removed by the nurse Reason for Continuing Indwelling Catheter: Accurate Measurement of Urinary Output in Critically Ill Patients Urinary Catheter Date of Insertion: 07/28/21 Urinary Catheter Time of Insertion: 11:31 Date Urinary Catheter Removed: 08/05/21 Time Urinary Catheter Discontinued: 06:00 Data : 08/07/21 04:20 08/07/21 04:20 A&P Assessment and plan (1) Enteritis: Status: Acute (2) Hypomagnesemia: Status: Acute (3) COVID: Status: Acute (4) Skin ulcer of cheek: Status: Acute (5) UTI (urinary tract infection): Status: Acute (6) Hypokalemia: Status: Acute (7) Hypoxia: Status: Acute (8) Severe sepsis with lactic acidosis: Status: Acute (9) Diabetes: Status: Acute Qualifiers: Diabetes mellitus type: type 2 Diabetes mellitus terminal worker insulin use: unspecified [facility] insulin use status Diabetes mellitus complication status: with other specified complication Qualified Code(s): E11.69 - Type 2 diabetes mellitus with other specified complication (10) DKA (diabetic ketoacidosis): Status: Acute Qualifiers: Diabetes mellitus complication detail: without coma Diabetes mellitus type: type 2 Qualified Code(s): E11.10 - Type 2 diabetes mellitus with ketoacidosis without coma (11) Hypophosphatemia: Status: Acute Additional A&P Information Enteritis/colitis: Resolved Patient had 1 bowel movement, no leukocytosis, afebrile Antibiotics switched to metronidazole and Levaquin 08/06 UTI related to Chloe: Discontinue caspofungin she received 11 days of IV antifungal, discontinued 08/07 Hypoxia related to COVID-19 titrate off oxygen gradually currently on nasal cannula 10 L she does become hypoxic on ambulation ICU related myopathy: Trial of Ritalin seem to improve her mentation, her energy is slightly better as well No hypertension or tachyarrhythmia noted A. fib without RVR Started Eliquis on 08/06 Continue metoprolol Full code Dysphagia diet DVT prophylaxis adequately covered with Eliquis Continue bowel regimen and PPI DKA resolved Electrolyte imbalance resolved Hypokalemia: Repleted Attestations Medical Necessity Statement*: Awaiting [facility] placement Time Spent in Patient Care: less than 15 minutes Coding Level of Care Code Acute Distribution Analyst for [facility] Fwd Diagnoses Enteritis K52.9 Hypomagnesemia E83.42 COVID U07.1 Skin ulcer of cheek L98.499 UTI (urinary tract infection) N39.0 Hypokalemia E87.6 Hypoxia R09.02 Severe sepsis with lactic acidosis A41.9; E87.2; R65.20 Diabetes E11.69 Diabetes mellitus type: type 2 Diabetes mellitus terminal worker insulin use: unspecified [facility] insulin use status Diabetes mellitus complication status: with other specified complication DKA (diabetic ketoacidosis) E11.10 Diabetes mellitus complication detail: without coma Diabetes mellitus type: type 2 Hypophosphatemia E83.39
[2021-08-07] MEDS: metroNIDAZOLE 500 MG Tablet PO ×3 (09:24→20:40)
[2021-08-07] MEDS: apixaban 5 mg Tablet PO ×2 (09:24→20:40)
[2021-08-07] MEDS: magnesium oxide 400 mg tablet PO ×2 (09:24→17:31)
[2021-08-07] MEDS: metoprolol tartrate 25 mg Tablet PO ×2 (09:24→20:40)
[2021-08-07] MEDS: potassium chloride oral liq 20 mEq/15 mL UDC 40 MEQ PO (09:24)
[2021-08-07] MEDS: pantoprazole DR 40 mg Tablet PO (09:24)
[2021-08-07] MEDS: sennosides-docusate Tablet 1 TAB PO (09:24)
[2021-08-07] MEDS: bacitracin ointment 28 gm 1 APPLIC TOPICAL ×2 (09:28→17:32)
[2021-08-07] MEDS: methylphenidate 10 mg Tablet 5 MG PO (10:59)
[2021-08-07 12:18] LABS: Glucose Point of Care 113 mg/dL (70-110)
[2021-08-07] MEDS: TRAMadol 50 mg Tablet PO ×2 (12:31→20:03)
[2021-08-07 17:14] LABS: Glucose Point of Care 124 mg/dL (70-110)
[2021-08-07] MEDS: sennosides 8.6 mg Tablet 17.2 MG PO (20:40)
[2021-08-07 22:00] LABS: Glucose Point of Care 164 mg/dL (70-110)
[2021-08-07] MEDS: insulin glargine 100 units/1 mL 35 UNIT SUBCUT (22:04)
[2021-08-08] VITALS (8 sets, daily range): BP systolic 113–149; BP diastolic 74–93; PULSE 96–112; RESP 18–20; TEMP 36.4–36.8; O2SAT 83–95
[2021-08-08] MEDS: TRAMadol 50 mg Tablet PO ×3 (05:15→16:15)
[2021-08-08] MEDS: levoFLOXacin 750 mg Tablet PO (05:15)
[2021-08-08 05:32] LABS: Magnesium 1.6 mg/dL (1.7-2.3)
[2021-08-08 05:54] LABS: Anion Gap 14.6 (5-19); Blood Urea Nitrogen 8 mg/dL (6-20); Calcium 8.6 mg/dL (8.5-10.5); Carbon Dioxide 29 mmol/L (22-29); Chloride 98 mmol/L (98-107); Glomerular Filtration Rate 170.4 mL/min (90-130); Glucose 218 mg/dL (65-115); Osmolality Calculated 291 mOsm/kg (285-295); Potassium 3.6 mmol/L (3.5-5.1); Sodium 138 mmol/L (136-145)
[2021-08-08 06:48] LABS: Glucose Point of Care 184 mg/dL (70-110)
--- NOTE | 2021-08-08 08:35 | PM.PN ---
Subjective Subjective: Interval history: Currently on 7 L nasal cannula, patient is motivated to go home, talk with her as well who is planning to take her to [place], she is planning to live with her [id number] Able to walk around with the help of a walker, Vitals/I&O/Wt Last Vital Signs Temp 97.9 F 08/08/21 07:37 Pulse 102 H 08/08/21 07:37 Resp 18 08/08/21 07:37 BP 146/93 08/08/21 07:37 Pulse Ox 91 08/08/21 07:37 08/07/21 08/08/21 08/08/21 22:59 06:59 14:59 Intake Total 480 / 720 0 / 720 Balance 480 / 720 0 / 720 Weight last 48 hrs Weight 88.564 kg Weight 90.855 kg Physical Exam Narrative: EXAM NARRATIVE: Sitting at the bedside Bilateral cheek wound healing S1, S2 No signs of edema Bilateral breath sound without active rhonchi or crackles Nonfocal neuro exam Abdomen is soft nontender Urinary Catheter Management^: Porter: Cath Placed During This Visit: yes, but has since been removed by the nurse Reason for Continuing Indwelling Catheter: Accurate Measurement of Urinary Output in Critically Ill Patients Urinary Catheter Date of Insertion: 07/28/21 Urinary Catheter Time of Insertion: 11:31 Date Urinary Catheter Removed: 08/05/21 Time Urinary Catheter Discontinued: 06:00 Data : 08/07/21 04:20 08/08/21 04:44 A&P Assessment and plan (1) Enteritis: Status: Acute (2) Hypomagnesemia: Status: Acute (3) COVID: Status: Acute (4) Hematuria: Status: Acute (5) Skin ulcer of cheek: Status: Acute (6) UTI (urinary tract infection): Status: Acute (7) Hypokalemia: Status: Acute (8) Hypoxia: Status: Acute (9) Severe sepsis with lactic acidosis: Status: Acute (10) Hypophosphatemia: Status: Acute (11) ARDS (adult respiratory distress syndrome): Status: Acute (12) Asthma: Status: Acute Qualifiers: Asthma severity: unspecified severity Asthma persistence: unspecified Asthma complication type: unspecified Qualified Code(s): J45.909 - Unspecified asthma, uncomplicated (13) Diabetes: Status: Acute Qualifiers: Diabetes mellitus type: type 2 Diabetes mellitus longwall headgate operator insulin use: unspecified fci insulin use status Diabetes mellitus complication status: with other specified complication Qualified Code(s): E11.69 - Type 2 diabetes mellitus with other specified complication (14) Acute hypoxemic respiratory failure: Status: Acute (15) DKA (diabetic ketoacidosis): Status: Acute Qualifiers: Diabetes mellitus complication detail: without coma Diabetes mellitus type: type 2 Qualified Code(s): E11.10 - Type 2 diabetes mellitus with ketoacidosis without coma (16) Lung infiltrate: Status: Acute Additional A&P Information Enteritis: Resolved, antibiotic switched to p.o., discontinue p.o. antibiotics, she is afebrile, Hypomagnesemia: Currently on p.o. mag oxide Bilateral cheek ulcer healing Hypoxia related to COVID Currently on 7 L Isolated myopathy: Patient is stating that she is doing well with a walker ARDS: Resolved Hematuria: Resolved DKA: Resolved Uncontrolled diabetes she will need insulin at the time of discharge Attestations Medical Necessity Statement*: Reevaluate today with the help of PT to see if she will be safe to be discharged home Time Spent in Patient Care: 16 - 35 minutes Coding Level of Care Code Acute Remote Encoding Operations Supervisor for [facility] Fwd Diagnoses Enteritis K52.9 Hypomagnesemia E83.42 COVID U07.1 Hematuria R31.9 Skin ulcer of cheek L98.499 UTI (urinary tract infection) N39.0 Hypokalemia E87.6 Hypoxia R09.02 Severe sepsis with lactic acidosis A41.9; E87.2; R65.20 Hypophosphatemia E83.39 ARDS (adult respiratory distress syndrome) J80 Asthma J45.909 Asthma severity: unspecified severity Asthma persistence: unspecified Asthma complication type: unspecified Diabetes E11.69 Diabetes mellitus type: type 2 Diabetes mellitus fci insulin use: unspecified fci insulin use status Diabetes mellitus complication status: with other specified complication Acute hypoxemic respiratory failure J96.01 DKA (diabetic ketoacidosis) E11.10 Diabetes mellitus complication detail: without coma Diabetes mellitus type: type 2 Lung infiltrate R91.8
[2021-08-08] MEDS: magnesium oxide 400 mg tablet PO ×2 (09:29→18:38)
[2021-08-08] MEDS: methylphenidate 10 mg Tablet 5 MG PO (09:29)
[2021-08-08] MEDS: sennosides-docusate Tablet 1 TAB PO (09:29)
[2021-08-08] MEDS: metoprolol tartrate 25 mg Tablet PO ×2 (09:30→20:06)
[2021-08-08] MEDS: insulin lispro 100 unit/1 mL SUBCUT (09:30)
[2021-08-08] MEDS: pantoprazole DR 40 mg Tablet PO (09:30)
[2021-08-08] MEDS: apixaban 5 mg Tablet PO ×2 (09:30→20:06)
[2021-08-08] MEDS: bacitracin ointment 28 gm 1 APPLIC TOPICAL ×2 (09:31→19:18)
[2021-08-08 11:43] LABS: Glucose Point of Care 127 mg/dL (70-110)
--- NOTE | 2021-08-08 14:07 | PC.CHAP ---
Pastoral Care Encounter/Spiritual Assessment Type of Contact [] Declined ice guard tester visit [] Patient/Family/Request visit [] Outpatient visit [xx] Follow-up visit [] Physician referral [] Code/Alert [xx] Routine visit [] Staff referral [] Actively dying [] Patient sleeping [] Family support [] [] Out of room [] Palliative care [] [] Receiving care in room [] Pre-surgical visit [] Trauma [xx] Long length of stay [] ICU visit [] Other: Relational/Emotional Strength [xx] Patient feels connected with others/family/visitors/staff [] Distress [] Loneliness/isolation [] Abandonment Spirituality of Patient [xx] Person of Silvana [] Attends Anabaptism of their Silvana [xx] Believes in Prayer [] Reads Bible or Episcopalian materials [] There are Spiritual issues to be addressed Brick Washer Interventions [xx] Prayer [xx] Active listening [xx] Non-anxious presence [] Spiritual/emotional support [] Crisis/trauma care [] Spiritual counseling [] Bereavement support [] Provided bereavement packet [] Provided Bible/devotional materials [] Provided toy/stuffed animal, coloring book to patient or family member [] Provided Communion [] Anointing/[place] [] Salvation [xx] Completed spiritual assessment [] Other: Impact on Illness or Injury [] Angry [] Fearful [] Anxious [] Often cries [] Exhaustion [] Unable to work [xx] Unable to attend hindu [] Unable to walk/stand [] Unable to read [] Unable to drive [] Unable to eat/drink [] Unable to sleep [] Unable to be with family [] Patient intubated [] Other: Summary Patient was up and about and expects to be discharged soon. She has concerns about getting oxygen at home plus the expense of doing so. She believes all will work out for her good. Her will be visiting her today. Time spent with patient 7 minutes
[2021-08-08 16:55] LABS: Glucose Point of Care 99 mg/dL (70-110)
[2021-08-08] MEDS: sennosides 8.6 mg Tablet 17.2 MG PO (20:05)
[2021-08-08 21:15] LABS: Glucose Point of Care 215 mg/dL (70-110)
[2021-08-08] MEDS: insulin glargine 100 units/1 mL 35 UNIT SUBCUT (22:00)
[2021-08-09] VITALS (10 sets, daily range): BP systolic 101–131; BP diastolic 55–82; PULSE 87–107; RESP 16–20; TEMP 36.5–36.8; O2SAT 90–94
[2021-08-09 06:32] LABS: Glucose Point of Care 177 mg/dL (70-110)
[2021-08-09 06:50] LABS: Glucose Point of Care 164 mg/dL (70-110)
[2021-08-09] MEDS: methylphenidate 10 mg Tablet 5 MG PO (07:57)
[2021-08-09] MEDS: TRAMadol 50 mg Tablet PO ×3 (07:57→19:58)
[2021-08-09] MEDS: metoprolol tartrate 25 mg Tablet PO ×2 (07:57→21:11)
[2021-08-09] MEDS: apixaban 5 mg Tablet PO ×2 (07:58→21:11)
[2021-08-09] MEDS: insulin lispro 100 unit/1 mL SUBCUT ×2 (07:58→17:48)
[2021-08-09] MEDS: sennosides-docusate Tablet 1 TAB PO (07:58)
[2021-08-09] MEDS: pantoprazole DR 40 mg Tablet PO (07:58)
[2021-08-09] MEDS: magnesium oxide 400 mg tablet PO ×2 (07:58→17:49)
[2021-08-09] MEDS: bacitracin ointment 28 gm 1 APPLIC TOPICAL ×2 (08:03→17:50)
--- NOTE | 2021-08-09 08:42 | P.PN_ITS ---
Subjective Subjective: Interval history: Patient desaturated while ambulating yesterday required 10 L oxygen, this morning she was on 9 L nasal cannula, No overnight events, I updated her that she is not ready to be discharged to make a trip to [place] in the car Patient is stating that she thinks her asthma is acting up I have added DevanteoNeb yesterday Vitals/I&O/Wt Last Vital Signs Temp 98 F 08/09/21 08:00 Pulse 104 H 08/09/21 08:00 Resp 18 08/09/21 08:00 BP 111/75 08/09/21 08:00 Pulse Ox 92 08/09/21 08:00 08/08/21 08/09/21 08/09/21 22:59 06:59 14:59 Intake Total 360 / 720 880 / 1600 Output Total 1250 / 1250 1100 / 2350 Balance -890 / -530 -220 / -750 Weight last 48 hrs Weight 87.952 kg Weight 88.564 kg Physical Exam Narrative: EXAM NARRATIVE: Resting comfortably S1, S2 No audible stridor or wheezing 9 L nasal cannula Soft abdomen EOMI, PERRLA Nonfocal neuro exam Bilateral cheek wound healing Urinary Catheter Management^: Porter: Cath Placed During This Visit: yes, but has since been removed by the nurse Reason for Continuing Indwelling Catheter: Accurate Measurement of Urinary Output in Critically Ill Patients Urinary Catheter Date of Insertion: 07/28/21 Urinary Catheter Time of Insertion: 11:31 Date Urinary Catheter Removed: 08/05/21 Time Urinary Catheter Discontinued: 06:00 Data : 08/07/21 04:20 08/08/21 04:44 A&P Assessment and plan (1) Enteritis: Status: Acute (2) Hypomagnesemia: Status: Acute (3) COVID: Status: Acute (4) Hematuria: Status: Acute (5) Skin ulcer of cheek: Status: Acute (6) UTI (urinary tract infection): Status: Acute (7) Hypokalemia: Status: Acute (8) Hypoxia: Status: Acute (9) Severe sepsis with lactic acidosis: Status: Acute (10) Hypophosphatemia: Status: Acute (11) ARDS (adult respiratory distress syndrome): Status: Acute (12) Asthma: Status: Acute Qualifiers: Asthma severity: unspecified severity Asthma persistence: unspecified Asthma complication type: unspecified Qualified Code(s): J45.909 - Unspecified asthma, uncomplicated (13) Diabetes: Status: Acute Qualifiers: Diabetes mellitus type: type 2 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 mellitus 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 wall shear operator insulin use: unspecified long wall shear operator insulin use status Diabetes mellitus complication status: with other specified complication Qualified Code(s): E11.69 - Type 2 diabetes mellitus with other specified complication (14) Acute hypoxemic respiratory failure: Status: Acute (15) DKA (diabetic ketoacidosis): Status: Acute Qualifiers: Diabetes mellitus complication detail: without coma Diabetes mellitus type: type 2 Qualified Code(s): E11.10 - Type 2 diabetes mellitus with ketoacidosis without coma (16) Lung infiltrate: Status: Acute Additional A&P Information Enteritis: Resolved DKA resolved Hypoxia related to COVID-19 currently on 9 L nasal cannula, on ambulating requ ires 10 L of oxygen, we are working with physical therapy in which her therapist to wean her oxygen down when she is about 5 to 6 L she can be safely discharged because she is plan to make a trip to [place] with her , correction placement is difficult because of lack of insurance, Medicaid approval is pending Electrolyte imbalance: Repleted ARDS: Resolved Asthma without acute respiratory distress or failure, will give her DuoNeb treatment, IV steroids Bilateral cheek wound healing Full code Speech therapist advance diet to regular A. fib without RVR currently on Eliquis 5 twice daily Attestations Medical Necessity Statement*: Wean off oxygen Time Spent in Patient Care: less than 15 minutes Coding Level of Care Code Acute Client Technologies Analyst for [facility] Fwd Diagnoses Enteritis K52.9 Hypomagnesemia E83.42 COVID U07.1 Hematuria R31.9 Skin ulcer of cheek L98.499 UTI (urinary tract infection) N39.0 Hypokalemia E87.6 Hypoxia R09.02 Severe sepsis with lactic acidosis A41.9; E87.2; R65.20 Hypophosphatemia E83.39 ARDS (adult respiratory distress syndrome) J80 Asthma J45.909 Asthma severity: unspecified severity Asthma persistence: unspecified Asthma complication type: unspecified Diabetes E11.69 Diabetes mellitus type: type 2 Diabetes mellitus long wall shear operator insulin use: unspecified alf insulin use status Diabetes mellitus complication status: with other specified complication Acute hypoxemic respiratory failure J96.01 DKA (diabetic ketoacidosis) E11.10 Diabetes mellitus complication detail: without coma Diabetes mellitus type: type 2 Lung infiltrate R91.8
[2021-08-09 11:35] LABS: Glucose Point of Care 131 mg/dL (70-110)
[2021-08-09 17:27] LABS: Glucose Point of Care 342 mg/dL (70-110)
[2021-08-09] MEDS: insulin glargine 100 units/1 mL 35 UNIT SUBCUT (21:11)
[2021-08-10] VITALS (11 sets, daily range): BP systolic 108–142; BP diastolic 66–85; PULSE 82–104; RESP 16–20; TEMP 36.3–36.7; O2SAT 90–96
--- NOTE | 2021-08-10 05:19 | PC.NURSE ---
SHIFT SUMMARY Has had a good night. Is SOB with exertion but says she has this most of the time with her asthma and is thinking may be causilng some of her issues now. Is on 7l heated high flow O2 tonight. Gets up to [facility] for voiding. and does well. Says is getting stronger every day. PICC line intact to right upper arm. Is really hopilng to go home soon
[2021-08-10 05:51] LABS: Anion Gap 17.1 (5-19); Blood Urea Nitrogen 11 mg/dL (6-20); Calcium 9.1 mg/dL (8.5-10.5); Carbon Dioxide 27 mmol/L (22-29); Chloride 96 mmol/L (98-107); Glomerular Filtration Rate 170.4 mL/min (90-130); Glucose 331 mg/dL (65-115); Osmolality Calculated 294 mOsm/kg (285-295); Potassium 4.1 mmol/L (3.5-5.1); Sodium 136 mmol/L (136-145)
[2021-08-10 06:27] LABS: Glucose Point of Care 332 mg/dL (70-110)
[2021-08-10] MEDS: insulin lispro 100 unit/1 mL 20 UNIT SUBCUT (08:19)
[2021-08-10] MEDS: insulin lispro 100 unit/1 mL SUBCUT ×3 (08:19→17:36)
[2021-08-10] MEDS: metoprolol tartrate 25 mg Tablet PO ×2 (08:20→20:34)
[2021-08-10] MEDS: methylphenidate 10 mg Tablet 5 MG PO (08:20)
[2021-08-10] MEDS: magnesium oxide 400 mg tablet PO ×2 (08:20→17:36)
[2021-08-10] MEDS: sennosides-docusate Tablet 1 TAB PO (08:20)
[2021-08-10] MEDS: apixaban 5 mg Tablet PO ×2 (08:20→20:35)
[2021-08-10] MEDS: pantoprazole DR 40 mg Tablet PO (08:21)
[2021-08-10] MEDS: bacitracin ointment 28 gm 1 APPLIC TOPICAL ×2 (08:22→17:37)
[2021-08-10] MEDS: TRAMadol 50 mg Tablet PO ×3 (08:26→17:41)
--- NOTE | 2021-08-10 08:48 | PM.PN ---
Subjective Subjective: Interval history: Patient is on 7 L doing well, asked RT to have her ambulate down the [place] and see if she keeps her O2 saturation above 89 As per the RT in order to drive to [place] she will probably need 5-6 oxygen concentrator Patient is stating that because of her financial constraints she would prefer to have her medications stable from [facility] pharmacy Vitals/I&O/Wt Last Vital Signs Temp 98.0 F 08/10/21 07:36 Pulse 104 H 08/10/21 07:36 Resp 18 08/10/21 07:36 BP 122/76 08/10/21 07:36 Pulse Ox 90 08/10/21 07:36 08/09/21 08/10/21 08/10/21 22:59 06:59 14:59 Intake Total 240 / 480 480 / 960 Output Total 400 / 400 1400 / 1800 Balance -160 / 80 -920 / -840 Weight last 48 hrs Weight 87.997 kg Weight 87.952 kg Physical Exam Narrative: EXAM NARRATIVE: Patient sitting in her bed Saturating well on 7 L nasal cannula Bilateral pressure ulcer of cheek healing without any active signs cellulitis Abdomen soft Looks well-hydrated EOMI, PERRLA Nonfocal neuro exam No audible stridor or wheezing Urinary Catheter Management^: Porter: Cath Placed During This Visit: yes, but has since been removed by the nurse Reason for Continuing Indwelling Catheter: Accurate Measurement of Urinary Output in Critically Ill Patients Urinary Catheter Date of Insertion: 07/28/21 Urinary Catheter Time of Insertion: 11:31 Date Urinary Catheter Removed: 08/05/21 Time Urinary Catheter Discontinued: 06:00 Data : 08/07/21 04:20 08/10/21 04:49 A&P Assessment and plan (1) Enteritis: Status: Acute (2) Hypomagnesemia: Status: Acute (3) COVID: Status: Acute (4) Hematuria: Status: Acute (5) Skin ulcer of cheek: Status: Acute (6) UTI (urinary tract infection): Status: Acute (7) Hypokalemia: Status: Acute (8) Hypoxia: Status: Acute (9) Severe sepsis with lactic acidosis: Status: Acute (10) Hypophosphatemia: Status: Acute (11) ARDS (adult respiratory distress syndrome): Status: Acute (12) Asthma: Status: Acute Qualifiers: Asthma severity: unspecified severity Asthma persistence: unspecified Asthma complication type: unspecified Qualified Code(s): J45.909 - Unspecified asthma, uncomplicated (13) Diabetes: Status: Acute Qualifiers: Diabetes mellitus type: type 2 Diabetes mellitus halfway insulin use: unspecified 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 insulin use status Diabetes mellitus complication status: with other specified complication Qualified Code(s): E11.69 - Type 2 diabetes mellitus with other specified complication (14) Acute hypoxemic respiratory failure: Status: Acute (15) DKA (diabetic ketoacidosis): Status: Acute Qualifiers: Diabetes mellitus complication detail: without coma Diabetes mellitus type: type 2 Qualified Code(s): E11.10 - Type 2 diabetes mellitus with ketoacidosis without coma (16) Lung infiltrate: Status: Acute Additional A&P Information Enteritis resolved DKA resolved ARDS: Improving COVID-related hypoxia: Currently on 7 L nasal cannula planning to discharge her home Electrolyte imbalance: Repleted Calcium repleted Hyperglycemia related to type 2 diabetes, hyperglycemia most likely worsened because of steroid which I used for her shortness of breath and asthma related symptoms yesterday I will discontinue her steroids today give her NovoLog 15 units her sugar is 332 this morning Consistent carb diet DVT prophylaxis Eliquis Chloe related UTI: Resolved I will give her last dose of methylphenidate today Hypoxia related A. fib currently not in RVR Attestations Medical Necessity Statement*: Plan to discharge tomorrow morning Time Spent in Patient Care: less than 15 minutes Coding Level of Care Code Acute Product Marketer for [facility] Fwd Diagnoses Enteritis K52.9 Hypomagnesemia E83.42 COVID U07.1 Hematuria R31.9 Skin ulcer of cheek L98.499 UTI (urinary tract infection) N39.0 Hypokalemia E87.6 Hypoxia R09.02 Severe sepsis with lactic acidosis A41.9; E87.2; R65.20 Hypophosphatemia E83.39 ARDS (adult respiratory distress syndrome) J80 Asthma J45.909 Asthma severity: unspecified severity Asthma persistence: unspecified Asthma complication type: unspecified Diabetes E11.69 Diabetes mellitus type: type 2 Diabetes mellitus 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
[2021-08-10 11:10] LABS: Glucose Point of Care 141 mg/dL (70-110)
[2021-08-10 17:06] LABS: Glucose Point of Care 141 mg/dL (70-110)
[2021-08-10] MEDS: sennosides 8.6 mg Tablet 17.2 MG PO (20:34)
[2021-08-10] MEDS: insulin glargine 100 units/1 mL 35 UNIT SUBCUT (21:37)
[2021-08-10 21:42] LABS: Glucose Point of Care 141 mg/dL (70-110)
[2021-08-11] MEDS: zolpidem 5 mg Tablet PO (01:13)
[2021-08-11 03:43] VITALS: BP 119/80; PULSE 88; RESP 18; TEMP 36.8; O2SAT 94
[2021-08-11 06:00] VITALS: PULSE 82
[2021-08-11 06:42] LABS: Glucose Point of Care 171 mg/dL (70-110)
[2021-08-11 07:46] VITALS: BP 111/74; PULSE 91; RESP 18; TEMP 36.7; O2SAT 92
--- NOTE | 2021-08-11 08:41 | PC.CHAP ---
Pastoral Care Encounter/Spiritual Assessment Type of Contact [] Declined box nailer visit [] Patient/Family/Request visit [] Outpatient visit [] Follow-up visit [] Physician referral [] Code/Alert [x] Routine visit [] Staff referral [] Actively dying [] Patient sleeping [] Family support [] [] Out of room [] Palliative care [] [] Receiving care in room [] Pre-surgical visit [] Trauma [] Long length of stay [] ICU visit [] Other: Relational/Emotional Strength [x] Patient feels connected with others/family/visitors/staff [] Distress [] Loneliness/isolation [] Abandonment Spirituality of Patient [x] Person of Silvana [] Attends Anglican of their Silvana [x]x Believes in Prayer [] Reads Bible or Presybeterian materials [] There are Spiritual issues to be addressed Client Director Interventions [x] Prayer [x] Active listening [] Non-anxious presence [] Spiritual/emotional support [] Crisis/trauma care [] Spiritual counseling [] Bereavement support [] Provided bereavement packet [] Provided Bible/devotional materials [] Provided toy/stuffed animal, coloring book to patient or family member [] Provided Communion [] Anointing/[place] [] Salvation [] Completed spiritual assessment [] Other: Impact on Illness or Injury [] Angry [] Fearful [] Anxious [] Often cries [] Exhaustion [] Unable to work [] Unable to attend yazidi [] Unable to walk/stand [] Unable to read [] Unable to drive [] Unable to eat/drink [] Unable to sleep [] Unable to be with family [] Patient intubated [] Other: Summary patient feeling better wants to go home Time spent with patient 10 min
[2021-08-11] MEDS: metoprolol tartrate 25 mg Tablet PO (09:12)
[2021-08-11] MEDS: magnesium oxide 400 mg tablet PO (09:12)
[2021-08-11] MEDS: pantoprazole DR 40 mg Tablet PO (09:12)
[2021-08-11] MEDS: methylphenidate 10 mg Tablet 5 MG PO (09:12)
[2021-08-11] MEDS: insulin lispro 100 unit/1 mL SUBCUT (09:12)
[2021-08-11] MEDS: sennosides-docusate Tablet 1 TAB PO (09:12)
[2021-08-11] MEDS: apixaban 5 mg Tablet PO (09:12)
[2021-08-11] MEDS: bacitracin ointment 28 gm 1 APPLIC TOPICAL (09:13)
[2021-08-11 09:53] VITALS: PULSE 96; RESP 18; O2SAT 94
--- NOTE | 2021-08-11 10:23 | P.DS_ITS ---
Discharge Providers Date of Admission: 07/17/21 19:54 Date of Discharge: August 11, 2021 Attending Provider at Admission: Sadie Crystal MD Attending Provider at Discharge: Tawny Gilliam MD Diagnoses at Discharge Discharge Diagnosis (1) Enteritis: Status: Acute (2) Hypomagnesemia: Status: Acute (3) COVID: Status: Acute (4) Hematuria: Status: Acute (5) Skin ulcer of cheek: Status: Acute (6) UTI (urinary tract infection): Status: Acute (7) Hypokalemia: Status: Acute (8) Hypoxia: Status: Acute (9) Severe sepsis with lactic acidosis: Status: Acute (10) Hypophosphatemia: Status: Acute (11) ARDS (adult respiratory distress syndrome): Status: Acute (12) Asthma: Status: Acute Qualifiers: Asthma complication type: unspecified Asthma persistence: unspecified Asthma severity: unspecified severity Qualified Code(s): J45.909 - Unspecified asthma, uncomplicated (13) Diabetes: Status: Acute Qualifiers: Diabetes mellitus complication status: with other specified complication Diabetes mellitus group home insulin use: unspecified group home insulin use status Diabetes mellitus type: type 2 Qualified Code(s): E11.69 - Type 2 diabetes mellitus with other specified complication (14) Acute hypoxemic respiratory failure: Status: Acute (15) DKA (diabetic ketoacidosis): Status: Acute Qualifiers: Diabetes mellitus complication detail: without coma Diabetes mellitus type: type 2 Qualified Code(s): E11.10 - Type 2 diabetes mellitus with ketoacidosis without coma (16) Lung infiltrate: Status: Acute Reason for Visit Reason for Visit: SOB Hospital Course Hospital Course Patient was admitted on 07/17/2021 for hypoxia related to COVID-19, patient and her significant other who is her DPOA adamantly refused Covid testing in the treatment, her hypoxia worsened and she transitioned from heated high flow to BiPAP and got intubated.She spent 25 days in the hospital. Patient was intubated on 07/21 She got extubated on 07/31 she finished 6 cycles of proning which improved her hypoxia, she got out of ICU on 08/04 She was admitted for management of DKA which resolved with insulin and IV fluids. For hypernatremia she was given D5 as well. Electrolytes were replenished aggressively. C. difficile was ruled out for her diarrhea however CT abdomen pelvis consistent with colitis. She was given IV antibiotics which improved her symptoms. Bronchioloalveolar lavage was done twice, it grew Chloe albicans, blood cultures remain negative, stool cultures negative , on second bronchoscopy mucous was suctioned. UTI grew Chloe Krusei for which she required IV caspofungin. She also developed atrial fibrillation secondary to hypoxia for which she was put on Eliquis and metoprolol, her A. fib converted to sinus rhythm rather quickly with resolution of hypoxia She was requiring Lantus 35 units along sliding scale. After extubation she was able to swallow food with the help of speech therapy on daily basis. [facility] Dr. Waggoner and the [facility] were involved during her ICU care. Currently reviewed their consult notes. For low blood pressure patient was given albumin 1 bag as well which improved her blood pressure. Patient developed pressure ulcer on her cheeks bilaterally from proning which improved gradually did not show any signs of cellulitis. Pressure ulceration good signs of healing with healthy granulation tissue. On 08/10 home O2 evaluation qualified for 8 L of oxygen on ambulation, she is planning to go to [place] to live with her [id number] currently her living conditions are poor in [place], she lives in the cabin and has a generator there is no bathroom in her cabin She will be given glucometer, Lantus, low-dose intensity sliding scale, low-dose lisinopril, albuterol, oxygen tanks to travel to [place], documentation faxed to [facility] Physical Exam Narrative: EXAM NARRATIVE: Patient sitting in her bed Saturating well on 7 L nasal cannula Bilateral pressure ulcer of cheek healing without any active signs cellulitis Abdomen soft Looks well-hydrated EOMI, PERRLA Nonfocal neuro exam No audible stridor or wheezin Urinary Catheter Management^: Porter: Cath Placed During This Visit: yes, but has since been removed by the nurse Reason for Continuing Indwelling Catheter: Accurate Measurement of Urinary Output in Critically Ill Patients Urinary Catheter Date of Insertion: 07/28/21 Urinary Catheter Time of Insertion: 11:31 Date Urinary Catheter Removed: 08/05/21 Time Urinary Catheter Discontinued: 06:00 Discharge Data Data Completed and Pending: Completed Studies During Hospitalization Category Date Time Status CT abdomen pelvis w con* [id number] Rout ine Cat Scan 07/19/21 08:[address] abdomen pelvis w con* [id number] Rout ine Cat Scan 08/02/21 08:[address] angio chest PE protcl [id number] Rout ine Cat Scan 07/23/21 06:[address] angio chest PE protcl [id number] Urge nt Cat Scan 07/17/21 16:46 Completed CXRP [XR chest 1V portable [id number]] S tat Exams 07/21/21 09:28 Completed XR abdomen 1V* [id number] Routine Exams 07/23/21 08:37 Completed XR chest 1V massiel ble [id number] Routine Exams 07/21/21 07:46 Completed XR chest 1V massiel ble [id number] Routine Exams 07/22/21 07:00 Completed XR chest 1V massiel ble [id number] Routine Exams 07/23/21 07:00 Completed XR chest 1V massiel ble [id number] Routine Exams 07/24/21 07:00 Completed XR chest 1V massiel ble [id number] Routine Exams 07/25/21 07:00 Completed XR chest 1V massiel ble [id number] Routine Exams 07/26/21 07:00 Completed XR chest 1V massiel ble [id number] Routine Exams 07/28/21 07:29 Completed XR chest 1V massiel ble [id number] Routine Exams 07/29/21 13:34 Completed XR chest 1V massiel ble [id number] Stat Exams 07/21/21 10:41 Completed XR chest 1V massiel ble [id number] Urgent Exams 07/17/21 16:45 [place] [id number] Routin e Ultrasound 07/23/21 08:39 Completed CV. echo complete * [id number] Routine Ultrasound 07/18/21 23:11 Completed Pending at discharge Category Date Time Status Fungal Culture no t HR/SK/BL Stat Lab 07/28/21 15:20 Received Labs from last 24 hours 08/11/21 08/10/21 08/10/21 06:25 20:45 16:53 POC Glucose 171 H 141 H 141 H 08/10/21 11:06 POC Glucose 141 H Vitals: Last Vital Signs Temp 98.0 F 08/11/21 07:46 Pulse 96 08/11/21 09:53 Resp 18 08/11/21 09:53 BP 111/74 08/11/21 07:46 Pulse Ox 94 08/11/21 09:53 Discharge Plan Discharge Patient Disposition: Home Condition: Stable Prescriptions: New Lantus Solostar U-100 Insulin 100 unit/mL (3 mL) insulin pen 35 unit SUBCUT DAILY Qty: 15 RF: 0 (DME) Accu-Chek Kierra Plus Meter Misc See Rx Instructions .Route Qty: 1 RF: 0 (DME) Accu-Chek Kierra Plus test strp Strip See Rx Instructions .Route Qty: 100 RF: 0 (DME) Lancets,Ultra Thin Misc See Rx Instructions .Route Qty: 200 RF: 0 Eliquis DVT-PE Treat 30D Start 5 mg (74 tabs) tablets,dose pack See Rx Instructions .ROUTE .COMPLEX Qty: 74 RF: 0 metoprolol tartrate 25 mg tablet 12.5 mg PO BID Qty: 60 RF: 0 alcohol swabs Pads, Medicated 100 pad topical .achs Qty: 100 RF: 0 lisinopril 5 mg tablet 5 mg PO DAILY Qty: 30 RF: 0 albuterol sulfate 90 mcg/actuation HFA aerosol inhaler 2 inh inhalation Q8H PRN (Reason: shortness of breath or wheezing) Qty: 8.5 RF: 0 Humalog KwikPen Insulin 100 unit/mL insulin pen 1 unit SUBCUT QAM Qty: 15 RF: 0 Continued albuterol sulfate 90 mcg/actuation Hfa Aerosol Inhaler 2 puff INHALATION QID PRN (Reason: Shortness Of Breath) RF: 0 Grape Seed Extract Drops 30 drp PO .EIGHT TIMES A DAY RF: 0 Discharge Orders: Discharge Order (Routine); Ordered 08/11/21 Ordered By: Tawny Gilliam Other Ambulatory Orders: DME: Oxygen (Order) Location: None Selected Ordered By: Tawny Gilliam Referrals: [facility] [Outside] Discharge Diet: Diabetic Discharge Activity: Increase activity as tolerated Patient Instructions: Lisinopril (By mouth), Albuterol (By breathing), Insulin Glargine (By injection), Insulin Lispro (By injection), Apixaban (By mouth) (Eliquis), How to Give a Subcutaneous Injection (DC), Using Oxygen at Home (ED), What to Do if Your Blood Sugar is Low (DC), How to Check your Blood Sugar (DC), COVID-19 (Coronavirus Disease 2019) (DC), Opioid Safety Activity Restrictions/Additional Instructions: Blood Glucose (mg/dL) LOW DOSE MODERATE DOSE HIGH DOSE Less than 70 Initiate HYPOglycemia Guidelines Guidelines 70 - 139 0 units 140 - 180 2 units subcut 181 - 240 3 units subcut 241 - 300 4 units subcut 301 - 350 6 units subcut 351 - 400 8 units subcut >400 go to the ER max 10 U a day PLEASE CALL FOR APPOINTMENT WITH YOUR PCP FOR HOSPITAL FOLLOW UP Discharge Attestations Time Spent in Discharge Care*: less than 30 min Quality Metrics Clinical Quality Measures During this hospital stay, did patient experience: None Coding Level of Care Code Acute Chg [facility] note Diagnoses Enteritis K52.9 Hypomagnesemia E83.42 COVID U07.1 Hematuria R31.9 Skin ulcer of cheek L98.499 UTI (urinary tract infection) N39.0 Hypokalemia E87.6 Hypoxia R09.02 Severe sepsis with lactic acidosis A41.9; E87.2; R65.20 Hypophosphatemia E83.39 ARDS (adult respiratory distress syndrome) J80 Asthma J45.909 Asthma complication type: unspecified Asthma persistence: unspecified Asthma severity: unspecified severity Diabetes E11.69 Diabetes mellitus complication status: with other specified complication Diabetes mellitus group home insulin use: unspecified top waddy insulin use status Diabetes mellitus type: type 2 Acute hypoxemic respiratory failure J96.01 DKA (diabetic ketoacidosis) E11.10 Diabetes mellitus complication detail: without coma Diabetes mellitus type: type 2 Lung infiltrate R91.8
[2021-08-11 12:00] VITALS: BP 113/71; PULSE 90; RESP 18; TEMP 36.6; O2SAT 94
[2021-08-11 12:30] LABS: Glucose Point of Care 125 mg/dL (70-110)
[2021-08-11 17:56] VITALS: BP 113/71; PULSE 90; RESP 18; TEMP 36.6; O2SAT 94
--- NOTE | 2021-08-12 08:21 | PC.PHAR ---
Discharge medications delivered to room, counseling request. Rx's for metoprolol, lisinopril, lantus pen, humalog pen, apixaban, testing supplies discussed. Patient and guest showed understanding of meds with overview of function and dosing. Pt currently has no primary provider, from the [facility] - will follow up when they arrive home Apixaban delivered for starter pack but patient has been inpatient for several days, I was concerned about current dose and what step/day of therapy patient could be at without starting over or being discharged on higher dose. (pack starts at 10 mg bid) Nurse looked up: order started at 5 bid on 08/06 so I contacted the provider to clarify the current vs discharge rx. left a message. Provider contacted inpatient pharmacy and stated should be taking 5 bid Wrote dose on front of pack and inside starter pack and discussed dose with patient, she understood.
== END 2021-08-11 17:57 | disposition home or self-care (01) | DRG 870 ==
LOC: ER 17:26 → ICU 20:26 → MEDSURG 08-04 21:22
PROVIDERS: Internal Medicine; Internal Medicine Critical Care Medicine; Internal Medicine Pulmonary Disease; Admitting Provider Student in an Organized Health Care Education/Training Program; Emergency Provider Emergency Medicine; Visit Provider Internal Medicine
DX: A41.9 Sepsis, unspecified organism (principal); E11.10 Type 2 diabetes mellitus with ketoacidosis without coma; E11.00 Type 2 diabetes mellitus with hyperosmolarity without nonketotic hyperglycemic-hyperosmolar coma (NKHHC); U07.1 COVID-19; J80 Acute respiratory distress syndrome; J12.82 Pneumonia due to coronavirus disease 2019; G93.40 Encephalopathy, unspecified; G72.81 Critical illness myopathy; B37.49 Other urogenital candidiasis; R65.20 Severe sepsis without septic shock; J45.909 Unspecified asthma, uncomplicated; I27.20 Pulmonary hypertension, unspecified; E86.0 Dehydration; E87.6 Hypokalemia; I95.9 Hypotension, unspecified; E83.42 Hypomagnesemia; E03.8 Other specified hypothyroidism; F41.0 Panic disorder [episodic paroxysmal anxiety]; K52.9 Noninfective gastroenteritis and colitis, unspecified; I48.0 Paroxysmal atrial fibrillation; L89.812 Pressure ulcer of head, stage 2; R31.9 Hematuria, unspecified; Z79.51 Long term (current) use of inhaled steroids
CPT/HCPCS: 31500; 36415; 36416; 36569; 36592; 36600; 51702; 71045; 71275; 74018; 74177; 80048; 80051; 80053; 80306; 81001; 82009; 82274; 82330; 82533; 82550; 82803; 82805; 82962; 83036; 83605; 83615; 83630; 83690; 83735; 83880; 84100; 84145; 84439; 84443; 84478; 84481; 84484; 85007; 85014; 85018; 85025; 85378; 86140; 86403; 86705; 86706; 86709; 86803; 87040; 87070; 87086; 87102; 87106; 87205; 87206; 87340; 87449; 87493; 87506; 87635; 87641; 87804; 92507; 92523; 92526; 92610; 93005; 93306; 93970; 94002; 94003; 94640; 94660; 94664; 94799; 96365; 96366; 96367; 96372; 96375; 97110; 97116; 97161; 97166; 97530; 97535; 99291; 99292; A4570; C1751; C9113; J0456; J0610; J0637; J0692; J0743; J1100; J1650; J1815 ×2; J1940; J2020; J2060; J2405; J2543; J2704; J2920; J2930; J3010; J3370; J3475; J3480; J3490; J7030; J7040; J7050; J7626; P9041; Q9967